=== PATIENT | female | born 1945 | race Caucasian/White ===

== ENCOUNTER → 2017-08-31 | Outpatient (CLI) | payer MEDICARE, BC ==
[2017-08-31 09:46] LABS: HCT 38.2 % (34.0-46.0); HGB 12.4 gm/dL (11.4-16.0); MCH 30.4 pg (25.0-35.0); MCHC 32.3 g/dL (31.0-37.0); MCV 94.1 fL (80.0-100.0); Mean Platelet Volume 6.8; Platelet Count 281 k/uL (150-450); RBC 4.07 m/uL (3.80-5.40); RDW 13.1 % (11.5-15.5); WBC 5.9 k/uL (3.8-10.6)
[2017-08-31 09:47] LABS: Appearance,Urine Clear (Clear); Bilirubin,Urine Negative (Negative); Blood,Urine Negative (Negative); Color,Urine Light Yellow; Glucose,Urine (UA) Negative (Negative); Ketones,Urine Trace (Negative); Leukocyte Esterase,Urine Negative (Negative); Nitrite,Urine Negative (Negative); Protein,Urine Negative (Negative); Specific Gravity,Urine 1.007 (1.001-1.035); Urobilinogen,Urine <2.0 mg/dL (<2.0)
[2017-08-31 09:49] LABS: Partial Thromboplastin Time 23.1 sec (22.0-30.0); Prothrombin Time 10.1 sec (9.0-12.0)
[2017-08-31 10:02] LABS: Albumin 4.3 g/dL (3.5-5.0); Calcium 9.1 mg/dL (8.4-10.2); Potassium 4.5 mmol/L (3.5-5.1); Total Bilirubin 0.5 mg/dL (0.2-1.3); Total Protein 6.4 g/dL (6.3-8.2)
== END ==
LOC: LABPAT 08:55
PROVIDERS: ATTEND Orthopaedic Surgery
DX: Z01.812 Encounter for preprocedural laboratory examination (principal); M17.12 Unilateral primary osteoarthritis, left knee; Z79.01 Long term (current) use of anticoagulants
CPT/HCPCS: 36415; 80053; 81003; 85027; 85610; 85730; 87070

== ENCOUNTER 2017-09-11 10:28 | Inpatient (IN) | payer MEDICARE, BC ==
[2017-09-04 11:30] VITALS: BMI 30.6
[~2017-09-11 10:28] MED LIST: ACETAMINOPHEN TAB 500 MG TAB PO ONE; DEXAMETHASONE SOD PHOSPHATE 10 MG/ML 1 ML VIAL IV ONE; LIDOCAINE 1% 20 ML VIAL (10MG/ML) FOR IV START INTRADERMA PRN; MIDAZOLAM 2 MG/2 ML VIAL IV PRN; ONDANSETRON 4 MG/2 ML VIAL IVP ONE; TRANEXAMIC ACID 1,000 MG in SODIUM CHLORIDE 0.9% 50 ML IVPB ONE; ceFAZolin IN SWFI 2 GM/20 ML SYRINGE IVP ONE; fentaNYL (PF) 50 MCG/ML 2 ML AMP IV PRN
[2017-09-11] MEDS: LACTATED RINGERS 1,000 ML IV SCH ×2 (11:24→16:59)
[2017-09-11] MEDS ORDERED: diphenhydrAMINE 50 MG/ML 1 ML VIAL ONE (12:41)
[2017-09-11] MEDS ORDERED: TRANEXAMIC ACID 1,000 MG/10 ML VIAL ONE (12:41)
[2017-09-11] MEDS ORDERED: SODIUM CHLORIDE 0.9% 100 ML BAG ONE (12:41)
[2017-09-11] MEDS ORDERED: MIDAZOLAM 2 MG/2 ML VIAL ONE (12:41)
[2017-09-11] MEDS ORDERED: PROPOFOL 10 MG/ML 20 ML VIAL IV ONE (12:41)
[2017-09-11] MEDS ORDERED: fentaNYL (PF) 50 MCG/ML 2 ML AMP ONE (12:41)
[2017-09-11] MEDS ORDERED: ceFAZolin 3,000 MG in SODIUM CHLORIDE 0.9% IRRIGATIO 3,000 ML IRRIGATION ONE (13:17)
[2017-09-11] MEDS ORDERED: ROPIVACAINE 246.25 MG, EPINEPHrine 0.5 MG, KETOROLAC 30 MG, cloNIDine HCL/PF 80 MCG, WA... MISCELLANE ONE ×5 (13:27)
[2017-09-11] MEDS ORDERED: LACTATED RINGERS 1,000 ML IV ONE (14:11)
[2017-09-11] MEDS ORDERED: MORPHINE SULFATE 2 MG/ML SYRINGE IVP PRN ×3 (15:38)
[2017-09-11] MEDS ORDERED: NALOXONE 0.4 MG/ML 1 ML VIAL IV PRN (15:38)
[2017-09-11] MEDS ORDERED: BISACODYL 10 MG SUPP RECTAL PRN (15:38)
--- NOTE | 2017-09-11 15:38 | P.OP ---
Date of Procedure: 09/11/17 Procedure(s) Performed: PREOPERATIVE DIAGNOSIS: Left knee severe osteoarthritis with genu varum POSTOPERATIVE DIAGNOSIS: Left knee severe osteoarthritis with genu varum OPERATION: Left knee cemented total replacement arthroplasty. ANESTHESIA: Spinal ESTIMATED BLOOD LOSS: [address]HER: none COMPLICATIONS: None apparent. COMPONENTS IMPLANTED: Persona system from [employer] INDICATIONS: Mrs. Barboza is a 72 year old female with a history of left knee osteoarthritis. Conservative treatment has been tried and has been unsuccessful in controlling symptoms adequately. The operation of knee replacement has been discussed at length in the office, as well as potential risks and complications. These are inclusive of, but not limited to: bleeding, infection, scarring, discomfort, blood vessel and nerve damage, need for further surgery, failure to relieve symptoms, persistence, recurrence, or worsening of problems, loosening, dislocation, wear, blood clot, pulmonary embolism, , gait dysfunction, stiffness, and other risks as discussed in the office. The patient elects to proceed and the consent form has been signed. PROCEDURE: The patient was taken to the operating room and positioned on the operating room table in the supine position. Anesthesia was initiated. Care was taken to make sure that all pressure points were adequately padded. The operative lower extremity was prepped and draped in the usual aseptic fashion using ChloraPrep. Ioban drape was used for the case and the patient received intravenous antibiotics within one hour of the incision. A pneumotourniquet and leg day were used for the case. The limb was exsanguinated with an Esmarch bandage and the tourniquet was inflated to 350 mmHg. Time-out was called confirming the patient's identity, side, procedure and administration of antibiotics and tranexamic acid, 1 g IV. The incision was then created midline directly over the knee, carried down through skin and into the subcutaneous tissues and down to fascia. Full thickness subcutaneous medial flap was developed. Medial parapatellar arthrotomy was performed and the interior of the knee was inspected. There was end-stage osteoarthritis of the knee with a mild to moderate genu varum type deformity. The fat pad was excised and proximal medial release on the tibia was completed using meticulous dissection and a curved osteotome. The anterior cruciate ligament was taken down. Note was made of significant attrition of the anterior and significant degenerative appearance of the posterior cruciate ligaments. The exposure was excellent. The knee was flexed 90 degrees and the patella was everted. A spot was chosen on the femur approximately 1 cm anterior to the posterior cruciate ligament insertion and an intramedullary hole was created within the femur. The intramedullary guide was then set to 5 degrees of valgus. The distal cutting block was attached and pinned into position. An appropriate amount of distal femoral resection was set. The oscillating saw was then used to make the distal femoral cut. This cut was confirmed to be flat with the flat end of an osteotome. The retractors were placed around the tibia and the tibial surface was addressed. The angle and depth of resection was adjusted using an extramedullary cutting guide. The guide had a built-in 3 degree posterior slope cut. Once the cutting guide was adjusted appropriately and in line with the axis of the tibia and confirmed to be in good position in relation to the second metatarsal and transmalleolar axis, the tibial cut was then created with protection of the posterior neurovascular structures and the collateral ligaments. The tibial cut surface was removed and sized. Femoral sizing was then accomplished using anterior referencing. Care was taken to analyze the posterior condyles for signs of deficiency or severe wear, and adjustments to the guide were made, as appropriate. 3 degree external rotation pins were placed. The cutting jig for the femur was applied to these pins. The planned cuts were further analyzed prior to performing them with the oscillating saw. No femoral notching was produced. Bone fragments were removed and the cut surfaces were finished, as necessary, with a reciprocating saw. Spacer block technique was then used to confirm that the flexion and extension gaps were equal. Soft tissue releases and adjustment of the tibial and/or femoral cuts were made, as necessary, until the gaps were equal. This included release of the posterior cruciate ligament, which was tight in this patient. The femur was then further finished for a posterior cruciate ligament substituting component. Patellar resurfacing was performed using a reamer. The size of the required patellar component was estimated and the patellar surface was then reamed down to a residual thickness which would recreate the [place] thickness with the component. The exact placement of the patellar component was adjusted for position based on preoperative x-rays and intraoperative findings. Prior to placing trial components, anesthetic solution consisting of ropivicaine with epinephrine, ketorolac, and clonidine was injected carefully and methodically in a grid pattern using aspiration technique into the soft tissue around the knee circumferentially, starting with the deeper tissues first and progressing to fascia, and then finally the skin/subcutaneous tissue. Particular care was taken when injecting the posterior capsule. The trial components were inserted. The tibial tray was allowed to self center and the patella was noted to track very well. The position of the tibial component was marked and the tibia was then finished for a stemmed tibial component. Cement was mixed on the back table and applied to the final components. Trial components were removed and the cut surfaces of the bone were pulse lavaged thoroughly and dried. Cement was then applied to the tibial surface and pressurized into the surface using finger pressurization technique. The tibial component was then applied and excess cement was removed after it was impacted securely and noted to be flush with the cut surface. In similar fashion, the cement was applied to the cut femoral surface, pressurized in using finger pressurization and the component was impacted into place. Excess cement was removed. The polyethylene spacer was then implanted and locked into position. The patellar component was then applied in similar technique and a patellar clamp was used to hold the patella in place as the cement hardened. Once the cement had fully hardened, the knee was reinspected. Any other cement extrusion was removed and final kinematic testing showed range of motion from 0 to 130 degrees with excellent stability, both medially and laterally and appropriate alignment of the leg. Patellar tracking was excellent. The knee was then thoroughly pulse lavaged with normal saline. The tourniquet was deflated and hemostasis was obtained with electrocautery and IV tranexamic acid, 1 g given prior to inflation of the tourniquet and another gram given at the time of closure. Closure was with #2 Ethibond in the fascia and supplemented with #2 Quill, 2-0 Vicryl suture was used for the subcutaneous tissues and 3-0 Quill for the skin. Dermabond/Steri-Strips were then applied. A lightly compressive dressing was applied using Webril and an Rubio wrap. The patient was then transferred to stretcher and taken to the recovery room in stable condition. Sponge and needle counts were correct.
--- NOTE | 2017-09-11 16:31 | XR ---
EXAMINATION TYPE: XR knee limited LT DATE OF EXAM: 09/11/2017 COMPARISON: None HISTORY: Postop knee replacement TECHNIQUE: 2 view left knee FINDINGS: Tibial and femoral components of in place. Postsurgical changes are evident. No acute fract ures are present. IMPRESSION: 1. No acute fracture post knee replacement.
[2017-09-11] MEDS ORDERED: WARFARIN 5 MG TAB PO ONE (18:00)
[2017-09-11] MEDS: SENNOSIDES-DOCUSATE SODIUM 1 EACH TAB PO SCH (21:28)
[2017-09-11] MEDS: HYDROcodone/APAP 7.5-325MG 1 EACH TAB PO PRN (21:29)
[2017-09-11] MEDS: ceFAZolin IN SWFI 2 GM/20 ML SYRINGE IVP SCH (21:56)
--- NOTE | 2017-09-12 00:32 | CONS ---
CONSULTATION DATE OF SERVICE: 09/11/2017 REASON FOR CONSULTATION: Advice regarding DJD and other multiple medical issues requested by Dr. Galeas. HISTORY OF PRESENT ILLNESS: This 72-year-old woman with a past history of DJD, history of varicose veins, history of leaky heart valve, history of skin cancer, being followed by Dr. Corinne Quintero in the outpatient setting underwent a left total knee joint arthroplasty by Dr. Galeas. There is no history of fever, rigors. No history of headache, loss of consciousness, seizures at this time. The patient is started on Coumadin for DVT prophylaxis. PAST MEDICAL HISTORY: History of DJD, history of varicose veins, history of skin cancer. MEDICATIONS: Home medications are: 1. Coumadin yesterday. 2. Zocor 20 mg q.h.s. 3. Mobic 7.5 daily p.r.n. 4. Glucosamine. 5. Vitamin D3 1000 mg daily. 6. Calcium 600 mg p.o. daily. ALLERGIES: None. FAMILY HISTORY: History of cancer in the family. SOCIAL HISTORY: No history of smoking. Occasional alcohol intake. REVIEW OF SYSTEMS: ENT: No diminished vision or hearing. Cardio system: No angina or palpitations. Respiratory: No cough. GI: No nausea or vomiting. : No dysuria. Nervous System: No numbness or weakness. ALLERGY/IMMUNOLOGY: As mentioned earlier. HEMATOLOGY/ONCOLOGY: No history of anemia. Endocrine: No history of diabetes or hypothyroidism. CONSTITUTIONAL: As mentioned earlier. Dermatology: Negative. Rheumatology: Negative. Psychiatry: As mentioned earlier. PHYSICAL EXAMINATION: Alert, oriented x3. Pulse 72, blood pressure 130/52, respiration 16, temp is normal, pulse ox 99% on room air. HEENT: Conjunctivae normal. Oral mucosa moist. Neck is no jugular venous distention. No carotid bruit. No lymph nodes enlargement. Cardiovascular: S1, S2 muffled. Respirations: Breath sounds diminished in the bases. No rhonchi. No crackles. ABDOMEN: Soft, nontender. LEGS: Status post left knee arthroplasty. NERVOUS SYSTEM: Higher functions as mentioned earlier. Moves all four limbs. No focal deficits. Lymphatics: No lymph nodes palpable in the neck, axillae or groin. SKIN: No ulcer, rash or bleeding. LABS: Done recently. Outpatient CBC, BMP within normal limits. ASSESSMENT: 1. Status post left total knee joint arthroplasty. 2. History of skin cancer. 3. History of degenerative joint disease. 4. Hyperlipidemia. 5. FULL CODE. RECOMMENDATIONS AND DISCUSSION: This 72-year-old woman who presented with multiple medical issues, at this time, I recommend to continue current medications, management and symptomatic treatment. Resume the home medications. DVT prophylaxis: Coumadin monitoring. Incentive spirometry. We will follow the patient closely with you. Also recommend follow up with surgery. Patient may be asked to follow up with Dr. Corinne Quintero closely after discharge. Thank you, Dr. Galeas, for letting us participate in the care of this patient. MMODL / IJN: [id number] /
[2017-09-12] MEDS: HYDROcodone/APAP 7.5-325MG 1 EACH TAB PO PRN ×4 (01:33→21:13)
[2017-09-12] MEDS: ceFAZolin IN SWFI 2 GM/20 ML SYRINGE IVP SCH (04:43)
[2017-09-12 07:42] LABS: Basophils % (A) 0 %; Eosinophils # (A) 0.1 k/uL (0-0.7); Eosinophils % (A) 1 %; HCT 33.1 % (34.0-46.0); HGB 10.9 gm/dL (11.4-16.0); Lymphocytes # (A) 0.7 k/uL (1.0-4.8); Lymphocytes % (A) 8 %; MCH 30.5 pg (25.0-35.0); MCHC 32.8 g/dL (31.0-37.0); MCV 92.9 fL (80.0-100.0); Mean Platelet Volume 7.1; Monocytes # (A) 0.5 k/uL (0-1.0); Monocytes % (A) 6 %; Neutrophils # (A) 7.1 k/uL (1.3-7.7); Neutrophils % (A) 85 %; Platelet Count 225 k/uL (150-450); RBC 3.56 m/uL (3.80-5.40); RDW 12.9 % (11.5-15.5); WBC 8.4 k/uL (3.8-10.6)
[2017-09-12 07:56] LABS: INR 1.2 (<1.2); Prothrombin Time 11.7 sec (9.0-12.0)
[2017-09-12] MEDS: CALCIUM CARBONATE 500 MG CHEWABLE PO SCH (08:45)
[2017-09-12] MEDS: CHOLECALCIFEROL 1,000 UNIT TAB PO SCH (08:45)
[2017-09-12] MEDS: traMADol 50 MG TAB PO PRN ×2 (10:16→17:38)
--- NOTE | 2017-09-12 11:10 | P.PN ---
Subjective Progress Note Date: 09/12/17 Principal diagnosis: Status post left total knee arthroplasty This is a 72 year-old female post left total knee arthroplasty. This is post- op day 1. The patient was evaluated at the bedside today. The patient denies nausea, vomiting, abdominal pain, shortness of breath, and chest pain this morning. She states her pain is controlled at this time. The patient has been up with physical therapy. The patient was feeling dizzy upon getting up earlier this morning and upon getting orthostatic vitals the patient did become dizzy and vomited. Objective - Vital Signs Vital signs: Vital Signs Temp 98.1 F 09/12/17 07:00 Pulse 76 09/12/17 10:38 Resp 16 09/12/17 10:38 BP 117/61 09/12/17 10:38 Pulse Ox 95 09/12/17 10:38 Intake & Output 09/11/17 09/12/17 09/12/17 18:59 06:59 18:59 Intake Total 1401 1030 Output Total 50 600 Balance 1351 430 Weight 77.111 kg Intake: IV 1401 Intake, IV Titration 880 Amount Lactated Ringers 1,000 ml 880 @ 20 mls/hr IV .Q24H SIMA Rx#:[id number] Oral 150 Output: Urine 600 Estimated Blood Loss 50 Other: Voiding Method Toilet # Voids 2 - Exam The patient does not appear in acute distress. Alert and orientated x3. Dressing is clean dry and intact. Incision appears fine with no erythema or active drainage. Calf is soft and nontender. Good foot and ankle motion without difficulty. Sensation and circulatory status is intact. - Labs CBC & Chem 7: 09/12/17 06:43 Labs: Abnormal Lab Results - Last 24 Hours (Table) 09/12/17 09/12/17 Range/Units 06:43 06:43 RBC 3.56 L (3.80-5.40) m/uL Hgb 10.9 L (11.4-16.0) gm/dL Hct 33.1 L (34.0-46.0) % Lymphocytes # 0.7 L (1.0-4.8) k/uL INR 1.2 H (<1.2) Assessment and Plan (1) Osteoarthritis of left knee Current Visit: Yes Status: Acute Code(s): M17.12 - UNILATERAL PRIMARY OSTEOARTHRITIS, LEFT KNEE SNOMED Code(s): 299308111660011 (2) Status post total left knee replacement Current Visit: Yes Status: Acute Code(s): Z96.652 - PRESENCE OF LEFT ARTIFICIAL KNEE JOINT SNOMED Code(s): 5763630657912 Plan: 1. Continue pain control 2. Anticoagulation with Coumadin per protocol 3. Continue physical therapy and ambulation 4. Anticipate discharge home either today or tomorrow upon how the patient feels.
[2017-09-12] MEDS: MULTIVITAMINS, THERA 1 EACH TAB PO SCH (12:10)
[2017-09-12] MEDS: ONDANSETRON 4 MG/2 ML VIAL IVP PRN (13:22)
[2017-09-12] MEDS: LACTATED RINGERS 1,000 ML IV SCH (14:10)
--- NOTE | 2017-09-12 15:23 | PN ---
PROGRESS NOTE DATE OF SERVICE: 09/12/2017. This 72-year-old woman who was admitted after left total knee arthroplasty is complains of dizziness. No chest pain. No palpitations. No fever. PHYSICAL EXAM: Alert, oriented x3. Pulse 72, blood pressure 117/61, respirations 16, temperature is normal, pulse ox 94% on room air. HEENT: Conjunctivae normal. Oral mucosa moist. NECK: No jugular venous distention. No carotid bruit. CARDIOVASCULAR: S1, S2. RESPIRATORY: Breath sounds diminished in the bases. No rhonchi. No crackles. ABDOMEN: Soft, nontender. LEGS: Status post left knee arthroplasty. NERVOUS SYSTEM: No focal deficits. LABS: WBC 8, hemoglobin 10.9. ASSESSMENT: 1. Status post left total knee joint arthroplasty. 2. History of skin cancer. 3. History of degenerative joint disease. 4. Hyperlipidemia. RECOMMENDATIONS AND DISCUSSION: I recommend to continue current management and orthostatic vitals. Otherwise continue to monitor and discharge per Orthopedic Surgery. The patient discharged, I recommend close follow up with primary physician. The rest of the recommendations per Orthopedic Surgery. Further recommendations to follow. MMODL / IJN: [id number] / CHRYSTAL
[2017-09-12] MEDS ORDERED: WARFARIN 5 MG TAB PO ONE (18:00)
[2017-09-12] MEDS ORDERED: ATORVASTATIN 10 MG TAB PO SCH (21:00)
[2017-09-12] MEDS: SENNOSIDES-DOCUSATE SODIUM 1 EACH TAB PO SCH (21:13)
[2017-09-13] MEDS: traMADol 50 MG TAB PO PRN ×2 (00:03→06:11)
[2017-09-13] MEDS: HYDROcodone/APAP 7.5-325MG 1 EACH TAB PO PRN ×2 (02:46→08:41)
[2017-09-13] MEDS: ONDANSETRON 4 MG/2 ML VIAL IVP PRN (06:11)
[2017-09-13 07:34] VITALS: BP 125/67; PULSE 69; RESP 14; TEMP 98.5
[2017-09-13] MEDS: CHOLECALCIFEROL 1,000 UNIT TAB PO SCH (08:36)
[2017-09-13] MEDS: CALCIUM CARBONATE 500 MG CHEWABLE PO SCH (08:36)
[2017-09-13 08:47] LABS: INR 1.8 (<1.2); Prothrombin Time 16.7 sec (9.0-12.0)
--- NOTE | 2017-09-13 08:58 | P.DS ---
Providers Date of admission: 09/11/17 10:28 Expected date of discharge: 09/13/17 Attending physician: Lester Galeas Consults: 09/11/17 15:43 Consult Physician Routine Consulting Provider: Corinne Quintero Consult Reason/Comments: your patient, medical coverage following knee replacement Do you want consulting provider notified?: Yes 09/11/17 16:37 Consult Physician Routine Consulting Provider: Niecy Ac Consult Reason/Comments: medical management Do you want consulting provider notified?: Yes Primary care physician: Corinne Quintero - Discharge Diagnosis(es) (1) Osteoarthritis of left knee Current Visit: Yes Status: Acute (2) Status post total left knee replacement Current Visit: Yes Status: Acute Hospital Course: This is a 72-year-old female last seen in our office with complaints of left knee pain. Patient has known history of degenerative arthritis of the left knee and presented to discuss options. After discussion and consideration, the patient elected to proceed with a left total knee arthroplasty. Patient was seen preoperatively, and medically cleared for surgery by her primary care physician. Patient was admitted to [facility] underwent left total knee arthroplasty on 09/11/[address] Galeas. The procedure was performed without complications or sequelae. The patient is seen and evaluated at bedside today. Pain is well-controlled. Patient has no new complaints today and denies any fevers, chills, chest pain, or shortness of breath. She has been experiencing nausea and vomiting over the last day. Vital signs are stable. Dressing is clean dry and intact. Incision looks fine with no erythema or active drainage. Calf is soft and nontender. Patient has full foot and ankle motion without difficulty. Patient's left lower extremity is neurovascularly intact. The patient is orthopedically stable for discharge today. Pertinent Studies: Laboratory Tests 09/12/17 09/13/17 06:43 08:21 WBC 8.4 RBC 3.56 L Hgb 10.9 L Hct 33.1 L PT 16.7 H INR 1.8 H Patient Condition at Discharge: Stable Plan - Discharge Summary Discharge Rx Participant: Yes New Discharge Prescriptions: New Hydrocodone/Acetaminophen [Manly 7.5-325] 1 - 2 tab PO Q4-6H PRN 7 Days #84 tab PRN Reason: Pain Sennosides-Docusate Sodium [Senokot-S] 2 tab PO DAILY #30 tablet Warfarin [Coumadin] 2.5 mg PO DAILY #30 tab Ondansetron Odt [Zofran Odt] 4 mg PO Q8HR PRN #20 tab PRN Reason: Nausea No Action Glucosam/Ambrosio-Msm1/C/Tiburcio/Bosw [Glucosamine-Chondroitin Tablet] 1 tab PO DAILY Cholecalciferol [Vitamin D3] 1,000 unit PO DAILY Calcium Carbonate [Calcium] 600 mg PO DAILY Simvastatin [Zocor] 20 mg PO HS Meloxicam [Mobic] 7.5 mg PO DAILY PRN PRN Reason: Pain Warfarin [Coumadin] See Taper PO DIRECTED Discharge Medication List Calcium Carbonate [Calcium] 600 mg PO DAILY 09/04/17 [History] Cholecalciferol [Vitamin D3] 1,000 unit PO DAILY 09/04/17 [History] Glucosam/Ambrosio-Msm1/C/Tiburcio/Bosw [Glucosamine-Chondroitin Tablet] 1 tab PO DAILY 09/04/17 [History] Meloxicam [Mobic] 7.5 mg PO DAILY PRN 09/04/17 [History] Simvastatin [Zocor] 20 mg PO HS 09/04/17 [History] Warfarin [Coumadin] See Taper PO DIRECTED 09/11/17 [History] Hydrocodone/Acetaminophen [Manly 7.5-325] 1 - 2 tab PO Q4-6H PRN 7 Days #84 tab 09/12/17 [Rx] Sennosides-Docusate Sodium [Senokot-S] 2 tab PO DAILY #30 tablet 09/12/17 [Rx] Warfarin [Coumadin] 2.5 mg PO DAILY #30 tab 09/12/17 [Rx] Ondansetron Odt [Zofran Odt] 4 mg PO Q8HR PRN #20 tab 09/13/17 [Rx] Follow up Appointment(s)/Referral(s): [facility], [NON-STAFF] - Corinne Quintero MD [Primary Care Provider] - 09/19/17 11:00 am Lester Galeas MD [STAFF PHYSICIAN] - 09/25/17 2:55 pm Ambulatory/Diagnostic Orders: Continuous Passive Motion (CPM) Machine [DME.AMB1] Time Frame: 3 Weeks, Location : None Selected Prothrombin Time INR [LAB.AMB] Location: None Selected Activity/Diet/Wound Care/Special Instructions: Weightbearing as tolerated with a walker CPM daily Daily dressing changes, keep incision clean and dry May shower in 3 days if no drainage Coumadin 2.5 mg 1 by mouth daily with weekly PT/INRs Call [facility] with questions or concerns [phone] Call once home to arrange CPM [facility] [phone] - [facility] Discharge Disposition: HOME WITH HOME HEALTH SERVICES
[2017-09-13] MEDS ORDERED: PANTOPRAZOLE 40 MG/10 ML VIAL IVP SCH (10:45)
[2017-09-13] MEDS: MULTIVITAMINS, THERA 1 EACH TAB PO SCH (11:03)
--- NOTE | 2017-09-13 11:49 | US ---
EXAMINATION TYPE: US venous doppler duplex LE LT DATE OF EXAM: 09/13/2017 10:45 AM COMPARISON: NONE CLINICAL HISTORY: Rule Out DVT. SIDE PERFORMED: left TECHNIQUE: The lower extremity deep venous system is examined utilizing real time linear array sonog corbin with graded compression, doppler sonography and color-flow sonography. VESSELS IMAGED: External Iliac Vein (EIV) Common Femoral Vein Deep Femoral Vein Greater Saphenous Vein * Femoral Vein Popliteal Vein Small Saphenous Vein * Proximal Calf Veins (* superficial vessels) Left Leg: Negative for DVT IMPRESSION: Grayscale, color doppler, spectral doppler imaging performed of the deep veins of the lo wer extremities. There is normal flow, compressibility, vascular waveforms.
--- NOTE | 2017-09-13 14:17 | PN ---
PROGRESS NOTE DATE OF SERVICE: 09/13/2017 This is a 72-year-old woman was admitted with left total knee arthroplasty, complaining of left knee pain and leg swelling. Also no chest pain. No palpitations. No fever. PHYSICAL EXAM: Alert and oriented x3. Pulse 69, blood pressure 120/67, respiration 14, temperature 98.4, pulse ox 94% on room air. HEENT: Conjunctivae normal. NECK: No jugular venous distension. CARDIOVASCULAR: S1, S2, muffled. RESPIRATORY: Breath sounds diminished at the bases, no rhonchi, no crackles. ABDOMEN: Soft, nontender. LEGS: Status post knee surgery. Otherwise, minimal swelling also present. NERVOUS SYSTEM: No focal deficits. LABS: INR is 1.8, hemoglobin is 10.9. ASSESSMENT: 1. Status post left total knee arthroplasty. 2. History of skin cancer. 3. History of degenerative joint disease. 4. Hyperlipidemia. 5. Left knee swelling and left leg swelling with negative ultrasound. RECOMMENDATION AND DISCUSSION: In this 72-year-old woman who presented with multiple medical issues at this time, I would recommend to continue current management. Orthopedics is planning discharge. I would recommend close follow up with the primary physician, and Dr. Quintero and rest of the recommendation per Orthopedic Surgery. Further recommendations to follow. MMODL / IJN: [id number] /
[2017-09-13] MEDS ORDERED: WARFARIN 5 MG TAB PO ONE (18:00)
== END 2017-09-13 13:45 | disposition home health service (06) | DRG 470 ==
LOC: 2ORMAIN 10:28 → 3SUR 16:21
PROVIDERS: ADMIT Orthopaedic Surgery; ATTEND Orthopaedic Surgery
PROC: 0SRD0J9 Replacement of Left Knee Joint with Synthetic Substitute, Cemented, Open Approach (ICD-10-PCS; principal; 2017-09-11 12:30)
DX: M17.12 Unilateral primary osteoarthritis, left knee (principal); I38 Endocarditis, valve unspecified; M21.162 Varus deformity, not elsewhere classified, left knee; E78.5 Hyperlipidemia, unspecified; Z80.9 Family history of malignant neoplasm, unspecified; Z79.01 Long term (current) use of anticoagulants; Z79.1 Long term (current) use of non-steroidal anti-inflammatories (NSAID); Z79.899 Other long term (current) drug therapy; Z85.820 Personal history of malignant melanoma of skin; Z98.51 Tubal ligation status
CPT/HCPCS: 85025; 85610; 88300

== ENCOUNTER 2019-02-07 10:39 | Day surgery (SDC) | payer MEDICARE, BC ==
[2019-02-05 17:39] VITALS: BMI 30.2
[~2019-02-07 10:39] MED LIST changes: -ACETAMINOPHEN TAB 500 MG TAB PO ONE; -DEXAMETHASONE SOD PHOSPHATE 10 MG/ML 1 ML VIAL IV ONE; +LACTATED RINGERS 1,000 ML IV SCH; -MIDAZOLAM 2 MG/2 ML VIAL IV PRN; -ONDANSETRON 4 MG/2 ML VIAL IVP ONE; -TRANEXAMIC ACID 1,000 MG in SODIUM CHLORIDE 0.9% 50 ML IVPB ONE; -ceFAZolin IN SWFI 2 GM/20 ML SYRINGE IVP ONE; -fentaNYL (PF) 50 MCG/ML 2 ML AMP IV PRN
[2019-02-07 11:14] VITALS: RESP 18; TEMP 98.8
[2019-02-07 11:22] LABS: Glucose,Whole Blood 98 mg/dL (75-99)
[2019-02-07] MEDS ORDERED: PROPOFOL 10 MG/ML 20 ML VIAL IV ONE (11:33)
--- NOTE | 2019-02-07 12:01 | P.PCN ---
Date of Procedure: 02/07/19 Procedure(s) Performed: BRIEF HISTORY: Patient is a 73-year-old pleasant white female scheduled for an elective colonoscopy as a part of evaluation of positive cologuard. her last colonoscopy was 5 years ago PROCEDURE PERFORMED: Colonoscopywith biopsy and tattooing with Lorenza ink PREOPERATIVE DIAGNOSIS: positive cologuard IV sedation per Anesthesia. PROCEDURE: After informed consent was obtained, the patient, was brought into the endoscopy unit. IV sedation was administered by Anesthesia under continuous monitoring. Digital rectal examination was normal. Initially the Olympus CF-160 flexible video colonoscope was then inserted in the rectum, gradually advanced into the cecum without any difficulty. Careful examination was performed as the scope was gradually being withdrawn. Ileocecal valve and the appendiceal orifice were visualized and appeared normal. Prep was excellent. Mucosa of the cecum, ascending colon, transverse colon, descending colon, sigmoid colon, and rectum appeared normal. Retroflexion was performed in the rectum and no lesions were seen. The patient tolerated the procedure well. IMPRESSION: 4-5 cm raised lesion in the proximal descending colon closer to the hepatic flexure extending from 65 to 70 cm from the anal verge status post multiple biopsies followed by tattooing with Lorenza ink scattered sigmoidal diverticulosis RECOMMENDATIONS: Findings of this examination were discussed with the patient as well as a family. She was advised to follow with the biopsy results. She'll be seen in office next week to discuss the biopsy results. In the meantime she will be scheduled for CT of the abdomen and pelvis..
[2019-02-07 12:18] VITALS: BP 147/71; PULSE 74
== END 2019-02-07 12:34 | disposition home or self-care (01) ==
LOC: ORWHC2ENDO 10:39
PROVIDERS: ATTEND Internal Medicine Gastroenterology
DX: K57.30 Diverticulosis of large intestine without perforation or abscess without bleeding (principal); C83.39 Diffuse large B-cell lymphoma, extranodal and solid organ sites; C80.1 Malignant (primary) neoplasm, unspecified; I38 Endocarditis, valve unspecified; Z85.828 Personal history of other malignant neoplasm of skin; M19.90 Unspecified osteoarthritis, unspecified site; Z79.899 Other long term (current) drug therapy
CPT/HCPCS: 88305; 88342; 88341; 45380; 45381; J2704; 44404

== ENCOUNTER 2019-02-20 14:16 | Inpatient (IN) | payer BC, MEDICARE ==
[2019-02-20] MEDS ORDERED: NALOXONE 0.4 MG/ML 1 ML VIAL IV PRN (16:29)
[2019-02-20] MEDS ORDERED: HYDROcodone/APAP 5-325MG 1 EACH TAB PO PRN (16:32)
[2019-02-20] MEDS ORDERED: IOPAMIDOL CONTRAST (ORAL USE) VIAL PO PRN (16:41)
[2019-02-20 17:11] LABS: Basophils % (A) 1 %; Eosinophils # (A) 0.1 k/uL (0-0.7); Eosinophils % (A) 1 %; HCT 30.4 % (34.0-46.0); HGB 9.7 gm/dL (11.4-16.0); Lymphocytes # (A) 0.8 k/uL (1.0-4.8); Lymphocytes % (A) 10 %; MCH 28.5 pg (25.0-35.0); MCHC 31.9 g/dL (31.0-37.0); MCV 89.3 fL (80.0-100.0); Mean Platelet Volume 7.2; Monocytes # (A) 0.4 k/uL (0-1.0); Monocytes % (A) 5 %; Neutrophils # (A) 6.7 k/uL (1.3-7.7); Neutrophils % (A) 82 %; Platelet Count 330 k/uL (150-450); RDW 13.2 % (11.5-15.5); WBC 8.2 k/uL (3.8-10.6)
--- NOTE | 2019-02-20 17:14 | XR ---
EXAMINATION TYPE: XR chest 1V portable DATE OF EXAM: 02/20/2019 COMPARISON: NONE HISTORY: Short of breath TECHNIQUE: Single view FINDINGS: Heart is borderline enlarged. There is no heart failure. Lungs are clear of consolidation. There is no pleural effusion. There is mild subsegmental atelectasis left lung base. IMPRESSION: Minimal subsegmental atelectasis.
[2019-02-20 17:22] LABS: INR 1.1 (<1.2); Prothrombin Time 11.3 sec (9.0-12.0)
[2019-02-20 17:24] LABS: Albumin 3.9 g/dL (3.5-5.0); Calcium 11.3 mg/dL (8.4-10.2); Magnesium 1.5 mg/dL (1.6-2.3); Potassium 3.1 mmol/L (3.5-5.1); Total Bilirubin 0.5 mg/dL (0.2-1.3); Total Protein 6.1 g/dL (6.3-8.2)
[2019-02-20] MEDS: SODIUM CHLORIDE 0.9% 1,000 ML IV SCH (20:39)
[2019-02-20] MEDS: HEPARIN SODIUM,PORCINE 5,000 UNIT/ML 1 ML VIAL SQ SCH (20:39)
[2019-02-20 21:09] LABS: Appearance,Urine Clear (Clear); Bilirubin,Urine Negative (Negative); Blood,Urine Negative (Negative); Color,Urine Light Yellow; Glucose,Urine (UA) Negative (Negative); Ketones,Urine Negative (Negative); Leukocyte Esterase,Urine Moderate (Negative); Mucus,Urine Rare /hpf; Nitrite,Urine Negative (Negative); PH, Urine 5.5 (5.0-8.0); Protein,Urine Negative (Negative); RBC,Urine 1 /hpf (0-5); Specific Gravity,Urine 1.009 (1.001-1.035); Squamous Epithelial Cell,Urine <1 /hpf (0-4); Urobilinogen,Urine <2.0 mg/dL (<2.0); WBC,Urine 24 /hpf (0-5)
[2019-02-20] MEDS ORDERED: SODIUM CHLORIDE 0.9% 1,000 ML IV ONE (21:41)
--- NOTE | 2019-02-20 22:55 | HP ---
HISTORY AND PHYSICAL CHIEF COMPLAINTS: Wobbly gait and as well as lymphoma. HISTORY OF PRESENT ILLNESS: This 73-year-old woman with a past medical history of multiple medical problems including DJD, history of varicose veins, history of breast surgery, history of knee joint surgery being followed by Corinne Quintero in the outpatient setting was recently evaluated in the outpatient setting by Dr. Garcias for positive Cologuard testing. Colonoscopy showed a raised lesion 4.5 cm in the proximal descending colon closer to the hepatic flexure extending from 60 to 70% in the anal verge and biopsies were taken. The biopsy report showed a crushed lymphoproliferative neoplasm consistent with diffuse large B-cell lymphoma, germinal center type involving submucosa of the colon. Apparently outpatient evaluation ongoing, but currently the patient had wobbly gait and difficulty walking this morning and the patient went to [facility] in [place] and Dr. Godinez discussed the case at length over the phone. The patient transferred to [facility] for further evaluation and treatment. There is no history of fever, rigors or chills. No history of headache, loss of consciousness or seizures. Initial evaluation at [place] including CT scan of the brain showed only white matter ischemic changes. Otherwise, the chest x-ray was unremarkable. There is no history of fever, rigors or chills. No history of headache, loss of consciousness or seizures. Serum lactic acid was high and the pt has features of possible uti with sepsis from the labs. PAST MEDICAL HISTORY: History of DJD, history of recent diagnosis of lymphoma, history of breast surgery, history of knee replacement. MEDICATIONS: Home medications are: 1. Zocor 20 mg q.h.s. 2. Glucosamine chondroitin 1 tablet p.o. daily. 3. Folic acid 0.8 daily. 4. Vitamin B12 1000 mcg p.o. daily. 5. Vitamin D3 1000 daily. 6. Calcium 600 mg p.o. daily. 7. Vitamin C 1000 mg p.o. daily. 8. Tylenol 500,000 q.8h p.r.n. ALLERGIES: None. FAMILY HISTORY: History of colon cancer in the family. SOCIAL HISTORY: No history of smoking. Occasional alcohol intake. REVIEW OF SYSTEMS: ENT: Diminished vision. Diminished hearing. CARDIOVASCULAR: No angina or palpitations. RESPIRATION: No cough. No hemoptysis. GI as mentioned earlier. : No dysuria. CENTRAL NERVOUS SYSTEM: As mentioned earlier. ALLERGY/IMMUNOLOGY: No asthma or hayfever. MUSCULOSKELETAL as mentioned earlier. HEMATOLOGY/ONCOLOGY: As mentioned earlier. ENDOCRINE no history of diabetes or hypothyroidism. CONSTITUTIONAL: As mentioned earlier. DERMATOLOGY: Negative. RHEUMATOLOGY negative. PSYCHIATRY as mentioned. PHYSICAL EXAMINATION: Alert and oriented times three. Pulse 83, blood pressure 180/74, respirations 16, temperature 98.2, pulse ox 93% on room air. HEENT: Conjunctivae normal. NECK: No JVD. CARDIOVASCULAR system: S1, S2 muffled. No S3, no S4. RESPIRATORY: Breath sounds diminished in the bases. No rhonchi. No crackles. ABDOMEN: Soft, nontender. No mass palpable. LEGS: No edema. No swelling. NERVOUS SYSTEM: Higher functions as mentioned earlier. , Otherwise cranial nerves 2 thru 12 grossly intact. Moves all 4 limbs. No sensory or cerebellar dysfunction. LYMPHATICS: No lymph nodes palpable in the neck, axilla or groin. SKIN: No ulcers, no rashes and no bleeding. JOINTS: No active deforming arthropathy. LABS: Awaited at this time. ASSESSMENT: 1. Gait dysfunction and wobbly gait, possible acute transient ischemic attack. 2. Recently diagnosed diffuse large B-cell lymphoma, germinal center type involvement of the submucous of the colon status post colonoscopy and biopsy. High lactic acid UTI with possible sepsis POA 3. Hypertension. 4. Degenerative joint disease. 5. History of varicose veins. 6. History of hyperlipidemia. 7. History of skin cancer. RECOMMENDATIONS AND DISCUSSION: This 72-year-old who woman who presented with multiple complex medical issues, we will monitor the patient closely, continue the current medications, management and symptomatic treatment. I recommend antiplatelet agents and resume the home medications. DVT prophylaxis. Also recommend a CT scan of the abdomen and pelvis and as well as chest also to complete the workup. Otherwise, as a part of the workup. Otherwise neurology will be consulted. Neuro checks. Complete neurology evaluation. Guarded prognosis because of multiple complex medical issues. Further recommendations to follow. A copy of dictation will be forwarded to Dr. Corinne Quintero who is the primary physician. Discussed with the patient who understands and agrees. MMODL / IJN: [id number] / MTDJewel
[2019-02-20] MEDS: TEMAZEPAM 15 MG CAP PO PRN (23:09)
[2019-02-21 05:54] LABS: Basophils % (A) 0 %; Eosinophils # (A) 0.1 k/uL (0-0.7); Eosinophils % (A) 2 %; HCT 26.9 % (34.0-46.0); HGB 8.8 gm/dL (11.4-16.0); Lymphocytes % (A) 14 %; MCH 29.6 pg (25.0-35.0); MCHC 32.8 g/dL (31.0-37.0); MCV 90.4 fL (80.0-100.0); Mean Platelet Volume 7.8; Monocytes # (A) 0.3 k/uL (0-1.0); Monocytes % (A) 5 %; Neutrophils # (A) 5.1 k/uL (1.3-7.7); Neutrophils % (A) 76 %; Platelet Count 288 k/uL (150-450); RBC 2.98 m/uL (3.80-5.40); RDW 13.1 % (11.5-15.5); WBC 6.8 k/uL (3.8-10.6)
[2019-02-21 06:08] LABS: Calcium 10.3 mg/dL (8.4-10.2)
[2019-02-21] MEDS: PANTOPRAZOLE 40 MG TABLET PO SCH (08:21)
[2019-02-21] MEDS: MULTIVITAMINS, THERA 1 EACH TAB PO SCH (08:22)
[2019-02-21] MEDS: HEPARIN SODIUM,PORCINE 5,000 UNIT/ML 1 ML VIAL SQ SCH ×2 (08:22→20:22)
[2019-02-21] MEDS ORDERED: RX INFO: IV CONTRAST WAS GIVEN 1 EACH MISC MISCELLANE PRN (11:14)
--- NOTE | 2019-02-21 12:58 | CT ---
EXAMINATION TYPE: CT chest w con DATE OF EXAM: 02/21/2019 COMPARISON: Radiograph 02/20/2019 HISTORY: 73-year-old female Lymphoma TECHNIQUE: Contiguous axial scanning of the chest after the administration of 100 mL of Isovue 300. Coronal/sagittal reconstructions performed. CT DLP: 233.3mGycm. Automatic exposure control utilized for a dose reduction. FINDINGS: Heart upper limits of normal in size without pericardial effusion. No axillary, mediastinal, or hilar lymphadenopathy by CT size criteria. Aorta normal caliber with mild atherosclerotic arch calcifications. Direct takeoff of the left verteb ral artery directly from the aortic arch. Mild biapical pleural-parenchymal scarring. Some mild dependent atelectasis. Strandy atelectasis or s carring medial basal right middle lobe. No consolidation or pleural effusion. Visualized upper abdomen shows a 1.9 cm hypodense lesion within segment 2/3 of the left liver lobe, i ndeterminate, likely a cyst. Partially visualized large soft tissue mass of the left mid abdomen possibly based in the mesentery a nd tightly abutting the distal transverse colon measuring at least 11.8 x 8.2 cm. Additional 1.9 cm p eritoneal deposit in the left subphrenic region with trace perisplenic and perihepatic ascites. Bones: No osseous destructive process. Mild degenerative disc disease mid thoracic spine. IMPRESSION: 1. No suspicious pulmonary nodule or thoracic lymphadenopathy. 2. Partially visualized large soft tissue mass of the left mid abdomen tightly abutting the distal tr ansverse colon measuring at least 11.8 x 8.2 cm. This likely corresponds to the known lymphoma report ed in the patient's history. 3. Additional 1.9 cm peritoneal deposit in the left subphrenic region. Trace upper abdominal ascites.
[2019-02-21] MEDS ORDERED: SODIUM CHLORIDE 0.9% 1,000 ML IV ONE ×2 (14:48→18:30)
[2019-02-21] MEDS ORDERED: Potassium Replacement Protocol 1 EACH MISC MISCELLANE PRN ×2 (14:53→16:49)
[2019-02-21 16:04] VITALS: BMI 29.2
[2019-02-21] MEDS: POTASSIUM CHLORIDE ER 20 MEQ TAB.ER PO SCH ×2 (16:44→16:50)
[2019-02-21] MEDS: 0.9% NACL WITH KCL 40 MEQ/L 1,000 ML IV SCH (16:44)
[2019-02-21] MEDS: SODIUM CHLORIDE 0.9% 1,000 ML IV SCH (16:44)
[2019-02-21] MEDS ORDERED: Magnesium Replacement Protocol 1 EACH MISC MISCELLANE PRN (16:49)
--- NOTE | 2019-02-21 18:47 | P.CONS ---
History of Present Illness - Reason for Consult Consult date: 02/21/19 DLBCL Requesting physician: Niecy Ac - Chief Complaint AMS, fever - History of Present Illness Mrs. Serrano is a very pleasant female pt with a benign PMH other then hyperlipidemia, PCP Dr. Erika Quintero who recently did cologuard testing that came back positive for malignant DNA so, colonoscopy was done with Dr. Garcias on 02/07 with biopsies, path consistent with DLBCL, germinal subtype. Plans were to referr pt to Oncology when noted that pt thought processes were significantly delayed compared to previous and she was off balance so, she was taken to [facility]. Had CT head without contrast that was negative. Had suspect UTI and was started on abx. She feels ok, tired and rather weak, notes little to improvement in the spped of hter though processes. Pt states about 16 lb wt loss in the last 3 months, poor appetite, denied fevers, sweats, dysphagia but she did note voice changes, no nausea or vomiting, indigestion, heartburn, dysuria, hematuria, she stool calibur was decreased and stool was harder then normal. Review of Systems 14 point ROS is negative except as stated in HPI Past Medical History Past Medical History: Cancer, Osteoarthritis (OA) Additional Past Medical History / Comment(s): varicose veins, skin cancer, leaky heart valve, History of Any Multi-Drug Resistant Organisms: None Reported Past Surgical History: Breast Surgery, Joint Replacement, Orthopedic Surgery, T ubal Ligation Additional Past Surgical History / Comment(s): skin cancer removed from rt arm, rt foot bunionectomy, surgery on rt foot between little toe and 4th toe, rt foot heel spurs, rt breast biopsy and needle loc, carissa cataracts. Total Lt knee. Colonoscopy Past Anesthesia/Blood Transfusion Reactions: Previous Problems w/ Anesthesia, Family History of Problems w/ Anesthesia Additional Past Anesthesia/Blood Transfusion Reaction / Comm: had reaction to anesthesia that effected breathing after tubal ligation-not sure exactly what happened. sister had reaction to medication-not sure what Past Psychological History: No Psychological Hx Reported Smoking Status: Never smoker Past Alcohol Use History: Occasional Past Drug Use History: None Reported - Past Family History Sister(s) Family Medical History: Cancer Additional Family Medical History / Comment(s): Colon CA Medications and Allergies Home Medications Medication Instructions Recorded Confirmed Type Calcium Carbonate [Calcium] 600 mg PO DAILY 09/04/17 02/20/19 History Cholecalciferol [Vitamin D3] 1,000 unit PO DAILY 09/04/17 02/20/19 History Glucosam/Ambrosio-Msm1/C/Tiburcio/Bosw 1 tab PO DAILY 09/04/17 02/20/19 History [Glucosamine-Chondroitin Tablet] Simvastatin [Zocor] 20 mg PO HS 09/04/17 02/20/19 History Ascorbic Acid [Vitamin C with Caitlyn 1,000 mg PO DAILY 02/05/19 02/20/19 History Hips] Cyanocobalamin (Vitamin B-12) 1,000 mcg PO DAILY 02/05/19 02/20/19 History [Vitamin B-12] cycloSPORINE 0.05% OPHTH SOLN 1 applicator BOTH EYES Q12H 02/20/19 02/20/19 History [Restasis] Allergies Allergy/AdvReac Type Severity Reaction Status Date / Time No Known Allergies Allergy Verified 02/20/19 19:16 Physical Exam Vitals: Vital Signs Temp Pulse Resp BP Pulse Ox 02/21/19 13:00 98 F 63 17 176/83 96 02/21/19 05:00 98.2 F 76 18 181/76 92 L 02/20/19 21:00 98.6 F 87 16 158/72 94 L Intake and Output 02/21/19 02/21/19 02/21/19 06:59 14:59 22:59 Intake Total 1200 Balance 1200 Intake: Intake, IV Titration 1000 Amount Sodium Chloride 0.9% 1, 1000 000 ml @ 999 mls/hr IV . Q1H1M ONE Rx#:[id number] Oral 200 Other: # Voids 4 4 Weight 72.575 kg - Constitutional General appearance: average body habitus, cooperative, no acute distress - EENT Eyes: anicteric sclerae, EOMI ENT: hearing grossly normal, normal oropharynx - Neck Neck: lymphadenopathy (see abd) - Respiratory Respiratory: bilateral: CTA - Cardiovascular Rhythm: regular Heart sounds: normal: S1, S2 Abnormal Heart Sounds: no systolic murmur, no diastolic murmur, no rub, no S3 Gallop, no S4 Gallop, no click, no other leg Peripheral Edema: bilateral: None - Gastrointestinal irregular mass inferior to naval, hard, fixed, painless, 12cm x 5cm General gastrointestinal: soft - Neurologic Neurologic: CNII-XII intact - Musculoskeletal Musculoskeletal: generalized weakness, strength equal bilaterally - Psychiatric Psychiatric: A&O x's 3, appropriate affect, no intact judgment & insight Results CBC & Chem 7: 02/21/19 05:38 02/21/19 17:30 Labs: Abnormal Lab Results - Last 24 Hours (Table) 02/20/19 02/20/19 02/21/19 Range/Units 20:45 21:00 01:27 RBC (3.80-5.40) m/uL Hgb (11.4-16.0) gm/dL Hct (34.0-46.0) % Potassium (3.5-5.1) mmol/L BUN (7-17) mg/dL Plasma Lactic Acid Moy 4.1 H* 2.1 H* (0.7-2.0) mmol/L Calcium (8.4-10.2) mg/dL Ur Leukocyte Esterase Moderate H (Negative) Urine WBC 24 H (0-5) /hpf Urine Mucus Rare H (None) /hpf 02/21/19 02/21/19 02/21/19 Range/Units 05:38 05:38 05:38 RBC 2.98 L (3.80-5.40) m/uL Hgb 8.8 L (11.4-16.0) gm/dL Hct 26.9 L (34.0-46.0) % Potassium 3.0 L (3.5-5.1) mmol/L BUN 20 H (7-17) mg/dL Plasma Lactic Acid Moy 2.4 H* (0.7-2.0) mmol/L Calcium 10.3 H (8.4-10.2) mg/dL Ur Leukocyte Esterase (Negative) Urine WBC (0-5) /hpf Urine Mucus (None) /hpf 02/21/19 02/21/19 02/21/19 Range/Units 09:21 13:35 17:30 RBC (3.80-5.40) m/uL Hgb (11.4-16.0) gm/dL Hct (34.0-46.0) % Potassium 3.3 L (3.5-5.1) mmol/L BUN (7-17) mg/dL Plasma Lactic Acid Moy 4.6 H* 3.1 H* (0.7-2.0) mmol/L Calcium (8.4-10.2) mg/dL Ur Leukocyte Esterase (Negative) Urine WBC (0-5) /hpf Urine Mucus (None) /hpf 02/21/19 Range/Units 17:30 RBC (3.80-5.40) m/uL Hgb (11.4-16.0) gm/dL Hct (34.0-46.0) % Potassium (3.5-5.1) mmol/L BUN (7-17) mg/dL Plasma Lactic Acid Moy 3.4 H* (0.7-2.0) mmol/L Calcium (8.4-10.2) mg/dL Ur Leukocyte Esterase (Negative) Urine WBC (0-5) /hpf Urine Mucus (None) /hpf Chest x-ray: report reviewed CT scan - abdomen: report reviewed (outside report) CT Scan - head: report reviewed CT scan - pelvis: report reviewed (outside report) Assessment and Plan (1) DLBCL (diffuse large B cell lymphoma) Narrative/Plan: Reviewed new diagnosis with pt and . Reviewed CT AP results from outside facility, there are numerous large masses/adenopathy in the AP. CT chest ordered and plan for PET outpatient to complete staging. Due to AMS MRI has been requested. Have sent request for genetic rearrangements testing to evaluate for double/triple hit lymphoma. All questions answered to the best of my ability. Treatment options and prognosis once staging additional studies completed Current Visit: Yes Status: Acute Priority: High Code(s): C83.30 - DIFFUSE LARGE B-CELL LYMPHOMA, UNSPECIFIED SITE SNOMED Code(s): 019887789 (2) AMS (altered mental status) Narrative/Plan: Possibly r/t to UTI. MRI ordered to to rule out parenchymal brain mets. If persistent symptoms may have to consider LP for flow cytometry. Current Visit: Yes Status: Acute Priority: High Code(s): R41.82 - ALTERED MENTAL STATUS, UNSPECIFIED SNOMED Code(s): 615806690
--- NOTE | 2019-02-21 19:28 | PN ---
PROGRESS NOTE DATE OF SERVICE: 02/21/2019 This 73-year-old woman was admitted with change in mental status as well as wobbly gait, also had a recently diagnosed lymphoma. The patient was found to have COPD with sepsis. The patient was started on IV antibiotics. Sensorium is slightly improved at this time. Plasma lactic acid is elevated to 2.4, 4.6 and 3.0. Calcium is also elevated. PAST MEDICAL HISTORY: Reviewed. REVIEW OF SYSTEMS: CARDIOVASCULAR SYSTEM: No angina or palpitations. RESPIRATORY: As mentioned earlier. GI: As mentioned earlier. : No dysuria. NERVOUS SYSTEM: No numbness or weakness. CURRENT MEDICATIONS ARE: 1. Tylenol p.r.n. 2. [place] 5 mg q.6h p.r.n. 3. Xanax 0.5 t.i.d. 4. Vitamin C 1000 mg daily. 5. Lipitor 10 mg q.h.s. 6. Calcium carbonate daily. 7. Rocephin 1 g daily. 8. Vitamin D3. 9. Vitamin B12. 10.Cyclosporine. 11.Valium 5 mg once. 12.Heparin subcu b.i.d. 13.Multivitamins. 14.Narcan. 15.Protonix. 16.K-Dur 20 mg. 17.Restoril. PHYSICAL EXAM: Patient is alert, oriented x3. Pulse is 76, blood pressure 148/76, respiration 18, temperature 98.2, pulse ox 98% on room air. HEENT: Conjunctivae normal. Oral mucosa moist. NECK: No jugular venous distention. No lymph node enlargement. CARDIOVASCULAR: S1, S2. RESPIRATORY: Diminished breath sounds at the bases. A few scattered rhonchi and crackles. Respiratory wheezing also present. ABDOMEN: Soft, nontender. LEGS: No edema, no swelling. NERVOUS SYSTEM: No focal deficits. LABS: WBC 6.8, hemoglobin is 8.8, sodium 142, potassium 3, plasma lactic acid 3.1, calcium is 10.3. Other labs are noted. ASSESSMENT: 1. Acute urinary tract infection with sepsis. 2. Change in mental status, acute metabolic encephalopathy secondary to urinary tract infection with sepsis. 3. Gait dysfunction, wobbly gait, rule out transient ischemic attack. 4. Recently diagnosed diffuse large B-cell lymphoma, germinal center type involvement of the submucosa of the colon status post colonoscopy and biopsy. 5. Elevated lactic acid. 6. Hypertension. 7. History of degenerative joint disease. 8. History of varicose veins. 9. History of hyperlipidemia. 10.History of skin cancer. 11.Hypercalcemia. 12.Hypomagnesemia. RECOMMENDATIONS AND DISCUSSION: This 73-year-old woman who presented with multiple complex medical issues, at this time I recommend to continue current medications, continue symptomatic treatment, continue the broad-spectrum IV antibiotics, resume the rest of medications. Hematology/oncology has been consulted. I would recommend continue with infectious disease evaluation. MRI of the brain has been ordered. CT scan of the chest has been ordered. Prognosis guarded. Further recommendations to follow. MMODL / IJN: [id number] /
[2019-02-21] MEDS: ATORVASTATIN 10 MG TAB PO SCH (20:23)
[2019-02-21] MEDS: cycloSPORINE 0.05% OPHTH 0.4 ML DROPERETTE BOTH EYES SCH (20:39)
[2019-02-21] MEDS: TEMAZEPAM 15 MG CAP PO PRN (20:56)
[2019-02-22 05:38] LABS: Basophils % (A) 1 %; Eosinophils # (A) 0.2 k/uL (0-0.7); Eosinophils % (A) 3 %; HCT 26.2 % (34.0-46.0); HGB 8.4 gm/dL (11.4-16.0); Hypochromasia Slight; Lymphocytes # (A) 1.1 k/uL (1.0-4.8); Lymphocytes % (A) 17 %; MCH 29.4 pg (25.0-35.0); MCHC 32.2 g/dL (31.0-37.0); MCV 91.1 fL (80.0-100.0); Mean Platelet Volume 8.2; Monocytes # (A) 0.3 k/uL (0-1.0); Monocytes % (A) 5 %; Neutrophils # (A) 4.5 k/uL (1.3-7.7); Neutrophils % (A) 72 %; Platelet Count 273 k/uL (150-450); RBC 2.87 m/uL (3.80-5.40); RDW 13.1 % (11.5-15.5); WBC 6.3 k/uL (3.8-10.6)
[2019-02-22 05:47] LABS: Calcium 9.8 mg/dL (8.4-10.2); Magnesium 1.5 mg/dL (1.6-2.3); Potassium 3.5 mmol/L (3.5-5.1)
[2019-02-22] MEDS ORDERED: DIAZEPAM 5 MG TAB PO ONE (07:00)
--- NOTE | 2019-02-22 07:32 | CONS ---
CONSULTATION DATE OF SERVICE: 02/21/2019 REASON FOR CONSULTATION: Urinary tract infection. HISTORY OF PRESENT ILLNESS: The patient is a 73-year-old female who apparently has been recently diagnosed with lymphoma. However, the patient has seen by an oncology team yesterday. The patient presented to the outside facility for evaluation of wobbly gait, difficulty walking with concern for possible stroke. The patient was evaluated at [facility] and apparently the patient did have CT of the brain, did not show any acute bleed. The patient's chest x-ray was negative. The patient subsequently has been transferred to the [facility] ER for further management of her symptoms. Symptoms have been mostly generalized weakness, wobbly gait. The patient denies high-grade fever or any chills. Denies having any headache or URI symptoms. Denies having any chest pain or shortness of breath or cough. Did have some discomfort to the abdominal area and palpable masses, but no recent worsening. No diarrhea or no significant burning or frequency of urine. The patient on admission to the hospital has been afebrile. The patient noted to have elevated lactic acid of 4.6, repeat is 3.1, white count has been normal. The patient did have a positive UA with moderate leukocyte esterase, only 24 WBC. The patient has been started on Rocephin. Infection Disease was consulted for further recommendations regarding antibiotic therapy. REVIEW OF SYSTEMS: Positive points have been mentioned in HPI. Rest of systems are negative. PAST MEDICAL HISTORY: Recent diagnosis of lymphoma. The patient also has history of osteoarthritis, hyperlipidemia. PAST SURGICAL HISTORY: Breast surgery, knee replacement. SOCIAL HISTORY: The patient is . History of smoking. Occasionally drinks. No drug use. FAMILY HISTORY: Positive for colon cancer. ALLERGIES: No known drug allergies. MEDICATIONS: Medications include the patient is currently on Tylenol, [place], Xanax, Lipitor, Tums, Rocephin 1 gram daily, vitamin B12, Valium, Theragran, Narcan, Restoril, Protonix. PHYSICAL EXAMINATION: On examination, blood pressure 176/83 with a pulse of 63, temperature 98. She is 96% on room air. General description is an elderly female lying in bed in no distress. No tachypnea or accessory muscle of respiration use. HEENT: Examination shows slight pallor. No scleral icterus. Oral mucous membrane is dry. No pharyngeal erythema or thrush. NECK: Trachea central. No thyromegaly. LUNGS: Unlabored breathing, clear to auscultation anteriorly. No wheeze or crackle. HEART: S1, S2. Regular rate and rhythm. ABDOMEN: Soft with palpable mass in the lower abdominal area. There was no guarding or rigidity. EXTREMITIES: No edema of the feet. SKIN EXAMINATION: No rashes or mass palpable. NEUROLOGICALLY: Patient is awake, alert, oriented x3. Mood and affect normal. LABS: Hemoglobin 8.8, white count 6.8. BUN of 20, creatinine 0.87. Lactic acid elevated, but seemed to have a downward trend. Calcium is mildly elevated as well. Cultures are currently pending. DIAGNOSTIC IMPRESSION AND PLAN: Patient admitted to the hospital with generalized weakness, no energy, which is likely multifactorial, possible dehydration or related to her underlying lymphoma. The patient did have positive UA, but no significant urinary symptoms with no fever or elevated white count. Clinically doubt urinary tract infection and currently with no other obvious source of infection. PLAN: 1. Rocephin 1 gram daily. 2. IV fluids. 3. We will follow on her clinical condition and culture to further adjust medication if needed. Thank you for this consultation. Will follow this patient along with you. MMODL / IJN: [id number] /
[2019-02-22] MEDS ORDERED: NON FORMULARY DRUG (Glucosam/Chon-Msm1/C/Mang/Bosw [Glucosamine-Chondroitin Tablet] 1 TAB) PO SCH (09:00)
[2019-02-22] MEDS: ASCORBIC ACID 500 MG TAB PO SCH (09:32)
[2019-02-22] MEDS: HEPARIN SODIUM,PORCINE 5,000 UNIT/ML 1 ML VIAL SQ SCH ×2 (09:33→22:31)
[2019-02-22] MEDS: CYANOCOBALAMIN 500 MCG TAB PO SCH (09:33)
[2019-02-22] MEDS: MULTIVITAMINS, THERA 1 EACH TAB PO SCH (09:33)
[2019-02-22] MEDS: CHOLECALCIFEROL 1,000 UNIT TAB PO SCH (09:33)
[2019-02-22] MEDS: PANTOPRAZOLE 40 MG TABLET PO SCH (09:33)
[2019-02-22] MEDS: 0.9% NACL WITH KCL 40 MEQ/L 1,000 ML IV SCH (09:33)
[2019-02-22] MEDS: CALCIUM CARBONATE 500 MG CHEWABLE PO SCH (09:33)
[2019-02-22] MEDS: cycloSPORINE 0.05% OPHTH 0.4 ML DROPERETTE BOTH EYES SCH ×2 (09:34→22:31)
--- NOTE | 2019-02-22 11:22 | MR ---
EXAMINATION TYPE: MR brain wo/w con DATE OF EXAM: 02/22/2019 COMPARISON: None HISTORY: Altered mental status TECHNIQUE: Multiplanar, multisequence images of the brain and brainstem is performed without and with IV contras t, utilizing 10 mL intravenous Gadavist . FINDINGS: Diffusion weighted images demonstrate no evidence of a recent infarct or other diffusion ab normality. There is mild to moderate generalized degenerative change. Confluent and numerous focal ar eas of diffuse signal is seen within the white matter which are nonspecific but most typical remote m icrovascular ischemia. There is no midline shift or mass effect. Changes of chronic sinusitis are noted. Craniocervical junction is maintained. Abnormal low signal in the odontoid is nonspecific but appears to be well-circumscribed and felt most likely benign rather than metastases. Correlate clinically. Motion artifact limits the exam. No intracranial enhancing masses. Sella turcica sella has a normal a ppearance. IMPRESSION: 1. Limited exam due to motion artifact demonstrates no diagnostic evidence of intracranial metastases . 2. Degenerative and diffuse nonspecific white matter changes most typical remote ischemia. 3. Abnormal signal seen within the odontoid is nonspecific and could be correlated with plain film x- ray.
[2019-02-22] MEDS: MAGNESIUM SULFATE-D5W PMX 1 GM in DEXTROSE/WATER 1 100ML.BAG IVPB SCH ×2 (17:51→20:08)
--- NOTE | 2019-02-22 18:06 | P.PN ---
Subjective Progress Note Date: 02/22/19 Principal diagnosis: NHL, germinal subtype In follow-up today patient is noted to be more alert and engaged in conversation, she still is slow to find her words but, states she is feeling better, her agrees with the same, no fevers, nausea, difficulty in breathing, pain. Objective - Vital Signs Vital signs: Vital Signs Temp 98 F 02/22/19 11:55 Pulse 79 02/22/19 11:55 Resp 17 02/22/19 11:55 BP 171/81 02/22/19 11:55 Pulse Ox 95 02/22/19 11:55 Intake & Output 02/21/19 02/22/19 02/22/19 18:59 06:59 18:59 Intake Total 1200 Balance 1200 Weight 72.575 kg Intake: Intake, IV Titration 1000 Amount Sodium Chloride 0.9% 1, 1000 000 ml @ 999 mls/hr IV . Q1H1M ONE Rx#:[id number] Oral 200 Other: # Voids 4 6 # Bowel Movements 1 - Constitutional General appearance: Present: average body habitus, cooperative, no acute distress - EENT Eyes: Present: anicteric sclerae, EOMI ENT: Present: hearing grossly normal - Respiratory Respiratory: bilateral: CTA - Cardiovascular Rhythm: regular Heart sounds: normal: S1, S2 Abnormal Heart Sounds: Absent: systolic murmur, diastolic murmur, rub, S3 Gallop, S4 Gallop, click, other - Gastrointestinal Gastrointestinal Comment(s): mass inferior to umbilicus persists General gastrointestinal: Present: soft - Integumentary Integumentary Comment(s): better color today compared to yesterday - Neurologic Neurologic: Present: CNII-XII intact - Musculoskeletal Musculoskeletal: Present: strength equal bilaterally - Psychiatric Psychiatric Comment(s): slow to respond but appropriate. Psychiatric: Present: A&O x's 3, appropriate affect, intact judgment & insight - Labs CBC & Chem 7: 02/22/19 05:26 02/22/19 05:26 Labs: Abnormal Lab Results - Last 24 Hours (Table) 02/21/19 02/21/19 02/21/19 Range/Units 13:35 17:30 17:30 RBC (3.80-5.40) m/uL Hgb (11.4-16.0) gm/dL Hct (34.0-46.0) % Potassium 3.3 L (3.5-5.1) mmol/L Chloride (98-107) mmol/L Plasma Lactic Acid Moy 3.1 H* 3.4 H* (0.7-2.0) mmol/L Magnesium (1.6-2.3) mg/dL 02/22/19 02/22/19 02/22/19 Range/Units 05:26 05:26 05:26 RBC 2.87 L (3.80-5.40) m/uL Hgb 8.4 L (11.4-16.0) gm/dL Hct 26.2 L (34.0-46.0) % Potassium (3.5-5.1) mmol/L Chloride 109 H (98-107) mmol/L Plasma Lactic Acid Moy 2.1 H* (0.7-2.0) mmol/L Magnesium 1.5 L (1.6-2.3) mg/dL 02/22/19 Range/Units 09:22 RBC (3.80-5.40) m/uL Hgb (11.4-16.0) gm/dL Hct (34.0-46.0) % Potassium (3.5-5.1) mmol/L Chloride (98-107) mmol/L Plasma Lactic Acid Moy 3.3 H* (0.7-2.0) mmol/L Magnesium (1.6-2.3) mg/dL Assessment and Plan (1) DLBCL (diffuse large B cell lymphoma) Narrative/Plan: New diagnosis. Reviewed CT chest, which did not show any parenchymal lung mets or medistinal adenopathy. reviewed MRI brain which was negative. PET scheduled for next week outpatient to complete staging. Pending genetic rearrangements testing to evaluate for double/triple hit lymphoma. Treatment options and prognosis once staging additional studies completed Current Visit: Yes Status: Acute Priority: High Code(s): C83.30 - DIFFUSE LARGE B-CELL LYMPHOMA, UNSPECIFIED SITE SNOMED Code(s): 261740199 (2) AMS (altered mental status) Narrative/Plan: Mild improvement. MRI did not show evidence of parenchymal brain mets. Pt and are wanting to proceed with LP for testing to see if there is involvement with lymphoma as spouse is reporting pt symptoms are only slightly improved. Orders placed for the same Current Visit: Yes Status: Acute Priority: High Code(s): R41.82 - ALTERED MENTAL STATUS, UNSPECIFIED SNOMED Code(s): 013376177
--- NOTE | 2019-02-22 18:20 | PN ---
PROGRESS NOTE DATE OF SERVICE: 02/22/2019. REASON FOR FOLLOWUP: Urinary tract infection. INTERVAL HISTORY: The patient is currently afebrile. Patient is breathing comfortably. Patient denies having any chest pain or cough. No nausea, vomiting. Denies abdominal pain. No diarrhea. PHYSICAL EXAMINATION: Blood pressure is 171/81 with a pulse of 79, temperature 98. She is 95% on room air. General description is an elderly female lying in bed in no distress. Respiratory system: Unlabored breathing. Clear to auscultation anteriorly. Heart S1, S2. Regular rate and rhythm. Abdomen soft, no tenderness. LABS: Hemoglobin 8.4, white count 6.3, BUN of 16, creatinine 0.93. MRI of the brain limited exam. Degenerative changes. DIAGNOSTIC IMPRESSION AND PLAN: Patient admitted to the hospital with mental status changes and weakness, which is likely multifactorial in this patient with recent diagnosis of lymphoma, positive UA and is covered with Rocephin while waiting for the culture to finalize. Continue supportive care. MMODL / IJN: [id number] /
[2019-02-22 19:18] LABS: Glucose,CSF 55 mg/dL (40-70); Total Protein,CSF 89 mg/dL (12-60)
[2019-02-22] MEDS: ATORVASTATIN 10 MG TAB PO SCH (20:04)
[2019-02-22] MEDS: ACETAMINOPHEN TAB 500 MG TAB PO PRN (20:04)
[2019-02-22] MEDS: TEMAZEPAM 15 MG CAP PO PRN (20:04)
[2019-02-22 20:45] LABS: Appearance,CSF Clear; CSF Tube Number 3
[2019-02-22 20:46] LABS: Nucleated Cells, CSF 0 u/L (0-5); Red Blood Cell,CSF 0 u/L (0-10)
--- NOTE | 2019-02-22 20:48 | PN ---
PROGRESS NOTE DATE OF SERVICE: 02/22/2019 This 73-year-old woman who was admitted with change in mental status also had possible UTI with sepsis. Patient also had a large B-cell lymphoma. Dr. Hdez is following the patient. MRI is negative. A lumbar puncture has been done to rule out the possibility of neurologic involvement. No chest pain. No palpitations. PAST MEDICAL HISTORY: Reviewed. REVIEW OF SYSTEMS: CARDIOVASCULAR SYSTEM: No angina. RESPIRATORY: As mentioned earlier. GI: As mentioned earlier. : No dysuria. NERVOUS SYSTEM: No numbness or weakness. CURRENT MEDICATIONS: 1. Tylenol p.r.n. 2. [place] 5 mg q.6h p.r.n. 3. Xanax 0.5 t.i.d. 4. Vitamin C 1000 mg p.o. b.i.d. p.o. daily. 5. Lipitor 10 mg q.h.s. 6. Rocephin 1 g daily. 7. Cholecalciferol. 8. Cyclosporine. 9. Replacement protocols. 10.Restoril. PHYSICAL EXAM: Patient is alert, oriented x3. Pulse is 76. Blood pressure 117/74, respirations 18, temp 98.6, pulse ox 94% on room air. HEENT: Conjunctivae normal. Oral mucosa moist. NECK: No jugular venous distention. No lymph node enlargement. CARDIOVASCULAR: S1, S2. RESPIRATORY: Diminished breath sounds at the bases. Scattered rhonchi and crackles. ABDOMEN: Soft, nontender. LEGS: No edema, no swelling. NERVOUS SYSTEM: No focal deficits. LABS: WBC 6.2, hemoglobin is 8.4, sodium 143, potassium 3.5. Lactic acid 2.9. ASSESSMENT: 1. Acute urinary tract infection with sepsis present on admission. 2. Change in mental status, acute metabolic encephalopathy secondary to urinary tract infection and sepsis. 3. Gait dysfunction, wobbly gait, rule out transient ischemic attack. 4. Elevated lactic acid. 5. Recently diagnosed diffuse large B-cell lymphoma, germinal center type involvement with submucosa of colon status post colonoscopy and biopsy with abdominal mass. 6. Elevated lactic acid. 7. Hypertension. 8. History of degenerative joint disease. 9. History of varicose veins. 10.History of hyperlipidemia. 11.History of skin cancer. 12.Hypercalcemia. 13.Hypomagnesemia. 14.FULL CODE. RECOMMENDATIONS AND DISCUSSION: This 73-year-old woman who presented with multiple complex medical issues, we will monitor the patient closely, continue the current medication, continue symptomatic treatment, continue with antibiotics, infectious disease evaluation. The cultures are negative so far. I would also recommend repeat cultures. Otherwise, continue to monitor. Guarded prognosis because of multiple complex medical issues. Discussed with Dr. Hdez. Sensorium is slightly improved. Further recommendations to follow. MMODL / IJN: [id number] /
[2019-02-22] MEDS: amLODIPine 5 MG TAB PO SCH (21:02)
--- NOTE | 2019-02-22 22:34 | FL ---
Lumbar puncture INDICATION: Acute mental status changes FINDINGS: Fluoroscopy time: 6 seconds. Images obtained: 1. The procedure was explained to the patient. Risks complications and benefits were discussed. Alternat britney were discussed. All questions were answered. Informed consent was obtained. A timeout was performed. The L3-L4 level was chosen for access. Maximum barrier sterile technique was utilized. The skin was c leansed with Betadine and the patient sterilely prepped and draped in the usual manner. The skin and deeper tissue was anesthetized with 1% Lidocaine. Utilizing a 18-gauge spinal needle the spinal canal was accessed. Good CSF return was evident. A total of 10 mL of CSF was obtained for sample analysis. Samples labeled and transferred to pathology for additional prearranged testing. The stylette was re placed and the needle withdrawn. The patient tolerated the procedure well. Patient was transferred/returned to the floor for observati on. Findings: Pathology pending. IMPRESSIONS: 1. Successful Lumbar Puncture for CSF acquisition for analysis.
[2019-02-22] MEDS: hydrALAZINE HCL 20 MG/ML 1 ML VIAL IVP PRN (23:00)
[2019-02-22] MEDS: ALPRAZolam 0.25 MG TAB PO PRN (23:12)
[2019-02-23] MEDS: 0.9% NACL WITH KCL 40 MEQ/L 1,000 ML IV SCH ×3 (01:42→21:03)
[2019-02-23] MEDS: hydrALAZINE HCL 20 MG/ML 1 ML VIAL IVP PRN (06:00)
[2019-02-23 08:15] LABS: African American GFR (CKD) >90 (>60 ml/min/1.73 sqM); Anion Gap 9 mmol/L; Blood Urea Nitrogen 12 mg/dL (7-17); Carbon Dioxide 29 mmol/L (22-30); Chloride 104 mmol/L (98-107); Glucose 106 mg/dL (74-99); Magnesium 1.7 mg/dL (1.6-2.3); Non-African American GFR(CKD) 85 (>60 ml/min/1.73 sqM); Potassium 3.4 mmol/L (3.5-5.1); Sodium 142 mmol/L (137-145)
[2019-02-23 08:21] LABS: Basophils % (A) 0 %; Eosinophils # (A) 0.2 k/uL (0-0.7); Eosinophils % (A) 2 %; HCT 31.3 % (34.0-46.0); HGB 10.3 gm/dL (11.4-16.0); Lymphocytes % (A) 12 %; MCH 29.3 pg (25.0-35.0); MCHC 33.1 g/dL (31.0-37.0); MCV 88.6 fL (80.0-100.0); Mean Platelet Volume 7.8; Monocytes # (A) 0.5 k/uL (0-1.0); Monocytes % (A) 5 %; Neutrophils # (A) 6.8 k/uL (1.3-7.7); Neutrophils % (A) 79 %; Platelet Count 358 k/uL (150-450); RBC 3.53 m/uL (3.80-5.40); RDW 13.4 % (11.5-15.5); WBC 8.6 k/uL (3.8-10.6)
[2019-02-23] MEDS: CALCIUM CARBONATE 500 MG CHEWABLE PO SCH (09:59)
[2019-02-23] MEDS: CYANOCOBALAMIN 500 MCG TAB PO SCH (09:59)
[2019-02-23] MEDS: PANTOPRAZOLE 40 MG TABLET PO SCH (09:59)
[2019-02-23] MEDS: CHOLECALCIFEROL 1,000 UNIT TAB PO SCH (09:59)
[2019-02-23] MEDS: ASCORBIC ACID 500 MG TAB PO SCH (09:59)
[2019-02-23] MEDS: HEPARIN SODIUM,PORCINE 5,000 UNIT/ML 1 ML VIAL SQ SCH ×2 (10:00→20:55)
[2019-02-23] MEDS: amLODIPine 5 MG TAB PO SCH ×2 (10:00→20:56)
[2019-02-23] MEDS: cycloSPORINE 0.05% OPHTH 0.4 ML DROPERETTE BOTH EYES SCH ×2 (10:01→20:56)
[2019-02-23] MEDS: MULTIVITAMINS, THERA 1 EACH TAB PO SCH (10:03)
[2019-02-23] MEDS ORDERED: Magnesium Replacement Protocol 1 EACH MISC MISCELLANE PRN (11:04)
[2019-02-23] MEDS ORDERED: Potassium Replacement Protocol 1 EACH MISC MISCELLANE PRN ×2 (11:04→12:43)
--- NOTE | 2019-02-23 12:14 | PN ---
PROGRESS NOTE DATE OF SERVICE: 02/23/2019 REASON FOR FOLLOWUP: UTI. INTERVAL HISTORY: The patient is currently afebrile. Patient is breathing comfortably. Patient denies having any chest pain. No shortness of breath. No cough. No nausea, no vomiting. No abdominal pain and no diarrhea. PHYSICAL EXAMINATION: Blood pressure 172/73 with a pulse of 82, temperature 98.1, she is 95% on room air. General description is an elderly female, lying in bed in no distress. RESPIRATORY SYSTEM: Unlabored breathing, clear to auscultation anteriorly. HEART: S1, S2. Regular rate and rhythm. ABDOMEN: Soft, no tenderness. EXTREMITIES: No edema of the feet. LABS: Hemoglobin is 10.1, white count of 8.7, BUN of 10, creatinine 0.71. DIAGNOSTIC IMPRESSION AND PLAN: Patient admitted to hospital with generalized weakness and mental status changes likely multifactorial with a recent diagnosis of lymphoma. Workup is currently in pending positive. Will consult for possible urinary tract infection. Patient covered with Rocephin. Urine culture currently pending. Continue supportive care. MMODL / IJN: [id number] /
[2019-02-23] MEDS: POTASSIUM CHLORIDE ER 20 MEQ TAB.ER PO SCH ×2 (15:29→17:25)
[2019-02-23] MEDS: METOPROLOL TARTRATE 12.5 MG TAB PO SCH (19:03)
--- NOTE | 2019-02-23 20:43 | PN ---
PROGRESS NOTE DATE OF SERVICE: 02/23/2019 This 73-year-old woman who was admitted with multiple medical issues, including change in mental status, also had UTI with sepsis. The patient also had a B-cell lymphoma, being evaluated by Dr. Hdez. Lumbar puncture final reports awaiting at this time but however, Otherwise, the patient being closely monitored at this time. The patient is still confused. MRI did not show acute abnormality at this time. PAST MEDICAL HISTORY: Reviewed. REVIEW OF SYSTEMS: CARDIOVASCULAR SYSTEM: No angina or palpitations. RESPIRATION as mentioned earlier. GI: as mentioned earlier. : As mentioned earlier. CENTRAL NERVOUS SYSTEM: No focal deficits. CURRENT MEDICATIONS: Reviewed and include: 1. Tylenol p.r.n. 2. [place] 5 mg q.6h p.r.n. 3. Norvasc 5 mg p.o. daily. 4. Vitamin C 1000 mg daily. 5. Lipitor 10 mg q.h.s. 6. Tums daily. 7. Rocephin 1 g daily. 8. Vitamin D3. 9. Vitamin B12 1000 mcg. 10.Cyclosporin. 11.Apresoline. 12.Replacement protocol. 13.Multivitamins. 14.Protonix. PHYSICAL EXAM: Patient is alert, oriented x2. Pulse 94, blood pressure 168/70, respiration 17, temperature 98.2, pulse ox 94% on room air. HEENT: Conjunctivae normal. NECK: No JVD. RESPIRATORY SYSTEM: Breath sounds diminished at the bases. A few scattered rhonchi and crackles. ABDOMEN: Soft, nontender. LEGS are no edema. No swelling. CENTRAL NERVOUS SYSTEM: No focal deficits. LABS: WBC 8.2, hemoglobin 10.7, potassium 3.4. Lactic acid 2.7. ASSESSMENT: 1. Acute urinary tract infection with sepsis, present on admission. 2. Change in mental status, acute metabolic encephalopathy secondary to urinary tract infection with sepsis. 3. Gait dysfunction, possibly transient ischemic attack. 4. Elevated lactic acid. 5. Recently diagnosed diffuse large B-cell lymphoma, germinal center type involvement with submucous of the colon status post colonoscopy and biopsy with abdominal mass. 6. Elevated lactic acid. 7. Hypertension. 8. History of degenerative joint disease. 9. History of varicose veins. 10.History of hyperlipidemia. 11.History of skin cancer. 12.Hypercalcemia. 13.Hypomagnesemia. 14.FULL CODE. RECOMMENDATIONS AND DISCUSSION: In this 73-year-old woman who presented with multiple complex medical issues, we will monitor the patient closely, continue the current medications, management and symptomatic treatment. Continue with the empiric antibiotics. We will increase the dose of Norvasc. Continue to monitor. Guarded prognosis because of multiple complex medical issues. Further recommendations to follow. MMODL / IJN: [id number] / MTDD
[2019-02-23] MEDS: ALPRAZolam 0.25 MG TAB PO PRN (20:56)
[2019-02-23] MEDS: TEMAZEPAM 15 MG CAP PO PRN (20:56)
[2019-02-23] MEDS: ATORVASTATIN 10 MG TAB PO SCH (20:56)
[2019-02-23] MEDS: LORazepam 2 MG/ML INJ IV PRN (21:26)
[2019-02-24] MEDS: LORazepam 2 MG/ML INJ IV PRN ×2 (03:01→21:22)
[2019-02-24 08:23] LABS: Magnesium 1.7 mg/dL (1.6-2.3); Potassium 3.7 mmol/L (3.5-5.1)
[2019-02-24] MEDS: CALCIUM CARBONATE 500 MG CHEWABLE PO SCH (08:36)
[2019-02-24] MEDS: MULTIVITAMINS, THERA 1 EACH TAB PO SCH (08:36)
[2019-02-24] MEDS: METOPROLOL TARTRATE 12.5 MG TAB PO SCH ×2 (08:36→20:10)
[2019-02-24] MEDS: amLODIPine 5 MG TAB PO SCH ×2 (08:37→20:10)
[2019-02-24] MEDS: ASCORBIC ACID 500 MG TAB PO SCH (08:37)
[2019-02-24] MEDS: PANTOPRAZOLE 40 MG TABLET PO SCH (08:37)
[2019-02-24] MEDS: CYANOCOBALAMIN 500 MCG TAB PO SCH (08:37)
[2019-02-24] MEDS: CHOLECALCIFEROL 1,000 UNIT TAB PO SCH (08:37)
[2019-02-24] MEDS: cycloSPORINE 0.05% OPHTH 0.4 ML DROPERETTE BOTH EYES SCH ×2 (08:38→20:10)
[2019-02-24] MEDS: HEPARIN SODIUM,PORCINE 5,000 UNIT/ML 1 ML VIAL SQ SCH ×2 (08:38→20:10)
--- NOTE | 2019-02-24 16:29 | PN ---
PROGRESS NOTE DATE OF SERVICE: 02/24/2019 This 73-year-old woman was admitted with acute UTI also had some change in mental status and confusion also. The patient continues to be confused. Cultures are negative so far. Patient on broad spectrum IV antibiotics. Lactic acid elevated. Dr. Hdez is following the patient regarding the followup of the lymphoma. The patient being closely monitored. Patient has mild hypokalemia which replaced from 3.4 to 3.7. PAST MEDICAL HISTORY: Reviewed. REVIEW OF SYMPTOMS: Review of systems could not be taken. The patient is confused. CURRENT MEDICATIONS: Reviewed and include: 1. Tylenol 500 mg q.6h p.r.n. 2. [place] 5 mg q.6h p.r.n. 3. Xanax 0.5 t.i.d. 4. Norvasc 5 mg p.o. b.i.d. 5. Vitamin C 1000 mg p.o. daily. 6. Lipitor 10 mg q.h.s. 7. Tums p.r.n. 8. Rocephin 1 g daily. 9. Vitamin D3. 10.Vitamin B12. 11.Restasis. 12.Heparin 5000 subcu b.i.d. 13.Apresoline. 14.Ativan. 15.Replacement protocols. 16.Doses are reviewed. PHYSICAL EXAM: Patient is alert, and oriented times 2, confused. Pulse is 83. Blood pressure is 140/72, respiration 18, temperature 97.4, pulse ox 98% on 2 L. HEENT: Conjunctivae normal. NECK: No JVD. CARDIOVASCULAR: S1, S2 muffled. RESPIRATIONS: Breath sounds diminished in the bases. No rhonchi. No crackles. ABDOMEN: Soft, nontender. mass present. LEGS no edema. No swelling. NERVOUS SYSTEM: Higher functions as mentioned earlier. Moves all 4 limbs. No focal motor or sensory deficits. Lymphatics: No lymph nodes palpable in the neck, axillae or groin. SKIN: No ulcer, no rash and no bleeding. JOINTS: No active deforming arthropathy. LABS: WBC 8.2, hemoglobin 10.3, and lactic acid noted. ASSESSMENT: 1. Acute urinary tract infection with sepsis present on admission. 2. Change in mental status, acute metabolic acidosis secondary to urinary tract infection with sepsis. 3. Gait dysfunction, possible transient ischemic attack. 4. Elevated lactic acid. 5. Recently diagnosed diffuse large B-cell lymphoma, germinal type, center type involving with the submucosa of the colon status post colonoscopy and biopsy of the abdominal mass. 6. Hypertension. 7. History of degenerative joint disease. 8. History of varicose veins. 9. History of hyperlipidemia. 10.History of skin cancer. 11.Hypercalcemia. 12.History of hypomagnesemia. 13.FULL CODE. RECOMMENDATIONS AND DISCUSSION: Recommend to continue current medications, management and symptomatic treatment. Otherwise, at this time, I recommend continue with broad-spectrum IV antibiotics. Closely follow with Infectious Disease. Closely follow with Hematology, Oncology. Otherwise PT/OT evaluation. Guarded prognosis. Further recommendations to follow. MMODL / IJN: [id number] / CHRYSTAL
[2019-02-24] MEDS: 0.9% NACL WITH KCL 40 MEQ/L 1,000 ML IV SCH (17:58)
[2019-02-24] MEDS: TEMAZEPAM 15 MG CAP PO PRN (20:10)
[2019-02-24] MEDS: ALPRAZolam 0.25 MG TAB PO PRN (20:10)
[2019-02-24] MEDS: ATORVASTATIN 10 MG TAB PO SCH (20:10)
[2019-02-24] MEDS: HALOPERIDOL LACTATE 5 MG/ML 1 ML VIAL IM PRN (22:37)
[2019-02-25] MEDS: LORazepam 2 MG/ML INJ IV PRN (03:24)
[2019-02-25] MEDS: 0.9% NACL WITH KCL 40 MEQ/L 1,000 ML IV SCH ×2 (03:59→16:05)
[2019-02-25] MEDS: hydrALAZINE HCL 20 MG/ML 1 ML VIAL IVP PRN (05:26)
--- NOTE | 2019-02-25 06:57 | PN ---
PROGRESS NOTE DATE OF SERVICE: 02/24/2019 REASON FOR FOLLOWUP: Urinary tract infection. INTERVAL HISTORY: The patient is currently afebrile. The patient remains to be pleasantly confused. No agitation has been noticed. No nausea, vomiting. No abdominal pain or any diarrhea. PHYSICAL EXAMINATION: Blood pressure 168/77 with a pulse of 60, temperature 98.7. She is 93% on room air. General description is a elderly female, lying in bed in no distress. RESPIRATORY SYSTEM: Unlabored breathing, clear to auscultation. HEART: S1, S2. Regular rate and rhythm. ABDOMEN: Soft, no tenderness. EXTREMITIES: No edema of the feet. LABS: Urine culture so far negative. DIAGNOSTIC IMPRESSION/PLAN: Patient admitted to the hospital with mental status changes which is likely multifactorial in this patient who did have a positive UA with concern for a urinary tract infection, possible mild cystitis adequately treated. Antibiotic can be safely discontinued. Will monitor the patient closely off antibiotic. Continue with supportive care. MMODL / IJN: [id number] /
[2019-02-25] MEDS: CYANOCOBALAMIN 500 MCG TAB PO SCH (08:27)
[2019-02-25] MEDS: METOPROLOL TARTRATE 12.5 MG TAB PO SCH ×2 (08:27→21:00)
[2019-02-25] MEDS: CHOLECALCIFEROL 1,000 UNIT TAB PO SCH (08:27)
[2019-02-25] MEDS: HEPARIN SODIUM,PORCINE 5,000 UNIT/ML 1 ML VIAL SQ SCH ×2 (08:28→21:00)
[2019-02-25] MEDS: ALPRAZolam 0.25 MG TAB PO PRN (08:28)
[2019-02-25] MEDS: PANTOPRAZOLE 40 MG TABLET PO SCH (08:28)
[2019-02-25] MEDS: ASCORBIC ACID 500 MG TAB PO SCH (08:28)
[2019-02-25] MEDS: cycloSPORINE 0.05% OPHTH 0.4 ML DROPERETTE BOTH EYES SCH ×2 (08:28→21:00)
[2019-02-25] MEDS: amLODIPine 5 MG TAB PO SCH ×2 (08:28→21:00)
[2019-02-25] MEDS: CALCIUM CARBONATE 500 MG CHEWABLE PO SCH (08:28)
[2019-02-25] MEDS: MULTIVITAMINS, THERA 1 EACH TAB PO SCH (13:19)
[2019-02-25 15:29] LABS: Appearance,Urine Clear (Clear); Bilirubin,Urine Negative (Negative); Blood,Urine Negative (Negative); Color,Urine Yellow; Glucose,Urine (UA) Negative (Negative); Ketones,Urine Negative (Negative); Leukocyte Esterase,Urine Negative (Negative); Nitrite,Urine Negative (Negative); PH, Urine 5.5 (5.0-8.0); Protein,Urine Negative (Negative); Specific Gravity,Urine 1.012 (1.001-1.035); Urobilinogen,Urine <2.0 mg/dL (<2.0)
[2019-02-25] MEDS: THIAMINE 100 MG TAB PO SCH (16:06)
[2019-02-25] MEDS: FOLIC ACID 1 MG TAB PO SCH (16:06)
--- NOTE | 2019-02-25 16:21 | PN ---
PROGRESS NOTE DATE OF SERVICE: 02/25/2019 This 70-year-old woman who was admitted with UTI with sepsis also had change in mental status. It has been noticed that the patient has change in mental status ongoing for some time, which was worsened recently. Dr. Hdez's team is following the patient for evaluation of the known the non-Hodgkin lymphoma. Lumbar puncture showed elevated protein at 89 and the patient closely monitored at this time. PAST MEDICAL HISTORY: Reviewed. REVIEW OF SYSTEMS: Cardiovascular System: No angina, palpitations. Respiratory System: Mentioned earlier. GI and no known noted. CENTRAL NERVOUS SYSTEM: No focal deficits. CURRENT MEDICATIONS: Reviewed include: 1. Tylenol p.r.n. 2. [place] 5 mg q.6h p.r.n. 3. Xanax 0.5 t.i.d. 4. Norvasc 5 mg. 5. Vitamin C. 6. Lipitor. 7. Tums. 8. Rocephin 1 g daily. 9. Vitamin B12. 10.Haldol p.r.n. Severe agitation. 11.Apresoline. 12.Ativan p.r.n. 13.Lopressor. P.r.n. 14.Narcan. 15.Protonix, dose reviewed. 16.Restoril. PHYSICAL EXAM: Patient is alert, oriented x3. Pulse is 92, blood pressure 160/90, respirations 16, temperature 98.2, pulse ox 98% on room air HEENT: Conjunctivae normal. Neck: No JVD. CARDIOVASCULAR SYSTEM: Respirations at the bases as well as scattered rhonchi and crackles. ABDOMEN: Soft nontender. EXTREMITIES: Legs are no edema. No swelling. LABS: WBC 8.2, hemoglobin 10.6. Lactic acid is 2. ASSESSMENT: 1. Acute urinary tract infection with possible sepsis present on admission. 2. Change in mental status acute metabolic encephalopathy secondary to UTI with sepsis multifactorial. 3. Gait dysfunction, possible transient ischemic attack. 4. Elevated lactic acid. 5. Recently diagnosed diffuse large B-cell lymphoma, germinal type center type involving the submucosa of the colon, status post colonoscopy and biopsy with abdominal mass. 6. Hypertension. 7. History of degenerative joint disease. 8. History of varicose veins. 9. History of hyperlipidemia. 10.History of skin cancer. 11.History of hypercalcemia. 12.History of hypomagnesemia. 13.FULL CODE. RECOMMENDATIONS AND DISCUSSION: Recommend to continue current medications, management and treatment otherwise at this time I would continue the antibiotics. Repeat UA, and with the lactic acid improvement and potassium improvement, I would recommend repeat lab CBC, BMP. I would also recommend a small dose of Risperdal. The benefits outweigh the risk at this time for a short course. Otherwise, once again the prognosis guarded. Discussed with the family at length and further recommendations to follow. The patient otherwise will closely follow and PT/OT evaluation also. Further recommendations to follow. MMODL / IJN: [id number] /
--- NOTE | 2019-02-25 19:30 | P.PN ---
Subjective Progress Note Date: 02/25/19 Principal diagnosis: NHL, germinal subtype In follow-up today patient is alert, she is oriented to self, place, she is aware of bowels around her, family is reporting confusion and agitation as is staff. Patient denies FONTA[place], nausea, difficulty breathing, no back pain. Objective - Vital Signs Vital signs: Vital Signs Temp 98.2 F 02/25/19 11:49 Pulse 92 02/25/19 15:57 Resp 16 02/25/19 15:57 BP 163/75 02/25/19 11:49 Pulse Ox 90 L 02/25/19 11:49 Intake & Output 02/25/19 02/25/19 02/26/19 06:59 18:59 06:59 Intake Total 1800 Balance 1800 Weight 72.575 kg Intake: Intake, IV Titration 960 Amount 0.9% NaCl with KCl 40 Meq 910 /l 1,000 ml @ 70 mls/hr IV .[id number] [facility]A Rx#: [id number] cefTRIAXone 1 gm In 50 Sodium Chloride 0.9% 50 ml @ 100 mls/hr IVPB Q24H [facility]A Rx#:[id number] Oral 840 Other: Voiding Method Toilet Toilet Diaper Diaper Incontinent Incontinent # Voids 5 2 # Bowel Movements 1 - Constitutional General appearance: Present: average body habitus, cooperative, no acute distress - EENT Eyes: Present: anicteric sclerae, EOMI ENT: Present: hearing grossly normal - Respiratory Respiratory: bilateral: CTA - Cardiovascular Heart sounds: normal: S1, S2 - Peripheral edema leg Peripheral Edema: bilateral: Trace - Gastrointestinal General gastrointestinal: Present: normal bowel sounds, soft - Neurologic Neurologic: Present: CNII-XII intact - Musculoskeletal Musculoskeletal Comment(s): No bruising or pain with palpation of spine Musculoskeletal: Present: generalized weakness - Psychiatric Psychiatric: Present: appropriate affect - Labs CBC & Chem 7: 02/23/19 07:32 02/24/19 07:46 Labs: Abnormal Lab Results - Last 24 Hours (Table) 02/24/19 Range/Units 19:18 Plasma Lactic Acid Moy 4.4 H* (0.7-2.0) mmol/L Microbiology - Last 24 Hours (Table) 02/22/19 18:56 Blood Culture - Preliminary Blood No Growth after 48 hours Assessment and Plan (1) DLBCL (diffuse large B cell lymphoma) Narrative/Plan: New diagnosis. Reviewed CT chest, which did not show any parenchymal lung mets or medistinal adenopathy. Reviewed MRI brain which was negative. PET scheduled for this Monday, if pt is stable enough to be discharged, to complete staging. Pending genetic rearrangements testing to evaluate for double/triple hit lymphoma. Treatment options and prognosis once staging additional studies completed Current Visit: Yes Status: Acute Priority: High Code(s): C83.30 - DIFFUSE LARGE B-CELL LYMPHOMA, UNSPECIFIED SITE SNOMED Code(s): 032788946 (2) AMS (altered mental status) Narrative/Plan: No further improvement possibly regression. MRI did not show evidence of p arenchymal brain mets. Pt is on abx for UTI. Pending LP results but from preliminary results not suspicious for lymphoma or infection. Hospitalization induced AMS? Will continue to follow until all results are in. Current Visit: Yes Status: Acute Priority: High Code(s): R41.82 - ALTERED MENTAL STATUS, UNSPECIFIED SNOMED Code(s): 991485399
[2019-02-25] MEDS ORDERED: risperiDONE 0.25 MG TAB PO SCH (21:00)
[2019-02-25] MEDS: ATORVASTATIN 10 MG TAB PO SCH (21:00)
[2019-02-26] MEDS: HALOPERIDOL LACTATE 5 MG/ML 1 ML VIAL IM PRN ×2 (00:25→10:18)
--- NOTE | 2019-02-26 04:59 | PN ---
PROGRESS NOTE DATE OF SERVICE: 02/25/2019 REASON FOR FOLLOWUP: Urinary tract infection. INTERVAL HISTORY: The patient is currently afebrile. She was seen on rounds this morning. Breathing comfortably. Remains to be pleasantly confused. No nausea, no vomiting or any diarrhea has been reported. PHYSICAL EXAMINATION: On examination, blood pressure is 174/88 with a pulse of 111, temperature of 98. She is 93% on room air. General description is an elderly female up in the bed in no distress. RESPIRATORY SYSTEM: Unlabored breathing, clear to auscultation anteriorly. HEART: S1, S2. Regular rate and rhythm. ABDOMEN: Soft, no tenderness. EXTREMITIES: No edema of the feet. LABS: Repeat urine is currently clear. White count 8.6. DIAGNOSTIC IMPRESSION AND PLAN: Patient admitted to the hospital with mental status changes likely multifactorial. positive with concern for urinary tract infection that has been adequately treated. As repeat UA is negative, we will discontinue the Rocephin and monitor the patient closely off antibiotic therapy. MMODL / IJN: [id number] /
[2019-02-26] MEDS: 0.9% NACL WITH KCL 40 MEQ/L 1,000 ML IV SCH ×2 (06:14→21:12)
[2019-02-26 07:15] LABS: African American GFR (CKD) >90 (>60 ml/min/1.73 sqM); Anion Gap 10 mmol/L; Blood Urea Nitrogen 14 mg/dL (7-17); Calcium 10.2 mg/dL (8.4-10.2); Carbon Dioxide 28 mmol/L (22-30); Chloride 105 mmol/L (98-107); Glucose 103 mg/dL (74-99); Non-African American GFR(CKD) 86 (>60 ml/min/1.73 sqM); Potassium 3.5 mmol/L (3.5-5.1); Sodium 143 mmol/L (137-145)
[2019-02-26 07:20] LABS: Basophils % (A) 0 %; Eosinophils # (A) 0.2 k/uL (0-0.7); Eosinophils % (A) 2 %; HCT 29.5 % (34.0-46.0); HGB 9.6 gm/dL (11.4-16.0); Lymphocytes # (A) 0.9 k/uL (1.0-4.8); Lymphocytes % (A) 12 %; MCH 29.3 pg (25.0-35.0); MCHC 32.5 g/dL (31.0-37.0); MCV 90.1 fL (80.0-100.0); Mean Platelet Volume 7.5; Monocytes # (A) 0.4 k/uL (0-1.0); Monocytes % (A) 6 %; Neutrophils # (A) 5.9 k/uL (1.3-7.7); Neutrophils % (A) 78 %; Platelet Count 392 k/uL (150-450); RBC 3.28 m/uL (3.80-5.40); RDW 13.5 % (11.5-15.5); WBC 7.6 k/uL (3.8-10.6)
[2019-02-26] MEDS: MULTIVITAMINS, THERA 1 EACH TAB PO SCH (09:07)
[2019-02-26] MEDS: PANTOPRAZOLE 40 MG TABLET PO SCH (09:07)
[2019-02-26] MEDS: ASCORBIC ACID 500 MG TAB PO SCH (09:07)
[2019-02-26] MEDS: METOPROLOL TARTRATE 12.5 MG TAB PO SCH (09:07)
[2019-02-26] MEDS: ALPRAZolam 0.25 MG TAB PO PRN (09:07)
[2019-02-26] MEDS: amLODIPine 5 MG TAB PO SCH ×2 (09:08→21:13)
[2019-02-26] MEDS: CYANOCOBALAMIN 500 MCG TAB PO SCH (09:08)
[2019-02-26] MEDS: CHOLECALCIFEROL 1,000 UNIT TAB PO SCH (09:08)
[2019-02-26] MEDS: THIAMINE 100 MG TAB PO SCH (09:08)
[2019-02-26] MEDS: FOLIC ACID 1 MG TAB PO SCH (09:08)
[2019-02-26] MEDS: CALCIUM CARBONATE 500 MG CHEWABLE PO SCH (09:08)
[2019-02-26] MEDS: HEPARIN SODIUM,PORCINE 5,000 UNIT/ML 1 ML VIAL SQ SCH ×2 (09:08→21:14)
[2019-02-26] MEDS: cycloSPORINE 0.05% OPHTH 0.4 ML DROPERETTE BOTH EYES SCH ×2 (09:09→21:13)
[2019-02-26] MEDS: IOPAMIDOL CONTRAST (ORAL USE) VIAL PO PRN ×2 (15:24→16:29)
[2019-02-26] MEDS ORDERED: QUEtiapine 25 MG TAB PO SCH (15:45)
--- NOTE | 2019-02-26 16:29 | P.CN ---
Psychiatric Consult - . Consult date: 02/26/19 Consult:: IDENTIFYING DATA: Patient is a 73-year-old female admitted to medicine service for evaluation and treatment of of a positive colorectal test, confusion, weakness and weight loss. The hospitalist consult to psychiatry due to increasing confusion and agitation requiring treatment with Xanax, Ativan, Haldol and risperidone. HISTORY OF PRESENT ILLNESS: I reviewed the medical record and spoke with her and sister. She was confused and oriented only to person. She thought that she was "somebody's house" and needed repeated redirection by her and sister to remain in bed. According to the charge nurse she has had frequent episodes of agitation requiring administration of IM medications. Her noticed a change in her about one week prior to [place] where she appeared "more confused". He initially took her to [facility] for evaluation of confusion and weakness. He stated that she has been progressively more confused since she has been on our medical unit. He did not appear to understand the nature of her condition fully because he asked about whether she had a urinary tract infection that was causing her confusion. PAST PSYCHIATRIC HISTORY: She is no history of psychiatric hospitalization. Her reported that she met with a therapist briefly "several years ago".. PAST MEDICAL HISTORY: She is recently diagnosis with lymphoma. She is a stressor arthritis and hyperlipidemia. ALLERGIES: NO KNOWN DRUG ALLERGIES. SUBSTANCE USE HISTORY: Her she has history of alcohol or substance use problems. FAMILY PSYCHIATRIC/SUBSTANCE USE HISTORY: He is unaware of family history of mental illness. SOCIAL HISTORY: She is someone of 17 children raised in [place]. She and her had been for over 30 years. They have 2 children. reported recent stressors included the of one sister the summer and the of her twin sister in January. Both are retired and living outside of [facility].. MENTAL STATUS EXAM: She presented as a casually groomed elderly female who made eye contact. She was alert and oriented only to person. She was restless and agitated. Her speech was spontaneous but at times of the context to the conversation or situation. Her mood was stable and appropriate. She did not express suicidal ideation or wishes. Her thinking was concrete. She did not appear to be responding to internal stimuli. IMPRESSIONS: She is a 73-year-old female who is oriented to person only. She has acute agitation, restlessness and confusion in the context of a recent diagnosis of lymphoma. Her agitation and restlessness has required treatment with by mouth and/or IM sedating medications. DIAGNOSIS: Delirium most likely due to her cancer diagnosis PLAN: Increase risperidone to 0.25 mg twice a day and titrated according to clinical response and tolerance. Change the benzodiazepine to Ativan and administer either by mouth or IM depending on the severity of her agitation. We'll follow. 02/26/19 16:17
[2019-02-26] MEDS ORDERED: LORazepam 1 MG TAB PO PRN (16:31)
--- NOTE | 2019-02-26 17:22 | CT ---
EXAMINATION TYPE: CT abdomen pelvis wo con DATE OF EXAM: 02/26/2019 COMPARISON: None HISTORY: Abdominal mass. CT DLP: 605.9 mGycm Automated exposure control for dose reduction was used. Multiple axial sections were obtained from the diaphragm to the floor the pelvis with oral contrast o nly. There is some patchy mild infiltrate and atelectasis at the lung bases. Heart is enlarged. There is n o pericardial effusion. There is no pleural effusion. There is 2 cm low attenuation area in the left lobe of the liver. The remainder of the liver appears fairly normal. Spleen is intact. There is no ev idence of pancreatic mass. The bile ducts are not dilated. Gallbladder appears normal. There is no adrenal mass. Kidneys have normal size. There is no hydronephrosis. Ureters are not dilat ed. There is no evidence of retroperitoneal adenopathy. The bladder distends smoothly. There is no in guinal hernia. There are multiple masses in the abdomen. These are seen on the left and right side within the perito roberto cavity. The mass on the left side measures 15 cm. There is a large somewhat lobulated similar ma ss on the right side that measures 15 cm. There is a large lobulated pelvic mass in the upper pelvis that measures 9 x 5 cm. There is some encasement of the small bowel with luminal narrowing. I see no sign of a mechanical bowel obstruction. There is no ascites. There is no free air. Lumbar vertebra have normal alignment. Disc spaces are fairly normal. Facet joints are intact. There is no compression fracture. The bony pelvis is intact. IMPRESSION: Multiple soft tissue density lobulated abdominal masses is consistent with malignancy. This could rel ate to lymphoma or carcinomatosis. There is infiltration of small bowel. No bowel obstruction. Indeterminate 2 cm low-attenuation lesion in the left lobe of the liver.
--- NOTE | 2019-02-26 17:35 | P.PN ---
Subjective Progress Note Date: 02/26/19 Principal diagnosis: NHL, germinal subtype In follow-up today patient is alert, she is oriented to self, not place or time, she does know month, she remembered having LP. Patient denies FONTANA, nausea, no pain, she is having trouble following commands initially but this improved. Objective - Vital Signs Vital signs: Vital Signs Temp 98.8 F 02/26/19 12:00 Pulse 102 H 02/26/19 16:00 Resp 20 02/26/19 16:00 BP 173/88 02/26/19 12:00 Pulse Ox 95 02/26/19 12:00 Intake & Output 02/25/19 02/26/19 02/26/19 18:59 06:59 18:59 Intake Total 1150 400 Balance 1150 400 Weight 72.575 kg Intake: Intake, IV Titration 560 Amount 0.9% NaCl with KCl 40 Meq 560 /l 1,000 ml @ 70 mls/hr IV .[id number] [facility] Rx#: [id number] Oral 590 400 Other: Voiding Method Toilet Toilet Toilet Diaper Diaper Diaper Incontinent Incontinent Incontinent # Voids 2 8 1 # Bowel Movements 1 1 - Constitutional General appearance: Present: average body habitus, cooperative, mild distress - EENT Eyes: Present: anicteric sclerae, EOMI ENT: Present: hearing grossly normal - Neck Neck: Present: lymphadenopathy - Respiratory Respiratory: bilateral: CTA - Cardiovascular Heart sounds: normal: S1, S2 - Gastrointestinal Gastrointestinal Comment(s): inferior to unbilicus, irregular hard, nearly fixed mass General gastrointestinal: Present: soft - Neurologic Neurologic: Present: CNII-XII intact - Musculoskeletal Musculoskeletal: Present: generalized weakness, strength equal bilaterally - Labs CBC & Chem 7: 02/26/19 06:47 02/26/19 06:47 Labs: Abnormal Lab Results - Last 24 Hours (Table) 02/26/19 02/26/19 02/26/19 Range/Units 06:47 06:47 06:47 RBC 3.28 L (3.80-5.40) m/uL Hgb 9.6 L (11.4-16.0) gm/dL Hct 29.5 L (34.0-46.0) % Lymphocytes # 0.9 L (1.0-4.8) k/uL Glucose 103 H (74-99) mg/dL Plasma Lactic Acid Moy 2.7 H* (0.7-2.0) mmol/L 02/26/19 Range/Units 11:24 RBC (3.80-5.40) m/uL Hgb (11.4-16.0) gm/dL Hct (34.0-46.0) % Lymphocytes # (1.0-4.8) k/uL Glucose (74-99) mg/dL Plasma Lactic Acid Moy 4.8 H* (0.7-2.0) mmol/L Microbiology - Last 24 Hours (Table) 02/22/19 18:56 Blood Culture - Preliminary Blood No Growth after 72 hours 02/22/19 16:00 CSF Gram Stain - Preliminary Cerebral Spinal Fluid CSF Culture - Preliminary Assessment and Plan (1) DLBCL (diffuse large B cell lymphoma) Narrative/Plan: New diagnosis. Reviewed CT chest, which did not show any parenchymal lung mets or medistinal adenopathy. Reviewed MRI brain which was negative. PET scheduled for this Monday, if pt is stable enough to be discharged, to complete staging. Pending genetic rearrangements testing to evaluate for double/triple hit lymphoma. Pending CSF flow cytometry Treatment options and prognosis once staging additional studies completed Current Visit: Yes Status: Acute Priority: High Code(s): C83.30 - DIFFUSE LARGE B-CELL LYMPHOMA, UNSPECIFIED SITE SNOMED Code(s): 643361296 (2) AMS (altered mental status) Narrative/Plan: No further improvement possibly regression. MRI did not show evidence of parenchymal brain mets. Pt is on abx for UTI. Pending LP results but from preliminary results not suspicious for lymphoma or infection. Hospitalization induced AMS or a paraneoplastic syndrome? Psychiatry consulted. Current Visit: Yes Status: Acute Priority: High Code(s): R41.82 - ALTERED MENTAL STATUS, UNSPECIFIED SNOMED Code(s): 799035584 Plan: Attests: I have performed H&P and developed impression and plan of care of patient, discussed with dictator. I agree with dictated note, documented as a scribe.
--- NOTE | 2019-02-26 18:33 | PN ---
PROGRESS NOTE DATE OF SERVICE: 02/26/2019 This 73-year-old woman who was admitted with UTI with sepsis also had change in mental status. The patient is confused today. The patient is combative. The lumbar puncture final reports are pending at this time. Hematology/Oncology is following the patient closely. The patient had elevated lactic acid. The patient does have a history of non- Hodgkin's lymphoma. Past medical history reviewed. REVIEW OF SYSTEMS: CARDIOVASCULAR SYSTEM: No angina, palpitations. RESPIRATORY SYSTEM: As mentioned earlier. GI: As mentioned earlier. : No dysuria or retention. NERVOUS SYSTEM: No numbness, weakness. CURRENT MEDICATIONS: Reviewed. They include: 1. Tylenol p.r.n. 2. [place] 5 mg q.6 p.r.n. 3. Xanax 0.25 t.i.d. 4. Norvasc 5 mg p.o. b.i.d. 5. Vitamin C 1000 daily. 6. Lipitor 10 mg at bedtime. 7. Tums p.r.n. 8. Vitamin D3. 9. Folic acid. 10.Haldol. 11.Heparin. 12.Apresoline. 13.Ativan. 14.Lopressor. 15.P.r.n. medication. 16.Narcan. 17.Protonix. 18.Risperdal. 19.Vitamin B1. PHYSICAL EXAMINATION: Patient is alert, oriented x2, confused otherwise. Pulse 102, blood pressure 173/88, respiration 20, temperature 98.8, pulse ox 94% on room air. HEENT: Conjunctivae normal. NECK: No jugular venous distention. CARDIOVASCULAR SYSTEM: S1, S2 muffled. RESPIRATORY SYSTEM: Breath sounds diminished at the bases. A few scattered rhonchi and crackles. ABDOMEN: Soft, non-tender. Vague mass present. LEGS: No edema. No swelling. NERVOUS SYSTEM: No focal deficit. LABS: WBC 7.6, hemoglobin 9.6. Sodium 143, potassium 3.5. Lactic acid is 4.8. ASSESSMENT: 1. Acute urinary tract infection with possible sepsis, present on admission. 2. Change in mental status, possible acute metabolic encephalopathy secondary to sepsis and multifactorial. 3. Gait dysfunction and possible transient ischemic attack. 4. Elevated lactic acid. 5. Recently diagnosed diffuse large B-cell lymphoma, germinal type center, involving submucosa of the colon, status post colonoscopy and biopsy of the abdominal mass. 6. Hypertension. 7. History of degenerative joint disease. 8. History of varicose veins. 9. History of hyperlipidemia. 10.History of skin cancer. 11.History of hypercalcemia. 12.History of hypomagnesemia. 13.FULL CODE. RECOMMENDATIONS AND DISCUSSION: In this 73-year-old woman who presented with multiple complex medical issues, as mentioned earlier, at this time I recommend to continue current medications, continue the antibiotics. Continue with symptomatic treatment. Otherwise, I would also recommend psychiatric consultation for evaluation. CT scan of the brain has been done. CT scan of the abdomen was done elsewhere. The prognosis is guarded because of multiple complex medical issues. Further recommendations to follow. Closely follow with Infectious Disease as well as Hematology/Oncology. I would recommend also a repeat CT scan of the abdomen and pelvis at this time. MMODL / IJN: [id number] /
[2019-02-26] MEDS ORDERED: risperiDONE 0.25 MG TAB PO SCH (21:00)
[2019-02-26] MEDS: METOPROLOL TARTRATE 50 MG TAB PO SCH (21:13)
[2019-02-26] MEDS: ATORVASTATIN 10 MG TAB PO SCH (21:13)
[2019-02-26] MEDS: risperiDONE 0.25 MG TAB PO SCH (21:13)
[2019-02-26] MEDS: ACETAMINOPHEN TAB 500 MG TAB PO PRN (21:13)
[2019-02-27] MEDS: LORazepam 2 MG/ML INJ IV PRN (01:41)
[2019-02-27] MEDS: HALOPERIDOL LACTATE 5 MG/ML 1 ML VIAL IM PRN (01:55)
[2019-02-27 07:27] LABS: Basophils % (A) 0 %; Eosinophils # (A) 0.1 k/uL (0-0.7); Eosinophils % (A) 1 %; HCT 29.8 % (34.0-46.0); HGB 9.5 gm/dL (11.4-16.0); Lymphocytes # (A) 0.9 k/uL (1.0-4.8); Lymphocytes % (A) 11 %; MCH 28.7 pg (25.0-35.0); MCHC 31.8 g/dL (31.0-37.0); MCV 90.1 fL (80.0-100.0); Mean Platelet Volume 7.5; Monocytes # (A) 0.4 k/uL (0-1.0); Monocytes % (A) 6 %; Neutrophils # (A) 6.3 k/uL (1.3-7.7); Neutrophils % (A) 80 %; Platelet Count 358 k/uL (150-450); RBC 3.31 m/uL (3.80-5.40); RDW 13.6 % (11.5-15.5); WBC 7.8 k/uL (3.8-10.6)
[2019-02-27 07:44] LABS: Potassium 3.8 mmol/L (3.5-5.1)
[2019-02-27] MEDS: risperiDONE 0.25 MG TAB PO SCH ×2 (08:32→21:55)
[2019-02-27] MEDS: amLODIPine 5 MG TAB PO SCH ×2 (08:32→21:49)
[2019-02-27] MEDS: METOPROLOL TARTRATE 50 MG TAB PO SCH ×2 (08:32→21:49)
[2019-02-27] MEDS: HEPARIN SODIUM,PORCINE 5,000 UNIT/ML 1 ML VIAL SQ SCH ×2 (08:33→21:49)
[2019-02-27] MEDS: PANTOPRAZOLE 40 MG TABLET PO SCH (08:33)
[2019-02-27] MEDS: CALCIUM CARBONATE 500 MG CHEWABLE PO SCH (08:33)
[2019-02-27] MEDS: THIAMINE 100 MG TAB PO SCH (08:34)
[2019-02-27] MEDS: MULTIVITAMINS, THERA 1 EACH TAB PO SCH (08:34)
[2019-02-27] MEDS: ASCORBIC ACID 500 MG TAB PO SCH (08:34)
[2019-02-27] MEDS: CHOLECALCIFEROL 1,000 UNIT TAB PO SCH (08:34)
[2019-02-27] MEDS: CYANOCOBALAMIN 500 MCG TAB PO SCH (08:34)
[2019-02-27] MEDS: FOLIC ACID 1 MG TAB PO SCH (08:35)
[2019-02-27] MEDS: cycloSPORINE 0.05% OPHTH 0.4 ML DROPERETTE BOTH EYES SCH ×2 (09:39→21:49)
--- NOTE | 2019-02-27 12:28 | P.CON ---
Consult Note - . Consult date: 02/27/19 Assessment/Plan:: I reviewed the medical record, spoke with the charge nurse and interviewed the patient. She complained of feeling tired. She remains confused. She thought she was at "a friend's house". However, she is able to identify the month and year correctly. She reported that she has had no major episodes of agitation. She remains restless and frequently needs redirection to remain in bed. She received 0.5 mg of Ativan and 5 mg of Haldol IV earlier this morning. She presented as a pale appearing and sedated elderly woman who is laying comfortably on hospital her hospital bed. The one-to-one sitter was in attendance. She had difficulty attending and concentrating on the interview. She had a flat facial expression. She was not restless or agitated. Her speech was not spontaneous. Her affect was flat. She did not express clear ideas reference, paranoid ideation or delusions. Her thinking was concrete. She did not appear to be responding to internal stimuli. Impression: Delirium due to another medical condition Recommendation: Continue risperidone 0.25 mg by mouth twice a day and titrated according to clinical response and tolerance. Continue Haldol 5 mg IM every 6 when necessary for agitation, Ativan 0.5 mg IV every 6 hours when necessary for agitation and Ativan 1 mg by mouth 3 times a day when necessary for agitation.
--- NOTE | 2019-02-27 14:16 | PN ---
PROGRESS NOTE DATE OF SERVICE: 02/27/2019 This is a 73-year-old woman who was admitted with acute UTI with possible sepsis, also had change in mental status. Patient has fluctuating sensorium at this time. The patient needed multiple medications per Psychiatry. The Neurology consultation is pending at this time. Otherwise, the patient also with large B-cell lymphoma. The patient also had a persistently elevated lactic acid. Abdominal and pelvis CAT scan was repeated yesterday. Findings are noted. PAST MEDICAL HISTORY: Reviewed. REVIEW OF SYSTEMS: CARDIOVASCULAR: No angina. RESPIRATION: As mentioned earlier. GI: As mentioned earlier. : No dysuria. NERVOUS SYSTEM: No focal deficits. CURRENT MEDICATIONS: Reviewed and include: 1. Tylenol p.r.n. 2. [place] 5 mg q.6 p.r.n. 3. Norvasc 5 mg p.o. b.i.d. 4. Vitamin C 1000 mg daily. 5. Lipitor 10 mg q.h.s. 6. Tums 1500 mg p.o. daily. 7. Vitamin D3 one thousand daily. 8. Vitamin B12 one thousand mg p.o. daily. 9. Cyclosporine 1 drop both eyes. 10.Folic acid 1 mg p.o. daily. 11.Haldol 0.5 mg IV q.6. 12.Heparin 5 subcu b.i.d. 13.Zofran 10 mg IV q.6. 14.Ativan 0.5 mg q.6. 15.Ativan 1 mg t.i.d. p.r.n. 16.Lopressor 50 mg p.o. b.i.d. 17.Replacement protocols Narcan. 18.Protonix. 19.Risperdal. 20.Vitamin B1. PHYSICAL EXAM: Patient is conscious but confused, pulse is 110, blood pressure is 128/90, respiration 20, temperature 98 degrees, pulse ox 98% on room air. HEENT: Normal. NECK: No jugular venous distension. CARDIOVASCULAR SYSTEM: S1, S2, muffled. RESPIRATION: Breath sounds diminished at the bases, bilateral scattered rhonchi, no crackles. ABDOMEN: Soft, nontender. No mass palpable. LEGS: No edema, no swelling. NERVOUS SYSTEM: Higher functions as mentioned earlier. Moves all 4 limbs. Mild diffuse weakness. LABS: WBC 7.2, hemoglobin is 9.5, lactic acid 4.9, calcium is 10. ASSESSMENT: 1. Acute urinary tract infection with possible sepsis, present on admission with negative cultures so far. 2. Change in mental status, possible acute metabolic encephalopathy, secondary to sepsis and multifactorial. 3. Gait dysfunction, possible transient ischemic attack. 4. Elevated lactic acid. 5. Recently diagnosed diffuse large B-cell lymphoma, center involving submucous of the colon, status post colonoscopy and biopsy of the abdominal mass. 6. Status post lumbar puncture and awaiting flu cytometry of the CSF with minimally increased protein. 7. Hypertension. 8. History of degenerative joint disease. 9. History of varicose veins. 10.History of hyperlipidemia. 11.History of skin cancer. 12.History of hypercalcemia. 13.History of hypomagnesemia. 14.FULL CODE. RECOMMENDATION: In this 73-year-old woman who presented with multiple complex medical issues, will monitor the patient closely. Continue with the current management and symptomatic treatment. The patient had persistently altered mental status changes at this time, we do not have any neurology coverage. I will discuss with the [facility] regarding possible transfer for further evaluation and treatment. Patient also had multiple other issues including persistent elevated lactic acid. I discussed with the family at length and understands and agrees and continue to monitor. Otherwise see orders for further details. We will discuss [facility] for possible transfer and further continued management. Prognosis guarded. MMODL / IJN: [id number] / CHRYSTAL
[2019-02-27] MEDS: ATORVASTATIN 10 MG TAB PO SCH (21:49)
[2019-02-27] MEDS: 0.9% NACL WITH KCL 40 MEQ/L 1,000 ML IV SCH (21:51)
[2019-02-28] MEDS: HALOPERIDOL LACTATE 5 MG/ML 1 ML VIAL IM PRN ×2 (02:42→08:47)
[2019-02-28 07:44] LABS: Basophils % (A) 1 %; Eosinophils # (A) 0.1 k/uL (0-0.7); Eosinophils % (A) 2 %; HCT 30.9 % (34.0-46.0); HGB 10.1 gm/dL (11.4-16.0); Lymphocytes # (A) 1.2 k/uL (1.0-4.8); Lymphocytes % (A) 13 %; MCH 29.3 pg (25.0-35.0); MCHC 32.6 g/dL (31.0-37.0); Mean Platelet Volume 7.5; Monocytes # (A) 0.6 k/uL (0-1.0); Monocytes % (A) 7 %; Neutrophils # (A) 6.7 k/uL (1.3-7.7); Neutrophils % (A) 76 %; Platelet Count 451 k/uL (150-450); RBC 3.43 m/uL (3.80-5.40); RDW 13.5 % (11.5-15.5); WBC 8.8 k/uL (3.8-10.6)
[2019-02-28 08:07] LABS: African American GFR (CKD) >90 (>60 ml/min/1.73 sqM); Anion Gap 12 mmol/L; Blood Urea Nitrogen 14 mg/dL (7-17); Calcium 10.4 mg/dL (8.4-10.2); Carbon Dioxide 25 mmol/L (22-30); Chloride 107 mmol/L (98-107); Glucose 116 mg/dL (74-99); Non-African American GFR(CKD) 82 (>60 ml/min/1.73 sqM); Potassium 3.8 mmol/L (3.5-5.1); Sodium 144 mmol/L (137-145)
[2019-02-28] MEDS: risperiDONE 0.25 MG TAB PO SCH ×3 (08:50→19:52)
[2019-02-28] MEDS: HEPARIN SODIUM,PORCINE 5,000 UNIT/ML 1 ML VIAL SQ SCH ×2 (08:57→21:02)
--- NOTE | 2019-02-28 09:11 | DS ---
DISCHARGE SUMMARY FINAL DIAGNOSES: 1. Acute urinary tract infection with possible sepsis present on admission with negative cultures so far. 2. Change in mental status, metabolic encephalopathy, possibly secondary to sepsis and multifactorial. 3. Gait dysfunction with possible transient ischemic attack. 4. Elevated lactic acid. 5. Recently diagnosed diffuse large B-cell lymphoma involving the submucosa of the colon, status post colonoscopy and biopsy of the abdominal mass. 6. Status post lumbar puncture and awaiting flow cytometry of CSF with minimally increased protein. 7. Hypertension. 8. History of degenerative joint disease. 9. History of varicose veins. 10.History of hyperlipidemia. 11.History of skin cancer. 12.History of hypercalcemia. 13.History of hypomagnesemia. 14.FULL CODE. DISCHARGE DISPOSITION: The patient will be discharged in stable condition with guarded prognosis. Total time 35 minutes. HISTORY OF PRESENT ILLNESS: This 73-year-old woman with a past medical history of multiple medical problems was recently diagnosed with diffuse large B-cell lymphoma, being followed by Dr. Corinne Quintero in the outpatient setting admitted with change in mental status, acute UTI was suspected. Patient treated with IV antibiotics. Cultures are negative so far. The patient has seen multiple consultants. MRI brain was negative, but however the lumbar puncture protein elevated up to 84. Flow cytometry is pending at this time. Hematology/Oncology saw the patient. However, because we do not have neurology coverage this week and the patient continues to be confused and the family is concerned, I discussed the case at length at [facility] Medical team and the patient transferred to [facility] for further evaluation and treatment. Please refer to the multiple notes and consultation report for further information. Once again, we do not have any neurology coverage and the family is concerned about the neurological status, which is not improving currently. MMODL / IJN: [id number] /
[2019-02-28] MEDS: cycloSPORINE 0.05% OPHTH 0.4 ML DROPERETTE BOTH EYES SCH ×2 (13:24→21:02)
[2019-02-28] MEDS: ASCORBIC ACID 500 MG TAB PO SCH (13:24)
[2019-02-28] MEDS: CALCIUM CARBONATE 500 MG CHEWABLE PO SCH (13:24)
[2019-02-28] MEDS: CYANOCOBALAMIN 500 MCG TAB PO SCH (13:24)
[2019-02-28] MEDS: 0.9% NACL WITH KCL 40 MEQ/L 1,000 ML IV SCH ×2 (13:24→19:53)
[2019-02-28] MEDS: amLODIPine 5 MG TAB PO SCH ×2 (13:24→21:02)
[2019-02-28] MEDS: CHOLECALCIFEROL 1,000 UNIT TAB PO SCH (13:24)
[2019-02-28] MEDS: PANTOPRAZOLE 40 MG TABLET PO SCH (13:24)
[2019-02-28] MEDS: FOLIC ACID 1 MG TAB PO SCH (13:25)
[2019-02-28] MEDS: THIAMINE 100 MG TAB PO SCH (13:25)
[2019-02-28] MEDS: MULTIVITAMINS, THERA 1 EACH TAB PO SCH (13:25)
[2019-02-28] MEDS: METOPROLOL TARTRATE 50 MG TAB PO SCH ×2 (13:25→21:02)
--- NOTE | 2019-02-28 15:46 | P.CON ---
Consult Note - . Consult date: 02/28/19 Assessment/Plan:: I reviewed the medical record, interviewed the patient and her . 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 She perseverated about struggling with 2 women in the bathroom . Her stated that the plan is to transfer her to [facility] for a neurological evaluation. She continues to require both IM Haldol and IV lorazepam for periods of agitation. She received 0.5 mg of lorazepam in 5 mg of Haldol yesterday and a total of 10 mg of Haldol today. She is refusing oral doses of Risperdal 0.25 mg She presented as a neatly groomed elderly woman who is laying comfortably in bed. She appeared sedated. Her speech was soft and slightly slurred. She demonstrated no abnormal movements. Her thinking was not fully coherent and organized. She was oriented to month and year. She is able to register the memory phrase "Lincoln Anderson, [address] [place] [address]." She is able to recall the memory phrase after distraction exercise as wishing was asked to count backwards from 2 to 1 and name the months in reverse order. She performed the first distraction exercise program was unable to complete the second. She continues demonstrate signs and symptoms of delirium is most likely paraneoplastic. She is discharged to be transferred [facility]. Case closed.
--- NOTE | 2019-02-28 17:46 | P.PN ---
Subjective Progress Note Date: 02/28/19 Principal diagnosis: NHL, germinal subtype In f/u today pt mental status continues to decline. She answers correctly when you speak directly to her if it is a simple question, she is agitated, drifts off to sleep and then awakens suddenly grabbing and reaching Objective - Vital Signs Vital signs: Vital Signs Temp 99.2 F 02/28/19 12:01 Pulse 110 H 02/28/19 12:01 Resp 17 02/28/19 12:01 BP 175/80 02/28/19 12:01 Pulse Ox 95 02/28/19 12:01 Intake & Output 02/27/19 02/28/19 02/28/19 18:59 06:59 18:59 Intake Total 240 600 Balance 240 600 Intake: Intake, IV Titration 600 Amount 0.9% NaCl with KCl 40 Meq 600 /l 1,000 ml @ 70 mls/hr IV .[id number] [facility] Rx#: [id number] Oral 240 Other: Voiding Method Toilet Toilet Toilet Diaper Diaper Diaper Incontinent Incontinent Incontinent # Voids 4 5 - Exam WDWN, NAD, lethargic, answers simple questions then falls asleep, S1S1, BBS CTA, mass in abd is palpable, BS +, mild lower extremity edema - Labs CBC & Chem 7: 02/28/19 07:25 02/28/19 07:25 Labs: Abnormal Lab Results - Last 24 Hours (Table) 02/28/19 02/28/19 02/28/19 Range/Units 07:25 07:25 07:25 RBC 3.43 L (3.80-5.40) m/uL Hgb 10.1 L (11.4-16.0) gm/dL Hct 30.9 L (34.0-46.0) % Plt Count 451 H (150-450) k/uL Glucose 116 H (74-99) mg/dL Plasma Lactic Acid Moy 3.5 H* (0.7-2.0) mmol/L Calcium 10.4 H (8.4-10.2) mg/dL Microbiology - Last 24 Hours (Table) 02/22/19 18:56 Blood Culture - Preliminary Blood No Growth after 120 hours Assessment and Plan (1) DLBCL (diffuse large B cell lymphoma) Current Visit: Yes Status: Acute Priority: High Code(s): C83.30 - DIFFUSE LARGE B-CELL LYMPHOMA, UNSPECIFIED SITE SNOMED Code(s): 691781379 (2) AMS (altered mental status) Current Visit: Yes Status: Acute Priority: High Code(s): R41.82 - ALTERED MENTAL STATUS, UNSPECIFIED SNOMED Code(s): 509565298 Plan: Pending CSF flow cytometry Tumor not sufficient for MYC, BCL2, BCL6 testing, will need re-biopsy for tissue to obtain this testing Due to lack of response to treatment, persistently increased lactic acid and progressive mental status decline plan is to transfer to [facility] neuro facility. Agree with IM plan. If no underlying cause for pt persistent, progressive symptoms quite possibly a paraneoplastic syndrome? Will await Daren Jurado work up and diagnosis
[2019-02-28] MEDS: LORazepam 2 MG/ML INJ IV PRN (19:50)
[2019-02-28] MEDS: ATORVASTATIN 10 MG TAB PO SCH (21:02)
[2019-03-01] MEDS: HALOPERIDOL LACTATE 5 MG/ML 1 ML VIAL IM PRN (00:09)
[2019-03-01] MEDS: 0.9% NACL WITH KCL 40 MEQ/L 1,000 ML IV SCH ×2 (06:09→20:16)
--- NOTE | 2019-03-01 07:09 | DS ---
DISCHARGE SUMMARY ADDENDUM: DATE OF SERVICE: 02/28/2019 This 73-year-old woman was admitted with change in mental status and possible metabolic encephalopathy, also had recently diagnosed non-Hodgkin lymphoma also. The patient Dr. Ham. Patient is confused and necessitated multiple medical issues. Psychiatry is following the patient closely. Because of lack of neurology, I discussed the case with [facility] hospitalist and the patient will be transferred to [facility] for further evaluation and treatment. Please refer to my previous dictation for list of diagnosis and other pertinent details. On exam, vitals are stable. CARDIOVASCULAR: S1, S2. ABDOMEN: Soft. NERVOUS SYSTEM: Patient is confused and diffusely weak. Please refer to the medication reconciliation sheet for list of the current medications. TOTAL TIME TAKEN: 35 minutes. MMGLADYSL / IJN: [id number] / MTDD
[2019-03-01] MEDS: amLODIPine 5 MG TAB PO SCH ×2 (10:47→21:55)
[2019-03-01] MEDS: risperiDONE 0.25 MG TAB PO SCH ×2 (10:47→21:55)
[2019-03-01] MEDS: HEPARIN SODIUM,PORCINE 5,000 UNIT/ML 1 ML VIAL SQ SCH ×2 (10:47→21:55)
[2019-03-01] MEDS: cycloSPORINE 0.05% OPHTH 0.4 ML DROPERETTE BOTH EYES SCH ×2 (10:48→21:55)
[2019-03-01] MEDS: PANTOPRAZOLE 40 MG TABLET PO SCH (10:49)
[2019-03-01] MEDS: CALCIUM CARBONATE 500 MG CHEWABLE PO SCH (10:49)
[2019-03-01] MEDS: CHOLECALCIFEROL 1,000 UNIT TAB PO SCH (10:49)
[2019-03-01] MEDS: CYANOCOBALAMIN 500 MCG TAB PO SCH (10:49)
[2019-03-01] MEDS: ASCORBIC ACID 500 MG TAB PO SCH (10:49)
[2019-03-01] MEDS: METOPROLOL TARTRATE 50 MG TAB PO SCH ×2 (10:54→21:55)
[2019-03-01] MEDS: THIAMINE 100 MG TAB PO SCH (11:04)
[2019-03-01] MEDS: FOLIC ACID 1 MG TAB PO SCH (11:04)
[2019-03-01] MEDS: MULTIVITAMINS, THERA 1 EACH TAB PO SCH (11:04)
--- NOTE | 2019-03-01 14:55 | CT ---
EXAMINATION TYPE: CT brain wo con DATE OF EXAM: 03/01/2019 HISTORY: Altered mental status. CT DLP: 792.9 mGycm. Automated Exposure Control for Dose Reduction was Utilized. TECHNIQUE: CT scan of the head is performed without contrast. COMPARISON: MRI brain February 22, 2019. FINDINGS: There is no acute intracranial hemorrhage or midline shift identified. There is diffuse v entricular and sulcal prominence consistent with diffuse age-related cerebral atrophy. There is low- attenuation in the periventricular white matter consistent with chronic small vessel ischemic change. The globes are intact and the visualized sinuses are clear. IMPRESSION: No acute intracranial hemorrhage or midline shift. There is mild diffuse age-related ce rebral atrophy and moderate chronic small vessel ischemic change redemonstrated. No significant little e from prior MRI.
[2019-03-01 15:19] LABS: Appearance,Urine Clear (Clear); Bilirubin,Urine Negative (Negative); Blood,Urine Negative (Negative); Color,Urine Yellow; Glucose,Urine (UA) Negative (Negative); Ketones,Urine 1+ (Negative); Leukocyte Esterase,Urine Negative (Negative); Mucus,Urine Occasional /hpf; Nitrite,Urine Negative (Negative); Protein,Urine 1+ (Negative); RBC,Urine 1 /hpf (0-5); Specific Gravity,Urine 1.013 (1.001-1.035); Urobilinogen,Urine <2.0 mg/dL (<2.0); WBC,Urine 7 /hpf (0-5)
[2019-03-01 15:43] LABS: Basophils % (A) 0 %; Eosinophils % (A) 0 %; HCT 32.2 % (34.0-46.0); HGB 10.4 gm/dL (11.4-16.0); Lymphocytes % (A) 9 %; MCH 28.9 pg (25.0-35.0); MCHC 32.4 g/dL (31.0-37.0); MCV 89.3 fL (80.0-100.0); Mean Platelet Volume 7.4; Monocytes # (A) 0.6 k/uL (0-1.0); Monocytes % (A) 6 %; Neutrophils # (A) 8.5 k/uL (1.3-7.7); Neutrophils % (A) 82 %; Platelet Count 440 k/uL (150-450); RDW 13.9 % (11.5-15.5); WBC 10.3 k/uL (3.8-10.6)
[2019-03-01 15:47] LABS: Albumin 4.3 g/dL (3.5-5.0); Calcium 9.8 mg/dL (8.4-10.2); Total Bilirubin 0.5 mg/dL (0.2-1.3); Total Protein 6.8 g/dL (6.3-8.2)
[2019-03-01] MEDS ORDERED: PIPERACILLIN-TAZOBACTAM 3.375 GM in SODIUM CHLORIDE 0.9% 100 ML IVPB SCH (16:00)
--- NOTE | 2019-03-01 17:08 | PN ---
PROGRESS NOTE REASON FOR REQUEST: Fever. HISTORY: The patient is a 73-year-old female who was admitted to the hospital. This patient with recent diagnosis of lymphoma and did have some mental status changes. She did have a positive UA for which the patient did receive Rocephin, subsequently urine culture negative and follow up UA was negative. I did not follow the patient since then. In the meantime, the patient seemed to have some component of agitation for which the patient has been seen by psychiatry and the patient was started on Ativan as needed and risperidone. This morning the patient did have a low-grade fever of 100.1. I was stopped in the hallway by the patient's nurse to reevaluate the patient for this fever and concern for possible infection as the patient's lactic acid remains to be elevated. The patient apparently has been lethargic since she has received her risperidone and it is hard to wake up per the family. The patient did respond to her name, but now specifically denies any headache. No cough has been noticed or any vomiting. Oral intake has been very poor and no diarrhea has been reported. Further history could not be obtained because of underlying condition. REVIEW OF SYSTEMS: Could not be reliably obtained. Positive points have been mentioned in the HPI. Past medical and surgical history reviewed. Change in medications reviewed. PHYSICAL EXAMINATION: Blood pressure 150/63 with a pulse of 112, temperature 100.1. She 92% on room air. General description is an elderly female, lying in bed in no distress. HEENT: Examination shows no pallor or scleral icterus. Oral mucosa membranes are dry. NECK: Trachea central. No thyromegaly. LUNGS unlabored breathing. Decreased breath sounds in the bases. No wheeze. Heart S1, S2. Regular rate and rhythm. ABDOMEN: Soft, no guarding or rigidity. EXTREMITIES: No edema of the feet. SKIN: Examination no rash or mass palpable. NEUROLOGIC the patient remains lethargic though did respond to her name. LABS: Hemoglobin is 10.1, white count 8.8 with a BUN of 14, creatinine lactate acid 2.5, calcium is 10.4. DIAGNOSTIC IMPRESSION AND PLAN: Patient with new fever in this patient with recent diagnosis of lymphoma for which the patient did have extensive workup including an LP that was negative. Culture has been negative. The patient did have a CT abdomen and pelvis completed which did shows multiple soft tissue density lobulated anterior abdominal masses consistent with malignancy. 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 Infiltration of small bowel is concerning. Hence we will go ahead and obtain blood cultures done to check and UA and cultures. Empirically added Zosyn and monitor clinical course closely. Family at the bedside. All their questions and concerns were answered. MMODL / IJN: [id number] /
[2019-03-01 20:05] VITALS: BP 128/75; PULSE 98; RESP 15; TEMP 98.1
[2019-03-01] MEDS: ATORVASTATIN 10 MG TAB PO SCH (21:55)
== END 2019-03-01 23:00 | disposition short-term general hospital (02) | DRG 871 ==
LOC: 5NMEDONC 16:03
PROVIDERS: ADMIT Hospitalist; ATTEND Hospitalist
PROC: 009U3ZX Drainage of Spinal Canal, Percutaneous Approach, Diagnostic (ICD-10-PCS; principal; 2019-02-22)
DX: A41.9 Sepsis, unspecified organism (principal); G93.41 Metabolic encephalopathy; C83.30 Diffuse large B-cell lymphoma, unspecified site; E87.2 Acidosis; F05 Delirium due to known physiological condition; N39.0 Urinary tract infection, site not specified; G45.9 Transient cerebral ischemic attack, unspecified; R65.20 Severe sepsis without septic shock; E78.5 Hyperlipidemia, unspecified; E83.42 Hypomagnesemia; E83.52 Hypercalcemia; E87.6 Hypokalemia; I10 Essential (primary) hypertension; M19.90 Unspecified osteoarthritis, unspecified site; I83.90 Asymptomatic varicose veins of unspecified lower extremity; R26.2 Difficulty in walking, not elsewhere classified; H91.90 Unspecified hearing loss, unspecified ear; H54.7 Unspecified visual loss; E86.0 Dehydration; R32 Unspecified urinary incontinence; R45.1 Restlessness and agitation; Z85.828 Personal history of other malignant neoplasm of skin; Z87.891 Personal history of nicotine dependence; Z96.659 Presence of unspecified artificial knee joint; Z79.899 Other long term (current) drug therapy; Z80.0 Family history of malignant neoplasm of digestive organs; Z98.49 Cataract extraction status, unspecified eye; Z96.1 Presence of intraocular lens
CPT/HCPCS: 62328; 70450; 70553; 71045; 71260; 74176; 80048; 80053; 81001; 81003; 82945; 83605; 83735; 84132; 84157; 85025; 85610; 87040; 87070; 87086; 87205; 88108; 89050; 93005

== ENCOUNTER → 2019-04-03 | Outpatient (CLI) | payer MEDICARE ==
[2019-04-03 16:17] LABS: African American GFR (CKD) >90 (>60 ml/min/1.73 sqM); Blood Urea Nitrogen 17 mg/dL (7-17); Non-African American GFR(CKD) 86 (>60 ml/min/1.73 sqM)
--- NOTE | 2019-04-03 16:50 | US ---
EXAMINATION TYPE: US venous doppler duplex LE LT DATE OF EXAM: 04/03/2019 4:27 PM COMPARISON: NONE CLINICAL HISTORY: [id number], R22.42, R00.0 Tachycardia. Right leg swelling SIDE PERFORMED: Right TECHNIQUE: The lower extremity deep venous system is examined utilizing real time linear array sonog corbin with graded compression, doppler sonography and color-flow sonography. VESSELS IMAGED: External Iliac Vein (EIV) Common Femoral Vein Deep Femoral Vein Greater Saphenous Vein * Femoral Vein Popliteal Vein Small Saphenous Vein * Proximal Calf Veins (* superficial vessels) There is normal flow, compressibility, vascular waveforms. Right Leg: Appears negative for DVT IMPRESSION: No evident deep venous thrombosis at or above the right knee.
--- NOTE | 2019-04-03 17:01 | CT ---
CT CHEST FOR PULMONARY EMBOLISM. EXAMINATION TYPE: CT angio chest DATE OF EXAM: 04/03/2019 INDICATION: SOB, leg swelling CT DLP: 469 mGycm, Automated exposure control for dose reduction was used. CONTRAST: Patient injected with 70 mL of Isovue 370. COMPARISON: 02/21/2019 TECHNIQUE: CT of the chest is performed on a spiral scan at 2 mm thick sections. Study is performed with intravenous contrast timed for evaluation for pulmonary embolism. This will limit additional po rtions of the evaluation. 3-D MIP images reconstructed by the technologist are reviewed on the compu ter in the coronal and sagittal planes. FINDINGS: No persistent filling defects are evident to suggest an acute pulmonary embolism. No mediastinal or hilar adenopathy enlarged by CT criteria is evident. The ascending aorta diameter at the level of the main pulmonary artery is 3.2 cm. The main pulmonary artery diameter at the bifur cation is 3.0 cm. Lung windows are clear. Limited CT section through the upper abdomen. Previous left upper quadrant density has significantly diminished over the interval. This is incompletely evaluated on this exam. IMPRESSIONS: 1. No acute pulmonary embolism.
== END | disposition home or self-care (01) ==
LOC: RADCTMAIN 15:36
PROVIDERS: ATTEND Registered Nurse Oncology
DX: R00.0 Tachycardia, unspecified (principal); M79.662 Pain in left lower leg; R22.42 Localized swelling, mass and lump, left lower limb
CPT/HCPCS: 82565; 84520; 93971; 71275; 36415; Q9967

== ENCOUNTER 2019-05-14 22:40 | Inpatient (IN) | payer MEDICARE ==
[2019-05-14] MEDS ORDERED: VANCOMYCIN IV PER PHARMACY 1 EACH MISC MISCELLANE PRN (22:58)
[2019-05-14] MEDS ORDERED: PIPERACILLIN-TAZOBACTAM 3.375 GM in SODIUM CHLORIDE 0.9% 100 ML IVPB STA (22:58)
--- NOTE | 2019-05-14 22:58 | ED ---
Recheck HPI - General Stated Complaint: SOB Time Seen by Provider: 05/14/19 22:41 Source: patient, EMS, RN notes reviewed, old records reviewed Mode of arrival: EMS Limitations: no limitations - History of Present Illness Initial Comments: This is a 74-year-old female DF for evaluation patient has a for evaluation regarding neutropenic fever. Has known CA on chemotherapy last week significantly neutropenic and outpatient labs show and see her own 60. Patient herself admits to fever no cough or congestion or shortness of breath does admit to weakness no dysuria no nausea vomiting or diarrhea. Symptoms progressively worse. Patient is brought in from outside facility, [facility] she is under COVID Precautions secondary to fever patient does not know of any specific exposures MD Complaint: other (weakness) -: days(s) Returns Today for: Called Because of Abnormal Lab/Test, other (sent to ED for Weakness, fever/neutropenia) Symptoms Since Prior Visit: fever Context: other (sent for treatment from other facility) Associated Symptoms: fever, chills, malaise - Related Data Home Medications Medication Instructions Recorded Confirmed Calcium Carbonate [Calcium] 600 mg PO DAILY 09/04/17 02/20/19 Cholecalciferol [Vitamin D3] 1,000 unit PO DAILY 09/04/17 02/20/19 Glucosam/Ambrosio-Msm1/C/Tiburcio/Bosw 1 tab PO DAILY 09/04/17 02/20/19 [Glucosamine-Chondroitin Tablet] Simvastatin [Zocor] 20 mg PO HS 09/04/17 02/20/19 Ascorbic Acid [Vitamin C with Caitlyn 1,000 mg PO DAILY 02/05/19 02/20/19 Hips] Cyanocobalamin (Vitamin B-12) 1,000 mcg PO DAILY 02/05/19 02/20/19 [Vitamin B-12] cycloSPORINE 0.05% OPHTH SOLN 1 applicator BOTH EYES Q12H 02/20/19 02/20/19 [Restasis] Allergies Allergy/AdvReac Type Severity Reaction Status Date / Time No Known Allergies Allergy Verified 02/20/19 19:16 Review of Systems ROS Statement: Those systems with pertinent positive or pertinent negative responses have been documented in the HPI. ROS Other: All systems not noted in ROS Statement are negative. Past Medical History Past Medical History: Cancer, Osteoarthritis (OA) Additional Past Medical History / Comment(s): varicose veins, skin cancer, leaky heart valve, History of Any Multi-Drug Resistant Organisms: None Reported Past Surgical History: Breast Surgery, Joint Replacement, Orthopedic Surgery, Tubal Ligation Additional Past Surgical History / Comment(s): skin cancer removed from rt arm, rt foot bunionectomy, surgery on rt foot between little toe and 4th toe, rt foot heel spurs, rt breast biopsy and needle loc, carissa cataracts. Total Lt knee. Colonoscopy Past Anesthesia/Blood Transfusion Reactions: Previous Problems w/ Anesthesia, Family History of Problems w/ Anesthesia Additional Past Anesthesia/Blood Transfusion Reaction / Comment(s): had reaction to anesthesia that effected breathing after tubal ligation-not sure exactly what happened. sister had reaction to medication-not sure what Past Psychological History: No Psychological Hx Reported Smoking Status: Never smoker Past Alcohol Use History: Occasional Past Drug Use History: None Reported - Past Family History Sister(s) Family Medical History: Cancer Additional Family Medical History / Comment(s): Colon CA General Exam Limitations: no limitations General appearance: alert, in no apparent distress Head exam: Present: atraumatic, normocephalic, normal inspection Eye exam: Present: normal appearance, PERRL, EOMI. Absent: scleral icterus, conjunctival injection, periorbital swelling ENT exam: Present: normal exam, mucous membranes moist Neck exam: Present: normal inspection. Absent: tenderness, meningismus, lymphadenopathy Respiratory exam: Present: normal lung sounds bilaterally. Absent: respiratory distress, wheezes, rales, rhonchi, stridor Cardiovascular Exam: Present: regular rate, normal rhythm, normal heart sounds. Absent: systolic murmur, diastolic murmur, rubs, gallop, clicks GI/Abdominal exam: Present: soft, normal bowel sounds. Absent: distended, tenderness, guarding, rebound, rigid Extremities exam: Present: normal inspection, full ROM, normal capillary refill. Absent: tenderness, pedal edema, joint swelling, calf tenderness Back exam: Present: normal inspection Neurological exam: Present: alert, oriented X3, CN II-XII intact Psychiatric exam: Present: normal affect, normal mood Skin exam: Present: warm, dry, intact, normal color. Absent: rash Course Vital Signs 05/14/19 22:44 Temperature 99.4 F Pulse Rate 100 Respiratory 20 Rate Blood Pressure 132/73 O2 Sat by Pulse 98 Oximetry - Reevaluation(s) Reevaluation #1: 05/14/19 22:52 medical and transfer paperwork is reviewed Reevaluation #2: 05/14/19 22:53 patient is under PPE and COVID precautions, wore facemask N95 and surgical mask over it, goggles, yellow gown Medical Decision Making - Medical Decision Making 74 female DF for evaluation patient is here for neutropenic fever and is With COVID Precautions will admit for broad-spectrum antibiotics and further evaluation management - Radiology Data Radiology results: report reviewed (CXR negative for acute disease) Disposition Clinical Impression: Neutropenic, Neutropenia with fever Narrative: r/o COVID Disposition: ADMITTED IP TO THIS HOSP Condition: Serious Is patient prescribed a controlled substance at d/c from ED?: No Referrals: Corinne Quintero MD [Primary Care Provider] - 1-2 days
[2019-05-14] MEDS ORDERED: VANCOMYCIN 1,250 MG in SODIUM CHLORIDE 0.9% 250 ML IVPB STA (23:03)
[2019-05-14] MEDS ORDERED: MORPHINE SULFATE 4 MG/ML SYRINGE IVP PRN (23:09)
[2019-05-14] MEDS ORDERED: MORPHINE SULFATE 4 MG/ML SYRINGE IVP STA (23:09)
[2019-05-14] MEDS: SODIUM CHLORIDE 0.9% 500 ML 500 ML IV SCH (23:16)
[2019-05-14] MEDS ORDERED: Acetaminophen-Codeine 300-30mg TAB PO PRN (23:23)
[2019-05-14] MEDS ORDERED: Acetaminophen-Codeine 300-30mg TAB PO STA (23:23)
[2019-05-15] MEDS: SODIUM CHLORIDE 0.9% 500 ML 500 ML IV SCH ×2 (00:18→00:23)
[2019-05-15 02:24] LABS: African American GFR (CKD) >90 (>60 ml/min/1.73 sqM); Anion Gap 7 mmol/L; Blood Urea Nitrogen 16 mg/dL (7-17); Calcium 8.3 mg/dL (8.4-10.2); Carbon Dioxide 24 mmol/L (22-30); Chloride 104 mmol/L (98-107); Glucose 125 mg/dL (74-99); Non-African American GFR(CKD) >90 (>60 ml/min/1.73 sqM); Potassium 3.8 mmol/L (3.5-5.1); Sodium 135 mmol/L (137-145)
[2019-05-15] MEDS: PIPERACILLIN-TAZOBACTAM 3.375 GM in SODIUM CHLORIDE 0.9% 100 ML IVPB SCH ×2 (06:37→16:03)
[2019-05-15] MEDS ORDERED: ONDANSETRON 4 MG/2 ML VIAL IVP PRN (09:23)
[2019-05-15] MEDS: CALCIUM CARBONATE 500 MG CHEWABLE PO SCH (10:50)
[2019-05-15] MEDS: CYANOCOBALAMIN 500 MCG TAB PO SCH (10:50)
[2019-05-15] MEDS: CHOLECALCIFEROL 1,000 UNIT TAB PO SCH (10:50)
[2019-05-15] MEDS: cycloSPORINE 0.05% OPHTH 0.4 ML DROPERETTE BOTH EYES SCH ×2 (10:51→20:35)
[2019-05-15] MEDS: PANTOPRAZOLE 40 MG TABLET PO SCH ×2 (10:52→17:22)
[2019-05-15] MEDS ORDERED: VANCOMYCIN 1,250 MG in SODIUM CHLORIDE 0.9% 250 ML IVPB SCH (12:00)
[2019-05-15] MEDS ORDERED: ACETAMINOPHEN TAB 500 MG TAB PO PRN (12:04)
[2019-05-15] MEDS ORDERED: ONDANSETRON 4 MG TAB PO PRN (12:04)
[2019-05-15] MEDS ORDERED: NON FORMULARY DRUG (Omeprazole 40 MG) PO PRN (12:04)
[2019-05-15] MEDS ORDERED: DICLOFENAC SODIUM GEL 100 GM TUBE TOPICAL PRN (12:04)
[2019-05-15] MEDS ORDERED: ALPRAZolam 0.25 MG TAB PO PRN (12:04)
--- NOTE | 2019-05-15 12:07 | P.HPIM ---
History of Present Illness 74-year-old female was transferred from outside hospital for neutropenic fever patient is undergoing chemotherapy and last, therapy was about a week ago and she is undergoing chemo therapy for lymphoma. Patient found to have temperature of 102 went to ER was complaining of cough without any sputum production and some shortness of breath because of which COVID PCR testing was ordered and chest x-ray was opted which did not show any pneumonia or any other infiltrate. Patient denied any dysuria urine analysis is essentially within normal limits patient is definitely neutropenic but the her absolute neutrophil count is a bowel 100 which is around 110. Patient was recently treated for shingles still has some shingles lesion does have burning pain because of shingles but not on any medications for seeing this patient was started on broad-spectrum antibiotics Zosyn and vancomycin there is no evidence of gram-positive staphy lococcal infection because of which she discontinued vancomycin infectious disease will be consulted. She was also complaining of nausea vomiting yesterday which resolved now patient is still with nauseous Review of Systems - REVIEW OF SYSTEMS: CONSTITUTIONAL: As mentioned in HPI HEENT: No recent visual problems or hearing problems. Denied any sore throat. CARDIOVASCULAR: No chest pain, orthopnea, PND, no palpitations, no syncope. PULMONARY: No shortness of breath, no cough, no hemoptysis. GASTROINTESTINAL: No diarrhea, no abdominal pain. NEUROLOGICAL: No headaches, no weakness, no numbness. HEMATOLOGICAL: Denies any bleeding or petechiae. GENITOURINARY: Denies any burning micturition, frequency, or urgency. MUSCULOSKELETAL/RHEUMATOLOGICAL: Denies any joint pain, swelling, or any muscle pain. ENDOCRINE: Denies any polyuria or polydipsia. The rest of the 14-point review of systems is negative. Past Medical History Past Medical History: Cancer, Osteoarthritis (OA) Additional Past Medical History / Comment(s): varicose veins, skin cancer, leaky heart valve, History of Any Multi-Drug Resistant Organisms: None Reported Past Surgical History: Breast Surgery, Joint Replacement, Orthopedic Surgery, Tubal Ligation Additional Past Surgical History / Comment(s): skin cancer removed from rt arm, rt foot bunionectomy, surgery on rt foot between little toe and 4th toe, rt foot heel spurs, rt breast biopsy and needle loc, carissa cataracts. Total Lt knee. Colonoscopy Past Anesthesia/Blood Transfusion Reactions: Previous Problems w/ Anesthesia, Family History of Problems w/ Anesthesia Additional Past Anesthesia/Blood Transfusion Reaction / Comment(s): had reaction to anesthesia that effected breathing after tubal ligation-not sure exactly what happened. sister had reaction to medication-not sure what Past Psychological History: No Psychological Hx Reported Smoking Status: Never smoker Past Alcohol Use History: Occasional Past Drug Use History: None Reported - Past Family History Sister(s) Family Medical History: Cancer Additional Family Medical History / Comment(s): Colon CA Medications and Allergies Home Medications Medication Instructions Recorded Confirmed Type Cholecalciferol [Vitamin D3] 1,000 unit PO DAILY 09/04/17 05/15/19 History Glucosam/Ambrosio-Msm1/C/Tiburcio/Bosw 1 tab PO DAILY 09/04/17 05/15/19 History [Glucosamine-Chondroitin Tablet] Simvastatin [Zocor] 20 mg PO HS 09/04/17 05/15/19 History Cyanocobalamin (Vitamin B-12) 1,000 mcg PO DAILY 02/05/19 05/15/19 History [Vitamin B-12] cycloSPORINE 0.05% OPHTH SOLN 1 drop BOTH EYES Q12H 02/20/19 05/15/19 History [Restasis] ALPRAZolam [Xanax] 0.25 mg PO Q6H PRN 05/15/19 05/15/19 History Acetaminophen Tab [Tylenol Tab] 500 mg PO Q6HR PRN 05/15/19 05/15/19 History Acetaminophen-Codeine 300-30mg 1 tab PO Q4-6H PRN 05/15/19 05/15/19 History [Tylenol w/codeine #3] Ascorbic Acid [Vitamin C] 1,000 mg PO DAILY 05/15/19 05/15/19 History Blink 2 drops BOTH EYES DAILY PRN 05/15/19 05/15/19 History Calcium Carbonate/Vitamin D3 1 tab PO DAILY 05/15/19 05/15/19 History [Calcium 600-Vit D3 800 Caplet] Diclofenac Sodium [Voltaren Gel] 2 gram TOPICAL TID PRN 05/15/19 05/15/19 History Docusate Sodium [Dok] 100 mg PO DAILY 05/15/19 05/15/19 History Filgrastim-Sndz [Zarxio] 300 mcg IJ DIRECTED 05/15/19 05/15/19 History Loratadine [Claritin] 10 mg PO DAILY 05/15/19 05/15/19 History Omeprazole [PriLOSEC] 40 mg PO DAILY PRN 05/15/19 05/15/19 History Ondansetron [Zofran] 4 mg PO Q8H PRN 05/15/19 05/15/19 History Sodium Bicarbonate Tab 1,300 mg PO TID 05/15/19 05/15/19 History amLODIPine [Norvasc] 5 mg PO DAILY 05/15/19 05/15/19 History predniSONE 100 mg PO DIRECTED 05/15/19 05/15/19 History valACYclovir HCL [Valacyclovir] 1,000 mg PO Q12HR 05/15/19 05/15/19 History Allergies Allergy/AdvReac Type Severity Reaction Status Date / Time No Known Allergies Allergy Verified 05/15/19 10:42 Physical Exam Vitals: Vital Signs Temp Pulse Pulse Resp BP BP Pulse Ox 05/15/19 11:03 96.5 F L 78 16 128/66 98 05/15/19 08:00 98.0 F 97 16 150/52 97 05/15/19 05:15 99.2 F 85 16 139/65 98 05/14/19 23:58 99.0 F 80 18 131/62 96 05/14/19 23:47 99.0 F 88 19 124/84 98 05/14/19 22:44 99.4 F 100 20 132/73 98 Intake and Output 05/14/19 05/15/19 05/15/19 22:59 06:59 14:59 Intake Total 360 Output Total 680 Balance -680 360 Intake: Oral 360 Output: Urine 680 Other: Voiding Method Toilet # Voids 3 Weight 65.771 kg 69.4 kg Results CBC & Chem 7: 05/15/19 01:56 Labs: Abnormal Lab Results - Last 24 Hours (Table) 05/15/19 Range/Units 01:56 Sodium 135 L (137-145) mmol/L Glucose 125 H (74-99) mg/dL Calcium 8.3 L (8.4-10.2) mg/dL Thrombosis Risk Factor Assmnt - Choose All That Apply Any of the Below Risk Factors Present?: Yes Other Risk Factors: Yes Each Risk Factor Represents 2 Points: Age 61-74 years Thrombosis Risk Factor Assessment Total Risk Factor Score: 2 Thrombosis Risk Factor Assessment Level: Low Risk Assessment and Plan Plan: Neutropenic fever and sepsis the source is not clear patient is on broad- spectrum antibiotics and infectious disease was consulted awaiting blood cultures urine analysis is not consistent with urinary tract infection. Patient is on COVID Isolation precautions. -Neutropenia: Secondary to chemotherapy, patient appears to have received filgrastim 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 patient will be started on Neurontin -Hypertension -Shingles for which patient is on valacyclovir which will be continued -Gastroesophageal reflux disease
[2019-05-15 13:19] LABS: Anisocytosis Slight; HCT 24.3 % (34.0-46.0); MCH 30.6 pg (25.0-35.0); MCHC 32.9 g/dL (31.0-37.0); MCV 92.9 fL (80.0-100.0); Mean Platelet Volume 7.8; Platelet Count 200 k/uL (150-450); RBC 2.62 m/uL (3.80-5.40); RDW 16.8 % (11.5-15.5)
[2019-05-15 13:28] LABS: INR 1.1 (<1.2); Partial Thromboplastin Time 23.2 sec (22.0-30.0); Prothrombin Time 11.2 sec (9.0-12.0); WBC 0.7 k/uL (3.8-10.6)
[2019-05-15 13:33] LABS: ALT 15 U/L (4-34); AST 26 U/L (14-36); African American GFR (CKD) >90 (>60 ml/min/1.73 sqM); Albumin 3.3 g/dL (3.5-5.0); Alkaline Phosphatase 49 U/L (38-126); Anion Gap 5 mmol/L; Blood Urea Nitrogen 13 mg/dL (7-17); Calcium 8.7 mg/dL (8.4-10.2); Carbon Dioxide 28 mmol/L (22-30); Chloride 101 mmol/L (98-107); Glucose 164 mg/dL (74-99); LDH 941 U/L (313-618); Non-African American GFR(CKD) 89 (>60 ml/min/1.73 sqM); Potassium 3.3 mmol/L (3.5-5.1); Sodium 134 mmol/L (137-145); Total Bilirubin 0.3 mg/dL (0.2-1.3); Total Protein 5.5 g/dL (6.3-8.2); Uric Acid 1.4 mg/dL (3.7-7.4)
--- NOTE | 2019-05-15 13:39 | P.CONS ---
History of Present Illness - Reason for Consult Consult date: 05/15/19 on treatment DLBCL Requesting physician: Pricilla Jay - Chief Complaint Neutropenic Fever - History of Present Illness Ms. Barboza is a pleasantly confused patient of Dr. gordillo who presented with neutropenic fever. Current Treatment with R-CHOP Status Post cycle 5 on 05/11/2019. high dose MTX. She should be taking growth factor daily as a script provided to her home, will re-check and likely initiate while inpatient Transferred from outside hospital for neutropenic fever patient is undergoing chemotherapy. Temperature of 102 went to ER was complaining of cough without any sputum production and some shortness of breath because of which COVID PCR testing was ordered and chest x-ray was opted which did not show any pneumonia or any other infiltrate. No dysuria. UA performed, Yarbrough Cultures u Recently treated for shingles still has some shingles lesion does have burning pain Primary team initiated broad-spectrum antibiotics Zosyn and vancomycin Vancomycin since has been discontinued Admits to nausea vomiting yesterday, no emesis today, still feels nauseated. Review of Systems A 14 point review of systems was assessed and completed and are all neg to best of patients ability as she is a rather poor historian Past Medical History Past Medical History: Cancer, Osteoarthritis (OA) Additional Past Medical History / Comment(s): varicose veins, skin cancer, leaky heart valve, History of Any Multi-Drug Resistant Organisms: None Reported Past Surgical History: Breast Surgery, Joint Replacement, Orthopedic Surgery, Tubal Ligation Additional Past Surgical History / Comment(s): skin cancer removed from rt arm, rt foot bunionectomy, surgery on rt foot between little toe and 4th toe, rt foot heel spurs, rt breast biopsy and needle loc, carissa cataracts. Total Lt knee. Colonoscopy Past Anesthesia/Blood Transfusion Reactions: Previous Problems w/ Anesthesia, Family History of Problems w/ Anesthesia Additional Past Anesthesia/Blood Transfusion Reaction / Comm: had reaction to anesthesia that effected breathing after tubal ligation-not sure exactly what happened. sister had reaction to medication-not sure what Past Psychological History: No Psychological Hx Reported Smoking Status: Never smoker Past Alcohol Use History: Occasional Past Drug Use History: None Reported - Past Family History Sister(s) Family Medical History: Cancer Additional Family Medical History / Comment(s): Colon CA Medications and Allergies Home Medications Medication Instructions Recorded Confirmed Type Cholecalciferol [Vitamin D3] 1,000 unit PO DAILY 09/04/17 05/15/19 History Glucosam/Ambrosio-Msm1/C/Tiburcio/Bosw 1 tab PO DAILY 09/04/17 05/15/19 History [Glucosamine-Chondroitin Tablet] Simvastatin [Zocor] 20 mg PO HS 09/04/17 05/15/19 History Cyanocobalamin (Vitamin B-12) 1,000 mcg PO DAILY 02/05/19 05/15/19 History [Vitamin B-12] cycloSPORINE 0.05% OPHTH SOLN 1 drop BOTH EYES Q12H 02/20/19 05/15/19 History [Restasis] ALPRAZolam [Xanax] 0.25 mg PO Q6H PRN 05/15/19 05/15/19 History Acetaminophen Tab [Tylenol Tab] 500 mg PO Q6HR PRN 05/15/19 05/15/19 History Acetaminophen-Codeine 300-30mg 1 tab PO Q4-6H PRN 05/15/19 05/15/19 History [Tylenol w/codeine #3] Ascorbic Acid [Vitamin C] 1,000 mg PO DAILY 05/15/19 05/15/19 History Blink 2 drops BOTH EYES DAILY PRN 05/15/19 05/15/19 History Calcium Carbonate/Vitamin D3 1 tab PO DAILY 05/15/19 05/15/19 History [Calcium 600-Vit D3 800 Caplet] Diclofenac Sodium [Voltaren Gel] 2 gram TOPICAL TID PRN 05/15/19 05/15/19 History Docusate Sodium [Dok] 100 mg PO DAILY 05/15/19 05/15/19 History Filgrastim-Sndz [Zarxio] 300 mcg IJ DIRECTED 05/15/19 05/15/19 History Loratadine [Claritin] 10 mg PO DAILY 05/15/19 05/15/19 History Omeprazole [PriLOSEC] 40 mg PO DAILY PRN 05/15/19 05/15/19 History Ondansetron [Zofran] 4 mg PO Q8H PRN 05/15/19 05/15/19 History Sodium Bicarbonate Tab 1,300 mg PO TID 05/15/19 05/15/19 History amLODIPine [Norvasc] 5 mg PO DAILY 05/15/19 05/15/19 History predniSONE 100 mg PO DIRECTED 05/15/19 05/15/19 History valACYclovir HCL [Valacyclovir] 1,000 mg PO Q12HR 05/15/19 05/15/19 History Allergies Allergy/AdvReac Type Severity Reaction Status Date / Time No Known Allergies Allergy Verified 05/15/19 10:42 Physical Exam Vitals: Vital Signs Temp Pulse Pulse Resp BP BP Pulse Ox 05/15/19 11:03 96.5 F L 78 16 128/66 98 05/15/19 08:00 98.0 F 97 16 150/52 97 05/15/19 05:15 99.2 F 85 16 139/65 98 05/14/19 23:58 99.0 F 80 18 131/62 96 05/14/19 23:47 99.0 F 88 19 124/84 98 05/14/19 22:44 99.4 F 100 20 132/73 98 Intake and Output 05/14/19 05/15/19 05/15/19 22:59 06:59 14:59 Intake Total 480 Output Total 680 Balance -680 480 Intake: Oral 480 Output: Urine 680 Other: Voiding Method Toilet # Voids 3 Weight 65.771 kg 69.4 kg General: Alert confused pleasantly forgetfull but oriented x3 No Acute Distress Head: Normocytic, Atraumatic Neck: Supple Mouth: No Lesions, No Thrush Eyes: Non-sclerotic No Palpable cervical, supraclavicular, axillary adenopathy Heart: Regular Rate, Regular Rhythm Lungs: Clear to Ausculations, No Wheeze, No Rhonchi, Diminishe bilateral lower lobes, No increased respiratory effort noted Abdomen: Soft, Non-Distended, Non-Tended, BSx4 Extremities: Picc line with mild erythema Neurological: No Focal Defects: No sensory or motor deficits noted Psych: Calm and cooperative Results CBC & Chem 7: 05/15/19 13:02 05/15/19 13:02 Labs: Abnormal Lab Results - Last 24 Hours (Table) 05/15/19 Range/Units 01:56 Sodium 135 L (137-145) mmol/L Glucose 125 H (74-99) mg/dL Calcium 8.3 L (8.4-10.2) mg/dL Assessment and Plan Plan: Assessment and Recommendations: 1. Diffuse Large B Cell Lymphoma: - Status post R-CHOP Cycle 4 - Continue prophylaxis Anti Viral with acyclovir, she is status post treatment dose. - Prophylaxic PCP and Viral are reasonable in NHL patient on this regimen of chemotherapy, especially if increased risk of neutropenia - Treatment on hold until hospital follow-up is completed 2. Febrile Neutropenia: - [place]arbrough Cultures - Viral work-up including COVID-19 - UA neg - ID Following - Antibiotics and Anti-virals orders in - Discussed with ID and patient has had picc line in for 2 months therefore must consider this as source, will re-order vancomycin and attempt blood culture from line prior to infusing. 3. Pancytopenia: Secondary to chemo treatment - It is unclear if she has been taking her home scripted growth factor - I have initiated zarxio inpatient - CBC daily, transfuse hemoglobin less than 7, platelets less than 15 in febrile neutropenia Thank you for allowing us to participate in the care of this patient we will follow along with you. Celia Diaz [facility]
[2019-05-15 13:43] LABS: Poikilocytosis (M) Present
[2019-05-15] MEDS ORDERED: Potassium Replacement Protocol 1 EACH MISC MISCELLANE PRN (13:48)
[2019-05-15] MEDS: POTASSIUM CHLORIDE ER 20 MEQ TAB.ER PO SCH ×2 (14:25→16:03)
[2019-05-15] MEDS: ACYCLOVIR 200 MG CAP PO SCH ×2 (14:25→20:36)
[2019-05-15] MEDS ORDERED: VANCOMYCIN IV PER PHARMACY 1 EACH MISC MISCELLANE PRN (15:04)
[2019-05-15] MEDS: GABAPENTIN 100 MG CAP PO SCH ×2 (16:03→21:30)
[2019-05-15] MEDS: SODIUM BICARBONATE TAB 650 MG TAB PO SCH ×2 (16:04→21:30)
[2019-05-15] MEDS: FILGRASTIM-SNDZ 300 MCG/0.5 ML SYRINGE SQ SCH (17:22)
[2019-05-15] MEDS: VANCOMYCIN 1,250 MG in SODIUM CHLORIDE 0.9% 250 ML IVPB SCH (17:22)
[2019-05-15] MEDS: ATORVASTATIN 10 MG TAB PO SCH (20:36)
[2019-05-15] MEDS ORDERED: valACYclovir HCL 1,000 MG TABLET PO SCH (21:00)
--- NOTE | 2019-05-15 22:57 | P.CONS ---
History of Present Illness - Reason for Consult Consult date: 05/15/19 Febrile neutropenia Requesting physician: Pricilla Jay - Chief Complaint Fever x 1 day - History of Present Illness Patient is a 74-year female with a past medical history significant for no formal for the patient is currently undergoing chemotherapy patient did have a left arm PICC line which has been the same February 2019 patient last chemo was on May 11, 2019 patient presented to [place] ER with chief complaints of fever of 10 coliform height apparently the patient complaining of some cough to the ER physician though she denies any coughing to me or any sputum production patient did have a chest x-ray at that facility was negative for any acute infiltrate patient did have a COVID-19 PCR sent subsequently patient has been transferred to [facility] for further management of her neutropenic fever patient on presentation at this facility temperature of 99.4 she is hemodynamically stable white count has been 0.7 she was initially given vancomycin and Zosyn vancomycin subsequently discontinued patient did have cultures drawn which are currently pending infectious was consulted for further recommendation about antibiotic patient denies having any headache no significant URI symptom chest pain shortness breath or cough no abdominal pain no diarrhea no urinary symptoms. Review of Systems Positive point has been mentioned in HPI rest of the systems are negative Past Medical History Past Medical History: Cancer, Osteoarthritis (OA) Additional Past Medical History / Comment(s): varicose veins, skin cancer, leaky heart valve, History of Any Multi-Drug Resistant Organisms: None Reported Past Surgical History: Breast Surgery, Joint Replacement, Orthopedic Surgery, Tubal Ligation Additional Past Surgical History / Comment(s): skin cancer removed from rt arm, rt foot bunionectomy, surgery on rt foot between little toe and 4th toe, rt foot heel spurs, rt breast biopsy and needle loc, carissa cataracts. Total Lt knee. Colonoscopy Past Anesthesia/Blood Transfusion Reactions: Previous Problems w/ Anesthesia, Family History of Problems w/ Anesthesia Additional Past Anesthesia/Blood Transfusion Reaction / Comm: had reaction to anesthesia that effected breathing after tubal ligation-not sure exactly what happened. sister had reaction to medication-not sure what Past Psychological History: No Psychological Hx Reported Smoking Status: Never smoker Past Alcohol Use History: Occasional Past Drug Use History: None Reported - Past Family History Sister(s) Family Medical History: Cancer Additional Family Medical History / Comment(s): Colon CA Medications and Allergies Home Medications Medication Instructions Recorded Confirmed Type Cholecalciferol [Vitamin D3] 1,000 unit PO DAILY 09/04/17 05/15/19 History Glucosam/Ambrosio-Msm1/C/Tiburcio/Bosw 1 tab PO DAILY 09/04/17 05/15/19 History [Glucosamine-Chondroitin Tablet] Simvastatin [Zocor] 20 mg PO HS 09/04/17 05/15/19 History Cyanocobalamin (Vitamin B-12) 1,000 mcg PO DAILY 02/05/19 05/15/19 History [Vitamin B-12] cycloSPORINE 0.05% OPHTH SOLN 1 drop BOTH EYES Q12H 02/20/19 05/15/19 History [Restasis] ALPRAZolam [Xanax] 0.25 mg PO Q6H PRN 05/15/19 05/15/19 History Acetaminophen Tab [Tylenol Tab] 500 mg PO Q6HR PRN 05/15/19 05/15/19 History Acetaminophen-Codeine 300-30mg 1 tab PO Q4-6H PRN 05/15/19 05/15/19 History [Tylenol w/codeine #3] Ascorbic Acid [Vitamin C] 1,000 mg PO DAILY 05/15/19 05/15/19 History Blink 2 drops BOTH EYES DAILY PRN 05/15/19 05/15/19 History Calcium Carbonate/Vitamin D3 1 tab PO DAILY 05/15/19 05/15/19 History [Calcium 600-Vit D3 800 Caplet] Diclofenac Sodium [Voltaren Gel] 2 gram TOPICAL TID PRN 05/15/19 05/15/19 History Docusate Sodium [Dok] 100 mg PO DAILY 05/15/19 05/15/19 History Filgrastim-Sndz [Zarxio] 300 mcg IJ DIRECTED 05/15/19 05/15/19 History Loratadine [Claritin] 10 mg PO DAILY 05/15/19 05/15/19 History Omeprazole [PriLOSEC] 40 mg PO DAILY PRN 05/15/19 05/15/19 History Ondansetron [Zofran] 4 mg PO Q8H PRN 05/15/19 05/15/19 History Sodium Bicarbonate Tab 1,300 mg PO TID 05/15/19 05/15/19 History amLODIPine [Norvasc] 5 mg PO DAILY 05/15/19 05/15/19 History predniSONE 100 mg PO DIRECTED 05/15/19 05/15/19 History valACYclovir HCL [Valacyclovir] 1,000 mg PO Q12HR 05/15/19 05/15/19 History Allergies Allergy/AdvReac Type Severity Reaction Status Date / Time No Known Allergies Allergy Verified 05/15/19 10:42 Physical Exam Vitals: Vital Signs Temp Pulse Pulse Resp BP BP Pulse Ox 05/15/19 16:31 98.7 F 80 16 136/82 98 05/15/19 11:03 96.5 F L 78 16 128/66 98 05/15/19 08:00 98.0 F 97 16 150/52 97 05/15/19 05:15 99.2 F 85 16 139/65 98 05/14/19 23:58 99.0 F 80 18 131/62 96 05/14/19 23:47 99.0 F 88 19 124/84 98 05/14/19 22:44 99.4 F 100 20 132/73 98 Intake and Output 05/15/19 05/15/19 05/15/19 06:59 14:59 22:59 Intake Total 480 Output Total 680 Balance -680 480 Intake: Oral 480 Output: Urine 680 Other: Voiding Method Toilet # Voids 3 1 1 Weight 69.4 kg GENERAL DESCRIPTION: Elderly female lying in bed, no distress. No tachypnea or accessory muscle of respiration use. HEENT: Shows Pallor , no scleral icterus. Oral mucous membrane is dry. NECK: Trachea central, no thyromegaly. LUNGS: Unlabored breathing. Clear to auscultation anteriorly. No wheeze or crac kle. HEART: S1, S2, regular rate and rhythm. ABDOMEN: Soft, no tenderness , guarding or rigidity EXTREMITIES: No edema of feet. SKIN: No rash, no masses palpable. NEUROLOGICAL: The patient is awake, alert, oriented x3, mood and affect normal. Results CBC & Chem 7: 05/15/19 13:02 05/15/19 13:02 Labs: Abnormal Lab Results - Last 24 Hours (Table) 05/15/19 05/15/19 05/15/19 Range/Units 01:56 13:02 13:02 WBC 0.7 L* (3.8-10.6) k/uL RBC 2.62 L (3.80-5.40) m/uL Hgb 8.0 L (11.4-16.0) gm/dL Hct 24.3 L (34.0-46.0) % RDW 16.8 H (11.5-15.5) % Sodium 135 L 134 L (137-145) mmol/L Potassium 3.3 L (3.5-5.1) mmol/L Glucose 125 H 164 H (74-99) mg/dL Uric Acid 1.4 L (3.7-7.4) mg/dL Calcium 8.3 L (8.4-10.2) mg/dL Lactate Dehydrogenase 941 H (313-618) U/L Total Protein 5.5 L (6.3-8.2) g/dL Albumin 3.3 L (3.5-5.0) g/dL Assessment and Plan Assessment: patient had presented to the hospital with fever this patient currently undergoing chemotherapy for lymphoma last chemo has been on May 10 patient did have a high white count of 0.7 patient currently with no significant symptom points towards any specific infection stress was clear to auscultation abdominal soft and no evidence of any cellulitis however the patient to have a PICC line for almost 3 months in the left arm with concern for possible PICC line infection (1) Neutropenia with fever Current Visit: Yes Status: Acute Code(s): D70.9 - NEUTROPENIA, UNSPECIFIED; R50.81 - FEVER PRESENTING WITH CONDITIONS CLASSIFIED ELSEWHERE SNOMED Code(s): 102903459 Plan: 1-blood culture should be obtained from the PICC line and peripherally 2-we will add vancomycin pharmacy to dose target of 15 while watching her Vanco trough and kidney function closely 3-switch Zosyn to cefepime for gram-negative coverage 4-gentle IV fluid We will follow on clinical condition and cultures to further adjust medication if needed Thank you for this consultation we will follow the patient along with you Time with Patient: Greater than 30
[2019-05-16] MEDS: CEFEPIME 2 GM in SODIUM CHLORIDE 0.9% 100 ML IVPB SCH ×4 (00:11→23:46)
[2019-05-16] MEDS: VANCOMYCIN 1,250 MG in SODIUM CHLORIDE 0.9% 250 ML IVPB SCH ×2 (03:25→17:09)
[2019-05-16] MEDS: PANTOPRAZOLE 40 MG TABLET PO SCH ×2 (06:53→17:11)
[2019-05-16 07:55] LABS: Anisocytosis Slight; HGB 7.9 gm/dL (11.4-16.0); MCH 30.6 pg (25.0-35.0); MCHC 32.9 g/dL (31.0-37.0); MCV 93.1 fL (80.0-100.0); Mean Platelet Volume 7.8; Platelet Count 230 k/uL (150-450); RBC 2.58 m/uL (3.80-5.40); RDW 16.9 % (11.5-15.5); WBC 1.7 k/uL (3.8-10.6)
[2019-05-16 08:10] LABS: African American GFR (CKD) >90 (>60 ml/min/1.73 sqM); Anion Gap 4 mmol/L; Blood Urea Nitrogen 9 mg/dL (7-17); Carbon Dioxide 27 mmol/L (22-30); Chloride 105 mmol/L (98-107); Glucose 108 mg/dL (74-99); Non-African American GFR(CKD) >90 (>60 ml/min/1.73 sqM); Potassium 3.3 mmol/L (3.5-5.1); Sodium 136 mmol/L (137-145)
[2019-05-16] MEDS: SODIUM BICARBONATE TAB 650 MG TAB PO SCH ×3 (09:30→21:34)
[2019-05-16] MEDS: CHOLECALCIFEROL 1,000 UNIT TAB PO SCH (09:30)
[2019-05-16] MEDS: amLODIPine 5 MG TAB PO SCH (09:30)
[2019-05-16] MEDS: GABAPENTIN 100 MG CAP PO SCH ×3 (09:30→21:34)
[2019-05-16] MEDS: CYANOCOBALAMIN 500 MCG TAB PO SCH (09:30)
[2019-05-16] MEDS: CALCIUM CARBONATE 500 MG CHEWABLE PO SCH (09:30)
[2019-05-16] MEDS: CALCIUM CARB-VIT D 500MG-200UN 1 EACH TAB PO SCH (09:31)
[2019-05-16] MEDS: cycloSPORINE 0.05% OPHTH 0.4 ML DROPERETTE BOTH EYES SCH ×2 (09:31→20:07)
[2019-05-16] MEDS: DOCUSATE 100 MG CAP PO SCH (09:31)
[2019-05-16] MEDS: ACYCLOVIR 200 MG CAP PO SCH ×2 (09:31→20:08)
[2019-05-16] MEDS: Acetaminophen-Codeine 300-30mg TAB PO PRN (09:32)
[2019-05-16] MEDS: FILGRASTIM-SNDZ 300 MCG/0.5 ML SYRINGE SQ SCH (09:37)
[2019-05-16] MEDS: predniSONE 50 MG TAB PO SCH (09:40)
[2019-05-16 10:07] VITALS: BMI 26.4
--- NOTE | 2019-05-16 10:52 | P.PN ---
Subjective Progress Note Date: 05/16/19 Principal diagnosis: Febrile Neutropenia Afebrile since admission Objective - Vital Signs Vital signs: Vital Signs Temp 99.2 F 05/16/19 08:00 Pulse 105 H 05/16/19 08:00 Resp 20 05/16/19 08:00 BP 141/81 05/16/19 08:00 Pulse Ox 97 05/16/19 08:00 Intake & Output 05/15/19 05/16/19 05/16/19 18:59 06:59 18:59 Intake Total 600 120 Balance 600 120 Weight 70 kg 70 kg Intake: Oral 600 120 Other: Voiding Method Toilet # Voids 1 2 - Exam General: Alert confused pleasantly forgetfull but oriented x3 No Acute Distress Head: Normocytic, Atraumatic Neck: Supple Mouth: No Lesions, No Thrush Eyes: Non-sclerotic No Palpable cervical, supraclavicular, axillary adenopathy Heart: Regular Rate, Regular Rhythm Lungs: Clear to Ausculations, No Wheeze, No Rhonchi, Diminishe bilateral lower lobes, No increased respiratory effort noted Abdomen: Soft, Non-Distended, Non-Tended, BSx4 Extremities: Picc line with mild erythema Neurological: No Focal Defects: No sensory or motor deficits noted Psych: Calm and cooperative - Labs CBC & Chem 7: 05/16/19 06:23 05/16/19 06:23 Labs: Abnormal Lab Results - Last 24 Hours (Table) 05/15/19 05/15/19 05/16/19 Range/Units 13:02 13:02 06:23 WBC 0.7 L* 1.7 L (3.8-10.6) k/uL RBC 2.62 L 2.58 L (3.80-5.40) m/uL Hgb 8.0 L 7.9 L (11.4-16.0) gm/dL Hct 24.3 L 24.0 L (34.0-46.0) % RDW 16.8 H 16.9 H (11.5-15.5) % Sodium 134 L (137-145) mmol/L Potassium 3.3 L (3.5-5.1) mmol/L Glucose 164 H (74-99) mg/dL Uric Acid 1.4 L (3.7-7.4) mg/dL Calcium (8.4-10.2) mg/dL Lactate Dehydrogenase 941 H (313-618) U/L Total Protein 5.5 L (6.3-8.2) g/dL Albumin 3.3 L (3.5-5.0) g/dL 05/16/19 Range/Units 06:23 WBC (3.8-10.6) k/uL RBC (3.80-5.40) m/uL Hgb (11.4-16.0) gm/dL Hct (34.0-46.0) % RDW (11.5-15.5) % Sodium 136 L (137-145) mmol/L Potassium 3.3 L (3.5-5.1) mmol/L Glucose 108 H (74-99) mg/dL Uric Acid (3.7-7.4) mg/dL Calcium 8.0 L (8.4-10.2) mg/dL Lactate Dehydrogenase (313-618) U/L Total Protein (6.3-8.2) g/dL Albumin (3.5-5.0) g/dL Microbiology - Last 24 Hours (Table) 05/14/19 22:55 Blood Culture - Preliminary Blood No Growth after 24 hours Assessment and Plan Plan: Assessment and Recommendations: 1. Diffuse Large B Cell Lymphoma: - Status post R-CHOP Cycle 4 - Continue prophylaxis Anti Viral with acyclovir, she is status post treatment dose. - Prophylaxic PCP and Viral are reasonable in NHL patient on this regimen of chemotherapy, especially if increased risk of neutropenia - Treatment on hold until hospital follow-up is completed 2. Febrile Neutropenia:Afebrile today - [place] Cultures - Viral work-up including COVID-19 - UA neg - ID Following - Antibiotics and Anti-virals orders in - Discussed with ID and patient has had picc line in for 2 months therefore must consider this as source, will re-order vancomycin and attempt blood culture from line prior to infusing. 3. Pancytopenia: Secondary to chemo treatment Stable in safe range today - No transfusion needed - It is unclear if she has been taking her home scripted growth factor - I have initiated zarxio inpatient - CBC daily, transfuse hemoglobin less than 7, platelets less than 15 in febrile neutropenia - Plan: - Await results of cultures - ID Following - Follow-up with Oncology prior to next treatment for re-education on growth factor administration at home - Dr. malcolm has discussed with primary team Physician Attestation: I have performed the full physical examination and reviewed the full history of this patient, as well as pertinent findings. I have created the compled impression and recommendations. I agree with the above dictation by GARY Smith. This dictation has been written as a scribe.
[2019-05-16] MEDS ORDERED: Potassium Replacement Protocol 1 EACH MISC MISCELLANE PRN (11:14)
--- NOTE | 2019-05-16 12:20 | P.PN ---
Subjective 74-year-old female is admitted for neutropenic fever and patient is on broad- spectrum antibiotics cefepime and vancomycin. Patient had a PICC line which is believed to be the possible source and blood cultures were obtained and PICC line tip cultures were ordered and patient doesn't have any other identifiable source of her fever patient is also undergoing COIVID testing and patient is on isolation for that. Constitutional: Denied any fatigue denied any fever. Cardio vascular: denied any chest pain, palpitations Gastrointestinal denied any nausea vomiting Pulmonary: Denied any shortness of breath cough Neurologic denied any new focal deficits All inpatient medications were reviewed and appropriate changes in these medications as dictated in the interval history and assessment and plan. Objective - Vital Signs Vital signs: Vital Signs Temp 99.2 F 05/16/19 08:00 Pulse 105 H 05/16/19 08:00 Resp 20 05/16/19 08:00 BP 141/81 05/16/19 08:00 Pulse Ox 97 05/16/19 08:00 Intake & Output 05/15/19 05/16/19 05/16/19 18:59 06:59 18:59 Intake Total 600 120 Balance 600 120 Weight 70 kg 70 kg Intake: Oral 600 120 Other: Voiding Method Toilet # Voids 1 2 - Exam PHYSICAL EXAMINATION: GENERAL: The patient is alert and oriented x3, not in any acute distress. Well developed, well nourished. HEENT: Pupils are round and equally reacting to light. EOMI. No scleral icterus. No conjunctival pallor. Normocephalic, atraumatic. No pharyngeal erythema. No thyromegaly. CARDIOVASCULAR: S1 and S2 present. No murmurs, rubs, or gallops. PULMONARY: Chest is clear to auscultation, no wheezing or crackles. ABDOMEN: Soft, nontender, nondistended, normoactive bowel sounds. No palpable organomegaly. MUSCULOSKELETAL: No joint swelling or deformity. EXTREMITIES: No cyanosis, clubbing, or pedal edema. NEUROLOGICAL: Gross neurological examination did not reveal any focal deficits. SKIN: No rashes. - Labs CBC & Chem 7: 05/16/19 06:23 05/16/19 06:23 Labs: Abnormal Lab Results - Last 24 Hours (Table) 05/15/19 05/15/19 05/16/19 Range/Units 13:02 13:02 06:23 WBC 0.7 L* 1.7 L (3.8-10.6) k/uL RBC 2.62 L 2.58 L (3.80-5.40) m/uL Hgb 8.0 L 7.9 L (11.4-16.0) gm/dL Hct 24.3 L 24.0 L (34.0-46.0) % RDW 16.8 H 16.9 H (11.5-15.5) % Sodium 134 L (137-145) mmol/L Potassium 3.3 L (3.5-5.1) mmol/L Glucose 164 H (74-99) mg/dL Uric Acid 1.4 L (3.7-7.4) mg/dL Calcium (8.4-10.2) mg/dL Lactate Dehydrogenase 941 H (313-618) U/L Total Protein 5.5 L (6.3-8.2) g/dL Albumin 3.3 L (3.5-5.0) g/dL 05/16/19 Range/Units 06:23 WBC (3.8-10.6) k/uL RBC (3.80-5.40) m/uL Hgb (11.4-16.0) gm/dL Hct (34.0-46.0) % RDW (11.5-15.5) % Sodium 136 L (137-145) mmol/L Potassium 3.3 L (3.5-5.1) mmol/L Glucose 108 H (74-99) mg/dL Uric Acid (3.7-7.4) mg/dL Calcium 8.0 L (8.4-10.2) mg/dL Lactate Dehydrogenase (313-618) U/L Total Protein (6.3-8.2) g/dL Albumin (3.5-5.0) g/dL Microbiology - Last 24 Hours (Table) 05/14/19 22:55 Blood Culture - Preliminary Blood No Growth after 24 hours Assessment and Plan Plan: Neutropenic fever and sepsis, patient has a PICC line possibility that this can be the source of infection blood cultures are pending patient is on broad- spectrum antibiotics, infectious disease evaluated the patient. Patient is on COVID Isolation precautions. -Neutropenia: Secondary to chemotherapy, patient appears to have received filgrastim 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 patient will be started on Neurontin -Hypertension -Shingles for which patient is on valacyclovir which will be continued -Gastroesophageal reflux disease
[2019-05-16] MEDS: POTASSIUM CHLORIDE 10 MEQ in WATER FOR INJECTION 1 100ML.BAG IVPB SCH ×4 (17:10→21:33)
[2019-05-16] MEDS: ATORVASTATIN 10 MG TAB PO SCH (20:07)
--- NOTE | 2019-05-16 21:50 | PN ---
PROGRESS NOTE DATE OF SERVICE: 05/16/2019 REASON FOR FOLLOWUP: Febrile neutropenia. INTERVAL HISTORY: The patient is currently afebrile. The patient is breathing comfortably. The patient denies having any chest pain or shortness of breath or cough. No nausea. No vomiting. No abdominal pain and no diarrhea. PHYSICAL EXAMINATION: Blood pressure 123/62 with a pulse of 115, temperature 97. She is 97% on room air. General description is an elderly female up in the bed in no distress. RESPIRATORY SYSTEM: Unlabored breathing. Clear to auscultation anteriorly. HEART: S1, S2. Regular rate and rhythm. ABDOMEN: Soft. No tenderness. LABS: Hemoglobin 7.9, white count 1.7, BUN of 9, creatinine 0.55. Blood culture so far negative. DIAGNOSTIC IMPRESSION AND PLAN: Patient admitted to hospital with febrile neutropenia in this patient who is currently not with a clinical focus of infection. The concern was for possible PICC line infection; it has been there since February. However, culture remains negative. We will keep the patient on the cefepime and vancomycin while waiting for the culture to finalize and continue with supportive care. MMODL / IJN: [id number] /
[2019-05-17] MEDS: VANCOMYCIN 1,250 MG in SODIUM CHLORIDE 0.9% 250 ML IVPB SCH (03:28)
[2019-05-17 06:21] LABS: Anisocytosis Slight; HCT 22.5 % (34.0-46.0); HGB 7.5 gm/dL (11.4-16.0); MCH 30.7 pg (25.0-35.0); MCHC 33.4 g/dL (31.0-37.0); MCV 91.9 fL (80.0-100.0); Mean Platelet Volume 7.5; Platelet Count 223 k/uL (150-450); RBC 2.45 m/uL (3.80-5.40); WBC 6.3 k/uL (3.8-10.6)
[2019-05-17 06:30] LABS: African American GFR (CKD) >90 (>60 ml/min/1.73 sqM); Anion Gap 4 mmol/L; Blood Urea Nitrogen 13 mg/dL (7-17); Calcium 8.5 mg/dL (8.4-10.2); Carbon Dioxide 28 mmol/L (22-30); Chloride 103 mmol/L (98-107); Glucose 116 mg/dL (74-99); Non-African American GFR(CKD) 89 (>60 ml/min/1.73 sqM); Potassium 3.3 mmol/L (3.5-5.1); Sodium 135 mmol/L (137-145)
[2019-05-17] MEDS: PANTOPRAZOLE 40 MG TABLET PO SCH ×2 (06:52→16:17)
[2019-05-17] MEDS: POTASSIUM CHLORIDE 10 MEQ in WATER FOR INJECTION 1 100ML.BAG IVPB SCH ×4 (06:54→12:31)
[2019-05-17] MEDS: GABAPENTIN 100 MG CAP PO SCH ×3 (09:00→21:12)
[2019-05-17] MEDS: CEFEPIME 2 GM in SODIUM CHLORIDE 0.9% 100 ML IVPB SCH ×3 (09:00→23:27)
[2019-05-17] MEDS: CALCIUM CARBONATE 500 MG CHEWABLE PO SCH (09:01)
[2019-05-17] MEDS: DOCUSATE 100 MG CAP PO SCH (09:01)
[2019-05-17] MEDS: amLODIPine 5 MG TAB PO SCH (09:01)
[2019-05-17] MEDS: SODIUM BICARBONATE TAB 650 MG TAB PO SCH ×3 (09:01→21:11)
[2019-05-17] MEDS: predniSONE 50 MG TAB PO SCH (09:01)
[2019-05-17] MEDS: CALCIUM CARB-VIT D 500MG-200UN 1 EACH TAB PO SCH (09:01)
[2019-05-17] MEDS: cycloSPORINE 0.05% OPHTH 0.4 ML DROPERETTE BOTH EYES SCH ×2 (09:02→21:10)
[2019-05-17] MEDS: ACYCLOVIR 200 MG CAP PO SCH ×2 (09:02→21:11)
[2019-05-17] MEDS: CYANOCOBALAMIN 500 MCG TAB PO SCH (09:02)
[2019-05-17] MEDS: CHOLECALCIFEROL 1,000 UNIT TAB PO SCH (09:02)
[2019-05-17] MEDS: FILGRASTIM-SNDZ 300 MCG/0.5 ML SYRINGE SQ SCH (10:13)
--- NOTE | 2019-05-17 11:23 | P.PN ---
Subjective 74-year-old female is admitted for neutropenic fever and patient is on broad- spectrum antibiotics cefepime and vancomycin. Patient had a PICC line which is believed to be the possible source and blood cultures were obtained and PICC line tip cultures were ordered and patient doesn't have any other identifiable source of her fever patient is also undergoing COIVID testing and patient is on isolation for that. 05/17/2019 Patient says she is still not feeling well because of the nausea. Patient had a low-grade fever today can be related to lymphoma itself so far the cultures are negative will monitor 1 more day. Further cultures remain negative patient will be discharged tomorrow. Constitutional: Denied any fatigue denied any fever. Cardio vascular: denied any chest pain, palpitations Gastrointestinal denied any nausea vomiting Pulmonary: Denied any shortness of breath cough Neurologic denied any new focal deficits All inpatient medications were reviewed and appropriate changes in these medications as dictated in the interval history and assessment and plan. Objective - Vital Signs Vital signs: Vital Signs Temp 100.6 F H 05/17/19 08:10 Pulse 98 05/17/19 08:10 Resp 18 05/17/19 08:10 BP 146/63 05/17/19 08:10 Pulse Ox 98 05/17/19 08:10 Intake & Output 05/16/19 05/17/19 05/17/19 18:59 06:59 18:59 Intake Total 360 240 Output Total 1 Balance 359 240 Weight 70 kg 71.5 kg Intake: Oral 360 240 Output: Urine 1 Other: Voiding Method Toilet # Voids 1 1 2 # Bowel Movements 1 - Exam PHYSICAL EXAMINATION: GENERAL: The patient is alert and oriented x3, not in any acute distress. Well developed, well nourished. HEENT: Pupils are round and equally reacting to light. EOMI. No scleral icterus. No conjunctival pallor. Normocephalic, atraumatic. No pharyngeal erythema. No thyromegaly. CARDIOVASCULAR: S1 and S2 present. No murmurs, rubs, or gallops. PULMONARY: Chest is clear to auscultation, no wheezing or crackles. ABDOMEN: Soft, nontender, nondistended, normoactive bowel sounds. No palpable organomegaly. MUSCULOSKELETAL: No joint swelling or deformity. EXTREMITIES: No cyanosis, clubbing, or pedal edema. NEUROLOGICAL: Gross neurological examination did not reveal any focal deficits. SKIN: No rashes. - Labs CBC & Chem 7: 05/17/19 05:55 05/17/19 05:55 Labs: Abnormal Lab Results - Last 24 Hours (Table) 05/17/19 05/17/19 Range/Units 05:55 05:55 RBC 2.45 L (3.80-5.40) m/uL Hgb 7.5 L (11.4-16.0) gm/dL Hct 22.5 L (34.0-46.0) % RDW 17.0 H (11.5-15.5) % Sodium 135 L (137-145) mmol/L Potassium 3.3 L (3.5-5.1) mmol/L Glucose 116 H (74-99) mg/dL Microbiology - Last 24 Hours (Table) 05/14/19 22:55 Blood Culture - Preliminary Blood No Growth after 48 hours 05/15/19 11:25 Blood Culture - Preliminary Blood No Growth after 24 hours Assessment and Plan Plan: Neutropenic fever and sepsis, patient has a PICC line possibility that this can be the source of infection blood cultures are pending patient is on broad- spectrum antibiotics, infectious disease evaluated the patient. Patient is on COVID Isolation precautions. -Neutropenia: Secondary to chemotherapy, patient appears to have received filgrastim white blood cell count did improve significantly. 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 patient will be started on Neurontin -Hypertension -Shingles for which patient is on valacyclovir which will be continued -Gastroesophageal reflux disease
--- NOTE | 2019-05-17 12:30 | P.PN ---
Subjective Progress Note Date: 05/17/19 Principal diagnosis: Febrile Neutropenia Febrile this am at 100.6. Suspicion for Infection from picc line as possibility, she is also on COVID precautions but testing is not actively seen as completed. Objective - Vital Signs Vital signs: Vital Signs Temp 100.6 F H 05/17/19 08:10 Pulse 98 05/17/19 08:10 Resp 18 05/17/19 08:10 BP 146/63 05/17/19 08:10 Pulse Ox 98 05/17/19 08:10 Intake & Output 05/16/19 05/17/19 05/17/19 18:59 06:59 18:59 Intake Total 360 240 Output Total 1 Balance 359 240 Weight 70 kg 71.5 kg Intake: Oral 360 240 Output: Urine 1 Other: Voiding Method Toilet # Voids 1 1 2 # Bowel Movements 1 - Exam General: Alert confused pleasantly forgetfull but oriented x3 No Acute Distress Head: Normocytic, Atraumatic Neck: Supple Mouth: No Lesions, No Thrush Eyes: Non-sclerotic No Palpable cervical, supraclavicular, axillary adenopathy Heart: Regular Rate, Regular Rhythm Lungs: Clear to Ausculations, No Wheeze, No Rhonchi, Diminishe bilateral lower lobes, No increased respiratory effort noted Abdomen: Soft, Non-Distended, Non-Tended, BSx4 Extremities: Picc line with mild erythema Neurological: No Focal Defects: No sensory or motor deficits noted Psych: Calm and cooperative - Labs CBC & Chem 7: 05/17/19 05:55 05/17/19 05:55 Labs: Abnormal Lab Results - Last 24 Hours (Table) 05/17/19 05/17/19 Range/Units 05:55 05:55 RBC 2.45 L (3.80-5.40) m/uL Hgb 7.5 L (11.4-16.0) gm/dL Hct 22.5 L (34.0-46.0) % RDW 17.0 H (11.5-15.5) % Sodium 135 L (137-145) mmol/L Potassium 3.3 L (3.5-5.1) mmol/L Glucose 116 H (74-99) mg/dL Microbiology - Last 24 Hours (Table) 05/14/19 22:55 Blood Culture - Preliminary Blood No Growth after 48 hours 05/15/19 11:25 Blood Culture - Preliminary Blood No Growth after 24 hours Assessment and Plan Plan: Assessment and Recommendations: 1. Diffuse Large B Cell Lymphoma: - Status post R-CHOP Cycle 4 - Continue prophylaxis Anti Viral with acyclovir, she is status post treatment dose. - Prophylaxic PCP and Viral are reasonable in NHL patient on this regimen of chemotherapy, especially if increased risk of neutropenia - Treatment on hold until hospital follow-up is completed 2. Febrile Neutropenia:Febrile today 100.6 - [place] Cultures - Viral work-up including COVID-19 (unable to find pending status) - UA neg - ID Following - Antibiotics and Anti-virals orders in - Discussed with ID and patient has had picc line in for 2 months therefore must consider this as source, will re-order vancomycin and attempt blood culture from line prior to infusing. WBC improved today, with fever continue with todays dose 3. Pancytopenia: Secondary to chemo treatment Stable in safe range today - No transfusion needed - It is unclear if she has been taking her home scripted growth factor - I have initiated zarxio inpatient - CBC daily, transfuse hemoglobin less than 7, platelets less than 15 in mar rile neutropenia - Plan: - continue current plan per primary team and ID Physician Attest: I have completed the full history and physical and agree with above dictation, dictated as a scribe
[2019-05-17] MEDS ORDERED: VANCOMYCIN TROUGH DUE 1 EACH MISC MISCELLANE ONE (15:00)
[2019-05-17] MEDS: Acetaminophen-Codeine 300-30mg TAB PO PRN ×2 (16:24→21:19)
[2019-05-17] MEDS: CHOLESTYRAMINE (WITH SUGAR) 4 GM PACKET PO SCH (17:11)
--- NOTE | 2019-05-17 17:21 | PN ---
PROGRESS NOTE DATE OF SERVICE: 05/17/2019 REASON FOR FOLLOWUP: Febrile neutropenia. INTERVAL HISTORY: The patient did have a low-fever of 100.6 this morning. The patient has been afebrile since then. Overall the patient is feeling better. The patient denies having any chest pain or shortness of breath or cough. No nausea or vomiting. No abdominal pain or diarrhea. PHYSICAL EXAMINATION: Blood pressure 136/53 with a pulse of 111, temperature 98.6. She is 95% on room air. General description is an elderly female up in the room in no distress. RESPIRATORY SYSTEM: Unlabored breathing. Clear to auscultation anteriorly. HEART: S1, S2. Regular rate and rhythm. ABDOMEN: Soft. No tenderness. LABS: Hemoglobin 7.5, white count 6.3, BUN of 13, creatinine 0.68. Blood culture has been negative. DIAGNOSTIC IMPRESSION AND PLAN: Patient admitted to hospital with fever and neutropenia in this patient who is undergoing chemotherapy and did have a PICC line with concern for possible PICC line infection. However, that has been ruled out with negative cultures. The patient's white count has recovered and culture remains negative. She is currently covered with cefepime and vancomycin. Will obtain a Doppler of the left lower extremity where the patient has to make sure no evidence of any DVT. If negative, she may be able to finish therapy with oral antibiotic. Continue with supportive care. MMODL / IJN: [id number] /
[2019-05-17] MEDS: VANCOMYCIN 1,500 MG in SODIUM CHLORIDE 0.9% 250 ML IVPB SCH (17:25)
[2019-05-17] MEDS: ATORVASTATIN 10 MG TAB PO SCH (19:56)
[2019-05-18] MEDS: VANCOMYCIN 1,500 MG in SODIUM CHLORIDE 0.9% 250 ML IVPB SCH (04:42)
[2019-05-18 07:55] LABS: African American GFR (CKD) >90 (>60 ml/min/1.73 sqM); Non-African American GFR(CKD) 88 (>60 ml/min/1.73 sqM)
[2019-05-18] MEDS: Acetaminophen-Codeine 300-30mg TAB PO PRN (08:53)
[2019-05-18] MEDS: CHOLESTYRAMINE (WITH SUGAR) 4 GM PACKET PO SCH (08:54)
[2019-05-18] MEDS: SODIUM BICARBONATE TAB 650 MG TAB PO SCH (08:54)
[2019-05-18] MEDS: CEFEPIME 2 GM in SODIUM CHLORIDE 0.9% 100 ML IVPB SCH (08:55)
[2019-05-18] MEDS: PANTOPRAZOLE 40 MG TABLET PO SCH (08:55)
[2019-05-18] MEDS: CYANOCOBALAMIN 500 MCG TAB PO SCH (08:55)
[2019-05-18] MEDS: CALCIUM CARBONATE 500 MG CHEWABLE PO SCH (08:55)
[2019-05-18] MEDS: GABAPENTIN 100 MG CAP PO SCH (08:55)
[2019-05-18] MEDS: amLODIPine 5 MG TAB PO SCH (08:55)
[2019-05-18] MEDS: ACYCLOVIR 200 MG CAP PO SCH (08:55)
[2019-05-18] MEDS: CHOLECALCIFEROL 1,000 UNIT TAB PO SCH (08:55)
[2019-05-18] MEDS: CALCIUM CARB-VIT D 500MG-200UN 1 EACH TAB PO SCH (08:55)
[2019-05-18] MEDS: cycloSPORINE 0.05% OPHTH 0.4 ML DROPERETTE BOTH EYES SCH (08:56)
[2019-05-18] MEDS: DOCUSATE 100 MG CAP PO SCH (08:56)
[2019-05-18] MEDS: FILGRASTIM-SNDZ 300 MCG/0.5 ML SYRINGE SQ SCH (09:09)
[2019-05-18] MEDS: predniSONE 50 MG TAB PO SCH (09:10)
[2019-05-18 11:19] VITALS: BP 138/70; PULSE 110; RESP 17; TEMP 98.8
--- NOTE | 2019-05-18 14:21 | P.DS ---
Providers Date of admission: 05/14/19 22:58 Attending physician: Niecy Ac Consults: 05/15/19 09:19 Consult Physician Routine Consulting Provider: Angela Arevalo Consult Reason/Comments: neutropenic fever Do you want consulting provider notified?: Yes 05/15/19 09:24 Consult Physician Routine Consulting Provider: Lico Hdez Consult Reason/Comments: lymphoma Do you want consulting provider notified?: Yes Primary care physician: Corinne Quintero [facility] Course: 74-year-old female is admitted for neutropenic fever and patient is on broad- spectrum antibiotics cefepime and vancomycin. Patient had a PICC line which is believed to be the possible source and blood cultures were obtained and PICC line tip cultures were ordered and patient doesn't have any other identifiable source of her fever patient is also undergoing COIVID testing and patient is on isolation for that. 05/17/2019 Patient says she is still not feeling well because of the nausea. Patient had a low-grade fever today can be related to lymphoma itself so far the cultures are negative will monitor 1 more day. Further cultures remain negative patient will be discharged tomorrow. 05/18/2019 CULTURES are so far negative patient will be discharged today. Source of infection is not clear can still be catheter related infection a PICC line was removed PHYSICAL EXAMINATION: GENERAL: The patient is alert and oriented x3, not in any acute distress. Well developed, well nourished. HEENT: Pupils are round and equally reacting to light. EOMI. No scleral icterus. No conjunctival pallor. Normocephalic, atraumatic. No pharyngeal erythema. No thyromegaly. CARDIOVASCULAR: S1 and S2 present. No murmurs, rubs, or gallops. PULMONARY: Chest is clear to auscultation, no wheezing or crackles. ABDOMEN: Soft, nontender, nondistended, normoactive bowel sounds. No palpable organomegaly. MUSCULOSKELETAL: No joint swelling or deformity. EXTREMITIES: No cyanosis, clubbing, or pedal edema. NEUROLOGICAL: Gross neurological examination did not reveal any focal deficits. SKIN: No rashes. Assessment and Plan Plan: Neutropenic fever and sepsis, source is not clear although can still be PICC line infection. Patient will have to continue COVID Isolation precautions for 2 more weeks at home. -Neutropenia: Secondary to chemotherapy, patient appears to have received filgrastim white blood cell count did improve significantly. 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 patient will be started on Neurontin -Hypertension -Shingles for which patient is on valacyclovir which will be continued -Gastroesophageal reflux disease Patient Condition at Discharge: Serious Plan - Discharge Summary New Discharge Prescriptions: New Amoxicillin/Potassium Clav [Augmentin 875-125 Tablet] 1 tab PO Q12HR #10 tab Gabapentin [Neurontin] 100 mg PO TID #20 cap Continue Glucosam/Ambrosio-Msm1/C/Tiburcio/Bosw [Glucosamine-Chondroitin Tablet] 1 tab PO DAILY Cholecalciferol [Vitamin D3 (25 Mcg = 1000 Iu)] 1,000 unit PO DAILY Simvastatin [Zocor] 20 mg PO HS Cyanocobalamin (Vitamin B-12) [Vitamin B-12] 1,000 mcg PO DAILY cycloSPORINE 0.05% OPHTH SOLN [Restasis] 1 drop BOTH EYES Q12H Sodium Bicarbonate Tab 1,300 mg PO TID Omeprazole [PriLOSEC] 40 mg PO DAILY PRN PRN Reason: WHILE ON PREDNISONE ALPRAZolam [Xanax] 0.25 mg PO Q6H PRN PRN Reason: Anxiety valACYclovir HCL [Valacyclovir] 1,000 mg PO Q12HR Acetaminophen-Codeine 300-30mg [Tylenol w/codeine #3] 1 tab PO Q4-6H PRN PRN Reason: Pain amLODIPine [Norvasc] 5 mg PO DAILY Filgrastim-Sndz [Zarxio] 300 mcg IJ DIRECTED predniSONE 100 mg PO DIRECTED Ondansetron [Zofran] 4 mg PO Q8H PRN PRN Reason: Nausea Diclofenac Sodium [Voltaren Gel] 2 gram TOPICAL TID PRN PRN Reason: Pain Blink 2 drops BOTH EYES DAILY PRN PRN Reason: DRY EYES Acetaminophen Tab [Tylenol] 500 mg PO Q6HR PRN PRN Reason: Pain Loratadine [Claritin] 10 mg PO DAILY Ascorbic Acid [Vitamin C] 1,000 mg PO DAILY Calcium Carbonate/Vitamin D3 [Calcium 600-Vit D3 800 Caplet] 1 tab PO DAILY Docusate Sodium [Dok] 100 mg PO DAILY Discharge Medication List Cholecalciferol [Vitamin D3 (25 Mcg = 1000 Iu)] 1,000 unit PO DAILY 09/04/17 [History] Glucosam/Ambrosio-Msm1/C/Tiburcio/Bosw [Glucosamine-Chondroitin Tablet] 1 tab PO DAILY 09/04/17 [History] Simvastatin [Zocor] 20 mg PO HS 09/04/17 [History] Cyanocobalamin (Vitamin B-12) [Vitamin B-12] 1,000 mcg PO DAILY 02/05/19 [History] cycloSPORINE 0.05% OPHTH SOLN [Restasis] 1 drop BOTH EYES Q12H 02/20/19 [History] ALPRAZolam [Xanax] 0.25 mg PO Q6H PRN 05/15/19 [History] Acetaminophen Tab [Tylenol] 500 mg PO Q6HR PRN 05/15/19 [History] Acetaminophen-Codeine 300-30mg [Tylenol w/codeine #3] 1 tab PO Q4-6H PRN 05/15/19 [History] Ascorbic Acid [Vitamin C] 1,000 mg PO DAILY 05/15/19 [History] Blink 2 drops BOTH EYES DAILY PRN 05/15/19 [History] Calcium Carbonate/Vitamin D3 [Calcium 600-Vit D3 800 Caplet] 1 tab PO DAILY 05/15/19 [History] Diclofenac Sodium [Voltaren Gel] 2 gram TOPICAL TID PRN 05/15/19 [History] Docusate Sodium [Dok] 100 mg PO DAILY 05/15/19 [History] Filgrastim-Sndz [Zarxio] 300 mcg IJ DIRECTED 05/15/19 [History] Loratadine [Claritin] 10 mg PO DAILY 05/15/19 [History] Omeprazole [PriLOSEC] 40 mg PO DAILY PRN 05/15/19 [History] Ondansetron [Zofran] 4 mg PO Q8H PRN 05/15/19 [History] Sodium Bicarbonate Tab 1,300 mg PO TID 05/15/19 [History] amLODIPine [Norvasc] 5 mg PO DAILY 05/15/19 [History] predniSONE 100 mg PO DIRECTED 05/15/19 [History] valACYclovir HCL [Valacyclovir] 1,000 mg PO Q12HR 05/15/19 [History] Amoxicillin/Potassium Clav [Augmentin 875-125 Tablet] 1 tab PO Q12HR #10 tab 0 05/18/19 [Rx] Gabapentin [Neurontin] 100 mg PO TID #20 cap 05/18/19 [Rx] Follow up Appointment(s)/Referral(s): Corinne Quintero MD [Primary Care Provider] - 1-2 days [facility] [NON-STAFF] - 1 Week
--- NOTE | 2019-05-18 16:00 | PN ---
PROGRESS NOTE DATE OF SERVICE: 05/18/2019. REASON FOR FOLLOWUP VISIT: Febrile neutropenia. INTERVAL HISTORY: The patient is currently afebrile. The patient overall is feeling better. Breathing comfortably. Denies having any chest pain, shortness of breath or cough. No abdominal pain. No diarrhea. PHYSICAL EXAMINATION: Blood pressure 138/72 with a pulse of 110, temperature 98.8. She is 95% on room air. General description is an elderly female up in the bed in no distress. Respiratory system: Unlabored breathing, decreased breath sounds at bases. No wheeze. Heart S1, S2. Regular rate and rhythm. Abdomen soft, no tenderness. LABS: Creatinine 0.65. White count normal at 6.3 two days ago. Cultures remain to be negative. DIAGNOSTIC IMPRESSION AND PLAN: Patient admitted to the hospital with febrile neutropenia. This patient's white count has recovered. Culture has been negative and no positive focus of infection. May give a short course of oral Augmentin on discharge. Questions and concerns were answered. The PICC line should be discontinued if no longer needed to decrease risk of line related sepsis. MMODL / IJN: [id number] /
--- NOTE | 2019-05-27 20:13 | CDI ---
Documentation Clarification Form Date: 05/27/2019 07:48:34 PM From: Eneida Doran RN, CCDS Admit Date: 05/14/2019 10:58:00 PM Patient Name: Yonny Barboza Visit Number: [id number] Discharge Date: 05/18/2019 03:39:00 PM ATTENTION: The Clinical Documentation Specialists (CDI) and [facility] Coding Staff appreciate your assistance in clarifying documentation. Please respond to the clarification below the line at the bottom and electronically sign. The CDI & [facility] Coding staff will review the response and follow-up if needed. Please note: Queries are made part of the Legal Health Record. If you have any questions, please contact the author of this message via ITS. Dr. Pricilla Jay COVID is documented in the EC Notes, H&P, Consults and Progress notes and requires confirmation of if the condition was ruled in or ruled out. Patient history/risk factors: Neutropenic fever with sepsis, bacteremia with possible picc line infection. recent chemo, shingles, VHD Clinical Indicators: Reason for TX from [facility]: SOB and cough 05/13 EC Note: "Patient is brought in from outside facility, [facility] transfer she is under COVID Precautions secondary to fever patient does not know of any specific exposures. 74 female DF for evaluation patient is here for neutropenic fever and is With COVID Precautions will admit for broad-spectrum antibiotics and further evaluation management. r/o COVID Oncology Progress Note: "Suspicion for Infection from picc line as possibility, she is also on COVID precautions but testing is not actively seen as completed. Plan: Febrile Neutropenia: Febrile today 100.6 - [place] Cultures - Viral work-up including COVID-19 (unable to find pending status) - UA neg 05/17 D/C Summary: "Neutropenic fever and sepsis, source is not clear although can still be PICC line infection. Patient will have to continue COVID Isolation precautions for 2 more weeks at home." CXR: no CXR done s/p transfer to [facility] Labs: 05/14-05/17 WBC .07/1.7/6.3 05/14 LDH: 941 ABGs: not done Viral Panel: Drawn 05/14/[address] [facility]- no results on chart and no MD documentation of results 05/14 2243 Transfer/Admission Vital Signs: temp 99.54, HR 100, RR 20, B/P 132/73, Spo2 98% ra Treatment: 05/15-05/17 Cefepime 2 gm IVPB Q 8 hrs 05/13-05/14 Zosyn 3.375 gm IVPB Q 8 hrs 05/13- 05/16 IV [facility] dosing In order to capture the severity of condition, please clarify if the above treatment/clinical indicators signify: COVID-19 ruled out COVID-19 confirmed Other, please specify (Last Form Revision: April 2019) COVID-19 ruled out already dictated, query not necessary MTDD
== END 2019-05-18 15:39 | disposition home or self-care (01) | DRG 314 ==
LOC: EC 22:40 → 3SCARD 22:58 → 4SSUR 05-17 14:36
PROVIDERS: ADMIT Hospitalist; ATTEND Hospitalist
DX: T80.211A Bloodstream infection due to central venous catheter, initial encounter (principal); A41.9 Sepsis, unspecified organism; D61.810 Antineoplastic chemotherapy induced pancytopenia; C83.30 Diffuse large B-cell lymphoma, unspecified site; R50.81 Fever presenting with conditions classified elsewhere; T45.1X5A Adverse effect of antineoplastic and immunosuppressive drugs, initial encounter; B02.9 Zoster without complications; I10 Essential (primary) hypertension; K12.30 Oral mucositis (ulcerative), unspecified; K21.9 Gastro-esophageal reflux disease without esophagitis; K29.70 Gastritis, unspecified, without bleeding; Y84.8 Other medical procedures as the cause of abnormal reaction of the patient, or of later complication, without mention of misadventure at the time of the procedure; Z79.899 Other long term (current) drug therapy; Z80.0 Family history of malignant neoplasm of digestive organs; Z85.828 Personal history of other malignant neoplasm of skin; M19.90 Unspecified osteoarthritis, unspecified site; Z98.42 Cataract extraction status, left eye; Z98.41 Cataract extraction status, right eye; Z98.51 Tubal ligation status; Z20.828 Contact with and (suspected) exposure to other viral communicable diseases
CPT/HCPCS: 36415; 80048; 80053; 80202; 82565; 83605; 83615; 83735; 84132; 84550; 85025; 85027; 85610; 85730; 87040; 93005; 96365; 96368; 99285

== ENCOUNTER 2019-06-04 08:52 | Inpatient (IN) | payer MEDICARE ==
[2019-06-04] MEDS ORDERED: ACETAMINOPHEN TAB 325 MG TAB PO STA (09:28)
[2019-06-04] MEDS ORDERED: ONDANSETRON 4 MG/2 ML VIAL IVP STA (09:29)
--- NOTE | 2019-06-04 09:33 | ED ---
General Adult HPI - General Chief complaint: Fever Stated complaint: fever Time Seen by Provider: 06/04/19 09:11 Source: patient, RN notes reviewed Mode of arrival: ambulatory Limitations: no limitations - History of Present Illness Initial comments: Patient is a pleasant 74-year-old female presenting to the emergency Department with fever. Onset was middle the night. Patient had temperature of 100.3 and recheck was 100.5. Patient took Tylenol around 8 AM however vomited it just following this. Patient does have some fatigue and chills and myalgias. No cough or shortness of breath. Patient does have known lymphoma and is on chemotherapy. Patient was diagnosed with shingles a couple of months ago however still has some discomfort associated with it. Rash has near resolved. No urinary symptoms. - Related Data Home Medications Medication Instructions Recorded Confirmed Cholecalciferol [Vitamin D3 (25 1,000 unit PO DAILY 09/04/17 05/15/19 Mcg = 1000 Iu)] Glucosam/Ambrosio-Msm1/C/Tiburcio/Bosw 1 tab PO DAILY 09/04/17 05/15/19 [Glucosamine-Chondroitin Tablet] Simvastatin [Zocor] 20 mg PO HS 09/04/17 05/15/19 Cyanocobalamin (Vitamin B-12) 1,000 mcg PO DAILY 02/05/19 05/15/19 [Vitamin B-12] cycloSPORINE 0.05% OPHTH SOLN 1 drop BOTH EYES Q12H 02/20/19 05/15/19 [Restasis] ALPRAZolam [Xanax] 0.25 mg PO Q6H PRN 05/15/19 05/15/19 Acetaminophen Tab [Tylenol] 500 mg PO Q6HR PRN 05/15/19 05/15/19 Acetaminophen-Codeine 300-30mg 1 tab PO Q4-6H PRN 05/15/19 05/15/19 [Tylenol w/codeine #3] Ascorbic Acid [Vitamin C] 1,000 mg PO DAILY 05/15/19 05/15/19 Blink 2 drops BOTH EYES DAILY PRN 05/15/19 05/15/19 Calcium Carbonate/Vitamin D3 1 tab PO DAILY 05/15/19 05/15/19 [Calcium 600-Vit D3 800 Caplet] Diclofenac Sodium [Voltaren Gel] 2 gram TOPICAL TID PRN 05/15/19 05/15/19 Docusate Sodium [Dok] 100 mg PO DAILY 05/15/19 05/15/19 Filgrastim-Sndz [Zarxio] 300 mcg IJ DIRECTED 05/15/19 05/15/19 Loratadine [Claritin] 10 mg PO DAILY 05/15/19 05/15/19 Omeprazole [PriLOSEC] 40 mg PO DAILY PRN 05/15/19 05/15/19 Ondansetron [Zofran] 4 mg PO Q8H PRN 05/15/19 05/15/19 Sodium Bicarbonate Tab 1,300 mg PO TID 05/15/19 05/15/19 amLODIPine [Norvasc] 5 mg PO DAILY 05/15/19 05/15/19 predniSONE 100 mg PO DIRECTED 05/15/19 05/15/19 valACYclovir HCL [Valacyclovir] 1,000 mg PO Q12HR 05/15/19 05/15/19 Previous Rx's Medication Instructions Recorded Amoxicillin/Potassium Clav 1 tab PO Q12HR #10 tab 05/18/19 [Augmentin 875-125 Tablet] Gabapentin [Neurontin] 100 mg PO TID #20 cap 05/18/19 Allergies Allergy/AdvReac Type Severity Reaction Status Date / Time No Known Allergies Allergy Verified 06/04/19 09:02 Review of Systems ROS Statement: Those systems with pertinent positive or pertinent negative responses have been documented in the HPI. ROS Other: All systems not noted in ROS Statement are negative. Constitutional: Reports: fever, chills Eyes: Denies: eye pain ENT: Denies: ear pain Respiratory: Denies: cough, dyspnea Cardiovascular: Denies: chest pain Endocrine: Reports: fatigue Gastrointestinal: Reports: vomiting (Vomited once with Tylenol only). Denies: abdominal pain, nausea Genitourinary: Denies: dysuria Musculoskeletal: Denies: back pain Skin: Reports: as per HPI Past Medical History Past Medical History: Cancer, Osteoarthritis (OA) Additional Past Medical History / Comment(s): varicose veins, skin cancer, leaky heart valve, lymphoma on chemo History of Any Multi-Drug Resistant Organisms: None Reported Past Surgical History: Breast Surgery, Joint Replacement, Orthopedic Surgery, Tubal Ligation Additional Past Surgical History / Comment(s): skin cancer removed from rt arm, rt foot bunionectomy, surgery on rt foot between little toe and 4th toe, rt foot heel spurs, rt breast biopsy and needle loc, carissa cataracts. Total Lt knee. Colonoscopy Past Anesthesia/Blood Transfusion Reactions: Previous Problems w/ Anesthesia, Family History of Problems w/ Anesthesia Additional Past Anesthesia/Blood Transfusion Reaction / Comment(s): had reaction to anesthesia that effected breathing after tubal ligation-not sure exactly what happened. sister had reaction to medication-not sure what Past Psychological History: No Psychological Hx Reported Smoking Status: Never smoker Past Alcohol Use History: Occasional Past Drug Use History: None Reported - Past Family History Sister(s) Family Medical History: Cancer Additional Family Medical History / Comment(s): Colon CA General Exam Limitations: no limitations General appearance: alert, in no apparent distress Head exam: Present: normocephalic Eye exam: Present: normal appearance, PERRL ENT exam: Present: normal oropharynx Neck exam: Present: normal inspection Respiratory exam: Present: normal lung sounds bilaterally Cardiovascular Exam: Present: regular rate, normal rhythm GI/Abdominal exam: Present: soft. Absent: tenderness Extremities exam: Present: normal inspection. Absent: pedal edema, calf tenderness Back exam: Present: normal inspection Neurological exam: Present: alert. Absent: motor sensory deficit Psychiatric exam: Present: normal affect, normal mood Skin exam: Present: rash (Trace rash sternal region consistent with healing s hingles) Course Vital Signs 06/04/19 06/04/19 08:55 10:47 Temperature 99.1 F 99.2 F Pulse Rate 115 H 96 Respiratory 20 18 Rate Blood Pressure 130/70 137/67 O2 Sat by Pulse 96 97 Oximetry EKG Findings - EKG Comments: EKG Findings:: Sinus tachycardia at 103. [place] 146. QRS 82. QT 354. QTC 463. Normal axis. Septal Q waves. No acute ST change. Medical Decision Making - Medical Decision Making Patient reevaluated and updated. Source of fever is undetermined at this time. Case was discussed in detail with Dr. Prabhakar, who will admit for Dr. Reeder. Case also discussed with practitioner Gisele aguillon for oncology. She will review chart and provide further recommendations. She states patient does have history of lymphoma and she is agrees with observation. She recommends holding antibiotics at this time. - Lab Data Result diagrams: 06/04/19 09:50 06/04/19 09:50 Lab Results 06/04/19 06/04/19 06/04/19 Range/Units 09:50 09:50 09:50 WBC (3.8-10.6) k/uL RBC (3.80-5.40) m/uL Hgb (11.4-16.0) gm/dL Hct (34.0-46.0) % MCV (80.0-100.0) fL MCH (25.0-35.0) pg MCHC (31.0-37.0) g/dL RDW (11.5-15.5) % Plt Count (150-450) k/uL Neutrophils % (Manual) % Band Neutrophils % % Lymphocytes % (Manual) % Monocytes % (Manual) % Eosinophils % (Manual) % Metamyelocytes % % Neutrophils # (Manual) (1.3-7.7) k/uL Lymphocytes # (Manual) (1.0-4.8) k/uL Monocytes # (Manual) (0-1.0) k/uL Eosinophils # (Manual) (0-0.7) k/uL Metamyelocytes # (Man) (0) k/uL Nucleated RBCs (0-0) /100 WBC Manual Slide Review Anisocytosis Sodium 132 L (137-145) mmol/L Potassium 3.1 L (3.5-5.1) mmol/L Chloride 100 (98-107) mmol/L Carbon Dioxide 27 (22-30) mmol/L Anion Gap 5 mmol/L BUN 19 H (7-17) mg/dL Creatinine 0.53 (0.52-1.04) mg/dL Est GFR (CKD-EPI)AfAm >90 (>60 ml/min/1.73 sqM) Est GFR (CKD-EPI)NonAf >90 (>60 ml/min/1.73 sqM) Glucose 116 H (74-99) mg/dL Plasma Lactic Acid Moy 0.9 (0.7-2.0) mmol/L Calcium 9.3 (8.4-10.2) mg/dL Magnesium 1.6 (1.6-2.3) mg/dL Total Bilirubin 0.3 (0.2-1.3) mg/dL AST 25 (14-36) U/L ALT 14 (4-34) U/L Alkaline Phosphatase 58 (38-126) U/L Lactate Dehydrogenase 911 H (313-618) U/L C-Reactive Protein 13.1 H (<10.0) mg/L Total Protein 5.5 L (6.3-8.2) g/dL Albumin 3.4 L (3.5-5.0) g/dL Urine Color Urine Appearance (Clear) Urine pH (5.0-8.0) Ur Specific Mongo (1.001-1.035) Urine Protein (Negative) Urine Glucose (UA) (Negative) Urine Ketones (Negative) Urine Blood (Negative) Urine Nitrite (Negative) Urine Bilirubin (Negative) Urine Urobilinogen (<2.0) mg/dL Ur Leukocyte Esterase (Negative) Coronavirus (PCR) Not Detected (Not Detectd) Influenza Type A RNA Not Detected (Not Detectd) Influenza Type B (PCR) Not Detected (Not Detectd) 06/04/19 06/04/19 Range/Units 09:50 10:27 WBC 1.6 L (3.8-10.6) k/uL RBC 2.46 L (3.80-5.40) m/uL Hgb 7.5 L (11.4-16.0) gm/dL Hct 22.5 L (34.0-46.0) % MCV 91.3 (80.0-100.0) fL MCH 30.5 (25.0-35.0) pg MCHC 33.4 (31.0-37.0) g/dL RDW 16.0 H (11.5-15.5) % Plt Count 204 (150-450) k/uL Neutrophils % (Manual) 50 % Band Neutrophils % 5 % Lymphocytes % (Manual) 25 % Monocytes % (Manual) 15 % Eosinophils % (Manual) 4 % Metamyelocytes % 1 % Neutrophils # (Manual) 0.80 L (1.3-7.7) k/uL Lymphocytes # (Manual) 0.40 L (1.0-4.8) k/uL Monocytes # (Manual) 0.24 (0-1.0) k/uL Eosinophils # (Manual) 0.06 (0-0.7) k/uL Metamyelocytes # (Man) 0.02 H (0) k/uL Nucleated RBCs 0 (0-0) /100 WBC Manual Slide Review Performed Anisocytosis Slight Sodium (137-145) mmol/L Potassium (3.5-5.1) mmol/L Chloride (98-107) mmol/L Carbon Dioxide (22-30) mmol/L Anion Gap mmol/L BUN (7-17) mg/dL Creatinine (0.52-1.04) mg/dL Est GFR (CKD-EPI)AfAm (>60 ml/min/1.73 sqM) Est GFR (CKD-EPI)NonAf (>60 ml/min/1.73 sqM) Glucose (74-99) mg/dL Plasma Lactic Acid Moy (0.7-2.0) mmol/L Calcium (8.4-10.2) mg/dL Magnesium (1.6-2.3) mg/dL Total Bilirubin (0.2-1.3) mg/dL AST (14-36) U/L ALT (4-34) U/L Alkaline Phosphatase (38-126) U/L Lactate Dehydrogenase (313-618) U/L C-Reactive Protein (<10.0) mg/L Total Protein (6.3-8.2) g/dL Albumin (3.5-5.0) g/dL Urine Color Light Yellow Urine Appearance Clear (Clear) Urine pH 6.5 (5.0-8.0) Ur Specific Mongo 1.007 (1.001-1.035) Urine Protein Negative (Negative) Urine Glucose (UA) Negative (Negative) Urine Ketones Negative (Negative) Urine Blood Negative (Negative) Urine Nitrite Negative (Negative) Urine Bilirubin Negative (Negative) Urine Urobilinogen <2.0 (<2.0) mg/dL Ur Leukocyte Esterase Negative (Negative) Coronavirus (PCR) (Not Detectd) Influenza Type A RNA (Not Detectd) Influenza Type B (PCR) (Not Detectd) Disposition Clinical Impression: Fever Disposition: ADMITTED IP TO THIS HOSP Is patient prescribed a controlled substance at d/c from ED?: No Referrals: Corinne Quintero MD [Primary Care Provider] - 1-2 days Decision Time: 11:24
--- NOTE | 2019-06-04 10:10 | XR ---
EXAMINATION TYPE: XR chest 1V portable DATE OF EXAM: 06/04/2019 COMPARISON: 02/20/2019 HISTORY: Shortness of breath TECHNIQUE: Single frontal view of the chest is obtained. FINDINGS: Heart size is prominent. Hyperinflation. Left-sided PICC line noted. No pneumothorax or ov ert failure. Correlate for underlying COPD. No pleural effusion. No obvious consolidation. IMPRESSION: No acute infiltrate.
[2019-06-04 10:28] LABS: ALT 14 U/L (4-34); AST 25 U/L (14-36); African American GFR (CKD) >90 (>60 ml/min/1.73 sqM); Albumin 3.4 g/dL (3.5-5.0); Alkaline Phosphatase 58 U/L (38-126); Anion Gap 5 mmol/L; Blood Urea Nitrogen 19 mg/dL (7-17); C Reactive Protein 13.1 mg/L (<10.0); Calcium 9.3 mg/dL (8.4-10.2); Carbon Dioxide 27 mmol/L (22-30); Chloride 100 mmol/L (98-107); Glucose 116 mg/dL (74-99); LDH 911 U/L (313-618); Magnesium 1.6 mg/dL (1.6-2.3); Non-African American GFR(CKD) >90 (>60 ml/min/1.73 sqM); Potassium 3.1 mmol/L (3.5-5.1); Sodium 132 mmol/L (137-145); Total Bilirubin 0.3 mg/dL (0.2-1.3); Total Protein 5.5 g/dL (6.3-8.2)
[2019-06-04 10:37] LABS: Appearance,Urine Clear (Clear); Bilirubin,Urine Negative (Negative); Blood,Urine Negative (Negative); Color,Urine Light Yellow; Glucose,Urine (UA) Negative (Negative); Ketones,Urine Negative (Negative); Leukocyte Esterase,Urine Negative (Negative); Nitrite,Urine Negative (Negative); PH, Urine 6.5 (5.0-8.0); Protein,Urine Negative (Negative); Specific Gravity,Urine 1.007 (1.001-1.035); Urobilinogen,Urine <2.0 mg/dL (<2.0)
[2019-06-04 10:39] LABS: Anisocytosis Slight; HCT 22.5 % (34.0-46.0); HGB 7.5 gm/dL (11.4-16.0); MCH 30.5 pg (25.0-35.0); MCHC 33.4 g/dL (31.0-37.0); MCV 91.3 fL (80.0-100.0); Mean Platelet Volume 7.6; Platelet Count 204 k/uL (150-450); RBC 2.46 m/uL (3.80-5.40); WBC 1.6 k/uL (3.8-10.6)
[2019-06-04 11:03] LABS: Band Neutrophils % 5 %; Eosinophils # (M) 0.06 k/uL (0-0.7); Metamyelocytes # (M) 0.02 k/uL (0); Metamyelocytes % 1 %; Monocytes # (M) 0.24 k/uL (0-1.0); Neutrophils % (M) 50 %; Nucleated Red Blood Cells 0 /100 WBC (0-0); Prothrombin Time 10.5 sec (9.0-12.0); Total Cells Counted 100
[2019-06-04] MEDS ORDERED: NALOXONE 0.4 MG/ML 1 ML VIAL IV PRN (11:24)
[2019-06-04 11:31] LABS: Partial Thromboplastin Time 16.1 sec (22.0-30.0)
[2019-06-04] MEDS ORDERED: ONDANSETRON 4 MG TAB PO PRN (12:00)
[2019-06-04] MEDS ORDERED: PANTOPRAZOLE 40 MG TABLET PO PRN (12:00)
[2019-06-04] MEDS ORDERED: DICLOFENAC SODIUM GEL 100 GM TUBE TOPICAL PRN (12:00)
[2019-06-04] MEDS ORDERED: cycloSPORINE 0.05% OPHTH 0.4 ML DROPERETTE BOTH EYES SCH (12:00)
[2019-06-04] MEDS: SODIUM CHLORIDE 0.9% 1,000 ML IV SCH (12:11)
[2019-06-04] MEDS ORDERED: valACYclovir HCL 1,000 MG TABLET PO SCH (12:15)
[2019-06-04] MEDS: amLODIPine 5 MG TAB PO SCH (12:28)
[2019-06-04] MEDS: CYANOCOBALAMIN 500 MCG TAB PO SCH (12:29)
[2019-06-04] MEDS: ASCORBIC ACID 500 MG TAB PO SCH (12:29)
[2019-06-04] MEDS: DOCUSATE 100 MG CAP PO SCH (12:29)
[2019-06-04] MEDS: GABAPENTIN 100 MG CAP PO SCH ×4 (12:29→20:03)
[2019-06-04] MEDS: SODIUM BICARBONATE TAB 650 MG TAB PO SCH ×3 (12:29→18:54)
[2019-06-04 15:43] LABS: Ferritin 571.4 ng/mL (10.0-291.0)
--- NOTE | 2019-06-04 16:17 | P.HPIM ---
History of Present Illness H&P Date: 06/04/19 Chief Complaint: Fever History of presenting complaint: This is a very pleasant 74-year-old patientplease Dr. Tashia Quintero. Oncologist is Dr. Burrows. Has a diagnosis of diffuse large B cell lymphoma. Patient has received 4 cycles of R-CHOP. Patient was here in the third week of April with febrile neutropenia. Blood cultures were negative. Infection workup was negative. Seen by Dr. Arevalo from [place]. Discharged on Augmentin. Patient also had shingles that is healed trouble well. Has some post neuralgia pain. Patient now presents fever that she states she's had for a few days but now is getting worse. Denies any cough no shortness of breath. Does have some urinary frequency. No new skin changes. Bowel habit is good. Appetite is fair. Review of systems: GEN.: Tired, fever EYES: None HEENT: None NECK: None RESPIRATORY: None CARDIOVASCULAR: None GASTROINTESTINAL: None GENITOURINARY: Some urinary frequency MUSCULOSKELETAL: Joint pains LYMPHATICS: None HEMATOLOGICAL: None PSYCHIATRY: None NEUROLOGICAL: None Past medical history to include: Osteoarthritis, varicose veins, skin cancer, diffuse large B-cell lymphoma on chemotherapy, pancytopenia Social history: History of smoking. Alcohol occasionally. . Physical examination: VITAL SIGNS: Temperature 99.7, 87, 17, 129/69, 96% on room air] GENERAL: [BMI 27.4, sitting up awake comfortable. EYES: Pupils equal. Conjunctiva normal. HEENT: External appearance of nose and ears normal, oral cavity grossly normal. No scalp hair NECK: JVD not raised; masses not palpable. HEART: First and second heart sounds are normal; no edema. LUNGS: Respiratory rate normal; clear to auscultation. ABDOMEN: Soft, nontender, liver spleen not palpable, no masses palpable. PSYCH: Alert and oriented x3; mood and affect normal. NEUROLOGICAL: Cranial nerves grossly intact; no facial asymmetry, power and sensation grossly intact MUSCULOSKELETAL: Evidence of OA especially in the hands. LYMPHATICS: No lymph nodes palpable in the axilla and neck INVESTIGATIONS, reviewed in the clinical context: White count 1.6-1.5 platelets 204 potassium 3.1 creatinine 0.53 sodium 132 LDH 911 CRP 13.1 UA negative EKG tracing personally reviewed by me-sinus tachycardia Chest x-ray film personally reviewed by me-no, obvious infiltrate Coronavirus PCF-not detected, influenza type A type B both not detected Assessment: -This is a patient presents with low-grade fever, and the setting of bicytopenia getting chemotherapy for lymphoma. Clinically patient does not appear to be septic. Appetite is fair. UA is negative. No bowel symptoms. Low-grade fever can be from lymphoma itself. Patient has no respiratory symptoms. Chest x-ray is unremarkable 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 -Hyponatremia -Mild hypokalemia Plan: Patient is hemodynamically stable. Hold of antibiotics to further assessment by ID. It appears that lites. Resume home medications. Consult Dr. Arevalo from ID and Dr. Hdez from oncology. Care was discussed with the patient question were answered. Lovenox for DVT prophylaxis. Will add a pro-calcitonin. Patient UA is negative. Patient's coronavirus RNA is pending. Past Medical History Past Medical History: Cancer, Osteoarthritis (OA) Additional Past Medical History / Comment(s): varicose veins, skin cancer, leaky heart valve, lymphoma on chemo History of Any Multi-Drug Resistant Organisms: None Reported Past Surgical History: Breast Surgery, Joint Replacement, Orthopedic Surgery, Tubal Ligation Additional Past Surgical History / Comment(s): skin cancer removed from rt arm, rt foot bunionectomy, surgery on rt foot between little toe and 4th toe, rt foot heel spurs, rt breast biopsy and needle loc, carissa cataracts. Total Lt knee. Colonoscopy Past Anesthesia/Blood Transfusion Reactions: Previous Problems w/ Anesthesia, Family History of Problems w/ Anesthesia Additional Past Anesthesia/Blood Transfusion Reaction / Comment(s): had reaction to anesthesia that effected breathing after tubal ligation-not sure exactly what happened. sister had reaction to medication-not sure what Past Psychological History: No Psychological Hx Reported Smoking Status: Never smoker Past Alcohol Use History: Occasional Past Drug Use History: None Reported - Past Family History Sister(s) Family Medical History: Cancer Additional Family Medical History / Comment(s): Colon CA Medications and Allergies Home Medications Medication Instructions Recorded Confirmed Type Cholecalciferol [Vitamin D3 (25 1,000 unit PO DAILY 09/04/17 06/04/19 History Mcg = 1000 Iu)] Glucosam/Ambrosio-Msm1/C/Tiburcio/Bosw 1 tab PO DAILY 09/04/17 06/04/19 History [Glucosamine-Chondroitin Tablet] Simvastatin [Zocor] 20 mg PO HS 09/04/17 06/04/19 History Cyanocobalamin (Vitamin B-12) 1,000 mcg PO DAILY 02/05/19 06/04/19 History [Vitamin B-12] cycloSPORINE 0.05% OPHTH SOLN 1 drop BOTH EYES Q12H 02/20/19 06/04/19 History [Restasis] ALPRAZolam [Xanax] 0.25 mg PO Q6H PRN 05/15/19 06/04/19 History Acetaminophen Tab [Tylenol] 500 mg PO Q6HR PRN 05/15/19 06/04/19 History Acetaminophen-Codeine 300-30mg 1 tab PO Q4-6H PRN 05/15/19 06/04/19 History [Tylenol w/codeine #3] Ascorbic Acid [Vitamin C] 1,000 mg PO DAILY 05/15/19 06/04/19 History Blink 2 drops BOTH EYES DAILY PRN 05/15/19 06/04/19 History Calcium Carbonate/Vitamin D3 1 tab PO DAILY 05/15/19 06/04/19 History [Calcium 600-Vit D3 800 Caplet] Diclofenac Sodium [Voltaren Gel] 2 gram TOPICAL TID PRN 05/15/19 06/04/19 History Docusate Sodium [Dok] 100 mg PO DAILY 05/15/19 06/04/19 History Loratadine [Claritin] 10 mg PO DAILY 05/15/19 06/04/19 History Omeprazole [PriLOSEC] 40 mg PO DAILY PRN 05/15/19 06/04/19 History Ondansetron [Zofran] 4 mg PO Q8H PRN 05/15/19 06/04/19 History Sodium Bicarbonate Tab 1,300 mg PO TID 05/15/19 06/04/19 History amLODIPine [Norvasc] 5 mg PO DAILY 05/15/19 06/04/19 History predniSONE 100 mg PO DIRECTED 05/15/19 06/04/19 History Acyclovir 400 mg PO BID 06/04/19 06/04/19 History Gabapentin [Neurontin] 200 mg PO Q6H 06/04/19 06/04/19 History Lidocaine 5% Patch [Lidoderm] 1 - 3 patch TOPICAL DAILY 06/04/19 06/04/19 History Neulasta(Unknown Dose) 1 dose SQ DIRECTED 06/04/19 06/04/19 History Allergies Allergy/AdvReac Type Severity Reaction Status Date / Time No Known Allergies Allergy Verified 06/04/19 12:01 Physical Exam Vitals: Vital Signs Temp Pulse Pulse Pulse Resp BP BP 06/04/19 14:32 99.7 F H 87 17 129/69 06/04/19 12:15 99.3 F 94 17 147/75 06/04/19 12:11 98.8 F 77 18 130/71 06/04/19 11:00 76 06/04/19 10:47 99.2 F 96 18 137/67 06/04/19 08:55 99.1 F 115 H 20 130/70 Pulse Ox 06/04/19 14:32 96 06/04/19 12:15 97 06/04/19 12:11 98 06/04/19 11:00 06/04/19 10:47 97 06/04/19 08:55 96 Intake and Output 06/04/19 06/04/19 06/04/19 06:59 14:59 22:59 Intake Total 240 Balance 240 Intake: Oral 240 Other: # Voids 2 Weight 68.039 kg Results CBC & Chem 7: 06/04/19 09:50 06/04/19 09:50 Labs: Abnormal Lab Results - Last 24 Hours (Table) 06/04/19 06/04/19 06/04/19 Range/Units 09:50 09:50 09:50 WBC 1.6 L (3.8-10.6) k/uL RBC 2.46 L (3.80-5.40) m/uL Hgb 7.5 L (11.4-16.0) gm/dL Hct 22.5 L (34.0-46.0) % RDW 16.0 H (11.5-15.5) % Neutrophils # (Manual) 0.80 L (1.3-7.7) k/uL Lymphocytes # (Manual) 0.40 L (1.0-4.8) k/uL Metamyelocytes # (Man) 0.02 H (0) k/uL APTT 16.1 L (22.0-30.0) sec Sodium 132 L (137-145) mmol/L Potassium 3.1 L (3.5-5.1) mmol/L BUN 19 H (7-17) mg/dL Glucose 116 H (74-99) mg/dL Ferritin 571.4 H (10.0-291.0) ng/mL Lactate Dehydrogenase 911 H (313-618) U/L C-Reactive Protein 13.1 H (<10.0) mg/L Total Protein 5.5 L (6.3-8.2) g/dL Albumin 3.4 L (3.5-5.0) g/dL Microbiology - Last 24 Hours (Table) 06/04/19 10:27 Urine Culture - Preliminary Urine,Voided
[2019-06-04] MEDS: ENOXAPARIN 40 MG/0.4 ML SYRINGE SQ SCH (17:36)
[2019-06-04] MEDS: cycloSPORINE 0.05% OPHTH 0.4 ML DROPERETTE BOTH EYES SCH (20:04)
[2019-06-04] MEDS: ATORVASTATIN 10 MG TAB PO SCH (20:04)
[2019-06-04] MEDS: ACYCLOVIR 200 MG CAP PO SCH ×2 (20:04→20:50)
[2019-06-04] MEDS: ONDANSETRON 4 MG/2 ML VIAL IVP PRN (20:10)
[2019-06-04] MEDS ORDERED: NON FORMULARY DRUG (Acyclovir [Acyclovir] 400 MG) PO SCH (21:00)
[2019-06-04] MEDS ORDERED: ACETAMINOPHEN TAB 500 MG TAB PO PRN (23:51)
[2019-06-05] MEDS: SODIUM CHLORIDE 0.9% 1,000 ML IV SCH ×2 (04:15→15:23)
[2019-06-05 08:08] LABS: Anisocytosis Slight; HCT 23.1 % (34.0-46.0); HGB 7.5 gm/dL (11.4-16.0); MCH 30.2 pg (25.0-35.0); MCHC 32.6 g/dL (31.0-37.0); MCV 92.8 fL (80.0-100.0); Mean Platelet Volume 7.4; Platelet Count 265 k/uL (150-450); RBC 2.49 m/uL (3.80-5.40); RDW 16.1 % (11.5-15.5); WBC 2.8 k/uL (3.8-10.6)
[2019-06-05 08:14] LABS: African American GFR (CKD) >90 (>60 ml/min/1.73 sqM); Anion Gap 5 mmol/L; Blood Urea Nitrogen 13 mg/dL (7-17); Calcium 8.6 mg/dL (8.4-10.2); Carbon Dioxide 29 mmol/L (22-30); Chloride 100 mmol/L (98-107); Glucose 113 mg/dL (74-99); Non-African American GFR(CKD) 86 (>60 ml/min/1.73 sqM); Potassium 3.2 mmol/L (3.5-5.1); Sodium 134 mmol/L (137-145)
[2019-06-05] MEDS: amLODIPine 5 MG TAB PO SCH (08:17)
[2019-06-05] MEDS: GABAPENTIN 100 MG CAP PO SCH ×4 (08:17→20:58)
[2019-06-05] MEDS: ASCORBIC ACID 500 MG TAB PO SCH (08:17)
[2019-06-05] MEDS: DOCUSATE 100 MG CAP PO SCH (08:18)
[2019-06-05] MEDS: cycloSPORINE 0.05% OPHTH 0.4 ML DROPERETTE BOTH EYES SCH ×2 (08:18→20:58)
[2019-06-05] MEDS: CYANOCOBALAMIN 500 MCG TAB PO SCH (08:18)
[2019-06-05] MEDS: ACYCLOVIR 200 MG CAP PO SCH ×2 (08:19→20:58)
[2019-06-05] MEDS: ENOXAPARIN 40 MG/0.4 ML SYRINGE SQ SCH (08:19)
[2019-06-05] MEDS ORDERED: LIDOCAINE 5% PATCH TOPICAL SCH (09:00)
[2019-06-05] MEDS: LIDOCAINE 5% PATCH TOPICAL SCH (09:19)
[2019-06-05 10:40] LABS: Band Neutrophils % 4 %; Basophils # (M) 0.06 k/uL (0-0.2); Eosinophils # (M) 0.11 k/uL (0-0.7); Lymphocytes # (M) 0.36 k/uL (1.0-4.8); Metamyelocytes # (M) 0.06 k/uL (0); Metamyelocytes % 2 %; Monocytes # (M) 0.31 k/uL (0-1.0); Myelocytes # (M) 0.03 k/uL (0); Myelocytes % 1 %; Neutrophils % (M) 66 %; Nucleated Red Blood Cells 0 /100 WBC (0-0); Total Cells Counted 200
[2019-06-05 10:41] LABS: Poikilocytosis (M) Present
--- NOTE | 2019-06-05 14:27 | P.CONS ---
History of Present Illness - Reason for Consult Consult date: 06/05/19 Fever Requesting physician: Mark Prabhakar - Chief Complaint Fever 1 day - History of Present Illness Patient is a 74-year-old female with a past medical history s ignificant for lymphoma. The patient currently on chemotherapy through the left arm PICC line is there for couple of months now, patient was recently admitted at this facility with fever at that point concern for possible PICC line infection however blood culture were negative she was tested for COVID 19 which was negative, patient subsequently discharged home in short course of oral antibiotics. Patient presented back to the ER with chief complaints of fever at home fever of 100.4, patient complaining of feeling weak and tired and no energy denies having any headache nor URI symptoms denies any chest pain or shortness of breath or cough or nausea currently she did have one episode of vomiting before she came to the hospital, but no further vomiting abdominal pain or diarrhea denies havin g any urinary symptoms, patient on arrival to the ER did have a low-grade fever of 99.1 subsequently did have a low-grade fever 100.1F, patient did have blood cultures are currently pending the patient did have a UA that was negative influenza and adkins PCR was negative, chest x-ray was negative for any acute infiltrate patient has been admitted to the hospital infection disease was consulted for further recommendation regarding antibiotic therapy Review of Systems Positive point has been mentioned in the HPI rest of the systems are negative Past Medical History Past Medical History: Cancer, Osteoarthritis (OA) Additional Past Medical History / Comment(s): varicose veins, skin cancer, leaky heart valve, lymphoma on chemo History of Any Multi-Drug Resistant Organisms: None Reported Past Surgical History: Breast Surgery, Joint Replacement, Orthopedic Surgery, Tubal Ligation Additional Past Surgical History / Comment(s): skin cancer removed from rt arm, rt foot bunionectomy, surgery on rt foot between little toe and 4th toe, rt foot heel spurs, rt breast biopsy and needle loc, carissa cataracts. Total Lt knee. Colonoscopy Past Anesthesia/Blood Transfusion Reactions: Previous Problems w/ Anesthesia, Family History of Problems w/ Anesthesia Additional Past Anesthesia/Blood Transfusion Reaction / Comm: had reaction to anesthesia that effected breathing after tubal ligation-not sure exactly what happened. sister had reaction to medication-not sure what Past Psychological History: No Psychological Hx Reported Smoking Status: Never smoker Past Alcohol Use History: Occasional Past Drug Use History: None Reported - Past Family History Sister(s) Family Medical History: Cancer Additional Family Medical History / Comment(s): Colon CA Medications and Allergies Home Medications Medication Instructions Recorded Confirmed Type Cholecalciferol [Vitamin D3 (25 1,000 unit PO DAILY 09/04/17 06/04/19 History Mcg = 1000 Iu)] Glucosam/Ambrosio-Msm1/C/Tiburcio/Bosw 1 tab PO DAILY 09/04/17 06/04/19 History [Glucosamine-Chondroitin Tablet] Simvastatin [Zocor] 20 mg PO HS 09/04/17 06/04/19 History Cyanocobalamin (Vitamin B-12) 1,000 mcg PO DAILY 02/05/19 06/04/19 History [Vitamin B-12] cycloSPORINE 0.05% OPHTH SOLN 1 drop BOTH EYES Q12H 02/20/19 06/04/19 History [Restasis] ALPRAZolam [Xanax] 0.25 mg PO Q6H PRN 05/15/19 06/04/19 History Acetaminophen Tab [Tylenol] 500 mg PO Q6HR PRN 05/15/19 06/04/19 History Acetaminophen-Codeine 300-30mg 1 tab PO Q4-6H PRN 05/15/19 06/04/19 History [Tylenol w/codeine #3] Ascorbic Acid [Vitamin C] 1,000 mg PO DAILY 05/15/19 06/04/19 History Blink 2 drops BOTH EYES DAILY PRN 05/15/19 06/04/19 History Calcium Carbonate/Vitamin D3 1 tab PO DAILY 05/15/19 06/04/19 History [Calcium 600-Vit D3 800 Caplet] Diclofenac Sodium [Voltaren Gel] 2 gram TOPICAL TID PRN 05/15/19 06/04/19 History Docusate Sodium [Dok] 100 mg PO DAILY 05/15/19 06/04/19 History Loratadine [Claritin] 10 mg PO DAILY 05/15/19 06/04/19 History Omeprazole [PriLOSEC] 40 mg PO DAILY PRN 05/15/19 06/04/19 History Ondansetron [Zofran] 4 mg PO Q8H PRN 05/15/19 06/04/19 History Sodium Bicarbonate Tab 1,300 mg PO TID 05/15/19 06/04/19 History amLODIPine [Norvasc] 5 mg PO DAILY 05/15/19 06/04/19 History predniSONE 100 mg PO DIRECTED 05/15/19 06/04/19 History Acyclovir 400 mg PO BID 06/04/19 06/04/19 History Gabapentin [Neurontin] 100 - 200 mg PO TID PRN 06/04/19 06/04/19 History Lidocaine 5% Patch [Lidoderm] 1 - 3 patch TOPICAL DAILY 06/04/19 06/04/19 History Loratadine [Claritin] 1 tab PO DAILY 06/04/19 06/04/19 History Nuelasta 6mg Injection 6 mg SQ Q21D 06/04/19 06/04/19 History Allergies Allergy/AdvReac Type Severity Reaction Status Date / Time No Known Allergies Allergy Verified 06/04/19 12:01 Physical Exam Vitals: Vital Signs Temp Pulse Resp BP Pulse Ox 06/05/19 12:37 99.1 F 06/05/19 09:02 18 06/05/19 07:00 99.5 F 83 17 124/68 99 06/05/19 03:04 98.6 F 92 18 134/66 97 06/04/19 22:57 103 H 06/04/19 20:00 103 H 06/04/19 19:33 100.1 F H 103 H 19 151/71 98 06/04/19 14:32 99.7 F H 87 17 129/69 96 Intake and Output 06/04/19 06/05/19 06/05/19 22:59 06:59 14:59 Intake Total 300 Output Total 1 Balance -1 300 Intake: Oral 300 Output: Stool 1 Other: # Voids 2 3 1 # Emeses 1 GENERAL DESCRIPTION: An elderly female up in bed, no distress. No tachypnea or accessory muscle of respiration use. HEENT: Shows Pallor , no scleral icterus. Oral mucous membrane is dry. No pharyngeal erythema or thrush NECK: Trachea central, no thyromegaly. LUNGS: Unlabored breathing. Decreased breath sounds at the bases. No wheeze or crackle. HEART: S1, S2, regular rate and rhythm. No loud murmur ABDOMEN: Soft, no tenderness , guarding or rigidity, no organomegaly EXTREMITIES: No edema of feet. SKIN: No rash, no masses palpable. NEUROLOGICAL: The patient is awake, alert, oriented x3, mood and affect normal. Results CBC & Chem 7: 06/05/19 07:13 06/05/19 07:13 Labs: Abnormal Lab Results - Last 24 Hours (Table) 06/04/19 06/04/19 06/05/19 Range/Units 09:50 09:50 07:13 WBC 2.8 L (3.8-10.6) k/uL RBC 2.49 L (3.80-5.40) m/uL Hgb 7.5 L (11.4-16.0) gm/dL Hct 23.1 L (34.0-46.0) % RDW 16.1 H (11.5-15.5) % Lymphocytes # (Manual) 0.36 L (1.0-4.8) k/uL Metamyelocytes # (Man) 0.06 H (0) k/uL Myelocytes # (Manual) 0.03 H (0) k/uL Sodium (137-145) mmol/L Potassium (3.5-5.1) mmol/L Glucose (74-99) mg/dL Ferritin 571.4 H (10.0-291.0) ng/mL Procalcitonin 0.11 H (0.02-0.09) ng/mL 06/05/19 Range/Units 07:13 WBC (3.8-10.6) k/uL RBC (3.80-5.40) m/uL Hgb (11.4-16.0) gm/dL Hct (34.0-46.0) % RDW (11.5-15.5) % Lymphocytes # (Manual) (1.0-4.8) k/uL Metamyelocytes # (Man) (0) k/uL Myelocytes # (Manual) (0) k/uL Sodium 134 L (137-145) mmol/L Potassium 3.2 L (3.5-5.1) mmol/L Glucose 113 H (74-99) mg/dL Ferritin (10.0-291.0) ng/mL Procalcitonin (0.02-0.09) ng/mL Microbiology - Last 24 Hours (Table) 06/04/19 10:27 Urine Culture - Final Urine,Voided 06/04/19 09:50 Blood Culture - Preliminary Blood No Growth after 24 hours Assessment and Plan Assessment: 1-patient presented to hospital with low-grade fever in this patient did have underlying history of lymphoma currently with no definite localizing symptom of infection, however the patient did have elevated CRP and Procalitonin concerning for possible infectious etiology, but this was possible PICC line versus abdominal this patient previous abdominal CT was suggestive of lymphoma infiltrating the small bowel (1) Fever Current Visit: Yes Status: Acute Code(s): R50.9 - FEVER, UNSPECIFIED SNOMED Code(s): 955282797 Plan: 1-we will obtain stat ultrasound of the left upper extremity measuring evidence of any DVT associated with the PICC line may be causing these low-grade fever 2- if ultrasound negative we'll obtain CT of abdominal pelvis to rule out any intra-abdominal pathology 3-we will empirically add Unasyn 3 g every 6 hourly while waiting for the cultures to finalize We will follow on clinical condition and cultures to further adjust medication if needed Thank you for this consultation will follow this patient with you Time with Patient: Greater than 30
--- NOTE | 2019-06-05 15:01 | P.PN ---
Progress Note - Text Progress Note Date: 06/05/19 Chief Complaint: Fever History of presenting complaint: This is a very pleasant 74-year-old patientplease Dr. Tashia Quintero. Oncologist is Dr. Burrows. Has a diagnosis of diffuse large B cell lymphoma. Patient has received 4 cycles of R-CHOP. Patient was here in the third week of April with febrile neutropenia. Blood cultures were negative. Infection workup was negative. Seen by Dr. Arevalo from ID. Discharged on Augmentin. Patient also had shingles that is healed trouble well. Has some post neuralgia pain. Patient now presents fever that she states she's had for a few days but now is getting worse. Denies any cough no shortness of breath. Does have some urinary frequency. No new skin changes. Bowel habit is good. Appetite is fair. Admitted with febrile neutropenia. No obvious source. Empirically started on IV Unasyn by ID. Today-minimal cough. No fever no chills. Tolerating a diet. Review of systems: Was done for constitutional, cardiovascular, GI, pulmonary. relevant finding as above Active Medications Acetaminophen (Tylenol Tab) 500 mg PO Q6HR PRN PRN Reason: Fever and/ or Pain Acyclovir (Zovirax) 400 mg PO BID [facility] Last Admin: 06/05/19 08:19 Dose: 400 mg Documented by: Amlodipine Besylate (Norvasc) 5 mg PO DAILY [facility] Last Admin: 06/05/19 08:17 Dose: 5 mg Documented by: Ascorbic Acid (Vitamin C) 1,000 mg PO DAILY [facility] Last Admin: 06/05/19 08:17 Dose: 1,000 mg Documented by: Atorvastatin Calcium (Lipitor) 10 mg PO HS [facility] Last Admin: 06/04/19 20:04 Dose: 10 mg Documented by: Cyanocobalamin (Vitamin B-12) 1,000 mcg PO DAILY [facility] Last Admin: 06/05/19 08:18 Dose: 1,000 mcg Documented by: Cyclosporine (Restasis 0.05% Ophth Soln) 1 drops BOTH EYES 0900,2100 [facility] Last Admin: 06/05/19 08:18 Dose: 1 drops Documented by: Diclofenac Sodium (Voltaren Gel) 2 gm TOPICAL TID PRN PRN Reason: Pain Docusate Sodium (Colace) 100 mg PO DAILY [facility] Last Admin: 06/05/19 08:18 Dose: Not Given Documented by: Enoxaparin Sodium (Lovenox) 40 mg SQ DAILY [facility] Last Admin: 06/05/19 08:19 Dose: 40 mg Documented by: Gabapentin (Neurontin) 200 mg PO QID [facility] Last Admin: 06/05/19 12:38 Dose: 200 mg Documented by: Sodium Chloride (Saline 0.9%) 1,000 mls @ 75 mls/hr IV .[id number] [facility] Last Admin: 06/05/19 04:15 Dose: 75 mls/hr Documented by: Ampicillin Sodium/Sulbactam (Sodium 3 gm/ Sodium Chloride) 100 mls @ 200 mls/hr IVPB Q6HR [facility] Lidocaine (Lidoderm) 1 patch TOPICAL DAILY [facility] Last Admin: 06/05/19 09:19 Dose: 1 patch Documented by: Naloxone HCl (Narcan) 0.2 mg IV Q2M PRN PRN Reason: Opioid Reversal Ondansetron HCl (Zofran) 4 mg IVP Q8HR PRN PRN Reason: Nausea And Vomiting Last Admin: 06/04/19 20:10 Dose: 4 mg Documented by: Ondansetron HCl (Zofran) 4 mg PO Q8H PRN PRN Reason: Nausea Pantoprazole Sodium (Protonix) 40 mg PO DAILY PRN PRN Reason: WHILE ON PREDNISONE Physical examination: VITAL SIGNS: 99.5, 83, 17, 124/68, 99% on room air GENERAL:, sitting up awake comfortable. EYES: Pupils equal. Conjunctiva normal. HEENT: External appearance of nose and ears normal, oral cavity grossly normal. No scalp hair NECK: JVD not raised; masses not palpable. HEART: First and second heart sounds are normal; no edema. LUNGS: Respiratory rate normal; clear to auscultation. ABDOMEN: Soft, nontender, liver spleen not palpable, no masses palpable. PSYCH: Alert and oriented x3; mood and affect normal. NEUROLOGICAL: Cranial nerves grossly intact; no facial asymmetry, power and sensation grossly intact INVESTIGATIONS, reviewed in the clinical context: White count 2.8 hemoglobin 7.5 potassium 3.2 creatinine 0.68 Previous testing White count 1.6-1.5 platelets 204 potassium 3.1 creatinine 0.53 sodium 132 LDH 911 CRP 13.1 UA negative EKG tracing personally reviewed by me-sinus tachycardia Chest x-ray film personally reviewed by me-no, obvious infiltrate Coronavirus PCr detected, influenza type A type B both not detected Assessment: -Low-grade febrile neutropenia. No obvious source of the present. Could be a mild viral bronchitis. Coronavirus-PCN negative. Fever could be from lymphoma itself. 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 -Hyponatremia -Mild hypokalemia Plan: Discussed with Dr. Bui from ID. We'll get a computed tomography scan of the abdomen. Continue empirical IV Unasyn. Discussed with the patient.
[2019-06-05] MEDS: AMPICILLIN-SULBACTAM 3 GM in SODIUM CHLORIDE 0.9% 100 ML IVPB SCH (17:36)
[2019-06-05 20:07] VITALS: RESP 18
[2019-06-05] MEDS: ATORVASTATIN 10 MG TAB PO SCH (20:58)
--- NOTE | 2019-06-05 21:02 | P.CONS ---
History of Present Illness - Reason for Consult Consult date: 06/05/19 Febrile Neutropenia, NHL on chemo - History of Present Illness Mrs. Barboza is a 73-year-old female patient with a fairly benign past medical history, only medications she is on is simvastatin. In late January 2019 patient did a cologard screening that came back positive for malignant DNA. This led to a colonoscopy performed by Dr. Garcias on 02/07/19. She had a 4-5 cm submucosal raise mass in the proximal descending colon, biopsies revealed DLBC lymphoma, germinal subtype. CT AP showed 2 large masses, one measuring 10 cm and one measuring 12 cm in the mid abdomen with multiple other peritoneal masses suspicious for lymphoma versus a peritoneal carcinomatosis. Patient reported weight loss, 20 pounds, also fatigue and night sweats. She was referred to oncology but, patient started displaying confusion and delayed response just after Xmas, so she was taken to [place]. CT of the head without contrast was negative. Suspect UTI, antibiotics initiated. Patient was ultimately transferred to [facility]. She continued to have progressive cognitive decline, this led to a lumbar puncture, cerebrospinal fluid was not evaluated correctly. But, before that was known it was felt that patient would benefit more from being evaluated at a tertiary care facility with neuro evaluation. Patient had another LP, negative culture, negative flow cytometry. She was given her first cycle of R CHOP on 03/05/19. Dbl/Triple hit testing was not able to be done, QNS. She was also started on high dose methotrexate alternating with R - CHOP. She received her second cycle of R- CHOP on 03/26/19, locally. She has been getting the high dose MTX at [facility] and R - CHOP here. Her oncologist at [facility] is Dr. Flood. She is status post 5 cycles of R-CHOP and 4 doses of high-dose methotrexate. The patient was admitted post cycles 4 with febrile neutropenia, pancytopenia, and shingles. She was able to recover subsequently. Case was discussed with [facility], it was decided to omit high-dose methotrexate for now and continue with R CHOP. She received cycle 5 of R CHOP on 05/28/19 along with Neulasta support. The patient presented to the emergency room with complains of fever. Case was discussed in detail with the ER physician. MAXIMUM TEMPERATURE was actually 100.5. The patient did have some tachycardia but no other localizing signs. ANC was 800. She was therefore admitted for further management. Review of Systems Constitutional: Reports fever, Reports weakness Eyes: denies blurred vision, denies pain Ears: deny: decreased hearing, ear discharge, earache, tinnitus Ears, nose, mouth and throat: Denies headache, Denies sore throat Cardiovascular: Reports decreased exercise tolerance Respiratory: Denies cough Gastrointestinal: Denies abdominal pain, Denies diarrhea, Denies nausea, Denies vomiting Genitourinary: Denies dysuria, Denies hematuria Menstruation: Reports postmenopausal Musculoskeletal: Reports muscle weakness Integumentary: Reports as per HPI (shingles rash has completely resolved) Neurological: Reports burning pain (left-sided chest wall, left mid back, postherpetic, on gabapentin) Psychiatric: Reports difficulty concentrating, Reports memory loss Endocrine: Reports fatigue, Denies weight change Hematologic/Lymphatic: Reports as per HPI Past Medical History Past Medical History: Cancer, Osteoarthritis (OA) Additional Past Medical History / Comment(s): varicose veins, skin cancer, leaky heart valve, lymphoma on chemo History of Any Multi-Drug Resistant Organisms: None Reported Past Surgical History: Breast Surgery, Joint Replacement, Orthopedic Surgery, Tubal Ligation Additional Past Surgical History / Comment(s): skin cancer removed from rt arm, rt foot bunionectomy, surgery on rt foot between little toe and 4th toe, rt foot heel spurs, rt breast biopsy and needle loc, carissa cataracts. Total Lt knee. Colonoscopy Past Anesthesia/Blood Transfusion Reactions: Previous Problems w/ Anesthesia, Family History of Problems w/ Anesthesia Additional Past Anesthesia/Blood Transfusion Reaction / Comm: had reaction to anesthesia that effected breathing after tubal ligation-not sure exactly what happened. sister had reaction to medication-not sure what Past Psychological History: No Psychological Hx Reported Smoking Status: Never smoker Past Alcohol Use History: Occasional Past Drug Use History: None Reported - Past Family History Sister(s) Family Medical History: Cancer Additional Family Medical History / Comment(s): Colon CA Medications and Allergies Home Medications Medication Instructions Recorded Confirmed Type Cholecalciferol [Vitamin D3 (25 1,000 unit PO DAILY 09/04/17 06/04/19 History Mcg = 1000 Iu)] Glucosam/Ambrosio-Msm1/C/Tiburcio/Bosw 1 tab PO DAILY 09/04/17 06/04/19 History [Glucosamine-Chondroitin Tablet] Simvastatin [Zocor] 20 mg PO HS 09/04/17 06/04/19 History Cyanocobalamin (Vitamin B-12) 1,000 mcg PO DAILY 02/05/19 06/04/19 History [Vitamin B-12] cycloSPORINE 0.05% OPHTH SOLN 1 drop BOTH EYES Q12H 02/20/19 06/04/19 History [Restasis] ALPRAZolam [Xanax] 0.25 mg PO Q6H PRN 05/15/19 06/04/19 History Acetaminophen Tab [Tylenol] 500 mg PO Q6HR PRN 05/15/19 06/04/19 History Acetaminophen-Codeine 300-30mg 1 tab PO Q4-6H PRN 05/15/19 06/04/19 History [Tylenol w/codeine #3] Ascorbic Acid [Vitamin C] 1,000 mg PO DAILY 05/15/19 06/04/19 History Blink 2 drops BOTH EYES DAILY PRN 05/15/19 06/04/19 History Calcium Carbonate/Vitamin D3 1 tab PO DAILY 05/15/19 06/04/19 History [Calcium 600-Vit D3 800 Caplet] Diclofenac Sodium [Voltaren Gel] 2 gram TOPICAL TID PRN 05/15/19 06/04/19 History Docusate Sodium [Dok] 100 mg PO DAILY 05/15/19 06/04/19 History Loratadine [Claritin] 10 mg PO DAILY 05/15/19 06/04/19 History Omeprazole [PriLOSEC] 40 mg PO DAILY PRN 05/15/19 06/04/19 History Ondansetron [Zofran] 4 mg PO Q8H PRN 05/15/19 06/04/19 History Sodium Bicarbonate Tab 1,300 mg PO TID 05/15/19 06/04/19 History amLODIPine [Norvasc] 5 mg PO DAILY 05/15/19 06/04/19 History predniSONE 100 mg PO DIRECTED 05/15/19 06/04/19 History Acyclovir 400 mg PO BID 06/04/19 06/04/19 History Gabapentin [Neurontin] 100 - 200 mg PO TID PRN 06/04/19 06/04/19 History Lidocaine 5% Patch [Lidoderm] 1 - 3 patch TOPICAL DAILY 06/04/19 06/04/19 History Loratadine [Claritin] 1 tab PO DAILY 06/04/19 06/04/19 History Nuelasta 6mg Injection 6 mg SQ Q21D 06/04/19 06/04/19 History Allergies Allergy/AdvReac Type Severity Reaction Status Date / Time No Known Allergies Allergy Verified 06/04/19 12:01 Physical Exam Vitals: Vital Signs Temp Pulse Pulse Resp BP Pulse Ox 06/05/19 19:17 99.4 F 106 H 18 144/68 95 06/05/19 16:00 76 111 H 16 06/05/19 14:15 99.6 F 111 H 16 136/74 96 06/05/19 12:37 99.1 F 06/05/19 09:02 18 06/05/19 07:00 99.5 F 83 17 124/68 99 06/05/19 03:04 98.6 F 92 18 134/66 97 06/04/19 22:57 103 H Intake and Output 06/05/19 06/05/19 06/05/19 06:59 14:59 22:59 Intake Total 300 300 Output Total 1 Balance 300 299 Intake: Oral 300 300 Output: Stool 1 Other: # Voids 3 1 - Constitutional General appearance: no acute distress - EENT Eyes: EOMI, PERRLA ENT: hearing grossly normal, normal oropharynx - Neck Neck: no lymphadenopathy Thyroid: bilateral: normal size - Respiratory Respiratory: bilateral: CTA - Cardiovascular Rhythm: regular Heart sounds: normal: S1, S2 - Gastrointestinal General gastrointestinal: normal bowel sounds, soft - Integumentary Integumentary: normal - Neurologic Neurologic: CNII-XII intact - Musculoskeletal Musculoskeletal: strength equal bilaterally - Psychiatric Psychiatric: A&O x's 3, appropriate affect Results CBC & Chem 7: 06/05/19 07:13 06/05/19 07:13 Labs: Abnormal Lab Results - Last 24 Hours (Table) 06/05/19 06/05/19 Range/Units 07:13 07:13 WBC 2.8 L (3.8-10.6) k/uL RBC 2.49 L (3.80-5.40) m/uL Hgb 7.5 L (11.4-16.0) gm/dL Hct 23.1 L (34.0-46.0) % RDW 16.1 H (11.5-15.5) % Lymphocytes # (Manual) 0.36 L (1.0-4.8) k/uL Metamyelocytes # (Man) 0.06 H (0) k/uL Myelocytes # (Manual) 0.03 H (0) k/uL Sodium 134 L (137-145) mmol/L Potassium 3.2 L (3.5-5.1) mmol/L Glucose 113 H (74-99) mg/dL Microbiology - Last 24 Hours (Table) 06/04/19 10:27 Urine Culture - Final Urine,Voided 06/04/19 09:50 Blood Culture - Preliminary Blood No Growth after 24 hours Chest x-ray: report reviewed Assessment and Plan (1) Neutropenia with fever Narrative/Plan: The patient had presented with comparatively mild fever with one temperature of 100.5. Since admission she has not had recurrent fever with MAXIMUM TEMPERATURE 100.1. He does have mild tachycardia but no localizing signs. Yesterday total WBC was 1.6, with ANC already greater than 500, at 800. Today WBC is further increased to 2.6. At the time of my evaluation differential was pending but ANC would be anticipated to be greater than 1000. The chest x-ray and urinalysis were negative. Cultures are pending. At this time it is likely that the low-grade temperature is due to impending WBC recovery. Patient is awaiting evaluation by ID. From our standpoint she can discharge whenever okay with them and the admitting service Current Visit: No Status: Acute Code(s): D70.9 - NEUTROPENIA, UNSPECIFIED; R50.81 - FEVER PRESENTING WITH CONDITIONS CLASSIFIED ELSEWHERE SNOMED Code(s): 695751622 (2) Bicytopenia Narrative/Plan: Due to antineoplastic chemotherapy. WBC is improving as noted. The patient did receive Neulasta. Hemoglobin is stable in a safe range. Continue to monitor and transfuse if needed. Current Visit: Yes Status: Acute Code(s): D75.89 - OTHER SPECIFIED DISEASES OF BLOOD AND BLOOD-FORMING ORGANS SNOMED Code(s): 78357077 (3) DLBCL (diffuse large B cell lymphoma) Narrative/Plan: Diagnostic and therapeutic circumstances as described. At this time the plan is for her to receive cycle 5 and 6 of R CHOP without the high-dose methotrexate, due to poor tolerance issues, as well as increased risk of exposure from going to [facility] due to the ongoing coronavirus epidemic. She will receive cycle #6 of R CHOP on scheduled assuming no new issues arise. Patient will also need restaging studies scheduled as an outpatient Current Visit: No Status: Acute Priority: High Code(s): C83.30 - DIFFUSE LARGE B-CELL LYMPHOMA, UNSPECIFIED SITE SNOMED Code(s): 124179328 Plan: #Continue gabapentin for postherpetic neuralgia #Deferred to the admitting service for management of her other medical problems
[2019-06-06] MEDS: AMPICILLIN-SULBACTAM 3 GM in SODIUM CHLORIDE 0.9% 100 ML IVPB SCH ×4 (01:15→17:39)
[2019-06-06] MEDS: SODIUM CHLORIDE 0.9% 1,000 ML IV SCH ×2 (04:30→17:40)
[2019-06-06] MEDS: cycloSPORINE 0.05% OPHTH 0.4 ML DROPERETTE BOTH EYES SCH (08:37)
[2019-06-06] MEDS: ENOXAPARIN 40 MG/0.4 ML SYRINGE SQ SCH (08:37)
[2019-06-06] MEDS: LIDOCAINE 5% PATCH TOPICAL SCH (08:43)
[2019-06-06] MEDS: ONDANSETRON 4 MG/2 ML VIAL IVP PRN (08:45)
[2019-06-06 10:09] LABS: Anisocytosis Slight; Basophils % (A) 0 %; Eosinophils # (A) 0.1 k/uL (0-0.7); Eosinophils % (A) 2 %; HCT 23.1 % (34.0-46.0); HGB 7.3 gm/dL (11.4-16.0); Lymphocytes # (A) 0.2 k/uL (1.0-4.8); Lymphocytes % (A) 5 %; MCH 29.9 pg (25.0-35.0); MCHC 31.5 g/dL (31.0-37.0); MCV 94.9 fL (80.0-100.0); Mean Platelet Volume 7.7; Monocytes # (A) 0.3 k/uL (0-1.0); Monocytes % (A) 6 %; Neutrophils # (A) 3.9 k/uL (1.3-7.7); Neutrophils % (A) 84 %; Platelet Count 228 k/uL (150-450); RBC 2.44 m/uL (3.80-5.40); RDW 16.1 % (11.5-15.5); WBC 4.6 k/uL (3.8-10.6)
[2019-06-06] MEDS: DOCUSATE 100 MG CAP PO SCH (10:10)
[2019-06-06] MEDS: CYANOCOBALAMIN 500 MCG TAB PO SCH (10:10)
[2019-06-06] MEDS: GABAPENTIN 100 MG CAP PO SCH ×3 (10:10→17:40)
[2019-06-06] MEDS: amLODIPine 5 MG TAB PO SCH (10:10)
[2019-06-06] MEDS: ACYCLOVIR 200 MG CAP PO SCH (10:10)
[2019-06-06] MEDS: ASCORBIC ACID 500 MG TAB PO SCH (10:10)
--- NOTE | 2019-06-06 13:33 | US ---
EXAMINATION TYPE: US venous doppler duplex UE LT DATE OF EXAM: 06/05/2019 COMPARISON: None CLINICAL HISTORY: 74-year-old female Swelling, r/o DVT. PICC line, no redness. SIDE PERFORMED: Left TECHNIQUE: Grayscale, color doppler, spectral doppler imaging performed of the deep veins of the uppe r extremities. Findings: There is normal flow, compressibility and vascular waveforms. PICC line visualized in the basilic vein. Left Arm: Negative for DVT IMPRESSION: No visualized DVT within the left upper extremity.
--- NOTE | 2019-06-06 14:06 | P.PN ---
Subjective Progress Note Date: 06/06/19 Principal diagnosis: fever, on treatment NHL In f/u today pt is doing ok, no fver, chills, nausea, difficulty swallowing, MORENA, cough, she has had hard stool, small amounts, no bleeding Objective - Vital Signs Vital signs: Vital Signs Temp 98.9 F 06/06/19 07:00 Pulse 101 H 06/06/19 07:00 Resp 18 06/06/19 07:00 BP 150/61 06/06/19 07:00 Pulse Ox 96 06/06/19 07:00 Intake & Output 06/05/19 06/06/19 06/06/19 18:59 06:59 18:59 Intake Total 600 Output Total 1 Balance 599 Intake: Oral 600 Output: Stool 1 Other: Voiding Method Toilet # Voids 1 - Constitutional General appearance: Present: average body habitus, cooperative, no acute distress - EENT Eyes: Present: anicteric sclerae, EOMI ENT: Present: hearing grossly normal, normal oropharynx - Respiratory Respiratory: bilateral: CTA - Cardiovascular Rhythm: regular Heart sounds: normal: S1, S2 Abnormal Heart Sounds: Absent: systolic murmur, diastolic murmur, rub, S3 Gallop, S4 Gallop, click, other - Peripheral edema leg Peripheral Edema: bilateral: None - Gastrointestinal General gastrointestinal: Present: normal bowel sounds, soft - Neurologic Neurologic: Present: CNII-XII intact - Musculoskeletal Musculoskeletal: Present: strength equal bilaterally - Psychiatric Psychiatric: Present: A&O x's 3, appropriate affect, intact judgment & insight - Labs CBC & Chem 7: 06/06/19 09:44 06/05/19 07:13 Labs: Abnormal Lab Results - Last 24 Hours (Table) 06/06/19 Range/Units 09:44 RBC 2.44 L (3.80-5.40) m/uL Hgb 7.3 L (11.4-16.0) gm/dL Hct 23.1 L (34.0-46.0) % RDW 16.1 H (11.5-15.5) % Lymphocytes # 0.2 L (1.0-4.8) k/uL Microbiology - Last 24 Hours (Table) 06/04/19 09:50 Blood Culture - Preliminary Blood No Growth after 48 hours 06/04/19 10:27 Urine Culture - Final Urine,Voided - Imaging and Cardiology Venous US: report reviewed Assessment and Plan (1) Fever Narrative/Plan: Cultures negative. Pending CT Current Visit: Yes Status: Acute Priority: Medium Code(s): R50.9 - FEVER, UNSPECIFIED SNOMED Code(s): 435067048 (2) DLBCL (diffuse large B cell lymphoma) Narrative/Plan: She cont on treatment, doing well so far. PET scan treatment f/u next week Current Visit: No Status: Chronic Priority: Medium Code(s): C83.30 - DIFFUSE LARGE B-CELL LYMPHOMA, UNSPECIFIED SITE SNOMED Code(s): 848887797 (3) Bicytopenia Narrative/Plan: On admit, Hgb stable, WBC/ANC recuperating-pt did get GCSF about 8 days ago Current Visit: Yes Status: Acute Priority: Medium Code(s): D75.89 - OTHER SPECIFIED DISEASES OF BLOOD AND BLOOD-FORMING ORGANS SNOMED Code(s): 21199635 Plan: Updated on pt case, reviewed IM and ID evaluations and recommendations, all current plans and future plans reviewed. Time with Patient: Greater than 30
[2019-06-06] MEDS: IOPAMIDOL CONTRAST (ORAL USE) VIAL PO PRN ×2 (14:36→15:39)
[2019-06-06 15:07] VITALS: BP 158/72; PULSE 110
--- NOTE | 2019-06-06 16:56 | CT ---
EXAMINATION TYPE: CT abdomen pelvis w con DATE OF EXAM: 06/06/2019 COMPARISON: 02/26/2019 INDICATION: Generalized pain. DLP: 803.6 mGycm, Automated exposure control for dose reduction was used. CONTRAST: 100 mL of Isovue 300. Study performed with Oral Contrast TECHNIQUE: Axial images were obtained from above the diaphragm to the pubic rami in the axial plane a t 5 mm thick sections. Reconstructed images are reviewed on the computer in the coronal plane. FINDINGS: Limited CT sections are obtained the lung bases. The lung bases are clear. CT ABDOMEN: Liver: There is a 1.6 cm cyst measuring 19 Hounsfield units within the medial left lobe liver Spleen: Normal Pancreas: Normal Adrenal glands: The adrenal glands are normal. Gallbladder: Normal Kidneys: No masses are evident. No hydronephrosis is present. Tiny cortical renal cysts on the ante rior lateral right mid kidney. Delayed images were obtained through the kidneys, which remain unrema rkable. Aorta: Normal Inferior vena cava: Normal. CT PELVIS: There is matted density within the left lower quadrant. This is diminished from the compar maye. Previous right lower lobe matted density is not evident. At the level of the matted density which may reflect some adenopathy, there are loops of small bowel with thickened wall and diminished contrast. However, no obstruction is identified. Remaining loops of bowel within the abdomen and pelvis are normal. There are loops of bowel which are incompletely distended or lack oral contrast limiting their evaluation. Appendix: Normal as visualized. Urinary bladder: Normal. Genitourinary structures: Uterus appears normal. Adnexal regions are clear. Osseous structures: No suspicious lytic or sclerotic lesions. IMPRESSIONS: 1. Lobular mass within the left lower quadrant is diminished in size over the interval. Previous rig ht lower quadrant is not evident. 2. Left lower quadrant small bowel loops with thickened bowel wall and diminished contrast. However, no obstruction is evident with contrast evident within the colon.
[2019-06-06 18:22] VITALS: TEMP 99.8
--- NOTE | 2019-06-06 20:28 | PN ---
PROGRESS NOTE DATE OF SERVICE: 06/06/2019 REASON FOR FOLLOWUP: Fever; possible tumor fever. INTERVAL HISTORY: The patient is currently afebrile. The patient has been breathing comfortably. The patient denies having any chest pain or shortness of breath or cough. Did have an episode of vomiting this morning, but no diarrhea. PHYSICAL EXAMINATION: Her blood pressure is 158/72 with a pulse of 100, temperature of 99.1. She is 93% on room air. General description is an elderly female up in the bed in no distress. RESPIRATORY SYSTEM: Unlabored breathing with decreased breath sounds at the base. No wheeze. HEART: S1, S2. Regular rate and rhythm. ABDOMEN: Soft. No tenderness. LABS/IMAGING: Hemoglobin 7.3, white count 4.6, creatinine 0.68. Ultrasound was negative for any DVT of the left arm. CT of abdomen and pelvis shows the left lower quadrant mass has decreased in size; did have some small bowel loops with thickened bowel wall but no other abnormality. DIAGNOSTIC IMPRESSION AND PLAN: Patient with a fever, concern for possible tumor fever in this patient. Cultures remain negative. No high-grade fever has been noted. May consider short course of oral Augmentin on discharge. Plan of care was discussed with the admitting physician. MMGLADYSL / RELLN: [id number] /
--- NOTE | 2019-06-08 19:08 | P.DS ---
Providers Date of admission: 06/06/19 07:53 Expected date of discharge: 06/08/19 Attending physician: Mark Prabhakar Consults: 06/04/19 11:25 Consult Physician Urgent Consulting Provider: Lico Hdez Consult Reason/Comments: Oncological care Do you want consulting provider notified?: Already Contacted 06/04/19 16:18 Consult Physician Routine Consulting Provider: Angela Enrique Consult Reason/Comments: [id number] Do you want consulting provider notified?: Yes Primary care physician: Corinne Quintero [facility] Course: Chief Complaint: Fever History of presenting complaint: This is a very pleasant 74-year-old patientplease Dr. Tashia Quintero. Oncologist is Dr. Burrows. Has a diagnosis of diffuse large B cell lymphoma. Patient has received 4 cycles of R-CHOP. Patient was here in the third week of April with febrile neutropenia. Blood cultures were negative. Infection workup was negative. Seen by Dr. Enrique from ID. Discharged on Augmentin. Patient also had shingles that is healed trouble well. Has some post neuralgia pain. Patient now presents fever that she states she's had for a few days but now is getting worse. Denies any cough no shortness of breath. Does have some urinary frequency. No new skin changes. Bowel habit is good. Appetite is fair. Admitted with febrile neutropenia. Empirically started on IV Unasyn by ID. no source of infection was found. Could be from G-CSF stimulator. Today-Doing well. Tolerating a diet. No fever.. Discussed with Dr. Bui from ID. Computed tomography scan of the abdomen was done. Unremarkable. Okay for discharge. Had discussed with Dr. Hdez from oncology. Discussion and discharge planning more than 35 minutes Consultation: Dr. Payton enrique from ID Dr. Hdez from oncology Physical examination: VITAL SIGNS: 99.1, 110, 18, 158/72, 93% on room air GENERAL:, sitting up awake comfortable. EYES: Pupils equal. Conjunctiva normal. HEENT: External appearance of nose and ears normal, oral cavity grossly normal. No scalp hair NECK: JVD not raised; masses not palpable. HEART: First and second heart sounds are normal; no edema. LUNGS: Respiratory rate normal; clear to auscultation. ABDOMEN: Soft, nontender, liver spleen not palpable, no masses palpable. INVESTIGATIONS, reviewed in the clinical context: White count 4.6 hemoglobin 7.3 Computed tomography scan of abdomen and pelvis-lobar mass in the left lower quadrant decreased in size from before. Noted no evidence of any obstruction or abscess Previous testing White count 1.6-1.5 platelets 204 potassium 3.1 creatinine 0.53 sodium 132 LDH 911 CRP 13.1 UA negative EKG tracing personally reviewed by me-sinus tachycardia Chest x-ray film personally reviewed by me-no, obvious infiltrate Coronavirus PCr detected, influenza type A type B both not detected Assessment: -Low-grade febrile neutropenia. No obvious source of the present. Could be a mild viral bronchitis. Coronavirus-PCN negative. Fever could be from lymphoma itself. 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 -Hyponatremia -Mild hypokalemia Disposition: Home Patient Condition at Discharge: Stable Plan - Discharge Summary New Discharge Prescriptions: New Amoxicillin/Potassium Clav [Augmentin 875-125 Tablet] 1 tab PO Q12HR #10 tab Continue Glucosam/Ambrosio-Msm1/C/Tiburcio/Bosw [Glucosamine-Chondroitin Tablet] 1 tab PO DAILY Cholecalciferol [Vitamin D3 (25 Mcg = 1000 Iu)] 1,000 unit PO DAILY Simvastatin [Zocor] 20 mg PO HS Cyanocobalamin (Vitamin B-12) [Vitamin B-12] 1,000 mcg PO DAILY cycloSPORINE 0.05% OPHTH SOLN [Restasis] 1 drop BOTH EYES Q12H Sodium Bicarbonate Tab 1,300 mg PO TID Omeprazole [PriLOSEC] 40 mg PO DAILY PRN PRN Reason: WHILE ON PREDNISONE ALPRAZolam [Xanax] 0.25 mg PO Q6H PRN PRN Reason: Anxiety Acetaminophen-Codeine 300-30mg [Tylenol w/codeine #3] 1 tab PO Q4-6H PRN PRN Reason: Pain amLODIPine [Norvasc] 5 mg PO DAILY predniSONE 100 mg PO DIRECTED Ondansetron [Zofran] 4 mg PO Q8H PRN PRN Reason: Nausea Diclofenac Sodium [Voltaren Gel] 2 gram TOPICAL TID PRN PRN Reason: Pain Blink 2 drops BOTH EYES DAILY PRN PRN Reason: DRY EYES Acetaminophen Tab [Tylenol] 500 mg PO Q6HR PRN PRN Reason: Pain Loratadine [Claritin] 10 mg PO DAILY Ascorbic Acid [Vitamin C] 1,000 mg PO DAILY Calcium Carbonate/Vitamin D3 [Calcium 600-Vit D3 800 Caplet] 1 tab PO DAILY Docusate Sodium [Dok] 100 mg PO DAILY Acyclovir 400 mg PO BID Gabapentin [Neurontin] 100 - 200 mg PO TID PRN PRN Reason: nerve pain Lidocaine 5% Patch [Lidoderm 5% Patch] 1 - 3 patch TOPICAL DAILY Nuelasta 6mg Injection 6 mg SQ Q21D Discontinued Loratadine [Claritin] 1 tab PO DAILY Discharge Medication List Cholecalciferol [Vitamin D3 (25 Mcg = 1000 Iu)] 1,000 unit PO DAILY 09/04/17 [History] Glucosam/Ambrosio-Msm1/C/Tiburcio/Bosw [Glucosamine-Chondroitin Tablet] 1 tab PO DAILY 09/04/17 [History] Simvastatin [Zocor] 20 mg PO HS 09/04/17 [History] Cyanocobalamin (Vitamin B-12) [Vitamin B-12] 1,000 mcg PO DAILY 02/05/19 [History] cycloSPORINE 0.05% OPHTH SOLN [Restasis] 1 drop BOTH EYES Q12H 02/20/19 [History] ALPRAZolam [Xanax] 0.25 mg PO Q6H PRN 05/15/19 [History] Acetaminophen Tab [Tylenol] 500 mg PO Q6HR PRN 05/15/19 [History] Acetaminophen-Codeine 300-30mg [Tylenol w/codeine #3] 1 tab PO Q4-6H PRN 05/15/19 [History] Ascorbic Acid [Vitamin C] 1,000 mg PO DAILY 05/15/19 [History] Blink 2 drops BOTH EYES DAILY PRN 05/15/19 [History] Calcium Carbonate/Vitamin D3 [Calcium 600-Vit D3 800 Caplet] 1 tab PO DAILY 05/15/19 [History] Diclofenac Sodium [Voltaren Gel] 2 gram TOPICAL TID PRN 05/15/19 [History] Docusate Sodium [Dok] 100 mg PO DAILY 05/15/19 [History] Loratadine [Claritin] 10 mg PO DAILY 05/15/19 [History] Omeprazole [PriLOSEC] 40 mg PO DAILY PRN 05/15/19 [History] Ondansetron [Zofran] 4 mg PO Q8H PRN 05/15/19 [History] Sodium Bicarbonate Tab 1,300 mg PO TID 05/15/19 [History] amLODIPine [Norvasc] 5 mg PO DAILY 05/15/19 [History] predniSONE 100 mg PO DIRECTED 05/15/19 [History] Acyclovir 400 mg PO BID 06/04/19 [History] Gabapentin [Neurontin] 100 - 200 mg PO TID PRN 06/04/19 [History] Lidocaine 5% Patch [Lidoderm 5% Patch] 1 - 3 patch TOPICAL DAILY 06/04/19 [History] Nuelasta 6mg Injection 6 mg SQ Q21D 06/04/19 [History] Amoxicillin/Potassium Clav [Augmentin 875-125 Tablet] 1 tab PO Q12HR #10 tab 06/06/19 [Rx] Follow up Appointment(s)/Referral(s): Lico Hdez MD [STAFF PHYSICIAN] - 1 Week Corinne Quintero MD [Primary Care Provider] - 1-2 days [facility] [NON-STAFF] - Patient Instructions/Handouts: Fever in Adults (GEN) Activity/Diet/Wound Care/Special Instructions: CBC-BMP- in 5 days Discharge Disposition: HOME SELF-CARE
--- NOTE | 2019-06-10 08:11 | CDI ---
Documentation Clarification Form Date: 06/10/19 From: Janet Noriega Phone: If you have a question about this query, please contact Marcella Frausto, [employer] Teacher at [phone] between 8am and 5pm. Admit Date: 06/06/19 Discharge Date: 06/06/19 Patient Name: ALFONSO BANKS Visit Number: [id number] ATTENTION: The Clinical Documentation Specialists (CDI) and [facility] Coding Staff appreciate your assistance in clarifying documentation. Please respond to the clarification below the line at the bottom and electronically sign. The CDI & [facility] Coding staff will review the response and follow-up if needed. Please note: Queries are made part of the Legal Health Record. If you have any questions, please contact the author of this message via ITS. Dear Dr. Mark Prabhakar, Bicytopenia is documented in the H&P, DS, your 06/04 PN, & Dr Huerta's 06/05 PN. History/Risk Factors: Diffuse large B cell lymphoma, postherpetic neuralgia, hyponatremia, mild viral bronchitis, hypokalemia Clinical indicators: Presents with neutropenia fever. s/p 4 cycles of R-CHOP. Bicytopenia secondary to chemotherapy. Hemoglobin: 7.5/7.3 Hematocrit: 22.5/23.1 WBC: 1.6/2.8 RBC: 2.46/2.49/2.44 Platelets: 204/265/228 Treatment: no transfusions, Acyclovir, Unasyn Consults: Oncology In order to capture the severity of condition, please clarify the type(s) of anemia and etiology if known: Pancytopenia Neutropenia Leukopenia Thrombocytopenia Anemia, please specify Other, please specify Unable to determine As documented-bicytopenia from chemotherapy. MTDD
== END 2019-06-06 18:51 | disposition home health service (06) | DRG 809 ==
LOC: EC 08:52 → 4SSUR 11:24 → OBSVTOIN 06-06 07:53
PROVIDERS: ADMIT Hospitalist; ATTEND Hospitalist
DX: D70.9 Neutropenia, unspecified (principal); C83.33 Diffuse large B-cell lymphoma, intra-abdominal lymph nodes; B02.29 Other postherpetic nervous system involvement; E87.1 Hypo-osmolality and hyponatremia; R50.81 Fever presenting with conditions classified elsewhere; Z20.828 Contact with and (suspected) exposure to other viral communicable diseases; J20.8 Acute bronchitis due to other specified organisms; R35.0 Frequency of micturition; E87.6 Hypokalemia; R00.0 Tachycardia, unspecified; L65.8 Other specified nonscarring hair loss; T45.1X5A Adverse effect of antineoplastic and immunosuppressive drugs, initial encounter; I83.90 Asymptomatic varicose veins of unspecified lower extremity; M19.91 Primary osteoarthritis, unspecified site; Z79.52 Long term (current) use of systemic steroids; Z79.899 Other long term (current) drug therapy; Z86.79 Personal history of other diseases of the circulatory system; Z87.891 Personal history of nicotine dependence; Z85.828 Personal history of other malignant neoplasm of skin; Z98.890 Other specified postprocedural states; Z96.652 Presence of left artificial knee joint; Z98.51 Tubal ligation status; Z98.42 Cataract extraction status, left eye; Z98.41 Cataract extraction status, right eye; Z91.89 Other specified personal risk factors, not elsewhere classified; Z80.0 Family history of malignant neoplasm of digestive organs
CPT/HCPCS: 36415; 71045; 74177; 80048; 80053; 81003; 82728; 83605; 83615; 83735; 84145; 85025; 85610; 85730; 86140; 87040; 87086; 87502; 87635; 93005; 96374; 99285

== ENCOUNTER → 2019-06-14 | Outpatient (CLI) | payer MEDICARE ==
--- NOTE | 2019-06-17 10:21 | PE ---
EXAMINATION TYPE: PET CT fusion skull to thigh DATE OF EXAM: 06/14/2019 COMPARISON: CT abdomen pelvis 06/06/2019 Prior PET/CT: None HISTORY: Lymphoma TECHNIQUE: Following the intravenous administration of 12.45 mCi of F-18 FDG, whole body images are performed from the skull base to the midthigh. Images are reviewed on the computer in the coronal, a xial, and sagittal planes. Reconstructed rotating images are created on independent workstation and reviewed on the computer. A localization and attenuation correction CT is performed in conjunction with the PET scan. DLP: 310.49 mGycm SCAN: Initial Blood glucose: 126 mg/dL Average Mediastinum SUV: 1.13 Average Liver SUV: 1.7 FINDINGS: NECK: There is a tiny focus of radiotracer accumulation within the left parapharyngeal space, image 27. This has an SUV of 1.27. There is a focus of radiotracer accumulation within the left neck posterior to the submandibular glan d. This has an SUV value of 8.02 and is suspicious for lymphoma this level within a lymph node. There is a focus of radiotracer accumulation within the left supraclavicular region just lateral to the tr achea. This may be within the left lobe thyroid has an SUV value of 5.46. THORAX: Some mild uptake may be within the medial right thyroid lobe, image 61 SUV 2.85. ABDOMEN: There is a large focus of radiotracer along the posterior loop of bowel adjacent to some fec al debris. This area has an SUV value of 11.97. Additional nodularity within the mesentery adjacent t o the colon in the left midabdomen which has some mild inflammatory change on localization CT has an SUV value of 15.55. Image 164. The hilum of the spleen may has some mild focal radiotracer within SUV value of 4.4. This is difficult to separate from the larger focus of radiotracer adjacent to the col on. PELVIS: Matted densities within the anterior left upper hemipelvis have marked increased radiotracer accumulation with SUV values in the range of 9.7-12. Image 186. There are some foci of increased radi otracer within the anterior right hemipelvis as well measuring 9.8 and 6.97, image 188. There is a small focus of radiotracer accumulation within the loop of colon with an SUV value of 3.63 . Image 203 OSSEOUS STRUCTURES: No abnormal uptake LOCALIZATION CT: Several small lymph nodes are within the parapharyngeal space on the left. Thoracic aorta at the level of main pulmonary artery is 3.1 cm. The main pulmonary bifurcation is 3.4 cm. Cons ider some pulmonary hypertension. The rounded densities within the abdomen and pelvis corresponding t o the hyperintensity on the PET scan are difficult to separate from loops of bowel. However, these ap pear to be enlarged matted lymph nodes within the mesentery. COMPARISON: The density adjacent to the colon are within the colonic wall near the splenic hilum appe ars to be enlarged over the interval. The nodularity within the mesentery has enlarged over the inter sarkis. The largest collection in the left hemipelvis currently measures 12.8 x 6.8 cm versus 11.4 x 4.7 cm on the prior exam of 06/06/2019. This may be due to less definition on the localization CT due to lack oral contrast. Interval enlargement however should be considered. IMPRESSION: 1. Intense uptake within mesenteric masses compatible with lymphoma in the proper clinical setting. 2. Additional foci radiotracer within the left neck. 3. Some abnormal uptake may be within the small thyroid. Lymphoma involvement within the thyroid is n ot excluded. 4. Appears to be increasing prominence of the abdomen and pelvis masses. This may be accentuated due to lack oral contrast. Involvement of the splenic hilum is not excluded on the PET/CT.
== END | disposition home or self-care (01) ==
LOC: RADPETMAIN 12:02
PROVIDERS: ATTEND Internal Medicine Hematology & Oncology
DX: C83.39 Diffuse large B-cell lymphoma, extranodal and solid organ sites (principal)
CPT/HCPCS: 78815; A9552

== ENCOUNTER 2019-07-17 09:13 | Inpatient (IN) | payer MEDICARE ==
[~2019-07-17 09:13] MED LIST changes: -LACTATED RINGERS 1,000 ML IV SCH; -LIDOCAINE 1% 20 ML VIAL (10MG/ML) FOR IV START INTRADERMA PRN; +ONDANSETRON 4 MG/2 ML VIAL IVP PRN
[2019-07-17] MEDS: SODIUM CHLORIDE 0.9% 1,000 ML IV SCH ×2 (10:13→20:26)
[2019-07-17 10:16] LABS: Basophils # (A) 0.1 k/uL (0-0.2); Basophils % (A) 1 %; Eosinophils # (A) 0.1 k/uL (0-0.7); Eosinophils % (A) 2 %; HCT 26.6 % (34.0-46.0); HGB 8.5 gm/dL (11.4-16.0); Hypochromasia Marked; Lymphocytes # (A) 0.5 k/uL (1.0-4.8); Lymphocytes % (A) 12 %; MCH 29.8 pg (25.0-35.0); MCV 93.3 fL (80.0-100.0); Mean Platelet Volume 7.2; Monocytes # (A) 0.6 k/uL (0-1.0); Monocytes % (A) 14 %; Neutrophils % (A) 67 %; RBC 2.85 m/uL (3.80-5.40); RDW 14.9 % (11.5-15.5); WBC 4.5 k/uL (3.8-10.6)
[2019-07-17 10:32] LABS: Platelet Count 480 k/uL (150-450)
[2019-07-17 10:42] LABS: ALT 15 U/L (4-34); AST 23 U/L (14-36); African American GFR (CKD) >90 (>60 ml/min/1.73 sqM); Albumin 3.7 g/dL (3.5-5.0); Alkaline Phosphatase 72 U/L (38-126); Anion Gap 8 mmol/L; Blood Urea Nitrogen 22 mg/dL (7-17); Calcium 9.5 mg/dL (8.4-10.2); Carbon Dioxide 25 mmol/L (22-30); Chloride 104 mmol/L (98-107); Glucose 109 mg/dL (74-99); Non-African American GFR(CKD) >90 (>60 ml/min/1.73 sqM); Phosphorus 3.8 mg/dL (2.5-4.5); Potassium 4.5 mmol/L (3.5-5.1); Sodium 137 mmol/L (137-145); Total Bilirubin 0.1 mg/dL (0.2-1.3); Total Protein 6.1 g/dL (6.3-8.2); Uric Acid 2.1 mg/dL (3.7-7.4)
[2019-07-17] MEDS: FAMOTIDINE 20 MG/2 ML VIAL IV SCH (12:45)
[2019-07-17] MEDS: ONDANSETRON 16 MG in SODIUM CHLORIDE 0.9% 50 ML IVPB SCH (12:46)
[2019-07-17] MEDS ORDERED: methylPREDNISolone SOD SUCCI 125 MG/2 ML VIAL IV ONE (13:00)
[2019-07-17] MEDS ORDERED: diphenhydrAMINE 50 MG/ML 1 ML VIAL IVP ONE (13:00)
[2019-07-17] MEDS ORDERED: ALTEPLASE 2 MG VIAL (CATHFLO) IV STA (13:53)
[2019-07-17] MEDS ORDERED: RITUXIMAB IV ONE ×2 (14:00→17:00)
[2019-07-17] MEDS ORDERED: SODIUM CHLORIDE 0.9% IV ONE ×2 (14:00→17:00)
[2019-07-17] MEDS ORDERED: DICLOFENAC SODIUM TOPICAL PRN (14:17)
[2019-07-17] MEDS ORDERED: ACETAMINOPHEN TAB 500 MG TAB PO PRN (14:17)
[2019-07-17] MEDS ORDERED: ALPRAZolam 0.25 MG TAB PO PRN (14:17)
[2019-07-17] MEDS ORDERED: Acetaminophen-Codeine 300-30mg TAB PO PRN (14:17)
[2019-07-17] MEDS ORDERED: GABAPENTIN 100 MG CAP PO PRN (14:17)
[2019-07-17] MEDS ORDERED: PANTOPRAZOLE 40 MG TABLET PO PRN (14:17)
[2019-07-17] MEDS ORDERED: BLINK BOTH EYES PRN (14:17)
[2019-07-17] MEDS ORDERED: LIDOCAINE 5% PATCH TOPICAL PRN (14:17)
--- NOTE | 2019-07-17 14:29 | P.HPIM ---
<Celia Diaz - Last Filed: 07/17/19 17:40> History of Present Illness H&P Date: 07/17/19 Chief Complaint: Second Line Timed Chemotherapy for NHL Mrs. Barboza is a very pleasant 74-year-old female patient of primary care physician Dr. Corinne Quintero with a benign past medical history, only medications she is on is simvastatin. In late January 2019 patient did a colaguard screening that came back positive for malignant DNA. This led to a colonoscopy preformed by Dr. Garcias on 02/07/19. She had a 4-5 cm submucosal raise mass in the proximal descending colon, biopsies revealed DLBC lymphoma, germinal subtype. CT AP showed 2 large masses, one measuring 10 cm and one measuring 12 cm in the mid abdomen with multiple other peritoneal masses suspicious for lymphoma versus a peritoneal carcinomatosis. Patient was positive for weight loss, 20 pounds, also fatigue and night sweats. She was referred to oncology but, patient started displaying confusion and delayed response just after Xmas, so she was taken to [place]. CT of the head without contrast was negative. Suspect UTI, antibiotics initiated. Patient was ultimately transferred to [facility]. She continued to have progressive cognitive decline, this led to a lumbar puncture, cerebrospinal fluid was not evaluated correctly. But, before that was known it was felt that patient would benefit more from being evaluated at a tertiary care facility with neuro evaluation. Patient had another LP, negative culture, negative flow cytometry. She was given her first cycle of R CHOP on 03/05/19, she was scripted 300 g of Granix and given it for 7 or 8 days outpatient. Dbl/Triple hit testing was not able to be done, QNS. Patient is here today for 1st follow-up, her CBC is within normal limits, mild anemia which is persistent but not progressive. Patient has noted significant complaints regarding treatment, her mentation is significantly improved but, not back to baseline. Patient ambulated into the office. Denies fevers, oral irritation, nausea, vomiting, difficulty breathing, she does have some shortness of breath on exertion and mild to moderate generalized weakness, this is improv ing as she is getting around better, no acute changes in bowel or bladder habits, her abdomen feels a little less distended, no swelling in the legs. She is going to have her second cycle on 03/26/19. She is due to follow-up with Dr. Flood on 04/05/19 She completed a total of 6 cycles of R-CHOP and 3 doses of high-dose methotrexate. She was admitted after cycle 5 for neutropenic fever, etiology unknown (treatment/tumor versus infection), johnson cultures negative and fever resolved. the patient completed 6 cycles of R CHOP on 06/18/19. She was admitted after cycle 5 with fever and low WBC. No evidence of infection was found and it is felt that this was possibly due to WBC recovery post Neulasta. From information available to us it appeared that she had 3 doses of high-dose methotrexate but the patient and her family stated that she only had one dose. - Recent PET scan unfortunately shows persistent hypermetabolic mesenteric masses suggestive of significant residual lymphoma. In fact there is suggestion of more prominence. Uptake was also seen in the left parapharyngeal and left sentinel submandibular region, possibly involved lymph nodes. - Results of the PET scan and medications were discussed in detail with them at last visit with Dr. Hdez and they were advised that this indicates that her current regimen was not effective. The patient therefore has now been admitted for second line therapy with -ICE. Review of Systems A 14 point review of systems assessed and completed and all negative except HPI Past Medical History Past Medical History: Cancer, Osteoarthritis (OA) Additional Past Medical History / Comment(s): varicose veins, skin cancer, leaky heart valve, lymphoma on chemo, shingles History of Any Multi-Drug Resistant Organisms: None Reported Past Surgical History: Breast Surgery, Joint Replacement, Orthopedic Surgery, Tubal Ligation Additional Past Surgical History / Comment(s): skin cancer removed from rt arm, rt foot bunionectomy, surgery on rt foot between little toe and 4th toe, rt foot heel spurs, rt breast biopsy and needle loc, carissa cataracts. Total Lt knee. Colonoscopy Past Anesthesia/Blood Transfusion Reactions: Previous Problems w/ Anesthesia, Family History of Problems w/ Anesthesia Additional Past Anesthesia/Blood Transfusion Reaction / Comment(s): Had reaction to anesthesia that effected breathing after tubal ligation-not sure exactly what happened. sister had reaction to medication-not sure what Past Psychological History: No Psychological Hx Reported Smoking Status: Never smoker Past Alcohol Use History: Occasional Past Drug Use History: None Reported - Past Family History Sister(s) Family Medical History: Cancer Additional Family Medical History / Comment(s): Colon CA Medications and Allergies Home Medications Medication Instructions Recorded Confirmed Type Cholecalciferol [Vitamin D3 (25 1,000 unit PO DAILY 09/04/17 07/17/19 History Mcg = 1000 Iu)] Glucosam/Ambrosio-Msm1/C/Tiburcio/Bosw 1 tab PO DAILY 09/04/17 07/17/19 History [Glucosamine-Chondroitin Tablet] Simvastatin [Zocor] 20 mg PO HS 09/04/17 07/17/19 History Cyanocobalamin (Vitamin B-12) 1,000 mcg PO DAILY 02/05/19 07/17/19 History [Vitamin B-12] cycloSPORINE 0.05% OPHTH SOLN 1 drop BOTH EYES Q12H 02/20/19 07/17/19 History [Restasis] Acetaminophen Tab [Tylenol] 500 mg PO Q6HR PRN 05/15/19 07/17/19 History Ascorbic Acid [Vitamin C] 1,000 mg PO DAILY 05/15/19 07/17/19 History Blink 2 drops BOTH EYES DAILY PRN 05/15/19 07/17/19 History Calcium Carbonate/Vitamin D3 1 tab PO DAILY 05/15/19 07/17/19 History [Calcium 600-Vit D3 800 Caplet] Loratadine [Claritin] 10 mg PO DAILY 05/15/19 07/17/19 History Ondansetron [Zofran] 4 mg PO Q8H PRN 05/15/19 07/17/19 History amLODIPine [Norvasc] 5 mg PO DAILY 05/15/19 07/17/19 History Acyclovir 400 mg PO BID 06/04/19 07/17/19 History Gabapentin [Neurontin] 200 mg PO QID 06/04/19 07/17/19 History Lidocaine 5% Patch [Lidoderm 5% 1 patch TOPICAL DAILY 06/04/19 07/17/19 History Patch] Potassium Chloride ER [K-Dur 20] 20 meq PO DAILY 07/17/19 07/17/19 History Allergies Allergy/AdvReac Type Severity Reaction Status Date / Time No Known Allergies Allergy Verified 07/17/19 20:28 Physical Exam Vitals: Vital Signs Temp Pulse Resp BP Pulse Ox 07/17/19 11:02 79 16 07/17/19 10:09 97.9 F 79 16 125/62 96 07/17/19 09:32 97.9 F 79 16 125/62 Intake and Output 07/16/19 07/17/19 07/17/19 22:59 06:59 14:59 Other: Voiding Method Toilet Weight 69.218 kg 70.5 kg - Constitutional General appearance: no acute distress - EENT Eyes: EOMI, PERRLA ENT: hearing grossly normal, normal oropharynx - Neck Neck: no lymphadenopathy Thyroid: bilateral: normal size - Respiratory Respiratory: bilateral: CTA - Cardiovascular Rhythm: regular Heart sounds: normal: S1, S2 - Gastrointestinal General gastrointestinal: normal bowel sounds, soft - Integumentary Integumentary: normal - Neurologic Neurologic: CNII-XII intact - Musculoskeletal Musculoskeletal: strength equal bilaterally - Psychiatric Psychiatric: A&O x's 3, appropriate affect Results CBC & Chem 7: 07/17/19 09:53 07/17/19 09:53 Labs: Abnormal Lab Results - Last 24 Hours (Table) 07/17/19 07/17/19 Range/Units 09:53 09:53 RBC 2.85 L (3.80-5.40) m/uL Hgb 8.5 L (11.4-16.0) gm/dL Hct 26.6 L (34.0-46.0) % Plt Count 480 H D (150-450) k/uL Lymphocytes # 0.5 L (1.0-4.8) k/uL BUN 22 H (7-17) mg/dL Glucose 109 H (74-99) mg/dL Uric Acid 2.1 L (3.7-7.4) mg/dL Total Bilirubin 0.1 L (0.2-1.3) mg/dL Total Protein 6.1 L (6.3-8.2) g/dL Thrombosis Risk Factor Assmnt - DVT/VTE Prophylaxis DVT/VTE Prophylaxis: Pharmacologic Prophylaxis ordered - Choose All That Apply Each Risk Factor Represents 2 Points: Age 61-74 years Thrombosis Risk Factor Assessment Total Risk Factor Score: 2 Thrombosis Risk Factor Assessment Level: Low Risk Assessment and Plan (1) DLBCL (diffuse large B cell lymphoma) Current Visit: No Status: Chronic Priority: Medium Code(s): C83.30 - DIFFUSE LARGE B-CELL LYMPHOMA, UNSPECIFIED SITE SNOMED Code(s): 673494638 Plan: Assessment and Recommendations: Diffuse Large B Cell Lymphoma: - Status POst 6 cycles of RCHOP and 1-3 doses of high dose MTX without treatment response - She is now here admitted for timed chemotherapy with second line ICE - CBC, CMP, LDH, Uric acid, Phos, and Mag daily Treatment plan, expectations and side effects discussed with patient Antiemetics prn Home medications reviewed and ordered PPI and DTE prophylaxis Normocytic Anemia: - Secondary to underlying malignancy - Will further evaluate basic anemia work-up to assess for intervention of supportive medications - Transfuse hemoglobin less than 7 Physician Attest: I have completed the full history and physical and agree with above dictation by Celia Diaz, dictated as a scribe. <Lemuel,Lico - Last Filed: 07/17/19 22:49> Physical Exam Vitals: Vital Signs Temp Pulse Resp BP Pulse Ox 07/17/19 20:00 98.2 F 98 18 145/68 95 07/17/19 17:17 97.4 F L 81 18 129/61 96 07/17/19 16:51 97.3 F L 82 18 126/61 96 07/17/19 15:00 98.3 F 89 16 150/68 96 07/17/19 11:02 79 16 07/17/19 10:09 97.9 F 79 16 125/62 96 07/17/19 09:32 97.9 F 79 16 125/62 Intake and Output 07/17/19 07/17/19 07/17/19 06:59 14:59 22:59 Intake Total 25.083 Balance 25.083 Intake: Intake, IV Titration 25.083 Amount riTUXimab 650 mg In 25.083 Sodium Chloride 0.9% 500 ml 500 ml @ Titrate IV . Q0M ONE Rx#:[id number] Other: Voiding Method Toilet Weight 70.5 kg 70.5 kg Results CBC & Chem 7: 07/17/19 09:53 07/17/19 09:53 Labs: Abnormal Lab Results - Last 24 Hours (Table) 07/17/19 07/17/19 Range/Units 09:53 09:53 RBC 2.85 L (3.80-5.40) m/uL Hgb 8.5 L (11.4-16.0) gm/dL Hct 26.6 L (34.0-46.0) % Plt Count 480 H D (150-450) k/uL Lymphocytes # 0.5 L (1.0-4.8) k/uL BUN 22 H (7-17) mg/dL Glucose 109 H (74-99) mg/dL Uric Acid 2.1 L (3.7-7.4) mg/dL Total Bilirubin 0.1 L (0.2-1.3) mg/dL Total Protein 6.1 L (6.3-8.2) g/dL
--- NOTE | 2019-07-17 15:03 | XR ---
EXAMINATION TYPE: XR chest 1V portable DATE OF EXAM: 07/17/2019 COMPARISON: 06/04/2019 HISTORY: PICC line placement TECHNIQUE: Single frontal view of the chest is obtained. FINDINGS: PICC line is seen with the tip near the level the SVC. Heart is prominent. Subsegmental ba silar changes are seen. Underlying COPD suggested. Arthropathy of the shoulders. No pneumothorax or o vert failure. No sizable area of consolidation. IMPRESSION: 1. PICC line is seen with the tip near the level the SVC.
[2019-07-17 15:33] VITALS: BMI 27.5
[2019-07-17] MEDS ORDERED: ETOPOSIDE 170 MG in SODIUM CHLORIDE 0.9% 500 ML 500 ML IV SCH (16:00)
[2019-07-17] MEDS ORDERED: ARTIFICIAL TEARS-HYPROMELLOSE DROPS 15 ML BTL BOTH EYES PRN (19:46)
[2019-07-17] MEDS: ACYCLOVIR 200 MG CAP PO SCH (20:23)
[2019-07-17] MEDS: GABAPENTIN 100 MG CAP PO PRN (20:25)
[2019-07-17] MEDS: ATORVASTATIN 10 MG TAB PO SCH (20:26)
[2019-07-17] MEDS: ETOPOSIDE 170 MG in SODIUM CHLORIDE 0.9% 500 ML 500 ML IV SCH (20:58)
--- NOTE | 2019-07-17 23:43 | CONS ---
CONSULTATION DATE OF SERVICE: 07/17/2019 REASON FOR CONSULTATION: Medical management requested by Dr. Hdez regarding DJD and other medical issues. HISTORY OF PRESENT ILLNESS: This 74-year-old woman with a past medical history of DJD, history of varicose veins, history of breast surgery, history of skin cancer being followed by Dr. Corinne Quintero in the outpatient setting was admitted for a second-line timed chemotherapy for NHL by Dr. Hdez. The patient is being closely monitored. No chest pain. No palpitations. Patient complains of dysphonia after spending time outside couple days ago. Patient also complains of minimal pain in the left knee and some abdominal also. No chest pain. No palpitations. No fever. No shortness of breath. PAST MEDICAL HISTORY: Non-Hodgkin lymphoma, history of DJD, history of breast cancer. MEDICATIONS: Medications prior to admission include home medications are: 1. Cyclosporine eye drops. 2. Norvasc 5 mg p.o. daily. 3. Sodium bicarb 1300 mg p.o. t.i.d. 4. Zocor 20 mg at bedtime. 5. Zofran 4 mg q.8 p.r.n. 6. Prilosec 40 mg daily p.r.n. 7. Neulasta 6 mg p.o. b.i.d. 8. Claritin 10 mg daily. 9. Lidocaine patch daily. 10.Glucosamine. 11.Neurontin 200 mg t.i.d. p.r.n. 13.Voltaren gel 2 grams daily p.r.n. 14.Vitamin B12, 1000 mcg p.o. daily. 15.Vitamin D3, 1000 daily. 16.Calcium with vitamin D one p.o. daily. 17.Vitamin C 1000 mg p.o. daily. 18.Augmentin 1 p.o. b.i.d. 19.Acyclovir 400 mg p.o. b.i.d. 20.Tylenol No.3 q.6 p.r.n. 21.Tylenol p.r.n. 22.Xanax 0.25 q.6 p.r.n. ALLERGIES: None. FAMILY HISTORY: No history of colon cancer in the family. SOCIAL HISTORY: No history of smoking. No history of alcohol intake. REVIEW OF SYSTEMS: ENT: No diminished hearing or diminished vision. CARDIOVASCULAR SYSTEM: As mentioned earlier. RESPIRATORY SYSTEM: As mentioned earlier. GI: No nausea. : No dysuria. NERVOUS SYSTEM: No numbness or weakness. ALLERGY/IMMUNOLOGY: No asthma or hayfever. MUSCULOSKELETAL: As mentioned earlier. HEMATOLOGY/ONCOLOGY: As mentioned earlier. ENDOCRINE: As mentioned earlier. CONSTITUTIONAL: As mentioned earlier. DERMATOLOGY: Negative. RHEUMATOLOGY: Negative. PSYCHIATRY: As mentioned earlier. PHYSICAL EXAMINATION: The patient is alert and oriented x3. Pulse 82, blood pressure 126/61, respiration 18, temperature 97.3, pulse ox 96% on room air. HEENT: Conjunctivae normal. Oral mucosa moist. NECK: No jugular venous distention. No carotid bruit. No lymph node enlargement. CARDIOVASCULAR: S1, S2 muffled. RESPIRATORY: Breath sounds diminished at the bases. No rhonchi, no crackles. ABDOMEN: Soft, obese, nontender. No mass palpable. LEGS: No edema, no swelling. NERVOUS SYSTEM: Higher functions as mentioned. Moves all 4 limbs. No focal motor or sensory deficits. LYMPHATICS: No lymphadenopathy of the neck, axillae or groin. SKIN: No ulcer, rash or bleeding. JOINTS: No active deforming arthropathy. LABS: WBC 4.5, hemoglobin is 8.5, platelets of 480. Sodium 137, potassium 4.5. Uric acid 2.1. Total protein 6.1. ASSESSMENT: 1. Non-Hodgkin lymphoma for chemotherapy. 2. Anemia, normocytic secondary to lymphoma. 3. Dysphonia, possibly allergic. 4. History of urinary tract infection with sepsis. 5. History of large B-cell lymphoma. 6. Hypertension. 7. Hyperlipidemia. 8. History of varicose veins. 9. History of hypomagnesemia. 10.FULL CODE. RECOMMENDATIONS AND DISCUSSION: This 74-year-old woman who presented with multiple complex medical issues, we will monitor the patient closely. Continue the current medications. I will resume the home medications once she is ready, otherwise we will follow the patient closely and I would recommend DVT prophylaxis and incentive spirometry and proton pump inhibitors. We will follow the patient closely with you. She may be asked to follow with primary physician closely after discharge. Thank you Dr. Hdez for letting us participate in the care of this patient. MMODL / IJN: [id number] / MTDD
[2019-07-18] MEDS: SODIUM CHLORIDE 0.9% 1,000 ML IV SCH ×2 (05:24→16:17)
[2019-07-18] MEDS: ACYCLOVIR 200 MG CAP PO SCH ×2 (08:16→21:53)
[2019-07-18] MEDS: LORATADINE 10 MG TAB PO SCH (08:17)
[2019-07-18] MEDS: CALCIUM CARB-VIT D 500MG-200UN 1 EACH TAB PO SCH (08:17)
[2019-07-18] MEDS: CYANOCOBALAMIN 500 MCG TAB PO SCH (08:17)
[2019-07-18] MEDS: CHOLECALCIFEROL 1,000 UNIT TAB PO SCH (08:17)
[2019-07-18] MEDS: amLODIPine 5 MG TAB PO SCH (08:17)
[2019-07-18] MEDS: ENOXAPARIN 40 MG/0.4 ML SYRINGE SQ SCH (08:18)
[2019-07-18] MEDS: GABAPENTIN 100 MG CAP PO PRN (08:24)
[2019-07-18 08:34] LABS: Basophils % (A) 0 %; Eosinophils % (A) 0 %; HCT 26.8 % (34.0-46.0); HGB 8.5 gm/dL (11.4-16.0); Hypochromasia Marked; Lymphocytes # (A) 0.7 k/uL (1.0-4.8); Lymphocytes % (A) 7 %; MCH 29.2 pg (25.0-35.0); MCHC 31.6 g/dL (31.0-37.0); MCV 92.6 fL (80.0-100.0); Mean Platelet Volume 7.3; Monocytes # (A) 0.8 k/uL (0-1.0); Monocytes % (A) 8 %; Neutrophils % (A) 83 %; Platelet Count 520 k/uL (150-450); RDW 14.8 % (11.5-15.5); WBC 9.6 k/uL (3.8-10.6)
[2019-07-18 08:42] LABS: ALT 13 U/L (4-34); AST 22 U/L (14-36); African American GFR (CKD) >90 (>60 ml/min/1.73 sqM); Albumin 3.5 g/dL (3.5-5.0); Alkaline Phosphatase 66 U/L (38-126); Anion Gap 6 mmol/L; Blood Urea Nitrogen 17 mg/dL (7-17); Calcium 9.1 mg/dL (8.4-10.2); Carbon Dioxide 24 mmol/L (22-30); Chloride 107 mmol/L (98-107); Glucose 98 mg/dL (74-99); LDH 642 U/L (313-618); Magnesium 1.9 mg/dL (1.6-2.3); Non-African American GFR(CKD) >90 (>60 ml/min/1.73 sqM); Phosphorus 2.8 mg/dL (2.5-4.5); Potassium 4.1 mmol/L (3.5-5.1); Sodium 137 mmol/L (137-145); Total Bilirubin 0.3 mg/dL (0.2-1.3); Total Protein 5.7 g/dL (6.3-8.2); Uric Acid 3.4 mg/dL (3.7-7.4)
[2019-07-18 11:09] LABS: Appearance,Urine Clear (Clear); Bilirubin,Urine Negative (Negative); Blood,Urine Negative (Negative); Color,Urine Light Yellow; Glucose,Urine (UA) Negative (Negative); Ketones,Urine Negative (Negative); Leukocyte Esterase,Urine Trace (Negative); Nitrite,Urine Negative (Negative); PH, Urine 6.5 (5.0-8.0); Protein,Urine Negative (Negative); RBC,Urine <1 /hpf (0-5); Specific Gravity,Urine 1.006 (1.001-1.035); Urobilinogen,Urine <2.0 mg/dL (<2.0); WBC,Urine 2 /hpf (0-5)
[2019-07-18] MEDS: FAMOTIDINE 20 MG/2 ML VIAL IV SCH (12:45)
[2019-07-18] MEDS: DEXAMETHASONE SOD PHOSPHATE 10 MG/ML 1 ML VIAL IV SCH (12:45)
[2019-07-18] MEDS: ONDANSETRON 16 MG in SODIUM CHLORIDE 0.9% 50 ML IVPB SCH (12:45)
--- NOTE | 2019-07-18 14:32 | P.PN ---
Subjective Progress Note Date: 07/18/19 The patient denied any new issues overnight, other than increased frequency of urination related to her IV fluid. No fever/chills/nausea/vomiting. Objective - Vital Signs Vital signs: Vital Signs Temp 97.7 F 07/18/19 12:00 Pulse 85 07/18/19 12:00 Resp 18 07/18/19 12:00 BP 139/71 07/18/19 12:00 Pulse Ox 98 07/18/19 12:00 Intake & Output 07/17/19 07/18/19 07/18/19 18:59 06:59 18:59 Intake Total 25.880 220 4422 Balance 25.558 635 2956 Weight 70.5 kg 68.5 kg Intake: Intake, IV Titration 25.697 130 5665 Amount CARBOplatin 400 mg In 250 Sodium Chloride 0.9% 250 ml @ 580 mls/hr IV ONCE ONE Rx#:[id number] Etoposide 170 mg In 500 Sodium Chloride 0.9% 500 ml 500 ml @ 508.5 mls/hr IV DAILY@2000 [facility] Rx#: [id number] Ifosfamide 8,600 mg In 1000 Sodium Chloride 0.9% 1, 000 ml @ 48.833 mls/hr IV ONCE ONE Rx#:[id number] [place] 8,600 mg In Sodium 500 Chloride 0.9% 500 ml 344 ml In Empty Bag 1 bag @ 17.917 mls/hr IV ONCE ONE Rx#:[id number] Sodium Chloride 0.9% 1, 400 000 ml @ 100 mls/hr IV . Q10H [facility] Rx#:[id number] riTUXimab 650 mg In 25.083 Sodium Chloride 0.9% 500 ml 500 ml @ Titrate IV . Q0M ONE Rx#:[id number] Oral 2720 Other: Voiding Method Toilet Toilet Toilet # Voids 2 4 - Constitutional General appearance: Present: no acute distress - EENT Eyes: Present: EOMI ENT: Present: hearing grossly normal, normal oropharynx - Respiratory Respiratory: bilateral: CTA - Cardiovascular Rhythm: regular Heart sounds: normal: S1, S2 - Gastrointestinal General gastrointestinal: Present: normal bowel sounds, soft Localized gastrointestinal: tender: LLQ (Mild, with some underlying firmness , at biopsy site) - Integumentary Integumentary: Present: normal - Neurologic Neurologic: Present: CNII-XII intact - Musculoskeletal Musculoskeletal: Present: strength equal bilaterally - Psychiatric Psychiatric: Present: A&O x's 3, appropriate affect - Labs CBC & Chem 7: 07/18/19 07:57 07/18/19 07:57 Labs: Abnormal Lab Results - Last 24 Hours (Table) 07/18/19 07/18/19 07/18/19 Range/Units 07:57 07:57 10:00 RBC 2.90 L (3.80-5.40) m/uL Hgb 8.5 L (11.4-16.0) gm/dL Hct 26.8 L (34.0-46.0) % Plt Count 520 H (150-450) k/uL Neutrophils # 8.0 H (1.3-7.7) k/uL Lymphocytes # 0.7 L (1.0-4.8) k/uL Uric Acid 3.4 L (3.7-7.4) mg/dL Lactate Dehydrogenase 642 H (313-618) U/L Total Protein 5.7 L (6.3-8.2) g/dL Ur Leukocyte Esterase Trace H (Negative) Assessment and Plan (1) DLBCL (diffuse large B cell lymphoma) Narrative/Plan: The patient has extensive disease, refractory to first-line chemotherapy. She is therefore receiving salvage chemotherapy with R-ICE. She is on day #2. She is tolerating treatment well so far subjectively. Continue to monitor with physical exams and labs, which have been ordered The patient is also being monitored for any evidence of tumor lysis, with labs negative in this respect so far Current Visit: Yes Status: Chronic Priority: Medium Code(s): C83.30 - DIFFUSE LARGE B-CELL LYMPHOMA, UNSPECIFIED SITE SNOMED Code(s): 195138444 (2) Anemia aplastic aregenerative Narrative/Plan: The patient has persistent anemia, due to underlying lymphoma as well as effects of prior chemotherapy. Hemoglobin is in a safe range at 8+. Continue to monitor with transfusion as needed Current Visit: Yes Status: Acute Code(s): D61.9 - APLASTIC ANEMIA, UNSPECIF IED SNOMED Code(s): 26276353 Plan: DVT prophylaxis
[2019-07-18] MEDS ORDERED: MESNA IV ONE (16:00)
[2019-07-18] MEDS ORDERED: SODIUM CHLORIDE 0.9% IV ONE ×2 (16:00)
[2019-07-18] MEDS ORDERED: CARBOplatin 400 MG in SODIUM CHLORIDE 0.9% 250 ML IV ONE (16:00)
[2019-07-18] MEDS ORDERED: IFOSFAMIDE IV ONE (16:00)
--- NOTE | 2019-07-18 16:46 | PN ---
PROGRESS NOTE DATE OF SERVICE: 07/18/2019 This 74-year-old woman who was admitted with non-Hodgkin lymphoma had anemia. Patient also had dysphonia, which is improving. No chest pain. No palpitations. No fever. The patient is on chemotherapy. PHYSICAL EXAMINATION: Alert and oriented x3. Pulse is 85, blood pressure 139/71, respiration 18, temperature 97.7, pulse ox 98% on room air. HEENT: Conjunctivae normal. NECK: No jugular venous distention. CARDIOVASCULAR SYSTEM: S1, S2 muffled. RESPIRATORY SYSTEM: Breath sounds diminished at the bases. No rhonchi. No crackles. ABDOMEN: Soft, non-tender. NERVOUS SYSTEM: No focal deficit. LABS: WBC 9.6, hemoglobin is 8.5. ASSESSMENT: 1. Non-Hodgkin lymphoma, on chemotherapy. 2. Anemia, normocytic secondary to lymphoma. 3. History of urinary tract infection with sepsis. 4. History of large B-cell lymphoma. 5. Hypertension. 6. Hyperlipidemia. 7. History of varicose veins. 8. History of hypomagnesemia. 9. FULL CODE. RECOMMENDATIONS AND DISCUSSION: I recommend to continue current medications, continue with the monitoring, symptomatic treatment. Continue monitoring labs. Closely follow with Hematology/Oncology. Further recommendations to follow. MMODL / IJN: [id number] /
[2019-07-18] MEDS: GABAPENTIN 100 MG CAP PO SCH ×2 (18:00→21:54)
[2019-07-18] MEDS: ETOPOSIDE 170 MG in SODIUM CHLORIDE 0.9% 500 ML 500 ML IV SCH (19:47)
[2019-07-18 19:56] LABS: % Iron Saturation 31.49 (12.00-45.00); Iron 97 ug/dL (50-170); Total Iron Binding Capacity 308 ug/dL (228-460)
[2019-07-18 20:10] LABS: Ferritin 53.9 ng/mL (10.0-291.0)
[2019-07-18 20:34] LABS: Folate, Serum 23.2 ng/mL
[2019-07-18] MEDS: ATORVASTATIN 10 MG TAB PO SCH (21:54)
[2019-07-18] MEDS: cycloSPORINE 0.05% OPHTH 0.4 ML DROPERETTE BOTH EYES SCH (21:55)
[2019-07-19] MEDS ORDERED: GABAPENTIN 100 MG CAP PO SCH
[2019-07-19] MEDS: SODIUM CHLORIDE 0.9% 1,000 ML IV SCH ×3 (04:27→18:27)
[2019-07-19 08:30] LABS: Basophils % (A) 0 %; Eosinophils % (A) 0 %; HCT 24.7 % (34.0-46.0); HGB 7.5 gm/dL (11.4-16.0); Hypochromasia Marked; Lymphocytes # (A) 0.6 k/uL (1.0-4.8); Lymphocytes % (A) 9 %; MCH 28.5 pg (25.0-35.0); MCHC 30.5 g/dL (31.0-37.0); MCV 93.3 fL (80.0-100.0); Mean Platelet Volume 7.4; Monocytes # (A) 0.7 k/uL (0-1.0); Monocytes % (A) 10 %; Neutrophils # (A) 5.6 k/uL (1.3-7.7); Neutrophils % (A) 79 %; Platelet Count 385 k/uL (150-450); RBC 2.64 m/uL (3.80-5.40); WBC 7.2 k/uL (3.8-10.6)
[2019-07-19 08:31] LABS: ALT 12 U/L (4-34); AST 18 U/L (14-36); African American GFR (CKD) >90 (>60 ml/min/1.73 sqM); Alkaline Phosphatase 61 U/L (38-126); Anion Gap 6 mmol/L; Blood Urea Nitrogen 15 mg/dL (7-17); Calcium 8.4 mg/dL (8.4-10.2); Carbon Dioxide 23 mmol/L (22-30); Chloride 110 mmol/L (98-107); Glucose 91 mg/dL (74-99); LDH 647 U/L (313-618); Magnesium 1.9 mg/dL (1.6-2.3); Non-African American GFR(CKD) >90 (>60 ml/min/1.73 sqM); Phosphorus 2.4 mg/dL (2.5-4.5); Potassium 3.9 mmol/L (3.5-5.1); Sodium 139 mmol/L (137-145); Total Bilirubin 0.1 mg/dL (0.2-1.3); Total Protein 5.2 g/dL (6.3-8.2); Uric Acid 2.7 mg/dL (3.7-7.4)
[2019-07-19] MEDS: ENOXAPARIN 40 MG/0.4 ML SYRINGE SQ SCH (09:04)
[2019-07-19] MEDS: POTASSIUM CHLORIDE ER 20 MEQ TAB.ER PO SCH (09:05)
[2019-07-19] MEDS: CHOLECALCIFEROL 1,000 UNIT TAB PO SCH (09:05)
[2019-07-19] MEDS: amLODIPine 5 MG TAB PO SCH (09:05)
[2019-07-19] MEDS: GABAPENTIN 100 MG CAP PO SCH ×4 (09:05→22:14)
[2019-07-19] MEDS: CALCIUM CARB-VIT D 500MG-200UN 1 EACH TAB PO SCH (09:05)
[2019-07-19] MEDS: CYANOCOBALAMIN 500 MCG TAB PO SCH (09:05)
[2019-07-19] MEDS: LORATADINE 10 MG TAB PO SCH (09:05)
[2019-07-19] MEDS: ASCORBIC ACID 500 MG TAB PO SCH (09:05)
[2019-07-19] MEDS: ACYCLOVIR 200 MG CAP PO SCH ×2 (09:06→20:47)
[2019-07-19] MEDS: cycloSPORINE 0.05% OPHTH 0.4 ML DROPERETTE BOTH EYES SCH ×2 (09:06→20:51)
[2019-07-19 09:08] LABS: Appearance,Urine Clear (Clear); Bilirubin,Urine Negative (Negative); Blood,Urine Negative (Negative); Color,Urine Colorless; Glucose,Urine (UA) Negative (Negative); Ketones,Urine 3+ (Negative); Leukocyte Esterase,Urine Negative (Negative); Nitrite,Urine Negative (Negative); Protein,Urine Negative (Negative); Specific Gravity,Urine 1.007 (1.001-1.035); Urobilinogen,Urine <2.0 mg/dL (<2.0)
--- NOTE | 2019-07-19 16:08 | P.PN ---
Subjective Progress Note Date: 07/19/19 Principal diagnosis: Treatment chemo for NHL Some nausea this am, controlled with supportive medications Objective - Vital Signs Vital signs: Vital Signs Temp 97.3 F L 07/19/19 11:59 Pulse 90 07/19/19 11:59 Resp 17 07/19/19 11:59 BP 153/71 07/19/19 11:59 Pulse Ox 99 07/19/19 11:59 Intake & Output 07/18/19 07/19/19 07/19/19 18:59 06:59 18:59 Intake Total 5550 Balance 5550 Weight 71 kg Intake: Intake, IV Titration 1750 Amount CARBOplatin 400 mg In 250 Sodium Chloride 0.9% 250 ml @ 580 mls/hr IV ONCE ONE Rx#:[id number] Ifosfamide 8,600 mg In 1000 Sodium Chloride 0.9% 1, 000 ml @ 48.833 mls/hr IV ONCE ONE Rx#:[id number] [place] 8,600 mg In Sodium 500 Chloride 0.9% 500 ml 344 ml In Empty Bag 1 bag @ 17.917 mls/hr IV ONCE ONE Rx#:[id number] Oral 3800 Other: Voiding Method Toilet Toilet Bedside Commode Diaper Incontinent # Voids 4 1 - Exam Constitutional General appearance: Present: no acute distress - EENT Eyes: Present: EOMI ENT: Present: hearing grossly normal, normal oropharynx - Respiratory Respiratory: bilateral: CTA - Cardiovascular Rhythm: regular Heart sounds: normal: S1, S2 - Gastrointestinal General gastrointestinal: Present: normal bowel sounds, soft Localized gastrointestinal: tender: LLQ (Mild, with some underlying firmness , at biopsy site) - Integumentary Integumentary: Present: normal - Neurologic Neurologic: Present: CNII-XII intact - Musculoskeletal Musculoskeletal: Present: strength equal bilaterally - Psychiatric Psychiatric: Present: A&O x's 3, appropriate affect - Labs CBC & Chem 7: 07/19/19 07:15 07/19/19 07:15 Labs: Abnormal Lab Results - Last 24 Hours (Table) 07/18/19 07/19/19 07/19/19 Range/Units 07:57 07:15 07:15 RBC 2.64 L (3.80-5.40) m/uL Hgb 7.5 L (11.4-16.0) gm/dL Hct 24.7 L (34.0-46.0) % MCHC 30.5 L (31.0-37.0) g/dL Lymphocytes # 0.6 L (1.0-4.8) k/uL Chloride 110 H (98-107) mmol/L Creatinine 0.51 L (0.52-1.04) mg/dL Uric Acid 2.7 L (3.7-7.4) mg/dL Phosphorus 2.4 L (2.5-4.5) mg/dL Total Bilirubin 0.1 L (0.2-1.3) mg/dL Lactate Dehydrogenase 647 H (313-618) U/L Total Protein 5.2 L (6.3-8.2) g/dL Albumin 3.0 L (3.5-5.0) g/dL Vitamin B12 2505.0 H (200.0-944.0) pg/mL Urine Ketones (Negative) 07/19/19 Range/Units 08:50 RBC (3.80-5.40) m/uL Hgb (11.4-16.0) gm/dL Hct (34.0-46.0) % MCHC (31.0-37.0) g/dL Lymphocytes # (1.0-4.8) k/uL Chloride (98-107) mmol/L Creatinine (0.52-1.04) mg/dL Uric Acid (3.7-7.4) mg/dL Phosphorus (2.5-4.5) mg/dL Total Bilirubin (0.2-1.3) mg/dL Lactate Dehydrogenase (313-618) U/L Total Protein (6.3-8.2) g/dL Albumin (3.5-5.0) g/dL Vitamin B12 (200.0-944.0) pg/mL Urine Ketones 3+ H (Negative) Assessment and Plan (1) DLBCL (diffuse large B cell lymphoma) Current Visit: Yes Status: Chronic Priority: Medium Code(s): C83.30 - DIFFUSE LARGE B-CELL LYMPHOMA, UNSPECIFIED SITE SNOMED Code(s): 538265589 Plan: Assessment and Recommendations: Diffuse Large B Cell Lymphoma: - Status Post 6 cycles of RCHOP and 1-3 doses of high dose MTX without treatment response - Cont day 3 chemotherapy with second line ICE - CBC, CMP, LDH, Uric acid, Phos, and Mag daily Treatment plan, expectations and side effects discussed with patient Antiemetics prn PPI and DTE prophylaxis Normocytic Anemia: - Secondary to underlying malignancy - Will further evaluate basic anemia work-up to assess for intervention of supportive medications - Transfuse hemoglobin less than 7 Plan: Continue Day three of chemotherapy with ICE Daily bloodwork Continue aggressive supportive care Physician Attest: I have completed the full history and physical and agree with above dictation by Celia Diaz, dictated as a scribe.
--- NOTE | 2019-07-19 17:07 | PN ---
PROGRESS NOTE DATE OF SERVICE: 07/19/2019 This is a 74-year-old woman was admitted with the initial dosing of chemotherapy. The patient has complaints of vomiting. No chest pain or palpitation. No fever. PHYSICAL EXAMINATION: Alert and oriented. Pulse is 90, blood pressure 120/57, respiration 17, temperature 97.2, pulse ox 99% on room air. HEENT: Conjunctivae normal. NECK: No jugular venous distension. CARDIOVASCULAR; S1, S2, muffled. RESPIRATION: Breath sounds admonished at the bases. No rhonchi, no crackles. ABDOMEN: Soft, nontender. No mass palpable. NERVOUS SYSTEM: No focal deficits. LEGS: No edema. No swelling. LABS: Hemoglobin 7.2, white count 7.2, platelets are 85. Otherwise, LDH is 647. UA noted. ASSESSMENT: 1. Non-Hodgkin lymphoma, on chemotherapy. 2. Anemia, normocytic secondary to lymphoma. 3. Vomiting, possible acute gastritis. 4. History urinary tract infection with sepsis previously. 5. History of large cell B-cell lymphoma. 6. Hypertension. 7. Hyperlipidemia. 8. History of varicose veins. 9. History of hypomagnesemia. 10.FULL CODE. RECOMMENDATION: Recommend to continue current medications, continue monitoring and management and symptomatic treatment and continue with chemotherapy with Dr. Hdez. Proton pump inhibitors. Otherwise, continue to monitor. Further recommendations to follow. MMODL / IJN: [id number] /
[2019-07-19] MEDS: FAMOTIDINE 20 MG/2 ML VIAL IV SCH (18:25)
[2019-07-19] MEDS: ONDANSETRON 16 MG in SODIUM CHLORIDE 0.9% 50 ML IVPB SCH (18:25)
[2019-07-19] MEDS: DEXAMETHASONE SOD PHOSPHATE 10 MG/ML 1 ML VIAL IV SCH (18:25)
[2019-07-19] MEDS: ETOPOSIDE 170 MG in SODIUM CHLORIDE 0.9% 500 ML 500 ML IV SCH (19:59)
[2019-07-19] MEDS: ATORVASTATIN 10 MG TAB PO SCH (20:47)
[2019-07-19] MEDS: PANTOPRAZOLE 40 MG/10 ML VIAL IVP SCH (20:48)
[2019-07-20 06:31] LABS: Appearance,Urine Clear (Clear); Bilirubin,Urine Negative (Negative); Blood,Urine Negative (Negative); Color,Urine Light Yellow; Glucose,Urine (UA) Negative (Negative); Ketones,Urine Negative (Negative); Leukocyte Esterase,Urine Negative (Negative); Nitrite,Urine Negative (Negative); Protein,Urine Negative (Negative); Specific Gravity,Urine 1.011 (1.001-1.035); Urobilinogen,Urine <2.0 mg/dL (<2.0)
[2019-07-20 06:55] LABS: Basophils % (A) 1 %; Eosinophils % (A) 0 %; HCT 27.5 % (34.0-46.0); HGB 8.4 gm/dL (11.4-16.0); Hypochromasia Marked; Lymphocytes # (A) 0.5 k/uL (1.0-4.8); Lymphocytes % (A) 10 %; MCH 28.4 pg (25.0-35.0); MCHC 30.6 g/dL (31.0-37.0); MCV 92.9 fL (80.0-100.0); Mean Platelet Volume 7.3; Monocytes # (A) 0.3 k/uL (0-1.0); Monocytes % (A) 7 %; Neutrophils % (A) 81 %; Platelet Count 471 k/uL (150-450); RBC 2.96 m/uL (3.80-5.40)
[2019-07-20 07:32] LABS: ALT 13 U/L (4-34); AST 20 U/L (14-36); African American GFR (CKD) >90 (>60 ml/min/1.73 sqM); Albumin 3.2 g/dL (3.5-5.0); Alkaline Phosphatase 60 U/L (38-126); Anion Gap 8 mmol/L; Blood Urea Nitrogen 16 mg/dL (7-17); Calcium 8.8 mg/dL (8.4-10.2); Carbon Dioxide 23 mmol/L (22-30); Chloride 106 mmol/L (98-107); Glucose 143 mg/dL (74-99); LDH 545 U/L (313-618); Non-African American GFR(CKD) >90 (>60 ml/min/1.73 sqM); Phosphorus 2.9 mg/dL (2.5-4.5); Potassium 4.6 mmol/L (3.5-5.1); Sodium 137 mmol/L (137-145); Total Bilirubin 0.2 mg/dL (0.2-1.3); Total Protein 5.3 g/dL (6.3-8.2); Uric Acid 2.7 mg/dL (3.7-7.4)
[2019-07-20 09:06] VITALS: RESP 20
--- NOTE | 2019-07-20 11:08 | P.DS ---
Providers Date of admission: 07/17/19 09:13 Expected date of discharge: 07/20/19 Attending physician: Lico Hdez Consults: 07/17/19 11:21 Consult Physician Routine Consulting Provider: Niecy Ac Consult Reason/Comments: Medical management Do you want consulting provider notified?: Already Contacted Primary care physician: Corinne Quintero - Discharge Diagnosis(es) (1) DLBCL (diffuse large B cell lymphoma) Current Visit: Yes Status: Chronic Priority: Medium (2) Anemia aplastic aregenerative Current Visit: Yes Status: Acute Hospital Course: The patient is a 74-year-old white female, diagnosed with diffuse large B cell lymphoma with extensive involvement especially if the diaphragm, in 02/07. She was treated with 6 cycles of R CHOP, and also received high-dose methotrexate in the early part of her treatment course at [facility]. She completed 6 cycles of R CHOP in late 06/09. However post treatment PET scan showed fairly extensive residual disease. Patient's case was discussed at [facility], and salvage chemotherapy was recommended. The patient will therefore admitted for her first cycle of R-ICE. She tolerated treatment reasonably well, other than a couple of episodes of vomiting. She was monitored with labs, which showed no evidence of tumor lysis. She did have anemia and baseline, which actually remained stable without need for transfusion. Therefore after completion of chemotherapy was decided to discharge her home. Assessment: Vital signs stable. HEENT/chest/CVS/abdomen/extremities/neuro within normal limits Procedures: High dose infusional chemotherapy administration Patient Condition at Discharge: Fair Plan - Discharge Summary New Discharge Prescriptions: No Action Glucosam/Ambrosio-Msm1/C/Tiburcio/Bosw [Glucosamine-Chondroitin Tablet] 1 tab PO DAILY Cholecalciferol [Vitamin D3 (25 Mcg = 1000 Iu)] 1,000 unit PO DAILY Simvastatin [Zocor] 20 mg PO HS Cyanocobalamin (Vitamin B-12) [Vitamin B-12] 1,000 mcg PO DAILY cycloSPORINE 0.05% OPHTH SOLN [Restasis] 1 drop BOTH EYES Q12H amLODIPine [Norvasc] 5 mg PO DAILY Ondansetron [Zofran] 4 mg PO Q8H PRN PRN Reason: Nausea Blink 2 drops BOTH EYES DAILY PRN PRN Reason: DRY EYES Acetaminophen Tab [Tylenol] 500 mg PO Q6HR PRN PRN Reason: Pain Loratadine [Claritin] 10 mg PO DAILY Ascorbic Acid [Vitamin C] 1,000 mg PO DAILY Calcium Carbonate/Vitamin D3 [Calcium 600-Vit D3 800 Caplet] 1 tab PO DAILY Acyclovir 400 mg PO BID Gabapentin [Neurontin] 200 mg PO QID Lidocaine 5% Patch [Lidoderm 5% Patch] 1 patch TOPICAL DAILY Potassium Chloride ER [K-Dur 20] 20 meq PO DAILY Discharge Medication List Cholecalciferol [Vitamin D3 (25 Mcg = 1000 Iu)] 1,000 unit PO DAILY 09/04/17 [History] Glucosam/Ambrosio-Msm1/C/Tiburcio/Bosw [Glucosamine-Chondroitin Tablet] 1 tab PO DAILY 09/04/17 [History] Simvastatin [Zocor] 20 mg PO HS 09/04/17 [History] Cyanocobalamin (Vitamin B-12) [Vitamin B-12] 1,000 mcg PO DAILY 02/05/19 [History] cycloSPORINE 0.05% OPHTH SOLN [Restasis] 1 drop BOTH EYES Q12H 02/20/19 [History] Acetaminophen Tab [Tylenol] 500 mg PO Q6HR PRN 05/15/19 [History] Ascorbic Acid [Vitamin C] 1,000 mg PO DAILY 05/15/19 [History] Blink 2 drops BOTH EYES DAILY PRN 05/15/19 [History] Calcium Carbonate/Vitamin D3 [Calcium 600-Vit D3 800 Caplet] 1 tab PO DAILY 05/15/19 [History] Loratadine [Claritin] 10 mg PO DAILY 05/15/19 [History] Ondansetron [Zofran] 4 mg PO Q8H PRN 05/15/19 [History] amLODIPine [Norvasc] 5 mg PO DAILY 05/15/19 [History] Acyclovir 400 mg PO BID 06/04/19 [History] Gabapentin [Neurontin] 200 mg PO QID 06/04/19 [History] Lidocaine 5% Patch [Lidoderm 5% Patch] 1 patch TOPICAL DAILY 06/04/19 [History] Potassium Chloride ER [K-Dur 20] 20 meq PO DAILY 07/17/19 [History] Follow up Appointment(s)/Referral(s): Lico Hdez MD [STAFF PHYSICIAN] - As Needed (Patient to come to the [facility] office on 07/22/19 at 10:30 AM for Neulasta injection. Further follow-up appointments will be made at that time) Activity/Diet/Wound Care/Special Instructions: Activity and diet as tolerated Patient advised to avoid acidic/hot/spicy foods Wash raw all fruits and vegetables carefully Discharge Disposition: HOME SELF-CARE
[2019-07-20] MEDS: GABAPENTIN 100 MG CAP PO SCH (11:43)
[2019-07-20] MEDS: CYANOCOBALAMIN 500 MCG TAB PO SCH (11:43)
[2019-07-20] MEDS: ASCORBIC ACID 500 MG TAB PO SCH (11:43)
[2019-07-20] MEDS: ACYCLOVIR 200 MG CAP PO SCH (11:43)
[2019-07-20] MEDS: CALCIUM CARB-VIT D 500MG-200UN 1 EACH TAB PO SCH (11:43)
[2019-07-20] MEDS: cycloSPORINE 0.05% OPHTH 0.4 ML DROPERETTE BOTH EYES SCH (11:44)
[2019-07-20] MEDS: amLODIPine 5 MG TAB PO SCH (11:44)
[2019-07-20] MEDS: LORATADINE 10 MG TAB PO SCH (11:44)
[2019-07-20] MEDS: POTASSIUM CHLORIDE ER 20 MEQ TAB.ER PO SCH (11:44)
[2019-07-20] MEDS: PANTOPRAZOLE 40 MG/10 ML VIAL IVP SCH (11:44)
[2019-07-20] MEDS: CHOLECALCIFEROL 1,000 UNIT TAB PO SCH (11:44)
[2019-07-20] MEDS: ENOXAPARIN 40 MG/0.4 ML SYRINGE SQ SCH (11:45)
[2019-07-20] MEDS: SODIUM CHLORIDE 0.9% 1,000 ML IV SCH (11:45)
[2019-07-20 12:16] VITALS: BP 144/70; PULSE 99; TEMP 98.7
--- NOTE | 2019-07-20 16:55 | PN ---
PROGRESS NOTE DATE OF SERVICE: 07/20/2019 This 74-year-old woman was admitted with initial chemotherapy, is being closely monitored. No chest pain. No palpitations. No fever. Dr. Hdez's is recommending the patient to be discharged. No fever, no cough. PHYSICAL EXAMINATION: Alert and oriented x2. Pulse 99, blood pressure 144/70, respiration 20, temperature 98.2, pulse ox 96% on room air. HEENT: Conjunctivae normal. Oral mucosa moist. NECK: No jugular venous distention. No lymph node enlargement. CARDIOVASCULAR: S1, S2. RESPIRATORY: Diminished breath sounds at the bases. No rhonchi, no crackles. ABDOMEN: Soft, nontender. LEGS: No edema, no swelling. NERVOUS SYSTEM: No focal deficits. LABS: WBC 5, hemoglobin 8.4. The uric acid is 2.7. ASSESSMENT: 1. Non-Hodgkin lymphoma, on chemotherapy. 2. Anemia, normocytic secondary to lymphoma. 3. Vomiting, possible acute gastritis, improved. 4. History of urinary tract infection with sepsis previously. 5. History of large B-cell lymphoma. 6. Hypertension. 7. Hyperlipidemia. 8. History of varicose veins. 9. History of hypomagnesemia. 10.FULL CODE. RECOMMENDATION AND DISCUSSION: In this 74-year-old woman who presented with multiple medical issues, at this time I recommend to continue current medications, short course of Protonix, Zofran p.r.n., Cool solution. The rest of the medication per Dr. Hdez. Follow closely with Hematology/Oncology and primary physician in outpatient setting. Further recommendations to follow. MMODL / IJN: [id number] /
== END 2019-07-20 15:11 | disposition home or self-care (01) | DRG 846 ==
LOC: 5NMEDONC 09:13
PROVIDERS: ADMIT Internal Medicine Hematology & Oncology; ATTEND Internal Medicine Hematology & Oncology
DX: Z51.11 Encounter for antineoplastic chemotherapy (principal); D61.1 Drug-induced aplastic anemia; C83.33 Diffuse large B-cell lymphoma, intra-abdominal lymph nodes; D63.0 Anemia in neoplastic disease; K29.00 Acute gastritis without bleeding; I10 Essential (primary) hypertension; E78.5 Hyperlipidemia, unspecified; R49.0 Dysphonia; M19.90 Unspecified osteoarthritis, unspecified site; I83.90 Asymptomatic varicose veins of unspecified lower extremity; Z79.899 Other long term (current) drug therapy; T45.1X5A Adverse effect of antineoplastic and immunosuppressive drugs, initial encounter; Z86.19 Personal history of other infectious and parasitic diseases; Z85.828 Personal history of other malignant neoplasm of skin; Z92.21 Personal history of antineoplastic chemotherapy; Z85.3 Personal history of malignant neoplasm of breast; Z87.440 Personal history of urinary (tract) infections; Z96.652 Presence of left artificial knee joint; Z98.42 Cataract extraction status, left eye; Z98.41 Cataract extraction status, right eye; Z98.51 Tubal ligation status; Z98.890 Other specified postprocedural states; Z80.0 Family history of malignant neoplasm of digestive organs
CPT/HCPCS: 71045; 80053; 81001; 81003; 82607; 82728; 82746; 83540; 83550; 83615; 83735; 84100; 84550; 85025

== ENCOUNTER 2019-08-08 09:06 | Inpatient (IN) | payer MEDICARE ==
[2019-08-08 10:44] LABS: Anisocytosis Slight; Basophils % (A) 0 %; Eosinophils % (A) 0 %; HCT 27.2 % (34.0-46.0); HGB 8.3 gm/dL (11.4-16.0); Hypochromasia Slight; Lymphocytes # (A) 0.9 k/uL (1.0-4.8); Lymphocytes % (A) 8 %; MCH 28.2 pg (25.0-35.0); MCHC 30.5 g/dL (31.0-37.0); MCV 92.5 fL (80.0-100.0); Mean Platelet Volume 7.5; Monocytes # (A) 0.8 k/uL (0-1.0); Monocytes % (A) 7 %; Neutrophils # (A) 8.9 k/uL (1.3-7.7); Neutrophils % (A) 82 %; Platelet Count 450 k/uL (150-450); RBC 2.95 m/uL (3.80-5.40); RDW 18.2 % (11.5-15.5)
[2019-08-08] MEDS: SODIUM CHLORIDE 0.9% 1,000 ML IV SCH ×2 (10:48→19:39)
[2019-08-08 10:56] LABS: ALT 19 U/L (4-34); AST 27 U/L (14-36); African American GFR (CKD) >90 (>60 ml/min/1.73 sqM); Albumin 3.8 g/dL (3.5-5.0); Alkaline Phosphatase 75 U/L (38-126); Anion Gap 6 mmol/L; Blood Urea Nitrogen 25 mg/dL (7-17); Calcium 9.2 mg/dL (8.4-10.2); Carbon Dioxide 24 mmol/L (22-30); Chloride 108 mmol/L (98-107); Glucose 109 mg/dL (74-99); Non-African American GFR(CKD) >90 (>60 ml/min/1.73 sqM); Phosphorus 3.4 mg/dL (2.5-4.5); Potassium 4.6 mmol/L (3.5-5.1); Sodium 138 mmol/L (137-145); Total Bilirubin 0.2 mg/dL (0.2-1.3); Total Protein 6.1 g/dL (6.3-8.2); Uric Acid 2.5 mg/dL (3.7-7.4)
[2019-08-08] MEDS ORDERED: ARTIFICIAL TEARS-HYPROMELLOSE DROPS 15 ML BTL BOTH EYES PRN (12:01)
[2019-08-08] MEDS ORDERED: LIDOCAINE 5% PATCH TOPICAL PRN (12:01)
[2019-08-08] MEDS ORDERED: ACETAMINOPHEN TAB 500 MG TAB PO PRN (12:01)
[2019-08-08] MEDS: GABAPENTIN 100 MG CAP PO SCH ×2 (13:43→19:34)
[2019-08-08] MEDS: ONDANSETRON 16 MG in SODIUM CHLORIDE 0.9% 50 ML IVPB SCH (14:29)
[2019-08-08] MEDS: DEXAMETHASONE SOD PHOSPHATE 10 MG/ML 1 ML VIAL IV SCH (14:30)
[2019-08-08] MEDS: FAMOTIDINE 20 MG/2 ML VIAL IV SCH (14:31)
[2019-08-08] MEDS ORDERED: IFOSFAMIDE IV ONE (15:00)
[2019-08-08] MEDS ORDERED: MESNA IV ONE (15:00)
[2019-08-08] MEDS ORDERED: SODIUM CHLORIDE 0.9% IV ONE ×2 (15:00)
[2019-08-08] MEDS ORDERED: CARBOplatin 400 MG in SODIUM CHLORIDE 0.9% 250 ML IV ONE (15:00)
[2019-08-08] MEDS: ETOPOSIDE 170 MG in SODIUM CHLORIDE 0.9% 500 ML 500 ML IV SCH (15:30)
--- NOTE | 2019-08-08 16:10 | P.HPIM ---
History of Present Illness H&P Date: 08/08/19 Chief Complaint: Timed Chemo Mrs. Barboza is a very pleasant 74-year-old female patient of primary care physician Dr. Corinne Quintero with a benign past medical history, only medications she is on is simvastatin. In late January 2019 patient did a colaguard screening that came back positive for malignant DNA. This led to a colonoscopy preformed by Dr. Garcias on 02/07/19. She had a 4-5 cm submucosal raise mass in the proximal descending colon, biopsies revealed DLBC lymphoma, germinal subtype. CT AP showed 2 large masses, one measuring 10 cm and one measuring 12 cm in the mid abdomen with multiple other peritoneal masses suspicious for lymphoma versus a peritoneal carcinomatosis. Patient was positive for weight loss, 20 pounds, also fatigue and night sweats. She was referred to oncology but, patient started displaying confusion and delayed response just after Xmas, so she was taken to [place]. CT of the head without contrast was negative. Suspect UTI, antibiotics initiated. Patient was ultimately transferred to [facility]. She continued to have progressive cognitive decline, this led to a lumbar puncture, cerebrospinal fl uid was not evaluated correctly. But, before that was known it was felt that patient would benefit more from being evaluated at a tertiary care facility with neuro evaluation. Patient had another LP, negative culture, negative flow cytometry. She was given her first cycle of R CHOP on 03/05/19, she was scripted 300 g of Granix and given it for 7 or 8 days outpatient. Dbl/Triple hit testing was not able to be done, QNS. Patient is here today for 1st follow-up, her CBC is within normal limits, mild anemia which is persistent but not progressive. Patient has noted significant complaints regarding treatment, her mentation is significantly improved but, not back to baseline. Patient ambulated into the office. Denies fevers, oral irritation, nausea, vomiting, difficulty breathing, she does have some shortness of breath on exertion and mild to moderate generalized weakness, this is imp roving as she is getting around better, no acute changes in bowel or bladder habits, her abdomen feels a little less distended, no swelling in the legs. She is going to have her second cycle on 03/26/19. She is due to follow-up with Dr. Flood on 04/05/19 She completed a total of 6 cycles of R-CHOP and 3 doses of high-dose methotrexate. She was admitted after cycle 5 for neutropenic fever, etiology unknown (treatment/tumor versus infection), johnson cultures negative and fever resolved. the patient completed 6 cycles of R CHOP on 06/18/19. She was admitted after cycle 5 with fever and low WBC. No evidence of infection was found and it is felt that this was possibly due to WBC recovery post Neulasta. From information available to us it appeared that she had 3 doses of high-dose methotrexate but the patient and her family stated that she only had one dose. - Recent PET scan unfortunately shows persistent hypermetabolic mesenteric masses suggestive of significant residual lymphoma. In fact there is suggestion of more prominence. Uptake was also seen in the left parapharyngeal and left sentinel submandibular region, possibly involved lymph nodes. - Results of the PET scan and medications were discussed in detail with them at last visit with Dr. Hdez and they were advised that this indicates that her current regimen was not effective. The patient therefore has now been admitted for second line therapy with -ICE. She now has been admitted for second cycle of R-ICE chemotherapy. Her hemoglobin on admission is 8.3, otherwise labs are stable. Review of Systems A 14 point review of systems assessed and completed and all negative except HPI Past Medical History Past Medical History: Cancer, Hyperlipidemia, Hypertension, Osteoarthritis (OA) Additional Past Medical History / Comment(s): DLBCL with extensive involvement especially in diaphragm diagnosed 01/2019 with chemo, cologard positive for malignant DNA which led to colonoscopy-descending colon mass found/mesenteric masses, thrush after last chemo tx, confusion/cognitive problems recently but pt close to baseline at this time, shingelles healed but still has nerve pain back/breast, anemia, leaky heart valve, skin cancer with removal, hemorrhoids. History of Any Multi-Drug Resistant Organisms: None Reported Past Surgical History: Breast Surgery, Joint Replacement, Orthopedic Surgery, Tubal Ligation Additional Past Surgical History / Comment(s): L arm Picc line, colonoscopies/benign polypectomies, skin cancer removed from R arm, total L knee arthroplasty, R foot bunionectomy/mortons neuroma removed/heel spur sx and R foot fx with screw, R breast benign bx, bilateral cataract removals/lens implants. Past Anesthesia/Blood Transfusion Reactions: Previous Problems w/ Anesthesia, Family History of Problems w/ Anesthesia Additional Past Anesthesia/Blood Transfusion Reaction / Comment(s): Had reaction to anesthesia that effected breathing after tubal ligation-not sure exactly what happened-was in ICU after. Sisters had reaction to anesthesia medication-not sure what Smoking Status: Never smoker - Past Family History Sister(s) Family Medical History: Cancer Additional Family Medical History / Comment(s): Colon CA. Pt has several siblings (16) and only 3 out of the 16 do not have diabetes. Mother Family Medical History: No Reported History Additional Family Medical History / Comment(s): Mother was healthy Father Family Medical History: Coronary Artery Disease (CAD), Diabetes Mellitus, Myocardial Infarction (ID) Medications and Allergies Home Medications Medication Instructions Recorded Confirmed Type Cholecalciferol [Vitamin D3 (25 1,000 unit PO DAILY@69909/04/17 08/08/19 History Mcg = 1000 Iu)] Glucosam/Ambrosio-Msm1/C/Tiburcio/Bosw 1 tab PO DAILY@69909/04/17 08/08/19 History [Glucosamine-Chondroitin Tablet] Simvastatin [Zocor] 40 mg PO DAILY@189909/04/17 08/08/19 History Cyanocobalamin (Vitamin B-12) 1,000 mcg PO DAILY@69902/05/19 08/08/19 History [Vitamin B-12] cycloSPORINE 0.05% OPHTH SOLN 1 drop BOTH EYES BID@0700,189902/20/19 08/08/19 History [Restasis] Acetaminophen Tab [Tylenol] 500 mg PO Q6HR PRN 05/15/19 08/08/19 History Calcium Carbonate/Vitamin D3 1 tab PO DAILY@69905/15/19 08/08/19 History [Calcium 600-Vit D3 800 Caplet] Loratadine [Claritin] 10 mg PO DAILY@69905/15/19 08/08/19 History Ondansetron [Zofran] 4 mg PO DAILY@69905/15/19 08/08/19 History amLODIPine [Norvasc] 5 mg PO DAILY@69905/15/19 08/08/19 History Acyclovir 400 mg PO BID@0700,189906/04/19 08/08/19 History Gabapentin [Neurontin] 200 mg PO QID@,07,13,19 06/04/19 08/08/19 History Lidocaine 5% Patch [Lidoderm 5% 1 patch TOPICAL DAILY PRN 06/04/19 08/08/19 History Patch] Blink Eye Drops 2 drops BOTH EYES DAILY PRN 08/08/19 08/08/19 History Fluconazole [Diflucan] 100 mg PO DAILY@0708/08/19 08/08/19 History Pantoprazole [Protonix] 40 mg PO DAILY@69908/08/19 08/08/19 History Allergies Allergy/AdvReac Type Severity Reaction Status Date / Time No Known Allergies Allergy Verified 08/08/19 10:41 Physical Exam Vitals: Vital Signs Temp Pulse Resp BP Pulse Ox 08/08/19 15:38 97.9 F 82 16 129/76 97 08/08/19 12:35 98.0 F 82 16 135/67 98 08/08/19 09:28 98.1 F 85 16 127/73 95 Intake and Output 08/08/19 08/08/19 08/08/19 06:59 14:59 22:59 Intake Total 300 Balance 300 Intake: Intake, IV Titration 300 Amount Sodium Chloride 0.9% 1, 300 000 ml @ 100 mls/hr IV . Q10H [facility] Rx#:[id number] Other: Voiding Method Toilet Weight 70.324 kg Constitutional General appearance: Present: no acute distress - EENT Eyes: Present: EOMI ENT: Present: hearing grossly normal, normal oropharynx - Respiratory Respiratory: bilateral: CTA - Cardiovascular Rhythm: regular Heart sounds: normal: S1, S2 - Gastrointestinal General gastrointestinal: Present: normal bowel sounds, soft Localized gastrointestinal: tender: LLQ (Mild, with some underlying firmness , at biopsy site) - Integumentary Integumentary: Present: normal - Neurologic Neurologic: Present: CNII-XII intact - Musculoskeletal Musculoskeletal: Present: strength equal bilaterally - Psychiatric Psychiatric: Present: A&O x's 3, appropriate affec Results CBC & Chem 7: 08/08/19 10:15 08/08/19 10:15 Labs: Abnormal Lab Results - Last 24 Hours (Table) 08/08/19 08/08/19 Range/Units 10:15 10:15 WBC 11.0 H (3.8-10.6) k/uL RBC 2.95 L (3.80-5.40) m/uL Hgb 8.3 L (11.4-16.0) gm/dL Hct 27.2 L (34.0-46.0) % MCHC 30.5 L (31.0-37.0) g/dL RDW 18.2 H (11.5-15.5) % Neutrophils # 8.9 H (1.3-7.7) k/uL Lymphocytes # 0.9 L (1.0-4.8) k/uL Chloride 108 H (98-107) mmol/L BUN 25 H (7-17) mg/dL Glucose 109 H (74-99) mg/dL Uric Acid 2.5 L (3.7-7.4) mg/dL Total Protein 6.1 L (6.3-8.2) g/dL Thrombosis Risk Factor Assmnt - DVT/VTE Prophylaxis DVT/VTE Prophylaxis: Pharmacologic Prophylaxis ordered - Choose All That Apply Any of the Below Risk Factors Present?: Yes Other Risk Factors: Yes Each Risk Factor Represents 2 Points: Age 61-74 years, Malignancy Other congenital or acquired thrombophilia - If yes, enter type in comment: No Thrombosis Risk Factor Assessment Total Risk Factor Score: 4 Thrombosis Risk Factor Assessment Level: Moderate Risk Assessment and Plan Plan: Assessment and Plan (1) DLBCL (diffuse large B cell lymphoma) Current Visit: Yes Status: Chronic Priority: Medium Code(s): C83.30 - DIFFUSE LARGE B-CELL LYMPHOMA, UNSPECIFIED SITE SNOMED Code(s): 754252909 Plan: Assessment and Recommendations: Diffuse Large B Cell Lymphoma: - Status Post 6 cycles of RCHOP and 1-3 doses of high dose MTX without treatment response - Cont day 1 cycle 2 chemotherapy with second line ICE - CBC, CMP, LDH, Uric acid, Phos, and Mag daily Treatment plan, expectations and side effects discussed with patient Antiemetics prn PPI and DTE prophylaxis Normocytic Anemia: - Secondary to underlying malignancy - Will further evaluate basic anemia work-up to assess for intervention of supportive medications - Transfuse hemoglobin less than 7 Plan: Continue Day three of chemotherapy with ICE Daily bloodwork Continue aggressive supportive care
[2019-08-08] MEDS: ATORVASTATIN 20 MG TAB PO SCH (19:33)
[2019-08-08] MEDS: ACYCLOVIR 200 MG CAP PO SCH (19:34)
[2019-08-08] MEDS: cycloSPORINE 0.05% OPHTH 0.4 ML DROPERETTE BOTH EYES SCH (19:39)
[2019-08-09] MEDS: GABAPENTIN 100 MG CAP PO SCH ×4 (00:32→18:09)
[2019-08-09 00:48] LABS: Appearance,Urine Clear (Clear); Bilirubin,Urine Negative (Negative); Blood,Urine Negative (Negative); Color,Urine Light Yellow; Glucose,Urine (UA) Trace (Negative); Ketones,Urine 3+ (Negative); Leukocyte Esterase,Urine Negative (Negative); Nitrite,Urine Negative (Negative); PH, Urine 6.5 (5.0-8.0); Protein,Urine Negative (Negative); Specific Gravity,Urine 1.011 (1.001-1.035); Urobilinogen,Urine <2.0 mg/dL (<2.0)
[2019-08-09] MEDS: SODIUM CHLORIDE 0.9% 1,000 ML IV SCH ×2 (04:33→16:03)
[2019-08-09 07:18] LABS: Anisocytosis Slight; Basophils % (A) 0 %; Eosinophils % (A) 0 %; HCT 27.3 % (34.0-46.0); HGB 8.2 gm/dL (11.4-16.0); Hypochromasia Slight; Lymphocytes # (A) 0.3 k/uL (1.0-4.8); Lymphocytes % (A) 3 %; MCH 28.1 pg (25.0-35.0); MCHC 30.1 g/dL (31.0-37.0); MCV 93.1 fL (80.0-100.0); Mean Platelet Volume 8.2; Monocytes # (A) 0.6 k/uL (0-1.0); Monocytes % (A) 6 %; Neutrophils # (A) 9.6 k/uL (1.3-7.7); Neutrophils % (A) 90 %; Platelet Count 449 k/uL (150-450); RBC 2.93 m/uL (3.80-5.40); WBC 10.8 k/uL (3.8-10.6)
[2019-08-09 07:29] LABS: Phosphorus 3.1 mg/dL (2.5-4.5)
[2019-08-09] MEDS: ENOXAPARIN 40 MG/0.4 ML SYRINGE SQ SCH (07:51)
[2019-08-09] MEDS: PANTOPRAZOLE 40 MG TABLET PO SCH (07:51)
[2019-08-09] MEDS: amLODIPine 5 MG TAB PO SCH (07:51)
[2019-08-09] MEDS: ONDANSETRON 4 MG TAB PO SCH (07:51)
[2019-08-09] MEDS: CHOLECALCIFEROL 1,000 UNIT TAB PO SCH (07:51)
[2019-08-09] MEDS: CYANOCOBALAMIN 500 MCG TAB PO SCH (07:51)
[2019-08-09] MEDS: FLUCONAZOLE 100 MG TAB PO SCH (07:51)
[2019-08-09] MEDS: LORATADINE 10 MG TAB PO SCH (07:51)
[2019-08-09] MEDS: ACYCLOVIR 200 MG CAP PO SCH ×2 (07:51→18:09)
[2019-08-09] MEDS: cycloSPORINE 0.05% OPHTH 0.4 ML DROPERETTE BOTH EYES SCH ×2 (07:51→18:09)
[2019-08-09] MEDS: CALCIUM CARB-VIT D 500MG-200UN 1 EACH TAB PO SCH (07:51)
--- NOTE | 2019-08-09 09:19 | P.CONS ---
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 Periods of confusion in the past Her PCP is Dr. Corinne Quintero. Patient has been evaluated and followed by oncology service, she received chem otherapy however patient did not respond to therapy and she was admitted for second line therapy with ICE Patient denies any specific symptoms, no chest pain or dyspnea or coughing. No change in urine or bowel habits, she has little hard stool. No abdominal pain. No nausea vomiting. She works with no difficulty. She is currently on acyclover, fluconazole,, dexamethasone and normal son and tenderness related to per hour. Several chemo-therapy medication was ordered, see orders please Vitals stable. She has urine analysis showing 3+ ketones mild leukocytosis of 11.0 on 10.8 K, hemoglobin 8.2. Electrolytes and creatinine are normal, uric acid 2.5 and 3.0, liver enzymes not elevated. Review of Systems CONSTITUTIONAL: No fever, no malaise, no fatigue. HEENT: No recent visual problems or hearing problems. Denied any sore throat. CARDIOVASCULAR: No orthopnea, PND, no palpitations, no syncope. PULMONARY: No shortness of breath, no cough, no hemoptysis. GASTROINTESTINAL: No diarrhea, no nausea, no vomiting, no abdominal pain. Normoactive bowel sounds. NEUROLOGICAL: No headaches, no weakness, no numbness. HEMATOLOGICAL: Denies any bleeding or petechiae. GENITOURINARY: Denies any burning micturition, frequency, or urgency. MUSCULOSKELETAL/RHEUMATOLOGICAL: Denies any joint pain, swelling, or any muscle pain. ENDOCRINE: Denies any polyuria or polydipsia. Past Medical History Past Medical History: Cancer, Hyperlipidemia, Hypertension, Osteoarthritis (OA) Additional Past Medical History / Comment(s): DLBCL with extensive involvement especially in diaphragm diagnosed 01/2019 with chemo, cologard positive for malignant DNA which led to colonoscopy-descending colon mass found/mesenteric masses, thrush after last chemo tx, confusion/cognitive problems recently but pt close to baseline at this time, shingelles healed but still has nerve pain back/breast, anemia, leaky heart valve, skin cancer with removal, hemorrhoids. History of Any Multi-Drug Resistant Organisms: None Reported Past Surgical History: Breast Surgery, Joint Replacement, Orthopedic Surgery, Tubal Ligation Additional Past Surgical History / Comment(s): L arm Picc line, colonoscopies/benign polypectomies, skin cancer removed from R arm, total L knee arthroplasty, R foot bunionectomy/mortons neuroma removed/heel spur sx and R foot fx with screw, R breast benign bx, bilateral cataract removals/lens implants. Past Anesthesia/Blood Transfusion Reactions: Previous Problems w/ Anesthesia, Family History of Problems w/ Anesthesia Additional Past Anesthesia/Blood Transfusion Reaction / Comm: Had reaction to anesthesia that effected breathing after tubal ligation-not sure exactly what happened-was in ICU after. Sisters had reaction to anesthesia medication-not sure what Smoking Status: Never smoker - Past Family History Sister(s) Family Medical History: Cancer Additional Family Medical History / Comment(s): Colon CA. Pt has several siblings (16) and only 3 out of the 16 do not have diabetes. Mother Family Medical History: No Reported History Additional Family Medical History / Comment(s): Mother was healthy Father Family Medical History: Coronary Artery Disease (CAD), Diabetes Mellitus, Myocardial Infarction ([place]) Medications and Allergies Home Medications Medication Instructions Recorded Confirmed Type Cholecalciferol [Vitamin D3 (25 1,000 unit PO DAILY@69909/04/17 08/08/19 History Mcg = 1000 Iu)] Glucosam/Ambrosio-Msm1/C/Tiburcio/Bosw 1 tab PO DAILY@69909/04/17 08/08/19 History [Glucosamine-Chondroitin Tablet] Simvastatin [Zocor] 40 mg PO DAILY@189909/04/17 08/08/19 History Cyanocobalamin (Vitamin B-12) 1,000 mcg PO DAILY@69902/05/19 08/08/19 History [Vitamin B-12] cycloSPORINE 0.05% OPHTH SOLN 1 drop BOTH EYES BID@0700,189902/20/19 08/08/19 History [Restasis] Acetaminophen Tab [Tylenol] 500 mg PO Q6HR PRN 05/15/19 08/08/19 History Calcium Carbonate/Vitamin D3 1 tab PO DAILY@0705/15/19 08/08/19 History [Calcium 600-Vit D3 800 Caplet] Loratadine [Claritin] 10 mg PO DAILY@0700 05/15/19 08/08/19 History Ondansetron [Zofran] 4 mg PO DAILY@0700 05/15/19 08/08/19 History amLODIPine [Norvasc] 5 mg PO DAILY@0700 05/15/19 08/08/19 History Acyclovir 400 mg PO BID@0700,1900 06/04/19 08/08/19 History Gabapentin [Neurontin] 200 mg PO QID@01,,,06/04/19 08/08/19 History Lidocaine 5% Patch [Lidoderm 5% 1 patch TOPICAL DAILY PRN 06/04/19 08/08/19 History Patch] Blink Eye Drops 2 drops BOTH EYES DAILY PRN 08/08/19 08/08/19 History Fluconazole [Diflucan] 100 mg PO DAILY@0700 08/08/19 08/08/19 History Pantoprazole [Protonix] 40 mg PO DAILY@0708/08/19 08/08/19 History Allergies Allergy/AdvReac Type Severity Reaction Status Date / Time No Known Allergies Allergy Verified 08/08/19 10:41 Physical Exam Vitals: Vital Signs Temp Pulse Resp BP Pulse Ox 08/09/19 08:00 97.4 F L 86 16 144/79 98 08/09/19 04:00 97.6 F 70 16 106/57 98 08/09/19 00:20 16 08/09/19 00:00 97.5 F L 89 16 116/67 97 08/08/19 20:00 98.3 F 94 18 124/71 95 08/08/19 19:42 98.3 F 94 18 129/71 95 08/08/19 15:38 97.9 F 82 16 129/76 97 08/08/19 12:35 98.0 F 82 16 135/67 98 08/08/19 09:28 98.1 F 85 16 127/73 95 Intake and Output 08/08/19 08/09/19 08/09/19 22:59 06:59 14:59 Intake Total 472 1336 Balance 472 1336 Intake: Intake, IV Titration 472 1336 Amount Ifosfamide 8,700 mg In 392 Sodium Chloride 0.9% 1, 000 ml @ 48.917 mls/hr IV ONCE ONE Rx#:[id number] [place] 8,700 mg In Sodium 72 144 Chloride 0.9% 500 ml 348 ml In Empty Bag 1 bag @ 18.125 mls/hr IV ONCE ONE Rx#:[id number] Sodium Chloride 0.9% 1, 400 800 000 ml @ 100 mls/hr IV . Q10H [facility] Rx#:[id number] Other: Voiding Method Toilet Toilet # Voids 2 GENERAL: The patient is alert and oriented x3, not in any acute distress. Well developed, well nourished. HEENT: Pupils are round and equally reacting to light. EOMI. No scleral icterus. No conjunctival pallor. Normocephalic, atraumatic. No pharyngeal erythema. No thyromegaly. CARDIOVASCULAR: S1 and S2 present. No murmurs, rubs, or gallops. PULMONARY: Chest is clear to auscultation, no wheezing or crackles. ABDOMEN: Soft, nontender, nondistended, normoactive bowel sounds. No palpable organomegaly. MUSCULOSKELETAL: No joint swelling or deformity. EXTREMITIES: No cyanosis, clubbing, or pedal edema. NEUROLOGICAL: Gross neurological examination did not reveal any focal deficits. SKIN: No rashes. No petechiae Results CBC & Chem 7: 08/09/19 06:56 08/08/19 10:15 Labs: Abnormal Lab Results - Last 24 Hours (Table) 08/08/19 08/08/19 08/09/19 Range/Units 10:15 10:15 00:40 WBC 11.0 H (3.8-10.6) k/uL RBC 2.95 L (3.80-5.40) m/uL Hgb 8.3 L (11.4-16.0) gm/dL Hct 27.2 L (34.0-46.0) % MCHC 30.5 L (31.0-37.0) g/dL RDW 18.2 H (11.5-15.5) % Neutrophils # 8.9 H (1.3-7.7) k/uL Lymphocytes # 0.9 L (1.0-4.8) k/uL Chloride 108 H (98-107) mmol/L BUN 25 H (7-17) mg/dL Glucose 109 H (74-99) mg/dL Uric Acid 2.5 L (3.7-7.4) mg/dL Total Protein 6.1 L (6.3-8.2) g/dL Urine Glucose (UA) Trace H (Negative) Urine Ketones 3+ H (Negative) 08/09/19 08/09/19 Range/Units 06:56 06:56 WBC 10.8 H (3.8-10.6) k/uL RBC 2.93 L (3.80-5.40) m/uL Hgb 8.2 L (11.4-16.0) gm/dL Hct 27.3 L (34.0-46.0) % MCHC 30.1 L (31.0-37.0) g/dL RDW 18.0 H (11.5-15.5) % Neutrophils # 9.6 H (1.3-7.7) k/uL Lymphocytes # 0.3 L (1.0-4.8) k/uL Chloride (98-107) mmol/L BUN (7-17) mg/dL Glucose (74-99) mg/dL Uric Acid 3.0 L (3.7-7.4) mg/dL Total Protein (6.3-8.2) g/dL Urine Glucose (UA) (Negative) Urine Ketones (Negative) Assessment and Plan Assessment: Diffuse large B-cell lymphoma, failed outpatient therapy normochromic normocytic anemia Hypertension Hyperlipidemia Osteoarthritis Shingles with neuropathy in the back and breast area Plan: This is a pleasant 74 years old female with DLBCL. She was admitted to get second line chemotherapy with ICE. Labs and medication were reviewed.. Continue same treatment. Continue with symptomatic treatment. Resume home medication. Monitor lytes and vitals. DVT and GI prophylaxis. Further recommendations of the clinical course of the patient DVT prophylaxis: Subcutaneous Lovenox GI Prophylaxis: Ppi Prognosis is guarded Thank you for consulting us, we'll follow up
[2019-08-09] MEDS: DEXAMETHASONE SOD PHOSPHATE 10 MG/ML 1 ML VIAL IV SCH (14:29)
[2019-08-09] MEDS: FAMOTIDINE 20 MG/2 ML VIAL IV SCH (14:29)
[2019-08-09] MEDS: ONDANSETRON 16 MG in SODIUM CHLORIDE 0.9% 50 ML IVPB SCH (14:29)
[2019-08-09 15:17] LABS: ALT 16 U/L (4-34); AST 20 U/L (14-36); African American GFR (CKD) >90 (>60 ml/min/1.73 sqM); Albumin 3.3 g/dL (3.5-5.0); Alkaline Phosphatase 67 U/L (38-126); Anion Gap 6 mmol/L; Blood Urea Nitrogen 22 mg/dL (7-17); Calcium 8.5 mg/dL (8.4-10.2); Carbon Dioxide 20 mmol/L (22-30); Chloride 111 mmol/L (98-107); Glucose 101 mg/dL (74-99); Non-African American GFR(CKD) >90 (>60 ml/min/1.73 sqM); Potassium 4.4 mmol/L (3.5-5.1); Sodium 137 mmol/L (137-145); Total Bilirubin 0.1 mg/dL (0.2-1.3); Total Protein 5.5 g/dL (6.3-8.2)
[2019-08-09] MEDS: ETOPOSIDE 170 MG in SODIUM CHLORIDE 0.9% 500 ML 500 ML IV SCH (17:11)
[2019-08-09] MEDS: ATORVASTATIN 20 MG TAB PO SCH (18:09)
[2019-08-09] MEDS: OLANZapine 2.5 MG TAB PO SCH (22:08)
--- NOTE | 2019-08-09 22:42 | P.PN ---
Subjective Progress Note Date: 08/09/19 Principal diagnosis: Timed Chemo Patient was nauseated overnight. Emesis x2, but otherwise feeling better. Hard stools today and some acid reflux. Objective - Vital Signs Vital signs: Vital Signs Temp 98.3 F 08/09/19 20:00 Pulse 98 08/09/19 20:00 Resp 16 08/09/19 20:00 BP 147/77 08/09/19 20:00 Pulse Ox 96 08/09/19 20:00 Intake & Output 08/09/19 08/09/19 08/10/19 06:59 18:59 06:59 Intake Total 1808 850 400 Balance 1808 850 400 Intake: Intake, IV Titration 1808 850 400 Amount Ifosfamide 8,700 mg In 392 Sodium Chloride 0.9% 1, 000 ml @ 48.917 mls/hr IV ONCE ONE Rx#:[id number] [place] 8,700 mg In Sodium 216 Chloride 0.9% 500 ml 348 ml In Empty Bag 1 bag @ 18.125 mls/hr IV ONCE ONE Rx#:[id number] Ondansetron 16 mg In 50 Sodium Chloride 0.9% 50 ml @ 232 mls/hr IVPB DAILY@1300 [facility] Rx#: [id number] Sodium Chloride 0.9% 1, 1200 800 400 000 ml @ 100 mls/hr IV . Q10H [facility] Rx#:[id number] Other: Voiding Method Toilet # Voids 2 - Exam Constitutional General appearance: Present: no acute distress - EENT Eyes: Present: EOMI ENT: Present: hearing grossly normal, normal oropharynx - Respiratory Respiratory: bilateral: CTA - Cardiovascular Rhythm: regular Heart sounds: normal: S1, S2 - Gastrointestinal General gastrointestinal: Present: normal bowel sounds, soft Localized gastrointestinal: tender: LLQ (Mild, with some underlying firmness , at biopsy site) - Integumentary Integumentary: Present: normal - Neurologic Neurologic: Present: CNII-XII intact - Musculoskeletal Musculoskeletal: Present: strength equal bilaterally - Psychiatric Psychiatric: Present: A&O x's 3, appropriate affec - Labs CBC & Chem 7: 08/09/19 06:56 08/09/19 06:56 Labs: Abnormal Lab Results - Last 24 Hours (Table) 08/09/19 08/09/19 08/09/19 Range/Units 00:40 06:56 06:56 WBC 10.8 H (3.8-10.6) k/uL RBC 2.93 L (3.80-5.40) m/uL Hgb 8.2 L (11.4-16.0) gm/dL Hct 27.3 L (34.0-46.0) % MCHC 30.1 L (31.0-37.0) g/dL RDW 18.0 H (11.5-15.5) % Neutrophils # 9.6 H (1.3-7.7) k/uL Lymphocytes # 0.3 L (1.0-4.8) k/uL Chloride (98-107) mmol/L Carbon Dioxide (22-30) mmol/L BUN (7-17) mg/dL Glucose (74-99) mg/dL Uric Acid 3.0 L (3.7-7.4) mg/dL Total Bilirubin (0.2-1.3) mg/dL Total Protein (6.3-8.2) g/dL Albumin (3.5-5.0) g/dL Urine Glucose (UA) Trace H (Negative) Urine Ketones 3+ H (Negative) 08/09/19 Range/Units 06:56 WBC (3.8-10.6) k/uL RBC (3.80-5.40) m/uL Hgb (11.4-16.0) gm/dL Hct (34.0-46.0) % MCHC (31.0-37.0) g/dL RDW (11.5-15.5) % Neutrophils # (1.3-7.7) k/uL Lymphocytes # (1.0-4.8) k/uL Chloride 111 H (98-107) mmol/L Carbon Dioxide 20 L (22-30) mmol/L BUN 22 H (7-17) mg/dL Glucose 101 H (74-99) mg/dL Uric Acid (3.7-7.4) mg/dL Total Bilirubin 0.1 L (0.2-1.3) mg/dL Total Protein 5.5 L (6.3-8.2) g/dL Albumin 3.3 L (3.5-5.0) g/dL Urine Glucose (UA) (Negative) Urine Ketones (Negative) Assessment and Plan Plan: Assessment and Plan (1) DLBCL (diffuse large B cell lymphoma) Current Visit: Yes Status: Chronic Priority: Medium Code(s): C83.30 - DIFFUSE LARGE B-CELL LYMPHOMA, UNSPECIFIED SITE SNOMED Code(s): 792853043 Plan: Assessment and Recommendations: Diffuse Large B Cell Lymphoma: - Status Post 6 cycles of RCHOP and 1-3 doses of high dose MTX without treatment response - Cont day 2 cycle 2 chemotherapy with second line ICE - CBC, CMP, LDH, Uric acid, Phos, and Mag daily Treatment plan, expectations and side effects discussed with patient Antiemetics prn PPI and DTE prophylaxis Normocytic Anemia: - Secondary to underlying malignancy - Will further evaluate basic anemia work-up to assess for intervention of supportive medications - Transfuse hemoglobin less than 7 Plan: Continue Day three of chemotherapy with ICE Daily bloodwork Continue aggressive supportive care Add Senna Add Zyprexa for chemo induced nausea and continue for 4 days after discharge If CBC and CMP and patient is feeling well after treatment maybe discharged over weekend.
[2019-08-10] MEDS: SENNOSIDES-DOCUSATE SODIUM 1 EACH TAB PO SCH ×2 (00:39→07:36)
[2019-08-10] MEDS: GABAPENTIN 100 MG CAP PO SCH ×3 (00:39→13:20)
[2019-08-10] MEDS: SODIUM CHLORIDE 0.9% 1,000 ML IV SCH ×2 (00:40→07:36)
[2019-08-10] MEDS: CALCIUM CARB-VIT D 500MG-200UN 1 EACH TAB PO SCH (07:36)
[2019-08-10] MEDS: CYANOCOBALAMIN 500 MCG TAB PO SCH (07:36)
[2019-08-10] MEDS: ACYCLOVIR 200 MG CAP PO SCH (07:36)
[2019-08-10] MEDS: cycloSPORINE 0.05% OPHTH 0.4 ML DROPERETTE BOTH EYES SCH (07:36)
[2019-08-10] MEDS: CHOLECALCIFEROL 1,000 UNIT TAB PO SCH (07:36)
[2019-08-10] MEDS: PANTOPRAZOLE 40 MG TABLET PO SCH (07:36)
[2019-08-10] MEDS: ONDANSETRON 4 MG TAB PO SCH (07:36)
[2019-08-10] MEDS: ENOXAPARIN 40 MG/0.4 ML SYRINGE SQ SCH (07:36)
[2019-08-10] MEDS: FLUCONAZOLE 100 MG TAB PO SCH (07:36)
[2019-08-10] MEDS: amLODIPine 5 MG TAB PO SCH (07:36)
[2019-08-10] MEDS: LORATADINE 10 MG TAB PO SCH (07:36)
[2019-08-10 07:42] LABS: Anisocytosis Slight; Basophils # (A) 0.1 k/uL (0-0.2); Basophils % (A) 1 %; Eosinophils % (A) 1 %; HCT 27.7 % (34.0-46.0); HGB 8.7 gm/dL (11.4-16.0); Hypochromasia Marked; Lymphocytes # (A) 0.4 k/uL (1.0-4.8); Lymphocytes % (A) 8 %; MCH 29.5 pg (25.0-35.0); MCHC 31.3 g/dL (31.0-37.0); MCV 94.2 fL (80.0-100.0); Mean Platelet Volume 7.6; Monocytes # (A) 0.4 k/uL (0-1.0); Monocytes % (A) 8 %; Neutrophils # (A) 3.8 k/uL (1.3-7.7); Neutrophils % (A) 79 %; Platelet Count 484 k/uL (150-450); RBC 2.94 m/uL (3.80-5.40); RDW 17.6 % (11.5-15.5); WBC 4.8 k/uL (3.8-10.6)
[2019-08-10 07:57] LABS: ALT 16 U/L (4-34); AST 20 U/L (14-36); African American GFR (CKD) >90 (>60 ml/min/1.73 sqM); Albumin 3.5 g/dL (3.5-5.0); Alkaline Phosphatase 69 U/L (38-126); Anion Gap 5 mmol/L; Blood Urea Nitrogen 18 mg/dL (7-17); Calcium 9.1 mg/dL (8.4-10.2); Carbon Dioxide 22 mmol/L (22-30); Chloride 112 mmol/L (98-107); Glucose 84 mg/dL (74-99); LDH 522 U/L (313-618); Non-African American GFR(CKD) >90 (>60 ml/min/1.73 sqM); Phosphorus 3.2 mg/dL (2.5-4.5); Potassium 4.6 mmol/L (3.5-5.1); Sodium 139 mmol/L (137-145); Total Bilirubin 0.2 mg/dL (0.2-1.3); Total Protein 5.8 g/dL (6.3-8.2); Uric Acid 2.5 mg/dL (3.7-7.4)
[2019-08-10 11:51] VITALS: BP 120/59; PULSE 85; RESP 18; TEMP 98
[2019-08-10] MEDS: OLANZapine 2.5 MG TAB PO SCH (15:28)
--- NOTE | 2019-08-10 15:34 | P.DS ---
Providers Date of admission: 08/08/19 09:06 Expected date of discharge: 08/10/19 Attending physician: Lico Hdez Consults: 08/08/19 16:11 Consult Physician Routine Consulting Provider: Rosie Austin Consult Reason/Comments: medical Management Do you want consulting provider notified?: Yes Primary care physician: [facility] Course: Ms. Barboza is a pleasant 78-year-old female with a history of multiple morbidities including DL BCL status post R-CHOP x 6, and 1-3 doses of high dose MTX wihtout treatment response, here for 2nd line therapy with C2 of ICE. Ester motherapy was administered and patient tolerated this well with some nausea. Zyprexa was added to help alleviate the nausea, which she will need to continue for 4 days after discharge Labs were monitored including CBC and tumor lysis labs. She did not require any transfusions. She was discharged once chemotherapy was completed in stable condition with instructions to follow-up in clinic on Monday for Neulasta, proceed with planned PET on Monday, and follow up with Dr. Hdez afterwards as scheduled to discuss results and futher treatment. Unfortunately her pharmacy was closed upon discharge and she mentioned being unable to fill her prescriptions including zyprexa until monday. Advised her to take zofran every 8 hours around the clock for the next couple days until she fills her prescription, and she was given her dose of zyprexa for today prior to discharge. Patient and were agreeable to the plan. Discussed with internal medicine team. All of their questions were answered. Patient Condition at Discharge: Stable Plan - Discharge Summary Discharge Rx Participant: No New Discharge Prescriptions: No Action Glucosam/Ambrosio-Msm1/C/Tiburcio/Bosw [Glucosamine-Chondroitin Tablet] 1 tab PO DAILY@0700 Cholecalciferol [Vitamin D3 (25 Mcg = 1000 Iu)] 1,000 unit PO DAILY@0700 Simvastatin [Zocor] 40 mg PO DAILY@1900 Cyanocobalamin (Vitamin B-12) [Vitamin B-12] 1,000 mcg PO DAILY@0700 cycloSPORINE 0.05% OPHTH SOLN [Restasis] 1 drop BOTH EYES BID@0700,1900 amLODIPine [Norvasc] 5 mg PO DAILY@0700 Ondansetron [Zofran] 4 mg PO DAILY@0700 Acetaminophen Tab [Tylenol] 500 mg PO Q6HR PRN PRN Reason: Pain Loratadine [Claritin] 10 mg PO DAILY@0700 Calcium Carbonate/Vitamin D3 [Calcium 600-Vit D3 800 Caplet] 1 tab PO DAILY@0700 Acyclovir 400 mg PO BID@0700,1900 Gabapentin [Neurontin] 200 mg PO QID@,,, Lidocaine 5% Patch [Lidoderm 5% Patch] 1 patch TOPICAL DAILY PRN PRN Reason: Pain Fluconazole [Diflucan] 100 mg PO DAILY@0700 Pantoprazole [Protonix] 40 mg PO DAILY@0700 Blink Eye Drops 2 drops BOTH EYES DAILY PRN PRN Reason: Dry Eye(S) Discharge Medication List Cholecalciferol [Vitamin D3 (25 Mcg = 1000 Iu)] 1,000 unit PO DAILY@0709/04/17 [History] Glucosam/Ambrosio-Msm1/C/Tiburcio/Bosw [Glucosamine-Chondroitin Tablet] 1 tab PO DAILY@0709/04/17 [History] Simvastatin [Zocor] 40 mg PO DAILY@189909/04/17 [History] Cyanocobalamin (Vitamin B-12) [Vitamin B-12] 1,000 mcg PO DAILY@69902/05/19 [H istory] cycloSPORINE 0.05% OPHTH SOLN [Restasis] 1 drop BOTH EYES BID@0700,1900 02/20/19 [History] Acetaminophen Tab [Tylenol] 500 mg PO Q6HR PRN 05/15/19 [History] Calcium Carbonate/Vitamin D3 [Calcium 600-Vit D3 800 Caplet] 1 tab PO DAILY@0705/15/19 [History] Loratadine [Claritin] 10 mg PO DAILY@0705/15/19 [History] Ondansetron [Zofran] 4 mg PO DAILY@0705/15/19 [History] amLODIPine [Norvasc] 5 mg PO DAILY@0705/15/19 [History] Acyclovir 400 mg PO BID@0700,1900 06/04/19 [History] Gabapentin [Neurontin] 200 mg PO QID@,,,06/04/19 [History] Lidocaine 5% Patch [Lidoderm 5% Patch] 1 patch TOPICAL DAILY PRN 06/04/19 [History] Blink Eye Drops 2 drops BOTH EYES DAILY PRN 08/08/19 [History] Fluconazole [Diflucan] 100 mg PO DAILY@0700 08/08/19 [History] Pantoprazole [Protonix] 40 mg PO DAILY@0700 08/08/19 [History] Follow up Appointment(s)/Referral(s): Lico Hdez MD [STAFF PHYSICIAN] - 1 Week Patient Instructions/Handouts: Intravenous Chemotherapy (DC) Discharge Disposition: HOME SELF-CARE
--- NOTE | 2019-08-10 21:14 | PN ---
PROGRESS NOTE DATE OF SERVICE: 08/10/2019 This 74-year-old woman, being followed by Dr. Corinne Quintero in the outpatient setting was admitted for chemotherapy for diffuse large B-cell lymphoma. The patient is being closely monitored at this time. The patient is also being evaluated for stem cell transplant at [facility]. No chest pain. No palpitations. No fever. PHYSICAL EXAMINATION: Alert and oriented x3. Pulse 75, blood pressure 150/76, respirations 16, temp 97.9, pulse ox 98% on room air. HEENT: Conjunctivae normal. Oral mucosa moist. NECK: No jugular venous distention. No lymph node enlargement. CARDIOVASCULAR: S1, S2. RESPIRATORY: Diminished breath sounds at the bases. No rhonchi, no crackles. ABDOMEN: Soft, nontender. No mass palpable. LEGS: No edema, no swelling. NERVOUS SYSTEM: No focal deficits. LABS: WBC 4.2, hemoglobin is 8.7, sodium 139, potassium 4.6. ASSESSMENT: 1. Diffuse B-cell lymphoma, failed outpatient treatment, on chemo. 2. Normocytic normochromic anemia. 3. Hypertension. 4. Hyperlipidemia. 5. History of degenerative joint disease. 6. 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 RECOMMENDATIONS AND DISCUSSION: Recommend to continue current treatment, continue to monitor, symptomatic treatment. Otherwise, at this time I would recommend to resume the home medications, follow with Hematology/Oncology and continue to monitor. Further recommendations to follow. MMODL / IJN: [id number] /
== END 2019-08-10 16:08 | disposition home or self-care (01) | DRG 847 ==
LOC: 5NMEDONC 09:06
PROVIDERS: ADMIT Internal Medicine Hematology & Oncology; ATTEND Internal Medicine Hematology & Oncology
DX: Z51.11 Encounter for antineoplastic chemotherapy (principal); C83.33 Diffuse large B-cell lymphoma, intra-abdominal lymph nodes; I38 Endocarditis, valve unspecified; D63.0 Anemia in neoplastic disease; D72.829 Elevated white blood cell count, unspecified; E78.5 Hyperlipidemia, unspecified; I10 Essential (primary) hypertension; K21.9 Gastro-esophageal reflux disease without esophagitis; M19.90 Unspecified osteoarthritis, unspecified site; K64.9 Unspecified hemorrhoids; R11.2 Nausea with vomiting, unspecified; B02.9 Zoster without complications; G62.9 Polyneuropathy, unspecified; Z79.899 Other long term (current) drug therapy; Z85.828 Personal history of other malignant neoplasm of skin; Z96.652 Presence of left artificial knee joint; Z96.1 Presence of intraocular lens; Z98.42 Cataract extraction status, left eye; Z98.41 Cataract extraction status, right eye; Z86.010 Personal history of colon polyps; Z80.0 Family history of malignant neoplasm of digestive organs; Z82.49 Family history of ischemic heart disease and other diseases of the circulatory system; Z83.3 Family history of diabetes mellitus
CPT/HCPCS: 80053; 81003; 83615; 83735; 84100; 84550; 85025

== ENCOUNTER → 2019-08-16 | Outpatient (CLI) | payer MEDICARE ==
--- NOTE | 2019-08-20 13:59 | PE ---
Nuclear medicine PET/CT HISTORY: B-cell Lymphoma abdomen, subsequent, C83.39 Patient received 10.7 mCi F-18 FDG intravenously in delayed scanning was performed from the skull bas e to mid thighs. Localization and attenuation correction CT scan was performed. Correlation prior nuclear medicine PET/CT 06/14/2019 Neck and chest: There is no cervical or supraclavicular adenopathy. Left thyroid gland region again s hows hypermetabolic uptake. Central venous catheter is present, PICC line courses from the left upper extremity courses into the superior vena cava. Some uptake is noted along the course of the catheter centrally. There is no mediastinal, axillary, or hilar adenopathy. There is no evident lung mass. No pleural or pericardial effusion. ABDOMEN: In the left upper quadrant there is some activity associated with the region just inferior t o the spleen similar to prior exam, this level there is an irregular appearance to the bowel wall, so me possible fluid density on CT showing uptake as on prior exam. There are noted multiple mesenteric enlarged lymph nodes with associated uptake present in the lower quadrant and to a lesser extent righ t lower quadrant, the distribution of uptake is somewhat decreased as compared to prior, lymph nodes have decreased in size. There is no inguinal adenopathy. Osseous structures show diffuse increased uptake likely due to marrow activation. IMPRESSION: Findings consistent with tumor response to therapy. Consider thyroid ultrasound.
== END | disposition home or self-care (01) ==
LOC: RADPETMAIN 12:49
PROVIDERS: ATTEND Internal Medicine Hematology & Oncology
DX: C83.39 Diffuse large B-cell lymphoma, extranodal and solid organ sites (principal)
CPT/HCPCS: 78815; A9552

== ENCOUNTER 2019-08-29 08:38 | Inpatient (IN) | payer MEDICARE ==
[2019-08-29] MEDS ORDERED: ONDANSETRON 4 MG/2 ML VIAL IVP PRN (09:00)
[2019-08-29] MEDS ORDERED: MAGNESIUM HYDROXIDE 2,400 MG/10 ML CUP PO PRN (10:41)
[2019-08-29] MEDS ORDERED: LOPERAMIDE 2 MG CAP PO PRN (10:41)
[2019-08-29] MEDS ORDERED: ACETAMINOPHEN TAB 500 MG TAB PO PRN (10:42)
[2019-08-29] MEDS ORDERED: ARTIFICIAL TEARS-HYPROMELLOSE DROPS 15 ML BTL BOTH EYES PRN (10:42)
[2019-08-29] MEDS ORDERED: LIDOCAINE 5% PATCH TOPICAL PRN (10:42)
--- NOTE | 2019-08-29 10:55 | P.HPIM ---
History of Present Illness H&P Date: 08/29/19 Chief Complaint: Admit #3 RICE for DLBCL Malignancy history summarized: Mrs. Barboza is a very pleasant 74-year-old female patient of PCP Dr. Corinne Quintero. In late January 2019 patient did a colaguard screening that came back positive for malignant DNA. This led to a colonoscopy by Dr. Garcias on 02/07/19. She had a 4-5 cm submucosal raise mass in the proximal descending colon, biopsies revealed DLBC lymphoma, germinal subtype. CT AP showed 2 large masses, one measuring 10 cm and one measuring 12 cm in the mid abdomen with multiple other peritoneal masses suspicious for lymphoma versus a peritoneal carcinomatosis. Patient was positive for 20 lb wt loss, fatigue and night sweats. She was referred to Oncology but, patient started displaying confusion and lethargy just after Xmas, so she was taken to [place]. CT of the head without contrast was negative. Suspect UTI, antibiotics initiated. Patient was ultimately transferred to [facility]. She continued to have progressive cognitive decline, this led to a lumbar puncture, cerebrospinal fluid was not evaluated correctly. But, before that was known it was felt that patient would benefit more from being evaluated at a tertiary care facility with neuro evaluation. Patient had another LP, negative culture, negative flow cytometry. She was given her first cycle of R CHOP on 03/05/19 at [facility]. Dbl/Triple hit testing was not able to be done, QNS. She completed a total of 6 cycles of R-CHOP and 1 dose of high-dose methotrexate under the recommendations of Dr. Nelson at [facility], 06/18/19. Treatment follow- up PET unfortunately showed persistent hypermetabolic mesenteric masses suggestive of significant residual lymphoma, suggestion of more prominence. Uptake was also seen in the left parapharyngeal and left sentinel submandibular region, possibly involved lymph nodes. Patient was started on second line therapy with our ICE. She is being admitted today for cycle #3. Patient is in the process of being worked up for stem cell transplant at [facility]. Patient has no acute complaints on admission. Review of Systems 14 point ROS is negative except as stated in HPI Past Medical History Past Medical History: Cancer, Hyperlipidemia, Hypertension, Osteoarthritis (OA) Additional Past Medical History / Comment(s): DLBCL with extensive involvement especially in diaphragm diagnosed 01/2019 with chemo, cologard positive for malignant DNA which led to colonoscopy-descending colon mass found/mesenteric masses, thrush after last chemo tx, confusion/cognitive problems recently but pt close to baseline at this time, shingelles healed but still has nerve pain back/breast, anemia, leaky heart valve, skin cancer with removal, hemorrhoids. History of Any Multi-Drug Resistant Organisms: None Reported Past Surgical History: Breast Surgery, Joint Replacement, Orthopedic Surgery, Tubal Ligation Additional Past Surgical History / Comment(s): L arm Picc line, colonoscopies/benign polypectomies, skin cancer removed from R arm, total L knee arthroplasty, R foot bunionectomy/mortons neuroma removed/heel spur sx and R foot fx with screw, R breast benign bx, bilateral cataract removals/lens implants. Past Anesthesia/Blood Transfusion Reactions: Previous Problems w/ Anesthesia, Family History of Problems w/ Anesthesia Additional Past Anesthesia/Blood Transfusion Reaction / Comment(s): Had reaction to anesthesia that effected breathing after tubal ligation-not sure exactly what happened-was in ICU after. Sisters had reaction to anesthesia medication-not sure what Past Psychological History: No Psychological Hx Reported Additional Psychological History / Comment(s): Pt resides with her spouse. She uses no assistive device. She no longer drives, spouse drives. Pt has [facility] thru [facility] [place]. Smoking Status: Never smoker Past Alcohol Use History: Occasional Past Drug Use History: None Reported - Past Family History Sister(s) Family Medical History: Cancer Additional Family Medical History / Comment(s): Colon CA. Pt has several siblings (16) and only 3 out of the 16 do not have diabetes. Mother Family Medical History: No Reported History Additional Family Medical History / Comment(s): Mother was healthy Father Family Medical History: Coronary Artery Disease (CAD), Diabetes Mellitus, Myocardial Infarction (NM) Medications and Allergies Home Medications Medication Instructions Recorded Confirmed Type Cholecalciferol [Vitamin D3 (25 1,000 unit PO DAILY@0709/04/17 08/08/19 History Mcg = 1000 Iu)] Glucosam/Ambrosio-Msm1/C/Tiburcio/Bosw 1 tab PO DAILY@0709/04/17 08/08/19 History [Glucosamine-Chondroitin Tablet] Simvastatin [Zocor] 40 mg PO DAILY@1900 09/04/17 08/08/19 History Cyanocobalamin (Vitamin B-12) 1,000 mcg PO DAILY@0700 02/05/19 08/08/19 History [Vitamin B-12] cycloSPORINE 0.05% OPHTH SOLN 1 drop BOTH EYES BID@0700,1900 02/20/19 08/08/19 History [Restasis] Acetaminophen Tab [Tylenol] 500 mg PO Q6HR PRN 05/15/19 08/08/19 History Calcium Carbonate/Vitamin D3 1 tab PO DAILY@0705/15/19 08/08/19 History [Calcium 600-Vit D3 800 Caplet] Loratadine [Claritin] 10 mg PO DAILY@0705/15/19 08/08/19 History Ondansetron [Zofran] 4 mg PO DAILY@0705/15/19 08/08/19 History amLODIPine [Norvasc] 5 mg PO DAILY@0700 05/15/19 08/08/19 History Acyclovir 400 mg PO BID@0700,189906/04/19 08/08/19 History Gabapentin [Neurontin] 200 mg PO QID@01,,,06/04/19 08/08/19 History Lidocaine 5% Patch [Lidoderm 5% 1 patch TOPICAL DAILY PRN 06/04/19 08/08/19 History Patch] Blink Eye Drops 2 drops BOTH EYES DAILY PRN 08/08/19 08/08/19 History Pantoprazole [Protonix] 40 mg PO DAILY@0708/08/19 08/08/19 History OLANZapine [ZyPREXA] 2.5 mg PO HS PRN 08/29/19 08/29/19 History Allergies Allergy/AdvReac Type Severity Reaction Status Date / Time No Known Allergies Allergy Verified 08/29/19 10:45 Physical Exam Vitals: Intake and Output 08/28/19 08/29/19 08/29/19 22:59 06:59 14:59 Other: Weight 72.5 kg - Constitutional General appearance: average body habitus, cooperative, no acute distress - EENT Eyes: anicteric sclerae, EOMI ENT: hearing grossly normal, normal oropharynx - Neck Neck: no lymphadenopathy - Respiratory Respiratory: bilateral: CTA - Cardiovascular Rhythm: regular Heart sounds: normal: S1, S2 leg Peripheral Edema: bilateral: None - Gastrointestinal General gastrointestinal: no absent bowel sounds, no decreased bowel sounds, no distended, no hepatomegaly, no hyperactive bowel sounds, normal bowel sounds, no organomegaly, no rigid, no scaphoid, soft, no splenomegaly, no tenderness, no umbilical hernia, no ventral hernia - Integumentary Integumentary: normal - Neurologic Neurologic: CNII-XII intact - Musculoskeletal Musculoskeletal: strength equal bilaterally - Psychiatric Psychiatric: A&O x's 3, appropriate affect, intact judgment & insight Thrombosis Risk Factor Assmnt - DVT/VTE Prophylaxis DVT/VTE Prophylaxis: Pharmacologic Prophylaxis ordered (Pending CBC, if low platelets mechanical prophylaxis will be ordered) - Choose All That Apply Each Risk Factor Represents 2 Points: Age 61-74 years Thrombosis Risk Factor Assessment Total Risk Factor Score: 2 Thrombosis Risk Factor Assessment Level: Low Risk Assessment and Plan (1) DLBCL (diffuse large B cell lymphoma) Narrative/Plan: Admit for cycle 3 of RICE. Orders reviewed Home medications reconciled. Labs daily. Supportive medications ordered. Daily ambulation I&O IM for medical mgmt Current Visit: Yes Status: Chronic Priority: High Code(s): C83.30 - DIFFUSE LARGE B-CELL LYMPHOMA, UNSPECIFIED SITE SNOMED Code(s): 673585021 Plan: Doctor attests: I performed a history and physical examination of this patient, developed impression and plan of care. Discussed with dictator. I agree with dictators note, documented as a scribe.
[2019-08-29 11:27] LABS: Anisocytosis Slight; Basophils % (A) 0 %; Eosinophils % (A) 0 %; HCT 26.3 % (34.0-46.0); HGB 8.5 gm/dL (11.4-16.0); Hypochromasia Moderate; Lymphocytes # (A) 1.1 k/uL (1.0-4.8); Lymphocytes % (A) 9 %; MCH 29.7 pg (25.0-35.0); MCHC 32.2 g/dL (31.0-37.0); MCV 92.1 fL (80.0-100.0); Mean Platelet Volume 7.2; Monocytes # (A) 0.8 k/uL (0-1.0); Monocytes % (A) 6 %; Neutrophils # (A) 10.1 k/uL (1.3-7.7); Neutrophils % (A) 83 %; Platelet Count 462 k/uL (150-450); RBC 2.86 m/uL (3.80-5.40); RDW 18.1 % (11.5-15.5); WBC 12.2 k/uL (3.8-10.6)
[2019-08-29 11:40] LABS: ALT 22 U/L (4-34); AST 27 U/L (14-36); African American GFR (CKD) >90 (>60 ml/min/1.73 sqM); Albumin 3.8 g/dL (3.5-5.0); Alkaline Phosphatase 91 U/L (38-126); Anion Gap 6 mmol/L; Blood Urea Nitrogen 28 mg/dL (7-17); Calcium 9.7 mg/dL (8.4-10.2); Carbon Dioxide 24 mmol/L (22-30); Chloride 108 mmol/L (98-107); Glucose 104 mg/dL (74-99); Non-African American GFR(CKD) >90 (>60 ml/min/1.73 sqM); Phosphorus 3.5 mg/dL (2.5-4.5); Potassium 4.1 mmol/L (3.5-5.1); Sodium 138 mmol/L (137-145); Total Bilirubin 0.2 mg/dL (0.2-1.3); Total Protein 5.9 g/dL (6.3-8.2); Uric Acid 2.2 mg/dL (3.7-7.4)
[2019-08-29] MEDS: ONDANSETRON 16 MG in SODIUM CHLORIDE 0.9% 50 ML IVPB SCH (12:12)
[2019-08-29] MEDS: SODIUM CHLORIDE 0.9% 1,000 ML IV SCH ×2 (12:16→19:00)
[2019-08-29] MEDS: DEXAMETHASONE SOD PHOSPHATE 10 MG/ML 1 ML VIAL IV SCH (12:51)
[2019-08-29] MEDS: FAMOTIDINE 20 MG/2 ML VIAL IV SCH (12:51)
[2019-08-29] MEDS: ETOPOSIDE 180 MG in SODIUM CHLORIDE 0.9% 500 ML 500 ML IV SCH (13:15)
[2019-08-29] MEDS: SALT AND SODA MOUTHWASH 1,000 ML PO SCH ×3 (13:23→19:20)
[2019-08-29] MEDS: GABAPENTIN 100 MG CAP PO SCH ×2 (13:55→19:18)
--- NOTE | 2019-08-29 18:15 | P.CONS ---
History of Present Illness - Reason for Consult Recommendations regarding antihypertensive medications - History of Present Illness Patient is a pleasant 74-year-old female is admitted for chemotherapy for di ffuse large B-cell lymphoma. Patient denied any fever chills nausea vomiting abdominal pain dysuria. Patient is presently receiving RICE chemo cycle 3. Recent PET scan showed partial response. Review of Systems REVIEW OF SYSTEMS: CONSTITUTIONAL: No fever, no malaise, no fatigue. HEENT: No recent visual problems or hearing problems. Denied any sore throat. CARDIOVASCULAR: No chest pain, orthopnea, PND, no palpitations, no syncope. PULMONARY: No shortness of breath, no cough, no hemoptysis. GASTROINTESTINAL: No diarrhea, no nausea, no vomiting, no abdominal pain. NEUROLOGICAL: No headaches, no weakness, no numbness. HEMATOLOGICAL: Denies any bleeding or petechiae. GENITOURINARY: Denies any burning micturition, frequency, or urgency. MUSCULOSKELETAL/RHEUMATOLOGICAL: Denies any joint pain, swelling, or any muscle pain. ENDOCRINE: Denies any polyuria or polydipsia. The rest of the 14-point review of systems is negative. 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 History of Any Multi-Drug Resistant Organisms: None Reported Past Surgical History: Breast Surgery, Joint Replacement, Orthopedic Surgery, T ubal Ligation Additional Past Surgical History / Comment(s): L arm Picc line, colonoscopies/benign polypectomies, skin cancer removed from R arm, total L knee arthroplasty, R foot bunionectomy/mortons neuroma removed/heel spur sx and R foot fx with screw, R breast benign bx, bilateral cataract removals/lens implants. Past Anesthesia/Blood Transfusion Reactions: Previous Problems w/ Anesthesia, Family History of Problems w/ Anesthesia Additional Past Anesthesia/Blood Transfusion Reaction / Comm: Had reaction to anesthesia that effected breathing after tubal ligation-not sure exactly what happened-was in ICU after. Sisters had reaction to anesthesia medication-not sure what Past Psychological History: No Psychological Hx Reported Additional Psychological History / Comment(s): Pt resides with her spouse. She uses no assistive device. She no longer drives, spouse drives. Pt has nursing care thru [facility] [place]. Smoking Status: Never smoker Past Alcohol Use History: Occasional Past Drug Use History: None Reported - Past Family History Sister(s) Family Medical History: Cancer Additional Family Medical History / Comment(s): Colon CA. Pt has several siblings (16) and only 3 out of the 16 do not have diabetes. Mother Family Medical History: No Reported History Additional Family Medical History / Comment(s): Mother was healthy Father Family Medical History: Coronary Artery Disease (CAD), Diabetes Mellitus, Myocardial Infarction (IA) Medications and Allergies Home Medications Medication Instructions Recorded Confirmed Type Cholecalciferol [Vitamin D3 (25 1,000 unit PO DAILY@69909/04/17 08/29/19 History Mcg = 1000 Iu)] Glucosam/Ambrosio-Msm1/C/Tiburcio/Bosw 1 tab PO DAILY@69909/04/17 08/29/19 History [Glucosamine-Chondroitin Tablet] Simvastatin [Zocor] 40 mg PO DAILY@19009/04/17 08/29/19 History Cyanocobalamin (Vitamin B-12) 1,000 mcg PO DAILY@69902/05/19 08/29/19 History [Vitamin B-12] cycloSPORINE 0.05% OPHTH SOLN 1 drop BOTH EYES BID@0700,1900 02/20/19 08/29/19 History [Restasis] Acetaminophen Tab [Tylenol] 500 mg PO Q6HR PRN 05/15/19 08/29/19 History Calcium Carbonate/Vitamin D3 1 tab PO DAILY@69905/15/19 08/29/19 History [Calcium 600-Vit D3 800 Caplet] Loratadine [Claritin] 10 mg PO DAILY@69905/15/19 08/29/19 History Ondansetron [Zofran] 4 mg PO DAILY@0700 PRN 05/15/19 08/29/19 History amLODIPine [Norvasc] 5 mg PO DAILY@0705/15/19 08/29/19 History Acyclovir 400 mg PO BID@0700,1900 06/04/19 08/29/19 History Gabapentin [Neurontin] 200 mg PO QID@01,07,13,19 06/04/19 08/29/19 History Lidocaine 5% Patch [Lidoderm 5% 1 patch TOPICAL DAILY PRN 06/04/19 08/29/19 History Patch] Blink Eye Drops 2 drops BOTH EYES DAILY PRN 08/08/19 08/29/19 History Pantoprazole [Protonix] 40 mg PO DAILY@0700 08/08/19 08/29/19 History OLANZapine [ZyPREXA] 2.5 mg PO HS PRN 08/29/19 08/29/19 History Allergies Allergy/AdvReac Type Severity Reaction Status Date / Time No Known Allergies Allergy Verified 08/29/19 10:45 Physical Exam Vitals: Vital Signs Temp Pulse Resp BP Pulse Ox 08/29/19 15:50 97.8 F 89 16 141/70 95 08/29/19 15:19 80 16 08/29/19 10:25 98.4 F 80 16 129/67 97 Intake and Output 08/29/19 08/29/19 08/29/19 06:59 14:59 22:59 Intake Total 520 2020 Output Total 1200 3000 Balance -680 -980 Intake: Intake, IV Titration 1300 Amount Etoposide 180 mg In 500 Sodium Chloride 0.9% 500 ml 500 ml @ 509 mls/hr IV Q24H [facility] Rx#:[id number] Sodium Chloride 0.9% 1, 800 000 ml @ 100 mls/hr IV . Q10H [facility] Rx#:[id number] Oral 520 720 Output: Urine 1200 3000 Other: # Voids 1 1 Weight 72.5 kg PHYSICAL EXAMINATION: GENERAL: The patient is alert and oriented x3, not in any acute distress. Well developed, well nourished. HEENT: Pupils are round and equally reacting to light. EOMI. No scleral icterus. No conjunctival pallor. Normocephalic, atraumatic. No pharyngeal erythema. No thyromegaly. CARDIOVASCULAR: S1 and S2 present. No murmurs, rubs, or gallops. PULMONARY: Chest is clear to auscultation, no wheezing or crackles. ABDOMEN: Soft, nontender, nondistended, normoactive bowel sounds. No palpable organomegaly. MUSCULOSKELETAL: No joint swelling or deformity. EXTREMITIES: No cyanosis, clubbing, or pedal edema. NEUROLOGICAL: Gross neurological examination did not reveal any focal deficits. SKIN: No rashes. Results CBC & Chem 7: 08/29/19 11:05 08/29/19 11:05 Labs: Abnormal Lab Results - Last 24 Hours (Table) 08/29/19 08/29/19 Range/Units 11:05 11:05 WBC 12.2 H (3.8-10.6) k/uL RBC 2.86 L (3.80-5.40) m/uL Hgb 8.5 L (11.4-16.0) gm/dL Hct 26.3 L (34.0-46.0) % RDW 18.1 H (11.5-15.5) % Plt Count 462 H (150-450) k/uL Neutrophils # 10.1 H (1.3-7.7) k/uL Chloride 108 H (98-107) mmol/L BUN 28 H (7-17) mg/dL Glucose 104 H (74-99) mg/dL Uric Acid 2.2 L (3.7-7.4) mg/dL Total Protein 5.9 L (6.3-8.2) g/dL Assessment and Plan Plan: -Hypertension patient is resumed on his home medications blood pressure is within normal limits -Lymphoma and chemotherapy as per oncology IV fluids as per oncology -Leukocytosis reactive Hyperlipidemia Osteoarthritis. Admission medication reconciliation was reviewed appropriate changes were made. We will continue to follow the patient
[2019-08-29] MEDS: ATORVASTATIN 20 MG TAB PO SCH (19:18)
[2019-08-29] MEDS: ACYCLOVIR 200 MG CAP PO SCH (19:19)
[2019-08-29] MEDS: cycloSPORINE 0.05% OPHTH 0.4 ML DROPERETTE BOTH EYES SCH (19:20)
[2019-08-30] MEDS: GABAPENTIN 100 MG CAP PO SCH ×4 (00:25→19:36)
[2019-08-30] MEDS: SALT AND SODA MOUTHWASH 1,000 ML PO SCH ×5 (00:25→19:37)
[2019-08-30] MEDS: SODIUM CHLORIDE 0.9% 1,000 ML IV SCH ×2 (05:01→13:09)
[2019-08-30] MEDS ORDERED: NON FORMULARY DRUG (Glucosam/Chon-Msm1/C/Mang/Bosw [Glucosamine-Chondroitin Tablet] 1 TAB) PO SCH (07:00)
[2019-08-30] MEDS: CHOLECALCIFEROL 1,000 UNIT TAB PO SCH (09:26)
[2019-08-30] MEDS: CYANOCOBALAMIN 500 MCG TAB PO SCH (09:26)
[2019-08-30] MEDS: amLODIPine 5 MG TAB PO SCH (09:27)
[2019-08-30] MEDS: ACYCLOVIR 200 MG CAP PO SCH ×2 (09:27→19:36)
[2019-08-30] MEDS: LORATADINE 10 MG TAB PO SCH (09:27)
[2019-08-30] MEDS: CALCIUM CARB-VIT D 500MG-200UN 1 EACH TAB PO SCH (09:28)
[2019-08-30] MEDS: FLUCONAZOLE 100 MG TAB PO SCH (09:29)
[2019-08-30] MEDS: cycloSPORINE 0.05% OPHTH 0.4 ML DROPERETTE BOTH EYES SCH ×2 (09:29→19:36)
[2019-08-30 10:43] VITALS: BMI 28.3
[2019-08-30 11:18] LABS: Anisocytosis Slight; HCT 24.2 % (34.0-46.0); HGB 7.7 gm/dL (11.4-16.0); Hypochromasia Moderate; MCH 29.2 pg (25.0-35.0); MCHC 31.9 g/dL (31.0-37.0); MCV 91.6 fL (80.0-100.0); Mean Platelet Volume 7.5; Platelet Count 464 k/uL (150-450); RBC 2.64 m/uL (3.80-5.40); RDW 18.1 % (11.5-15.5); WBC 10.5 k/uL (3.8-10.6)
[2019-08-30 11:33] LABS: ALT 20 U/L (4-34); AST 20 U/L (14-36); African American GFR (CKD) >90 (>60 ml/min/1.73 sqM); Albumin 3.3 g/dL (3.5-5.0); Alkaline Phosphatase 72 U/L (38-126); Anion Gap 5 mmol/L; Blood Urea Nitrogen 20 mg/dL (7-17); Carbon Dioxide 24 mmol/L (22-30); Chloride 110 mmol/L (98-107); Glucose 128 mg/dL (74-99); Non-African American GFR(CKD) >90 (>60 ml/min/1.73 sqM); Phosphorus 2.6 mg/dL (2.5-4.5); Potassium 3.9 mmol/L (3.5-5.1); Sodium 139 mmol/L (137-145); Total Bilirubin 0.2 mg/dL (0.2-1.3); Total Protein 5.3 g/dL (6.3-8.2); Uric Acid 3.1 mg/dL (3.7-7.4)
[2019-08-30] MEDS ORDERED: CARBOplatin 420 MG in SODIUM CHLORIDE 0.9% 250 ML IV ONE (13:00)
[2019-08-30] MEDS ORDERED: MESNA IV ONE (13:00)
[2019-08-30] MEDS ORDERED: SODIUM CHLORIDE 0.9% IV ONE ×2 (13:00)
[2019-08-30] MEDS ORDERED: IFOSFAMIDE IV ONE (13:00)
[2019-08-30] MEDS: FAMOTIDINE 20 MG/2 ML VIAL IV SCH (13:02)
[2019-08-30] MEDS: ONDANSETRON 16 MG in SODIUM CHLORIDE 0.9% 50 ML IVPB SCH (13:03)
[2019-08-30] MEDS: DEXAMETHASONE SOD PHOSPHATE 10 MG/ML 1 ML VIAL IV SCH (13:03)
[2019-08-30] MEDS: ETOPOSIDE 180 MG in SODIUM CHLORIDE 0.9% 500 ML 500 ML IV SCH (13:43)
--- NOTE | 2019-08-30 16:09 | P.PN ---
Subjective Patient is admitted for chemotherapy for large B-cell lymphoma. Patient is clinically doing well no overnight events. Patient is on broad also on mesna receiving IV fluids at 100 mL per hour Constitutional: Denied any fatigue denied any fever. Cardio vascular: denied any chest pain, palpitations Gastrointestinal denied any nausea vomiting Pulmonary: Denied any shortness of breath cough Neurologic denied any new focal deficits All inpatient medications were reviewed and appropriate changes in these medications as dictated in the interval history and assessment and plan. Objective - Vital Signs Vital signs: Vital Signs Temp 97.8 F 08/30/19 14:18 Pulse 91 08/30/19 14:18 Resp 17 08/30/19 14:18 BP 133/71 08/30/19 14:18 Pulse Ox 100 08/30/19 14:18 Intake & Output 08/29/19 08/30/19 08/30/19 18:59 06:59 18:59 Intake Total 2540 1500 2000 Output Total 4200 2300 2900 Balance -1660 -800 -900 Weight 72.5 kg Intake: Intake, IV Titration 1300 1200 750 Amount Etoposide 180 mg In 500 Sodium Chloride 0.9% 500 ml 500 ml @ 509 mls/hr IV Q24H [facility] Rx#:[id number] Ondansetron 16 mg In 50 Sodium Chloride 0.9% 50 ml @ 232 mls/hr IVPB Q24H [facility] Rx#:[id number] Sodium Chloride 0.9% 1, 800 1200 700 000 ml @ 100 mls/hr IV . Q10H [facility] Rx#:[id number] Oral 4757 678 1892 Output: Urine 4200 2300 2900 Other: Voiding Method Toilet Toilet # Voids 1 2 - Exam PHYSICAL EXAMINATION: GENERAL: The patient is alert and oriented x3, not in any acute distress. Well developed, well nourished. HEENT: Pupils are round and equally reacting to light. EOMI. No scleral icterus. No conjunctival pallor. Normocephalic, atraumatic. No pharyngeal erythema. No thyromegaly. CARDIOVASCULAR: S1 and S2 present. No murmurs, rubs, or gallops. PULMONARY: Chest is clear to auscultation, no wheezing or crackles. ABDOMEN: Soft, nontender, nondistended, normoactive bowel sounds. No palpable organomegaly. MUSCULOSKELETAL: No joint swelling or deformity. EXTREMITIES: No cyanosis, clubbing, or pedal edema. NEUROLOGICAL: Gross neurological examination did not reveal any focal deficits. SKIN: No rashes. - Labs CBC & Chem 7: 08/30/19 10:56 08/30/19 10:56 Labs: Abnormal Lab Results - Last 24 Hours (Table) 08/30/19 08/30/19 Range/Units 10:56 10:56 RBC 2.64 L (3.80-5.40) m/uL Hgb 7.7 L (11.4-16.0) gm/dL Hct 24.2 L (34.0-46.0) % RDW 18.1 H (11.5-15.5) % Plt Count 464 H (150-450) k/uL Chloride 110 H (98-107) mmol/L BUN 20 H (7-17) mg/dL Glucose 128 H (74-99) mg/dL Uric Acid 3.1 L (3.7-7.4) mg/dL Total Protein 5.3 L (6.3-8.2) g/dL Albumin 3.3 L (3.5-5.0) g/dL Assessment and Plan Plan: -Hypertension patient is resumed on his home medications blood pressure is within normal limits -Lymphoma and chemotherapy as per oncology IV fluids 100 mL/h, patient is also on mesna -Leukocytosis reactive: Improved Hyperlipidemia Osteoarthritis.
--- NOTE | 2019-08-30 16:33 | P.PN ---
Subjective Progress Note Date: 08/30/19 Principal diagnosis: NHL Timed chemo Tolerating well Objective - Vital Signs Vital signs: Vital Signs Temp 97.8 F 08/30/19 14:18 Pulse 91 08/30/19 14:18 Resp 17 08/30/19 14:18 BP 133/71 08/30/19 14:18 Pulse Ox 100 08/30/19 14:18 Intake & Output 08/29/19 08/30/19 08/30/19 18:59 06:59 18:59 Intake Total 2540 1500 2000 Output Total 4200 2300 2900 Balance -1660 -800 -900 Weight 72.5 kg Intake: Intake, IV Titration 1300 1200 750 Amount Etoposide 180 mg In 500 Sodium Chloride 0.9% 500 ml 500 ml @ 509 mls/hr IV Q24H [facility] Rx#:[id number] Ondansetron 16 mg In 50 Sodium Chloride 0.9% 50 ml @ 232 mls/hr IVPB Q24H [facility] Rx#:[id number] Sodium Chloride 0.9% 1, 800 1200 700 000 ml @ 100 mls/hr IV . Q10H [facility] Rx#:[id number] Oral 3076 672 4893 Output: Urine 4200 2300 2900 Other: Voiding Method Toilet Toilet # Voids 1 2 - Exam - Constitutional General appearance: average body habitus, cooperative, no acute distress - EENT Eyes: anicteric sclerae, EOMI ENT: hearing grossly normal, normal oropharynx - Neck Neck: no lymphadenopathy - Respiratory Respiratory: bilateral: CTA - Cardiovascular Rhythm: regular Heart sounds: normal: S1, S2 leg Peripheral Edema: bilateral: None - Gastrointestinal General gastrointestinal: no absent bowel sounds, no decreased bowel sounds, no distended, no hepatomegaly, no hyperactive bowel sounds, normal bowel sounds, no organomegaly, no rigid, no scaphoid, soft, no splenomegaly, no tenderness, no umbilical hernia, no ventral hernia - Integumentary Integumentary: normal - Neurologic Neurologic: CNII-XII intact - Musculoskeletal Musculoskeletal: strength equal bilaterally - Psychiatric Psychiatric: A&O x's 3, appropriate affect, intact judgment & insight - Labs CBC & Chem 7: 08/30/19 10:56 08/30/19 10:56 Labs: Abnormal Lab Results - Last 24 Hours (Table) 08/30/19 08/30/19 Range/Units 10:56 10:56 RBC 2.64 L (3.80-5.40) m/uL Hgb 7.7 L (11.4-16.0) gm/dL Hct 24.2 L (34.0-46.0) % RDW 18.1 H (11.5-15.5) % Plt Count 464 H (150-450) k/uL Chloride 110 H (98-107) mmol/L BUN 20 H (7-17) mg/dL Glucose 128 H (74-99) mg/dL Uric Acid 3.1 L (3.7-7.4) mg/dL Total Protein 5.3 L (6.3-8.2) g/dL Albumin 3.3 L (3.5-5.0) g/dL Assessment and Plan Plan: Assessment and Plan: DLBCL (diffuse large B cell lymphoma) - Continue Day 2, cycle 3 of RICE. - Labs daily. - Supportive medications ordered. - Daily ambulation - Stric I&O - Urine dip for RBC prior to each dose Ifos - IM for medical mgmt - Add PPI and qhs home med Zyprexa for nausea prevention Normocytic Anemia: - Secondary to CHemo and NHL - Irradiated PRBC if less than 7 Physician Attest: I have completed the full history and physical and agree with above dictation, dictated as a scribe.
[2019-08-30] MEDS: PANTOPRAZOLE 40 MG TABLET PO SCH (17:22)
[2019-08-30] MEDS: ATORVASTATIN 20 MG TAB PO SCH (19:36)
[2019-08-30] MEDS: OLANZapine 2.5 MG TAB PO SCH (20:56)
[2019-08-31] MEDS: SODIUM CHLORIDE 0.9% 1,000 ML IV SCH ×3 (01:26→20:52)
[2019-08-31] MEDS: SALT AND SODA MOUTHWASH 1,000 ML PO SCH ×6 (01:26→23:34)
[2019-08-31] MEDS: GABAPENTIN 100 MG CAP PO SCH ×4 (01:26→19:18)
[2019-08-31 07:09] LABS: Anisocytosis Slight; HCT 27.7 % (34.0-46.0); HGB 8.7 gm/dL (11.4-16.0); Hypochromasia Moderate; MCH 29.1 pg (25.0-35.0); MCHC 31.5 g/dL (31.0-37.0); MCV 92.3 fL (80.0-100.0); Platelet Count 510 k/uL (150-450); RBC 3.01 m/uL (3.80-5.40); WBC 8.9 k/uL (3.8-10.6)
[2019-08-31 07:39] LABS: ALT 19 U/L (4-34); AST 18 U/L (14-36); African American GFR (CKD) >90 (>60 ml/min/1.73 sqM); Albumin 3.5 g/dL (3.5-5.0); Alkaline Phosphatase 80 U/L (38-126); Anion Gap 6 mmol/L; Blood Urea Nitrogen 18 mg/dL (7-17); Calcium 8.9 mg/dL (8.4-10.2); Carbon Dioxide 23 mmol/L (22-30); Chloride 111 mmol/L (98-107); Glucose 93 mg/dL (74-99); Non-African American GFR(CKD) >90 (>60 ml/min/1.73 sqM); Phosphorus 3.2 mg/dL (2.5-4.5); Potassium 4.4 mmol/L (3.5-5.1); Sodium 140 mmol/L (137-145); Total Bilirubin 0.2 mg/dL (0.2-1.3); Total Protein 5.6 g/dL (6.3-8.2); Uric Acid 2.3 mg/dL (3.7-7.4)
[2019-08-31] MEDS: PANTOPRAZOLE 40 MG TABLET PO SCH ×2 (09:46→17:25)
[2019-08-31] MEDS: CYANOCOBALAMIN 500 MCG TAB PO SCH (09:46)
[2019-08-31] MEDS: CALCIUM CARB-VIT D 500MG-200UN 1 EACH TAB PO SCH (09:46)
[2019-08-31] MEDS: ACYCLOVIR 200 MG CAP PO SCH ×2 (09:46→19:18)
[2019-08-31] MEDS: LORATADINE 10 MG TAB PO SCH (09:46)
[2019-08-31] MEDS: cycloSPORINE 0.05% OPHTH 0.4 ML DROPERETTE BOTH EYES SCH ×2 (09:47→19:19)
[2019-08-31] MEDS: CHOLECALCIFEROL 1,000 UNIT TAB PO SCH (09:47)
[2019-08-31] MEDS: amLODIPine 5 MG TAB PO SCH (09:47)
[2019-08-31] MEDS: FLUCONAZOLE 100 MG TAB PO SCH (09:48)
--- NOTE | 2019-08-31 13:56 | P.PN ---
Subjective Progress Note Date: 08/31/19 Principal diagnosis: NHL Timed chemo Tolerating chemo well. No acute complaints. OK to d/c after completion of chemo and neulasta in office monday Objective - Vital Signs Vital signs: Vital Signs Temp 97.7 F 08/31/19 12:00 Pulse 90 08/31/19 12:00 Resp 17 08/31/19 12:00 BP 132/60 08/31/19 12:00 Pulse Ox 99 08/31/19 12:00 Intake & Output 08/30/19 08/31/19 08/31/19 18:59 06:59 18:59 Intake Total 1999 1926 480 Output Total 2900 3900 1400 Balance - Intake: Intake, IV Titration 750 1336 Amount Ifosfamide 8,700 mg In 391 Sodium Chloride 0.9% 1, 000 ml @ 48.917 mls/hr IV ONCE ONE Rx#:[id number] Mesna 8,700 mg In Sodium 145 Chloride 0.9% 500 ml 348 ml @ 18.125 mls/hr IV ONCE ONE Rx#:[id number] Ondansetron 16 mg In 50 Sodium Chloride 0.9% 50 ml @ 232 mls/hr IVPB Q24H [facility] Rx#:[id number] Sodium Chloride 0.9% 1, 700 800 000 ml @ 100 mls/hr IV . Q10H [facility] Rx#:[id number] Oral 1250 590 480 Output: Urine 2900 3900 1400 Other: Voiding Method Toilet Toilet Toilet # Voids 2 2 - Exam - Constitutional General appearance: average body habitus, cooperative, no acute distress - EENT Eyes: anicteric sclerae, EOMI ENT: hearing grossly normal, normal oropharynx - Neck Neck: no lymphadenopathy - Respiratory Respiratory: bilateral: CTA - Cardiovascular Rhythm: regular Heart sounds: normal: S1, S2 leg Peripheral Edema: bilateral: None - Gastrointestinal General gastrointestinal: no absent bowel sounds, no decreased bowel sounds, no distended, no hepatomegaly, no hyperactive bowel sounds, normal bowel sounds, no organomegaly, no rigid, no scaphoid, soft, no splenomegaly, no tenderness, no umbilical hernia, no ventral hernia - Integumentary Integumentary: normal - Neurologic Neurologic: CNII-XII intact - Musculoskeletal Musculoskeletal: strength equal bilaterally - Psychiatric Psychiatric: A&O x's 3, appropriate affect, intact judgment & insight - Labs CBC & Chem 7: 08/31/19 06:39 08/31/19 06:39 Labs: Abnormal Lab Results - Last 24 Hours (Table) 08/31/19 08/31/19 Range/Units 06:39 06:39 RBC 3.01 L (3.80-5.40) m/uL Hgb 8.7 L (11.4-16.0) gm/dL Hct 27.7 L (34.0-46.0) % RDW 18.0 H (11.5-15.5) % Plt Count 510 H (150-450) k/uL Chloride 111 H (98-107) mmol/L BUN 18 H (7-17) mg/dL Creatinine 0.50 L (0.52-1.04) mg/dL Uric Acid 2.3 L (3.7-7.4) mg/dL Total Protein 5.6 L (6.3-8.2) g/dL Assessment and Plan Plan: Assessment and Plan: DLBCL (diffuse large B cell lymphoma) - Continue Day 3, cycle 3 of RICE. - Labs daily. - Supportive medications ordered. - Daily ambulation - Stric I&O - Urine dip for RBC prior to each dose Ifos - IM for medical mgmt - Add PPI and qhs home med Zyprexa for nausea prevention Normocytic Anemia: - Secondary to CHemo and NHL - Irradiated PRBC if less than 7 OK for discharge after completion of chemo COntinue Olanzaprine at discharge for 5 days Neulasta in office Monday
--- NOTE | 2019-08-31 14:20 | P.PN ---
Subjective Patient is admitted for chemotherapy for large B-cell lymphoma. Patient is clinically doing well no overnight events. Patient is on broad also on mesna receiving IV fluids at 100 mL per hour. 08/31/2019 Patient is tolerating chemo very well no overnight events. Constitutional: Denied any fatigue denied any fever. Cardio vascular: denied any chest pain, palpitations Gastrointestinal denied any nausea vomiting Pulmonary: Denied any shortness of breath cough Neurologic denied any new focal deficits All inpatient medications were reviewed and appropriate changes in these medications as dictated in the interval history and assessment and plan. Objective - Vital Signs Vital signs: Vital Signs Temp 97.7 F 08/31/19 12:00 Pulse 90 08/31/19 12:00 Resp 17 08/31/19 12:00 BP 132/60 08/31/19 12:00 Pulse Ox 99 08/31/19 12:00 Intake & Output 08/30/19 08/31/19 08/31/19 18:59 06:59 18:59 Intake Total 1999 1926 480 Output Total 2900 3900 1400 Balance - Intake: Intake, IV Titration 750 1336 Amount Ifosfamide 8,700 mg In 391 Sodium Chloride 0.9% 1, 000 ml @ 48.917 mls/hr IV ONCE ONE Rx#:[id number] Mesna 8,700 mg In Sodium 145 Chloride 0.9% 500 ml 348 ml @ 18.125 mls/hr IV ONCE ONE Rx#:[id number] Ondansetron 16 mg In 50 Sodium Chloride 0.9% 50 ml @ 232 mls/hr IVPB Q24H [facility] Rx#:[id number] Sodium Chloride 0.9% 1, 700 800 000 ml @ 100 mls/hr IV . Q10H [facility] Rx#:[id number] Oral 1250 590 480 Output: Urine 2900 3900 1400 Other: Voiding Method Toilet Toilet Toilet # Voids 2 2 - Exam PHYSICAL EXAMINATION: GENERAL: The patient is alert and oriented x3, not in any acute distress. Well developed, well nourished. HEENT: Pupils are round and equally reacting to light. EOMI. No scleral icterus. No conjunctival pallor. Normocephalic, atraumatic. No pharyngeal erythema. No thyromegaly. CARDIOVASCULAR: S1 and S2 present. No murmurs, rubs, or gallops. PULMONARY: Chest is clear to auscultation, no wheezing or crackles. ABDOMEN: Soft, nontender, nondistended, normoactive bowel sounds. No palpable organomegaly. MUSCULOSKELETAL: No joint swelling or deformity. EXTREMITIES: No cyanosis, clubbing, or pedal edema. NEUROLOGICAL: Gross neurological examination did not reveal any focal deficits. SKIN: No rashes. - Labs CBC & Chem 7: 08/31/19 06:39 08/31/19 06:39 Labs: Abnormal Lab Results - Last 24 Hours (Table) 08/31/19 08/31/19 Range/Units 06:39 06:39 RBC 3.01 L (3.80-5.40) m/uL Hgb 8.7 L (11.4-16.0) gm/dL Hct 27.7 L (34.0-46.0) % RDW 18.0 H (11.5-15.5) % Plt Count 510 H (150-450) k/uL Chloride 111 H (98-107) mmol/L BUN 18 H (7-17) mg/dL Creatinine 0.50 L (0.52-1.04) mg/dL Uric Acid 2.3 L (3.7-7.4) mg/dL Total Protein 5.6 L (6.3-8.2) g/dL Assessment and Plan Plan: -Hypertension patient is resumed on his home medications blood pressure is within normal limits -Lymphoma and chemotherapy as per oncology IV fluids 100 mL/h, patient is also on mesna -Leukocytosis reactive: Improved Hyperlipidemia Osteoarthritis.
[2019-08-31] MEDS: FAMOTIDINE 20 MG/2 ML VIAL IV SCH (16:00)
[2019-08-31] MEDS: ONDANSETRON 16 MG in SODIUM CHLORIDE 0.9% 50 ML IVPB SCH (16:00)
[2019-08-31] MEDS: DEXAMETHASONE SOD PHOSPHATE 10 MG/ML 1 ML VIAL IV SCH (16:00)
[2019-08-31] MEDS: ETOPOSIDE 180 MG in SODIUM CHLORIDE 0.9% 500 ML 500 ML IV SCH (16:34)
[2019-08-31] MEDS: ATORVASTATIN 20 MG TAB PO SCH (19:18)
[2019-08-31] MEDS: OLANZapine 2.5 MG TAB PO SCH (20:51)
[2019-09-01] MEDS: GABAPENTIN 100 MG CAP PO SCH ×2 (01:11→10:06)
[2019-09-01] MEDS: SALT AND SODA MOUTHWASH 1,000 ML PO SCH ×2 (05:45→12:07)
[2019-09-01 09:39] LABS: ALT 19 U/L (4-34); AST 20 U/L (14-36); African American GFR (CKD) >90 (>60 ml/min/1.73 sqM); Albumin 3.6 g/dL (3.5-5.0); Alkaline Phosphatase 76 U/L (38-126); Anion Gap 6 mmol/L; Blood Urea Nitrogen 22 mg/dL (7-17); Calcium 9.2 mg/dL (8.4-10.2); Carbon Dioxide 22 mmol/L (22-30); Chloride 109 mmol/L (98-107); Glucose 111 mg/dL (74-99); Non-African American GFR(CKD) >90 (>60 ml/min/1.73 sqM); Phosphorus 2.5 mg/dL (2.5-4.5); Potassium 3.6 mmol/L (3.5-5.1); Sodium 137 mmol/L (137-145); Total Bilirubin 0.3 mg/dL (0.2-1.3); Total Protein 5.7 g/dL (6.3-8.2)
[2019-09-01 09:48] LABS: Anisocytosis Slight; Basophils # (A) 0.1 k/uL (0-0.2); Basophils % (A) 1 %; Eosinophils % (A) 1 %; HCT 28.2 % (34.0-46.0); HGB 8.9 gm/dL (11.4-16.0); Hypochromasia Moderate; Lymphocytes # (A) 0.8 k/uL (1.0-4.8); Lymphocytes % (A) 10 %; MCH 29.1 pg (25.0-35.0); MCHC 31.7 g/dL (31.0-37.0); MCV 91.7 fL (80.0-100.0); Mean Platelet Volume 7.1; Monocytes # (A) 0.3 k/uL (0-1.0); Monocytes % (A) 4 %; Neutrophils # (A) 6.5 k/uL (1.3-7.7); Neutrophils % (A) 84 %; Platelet Count 578 k/uL (150-450); RBC 3.07 m/uL (3.80-5.40); RDW 17.9 % (11.5-15.5); WBC 7.7 k/uL (3.8-10.6)
[2019-09-01] MEDS: CYANOCOBALAMIN 500 MCG TAB PO SCH (10:06)
[2019-09-01] MEDS: CHOLECALCIFEROL 1,000 UNIT TAB PO SCH (10:06)
[2019-09-01] MEDS: FLUCONAZOLE 100 MG TAB PO SCH (10:06)
[2019-09-01] MEDS: amLODIPine 5 MG TAB PO SCH (10:06)
[2019-09-01] MEDS: LORATADINE 10 MG TAB PO SCH (10:06)
[2019-09-01] MEDS: CALCIUM CARB-VIT D 500MG-200UN 1 EACH TAB PO SCH (10:07)
[2019-09-01] MEDS: ACYCLOVIR 200 MG CAP PO SCH (10:07)
[2019-09-01] MEDS: PANTOPRAZOLE 40 MG TABLET PO SCH (10:07)
[2019-09-01] MEDS: cycloSPORINE 0.05% OPHTH 0.4 ML DROPERETTE BOTH EYES SCH (10:07)
[2019-09-01] MEDS: SODIUM CHLORIDE 0.9% 1,000 ML IV SCH (12:07)
[2019-09-01 12:44] VITALS: BP 140/66; PULSE 89; RESP 17; TEMP 97.1
--- NOTE | 2019-09-01 14:04 | P.DS ---
Providers Date of admission: 08/29/19 09:10 Expected date of discharge: 09/01/19 Attending physician: Kike Spangler Consults: 08/29/19 10:44 Consult Physician Routine Consulting Provider: Pricilla aJy Consult Reason/Comments: medical mgmt Do you want consulting provider notified?: Already Contacted Primary care physician: Corinne Quintero [facility] Course: Cycle Three of second line for NHL with RICE (Rituxan in office) Assessment: - Constitutional General appearance: average body habitus, cooperative, no acute distress - EENT Eyes: anicteric sclerae, EOMI ENT: hearing grossly normal, normal oropharynx - Neck Neck: no lymphadenopathy - Respiratory Respiratory: bilateral: CTA - Cardiovascular Rhythm: regular Heart sounds: normal: S1, S2 leg Peripheral Edema: bilateral: None - Gastrointestinal General gastrointestinal: no absent bowel sounds, no decreased bowel sounds, no distended, no hepatomegaly, no hyperactive bowel sounds, normal bowel sounds, no organomegaly, no rigid, no scaphoid, soft, no splenomegaly, no tenderness, no umbilical hernia, no ventral hernia - Integumentary Integumentary: normal - Neurologic Neurologic: CNII-XII intact - Musculoskeletal Musculoskeletal: strength equal bilaterally - Psychiatric Psychiatric: A&O x's 3, appropriate affect, intact judgment & insight CBC and CMP Stable VSS Patient Condition at Discharge: Fair Plan - Discharge Summary Discharge Rx Participant: No New Discharge Prescriptions: New Fluconazole [Diflucan] 100 mg PO DAILY 5 Days tab OLANZapine [ZyPREXA] 5 mg PO HS #17 tablet Fluconazole [Diflucan] 100 mg PO DAILY@0700 tab Loperamide [Imodium] 2 mg PO QID PRN cap PRN Reason: Diarrhea Magnesium Hydroxide [Milk of Magnesia Concentrate] 2,400 mg PO DAILY PRN ml PRN Reason: Constipation Pantoprazole [Protonix] 40 mg PO AC-BID #60 tablet. Continue Glucosam/Ambrosio-Msm1/C/Tiburcio/Bosw [Glucosamine-Chondroitin Tablet] 1 tab PO DAILY@0700 Cholecalciferol [Vitamin D3 (25 Mcg = 1000 Iu)] 1,000 unit PO DAILY@0700 Simvastatin [Zocor] 40 mg PO DAILY@1900 Cyanocobalamin (Vitamin B-12) [Vitamin B-12] 1,000 mcg PO DAILY@0700 cycloSPORINE 0.05% OPHTH SOLN [Restasis] 1 drop BOTH EYES BID@0700,1900 amLODIPine [Norvasc] 5 mg PO DAILY@0700 Ondansetron [Zofran] 4 mg PO DAILY@0700 PRN PRN Reason: Nausea Acetaminophen Tab [Tylenol] 500 mg PO Q6HR PRN PRN Reason: Pain Loratadine [Claritin] 10 mg PO DAILY@0700 Calcium Carbonate/Vitamin D3 [Calcium 600-Vit D3 800 Caplet] 1 tab PO DAILY@0700 Acyclovir 400 mg PO BID@0700,1899 Gabapentin [Neurontin] 200 mg PO QID@,,, Lidocaine 5% Patch [Lidoderm 5% Patch] 1 patch TOPICAL DAILY PRN PRN Reason: Pain Pantoprazole [Protonix] 40 mg PO DAILY@0700 Blink Eye Drops 2 drops BOTH EYES DAILY PRN PRN Reason: Dry Eye(S) Discontinued OLANZapine [ZyPREXA] 2.5 mg PO HS PRN PRN Reason: AFTER CHEMO Discharge Medication List Cholecalciferol [Vitamin D3 (25 Mcg = 1000 Iu)] 1,000 unit PO DAILY@0700 09/04/17 [History] Glucosam/Ambrosio-Msm1/C/Tiburcio/Bosw [Glucosamine-Chondroitin Tablet] 1 tab PO DAILY@0709/04/17 [History] Simvastatin [Zocor] 40 mg PO DAILY@189909/04/17 [History] Cyanocobalamin (Vitamin B-12) [Vitamin B-12] 1,000 mcg PO DAILY@0702/05/19 [History] cycloSPORINE 0.05% OPHTH SOLN [Restasis] 1 drop BOTH EYES BID@0700,1900 02/20/19 [History] Acetaminophen Tab [Tylenol] 500 mg PO Q6HR PRN 05/15/19 [History] Calcium Carbonate/Vitamin D3 [Calcium 600-Vit D3 800 Caplet] 1 tab PO DAILY@0705/15/19 [History] Loratadine [Claritin] 10 mg PO DAILY@0700 05/15/19 [History] Ondansetron [Zofran] 4 mg PO DAILY@0700 PRN 05/15/19 [History] amLODIPine [Norvasc] 5 mg PO DAILY@0705/15/19 [History] Acyclovir 400 mg PO BID@0700,1900 06/04/19 [History] Gabapentin [Neurontin] 200 mg PO QID@,,,06/04/19 [History] Lidocaine 5% Patch [Lidoderm 5% Patch] 1 patch TOPICAL DAILY PRN 06/04/19 [History] Blink Eye Drops 2 drops BOTH EYES DAILY PRN 08/08/19 [History] Pantoprazole [Protonix] 40 mg PO DAILY@0700 08/08/19 [History] Fluconazole [Diflucan] 100 mg PO DAILY 5 Days tab 09/01/19 [Rx] Fluconazole [Diflucan] 100 mg PO DAILY@0700 tab 09/01/19 [Rx] Loperamide [Imodium] 2 mg PO QID PRN cap 09/01/19 [Rx] Magnesium Hydroxide [Milk of Magnesia Concentrate] 2,400 mg PO DAILY PRN ml 09/01/19 [Rx] OLANZapine [ZyPREXA] 5 mg PO HS #17 tablet 09/01/19 [Rx] Pantoprazole [Protonix] 40 mg PO AC-BID #60 tablet.dr 09/01/19 [Rx] Follow up Appointment(s)/Referral(s): Lico Hdez MD [STAFF PHYSICIAN] - 09/02/19 11:00 am (GCSF injection) [facility] [NON-STAFF] - 1 Week Patient Instructions/Handouts: Intravenous Chemotherapy (DC) Activity/Diet/Wound Care/Special Instructions: diet as tolerated activity limited until seen in office Oncology office in am on Monday for injection Home care to follow PICC Line care Discharge Disposition: HOME SELF-CARE
--- NOTE | 2019-09-01 14:06 | P.PN ---
Subjective Patient is admitted for chemotherapy for large B-cell lymphoma. Patient is clinically doing well no overnight events. Patient is on broad also on mesna receiving IV fluids at 100 mL per hour. 08/31/2019 Patient is tolerating chemo very well no overnight events. 09/01/2019 Patient's CPK is desired onto completed her current cycle of chemo today ration and is feeling better clinically doing well will be discharged today Constitutional: Denied any fatigue denied any fever. Cardio vascular: denied any chest pain, palpitations Gastrointestinal denied any nausea vomiting Pulmonary: Denied any shortness of breath cough Neurologic denied any new focal deficits All inpatient medications were reviewed and appropriate changes in these medications as dictated in the interval history and assessment and plan. Objective - Vital Signs Vital signs: Vital Signs Temp 97.1 F L 09/01/19 12:00 Pulse 89 09/01/19 12:00 Resp 17 09/01/19 12:00 BP 140/66 09/01/19 12:00 Pulse Ox 99 09/01/19 12:00 Intake & Output 08/31/19 09/01/19 09/01/19 18:59 06:59 18:59 Intake Total 600 1190 1280 Output Total 2600 800 Balance -2000 1190 480 Intake: Intake, IV Titration 600 800 Amount Sodium Chloride 0.9% 1, 600 800 000 ml @ 100 mls/hr IV . Q10H [facility] Rx#:[id number] Oral 600 590 480 Output: Urine 2600 800 Other: Voiding Method Toilet Toilet Toilet # Voids 2 2 2 - Exam PHYSICAL EXAMINATION: GENERAL: The patient is alert and oriented x3, not in any acute distress. Well developed, well nourished. HEENT: Pupils are round and equally reacting to light. EOMI. No scleral icterus. No conjunctival pallor. Normocephalic, atraumatic. No pharyngeal erythema. No t hyromegaly. CARDIOVASCULAR: S1 and S2 present. No murmurs, rubs, or gallops. PULMONARY: Chest is clear to auscultation, no wheezing or crackles. ABDOMEN: Soft, nontender, nondistended, normoactive bowel sounds. No palpable organomegaly. MUSCULOSKELETAL: No joint swelling or deformity. EXTREMITIES: No cyanosis, clubbing, or pedal edema. NEUROLOGICAL: Gross neurological examination did not reveal any focal deficits. SKIN: No rashes. - Labs CBC & Chem 7: 09/01/19 09:14 09/01/19 09:14 Labs: Abnormal Lab Results - Last 24 Hours (Table) 09/01/19 09/01/19 Range/Units 09:14 09:14 RBC 3.07 L (3.80-5.40) m/uL Hgb 8.9 L (11.4-16.0) gm/dL Hct 28.2 L (34.0-46.0) % RDW 17.9 H (11.5-15.5) % Plt Count 578 H (150-450) k/uL Lymphocytes # 0.8 L (1.0-4.8) k/uL Chloride 109 H (98-107) mmol/L BUN 22 H (7-17) mg/dL Glucose 111 H (74-99) mg/dL Uric Acid 2.0 L (3.7-7.4) mg/dL Total Protein 5.7 L (6.3-8.2) g/dL Assessment and Plan Plan: -Hypertension patient is resumed on his home medications blood pressure is within normal limits -Lymphoma and chemotherapy as per oncology IV fluids 100 mL/h, patient is also on mesna -Leukocytosis reactive: Improved Hyperlipidemia Osteoarthritis.
== END 2019-09-01 15:41 | disposition home health service (06) | DRG 847 ==
LOC: 5NMEDONC 09:10
PROVIDERS: ADMIT Internal Medicine Hematology & Oncology; ATTEND Internal Medicine Hematology & Oncology
PROC: 3E0 Administration, Physiological Systems and Anatomical Regions, Introduction (ICD-10-PCS; principal; 2019-08-29)
PROC: 3E03305 Introduction of Other Antineoplastic into Peripheral Vein, Percutaneous Approach (ICD-10-PCS; principal; 2019-08-29)
DX: Z51.11 Encounter for antineoplastic chemotherapy (principal); C83.30 Diffuse large B-cell lymphoma, unspecified site; B02.29 Other postherpetic nervous system involvement; D64.9 Anemia, unspecified; E78.5 Hyperlipidemia, unspecified; I10 Essential (primary) hypertension; T45.1X5A Adverse effect of antineoplastic and immunosuppressive drugs, initial encounter; Z79.899 Other long term (current) drug therapy; Z80.0 Family history of malignant neoplasm of digestive organs; Z82.49 Family history of ischemic heart disease and other diseases of the circulatory system; Z83.3 Family history of diabetes mellitus; Z85.828 Personal history of other malignant neoplasm of skin; Z96.652 Presence of left artificial knee joint; Z98.42 Cataract extraction status, left eye; Z98.41 Cataract extraction status, right eye; Z96.1 Presence of intraocular lens; M19.90 Unspecified osteoarthritis, unspecified site; Z76.82 Awaiting organ transplant status; Z86.010 Personal history of colon polyps; Z98.51 Tubal ligation status; Z11.59 Encounter for screening for other viral diseases
CPT/HCPCS: 80053; 84100; 84550; 85025; 85027

== ENCOUNTER 2020-06-14 17:56 | Inpatient (IN) | payer MEDICARE ==
[2020-06-14] MEDS ORDERED: ONDANSETRON 4 MG/2 ML VIAL IVP STA (18:09)
[2020-06-14] MEDS: SODIUM CHLORIDE 0.9% 500 ML 500 ML IV SCH ×2 (18:46→19:16)
[2020-06-14 19:01] LABS: Anisocytosis Slight; Basophils % (A) 0 %; Eosinophils % (A) 0 %; HCT 28.7 % (34.0-46.0); HGB 9.7 gm/dL (11.4-16.0); Lymphocytes # (A) 0.4 k/uL (1.0-4.8); Lymphocytes % (A) 4 %; MCH 30.6 pg (25.0-35.0); MCHC 33.6 g/dL (31.0-37.0); Mean Platelet Volume 7.8; Monocytes % (A) 10 %; Neutrophils # (A) 8.7 k/uL (1.3-7.7); Neutrophils % (A) 85 %; Platelet Count 287 k/uL (150-450); RBC 3.16 m/uL (3.80-5.40); RDW 19.3 % (11.5-15.5); WBC 10.3 k/uL (3.8-10.6)
--- NOTE | 2020-06-14 19:11 | ED ---
Fever HPI - General Chief Complaint: Fever Stated Complaint: fever/vomiting/cough Time Seen by Provider: 06/14/20 18:08 Source: patient Mode of arrival: ambulatory Limitations: no limitations - History of Present Illness Initial Comments: Yonny is a pleasant 75-year-old female with B-cell lymphoma currently undergoing treatment. Last oral chemotherapy was Monday. Patient presents the ER today with fever nausea and vomiting throughout the day today. Patient does have some confusion at baseline and is somewhat of a poor historian but brought printed discharge summary from previous visit to [facility] to provide further history. - Related Data Home Medications Medication Instructions Recorded Confirmed Cholecalciferol [Vitamin D3 (25 1,000 unit PO DAILY 09/04/17 06/14/20 Mcg = 1000 Iu)] Glucosam/Ambrosio-Msm1/C/Tiburcio/Bosw 1 tab PO DAILY 09/04/17 06/14/20 [Glucosamine-Chondroitin Tablet] Cyanocobalamin (Vitamin B-12) 1,000 mcg PO DAILY 02/05/19 06/14/20 [Vitamin B-12] cycloSPORINE 0.05% OPHTH SOLN 1 drop BOTH EYES BID 02/20/19 06/14/20 [Restasis] Acetaminophen Tab [Tylenol] 500 mg PO Q6HR PRN 05/15/19 06/14/20 Loratadine [Claritin] 10 mg PO DAILY 05/15/19 06/14/20 Gabapentin [Neurontin] 200 mg PO QID 06/04/19 06/14/20 Lidocaine 5% Patch [Lidoderm 5% 1 patch TOPICAL DAILY PRN 06/04/19 06/14/20 Patch] Blink Eye Drops 2 drops BOTH EYES DAILY PRN 08/08/19 06/14/20 Pantoprazole [Protonix] 40 mg PO DAILY 08/08/19 06/14/20 Acyclovir 800 mg PO BID 06/14/20 06/14/20 Aspirin EC [Ecotrin Low Dose] 81 mg PO DAILY 06/14/20 06/14/20 Calcium Carbonate [Calcium] 600 mg PO DAILY 06/14/20 06/14/20 Docusate [Colace] 100 mg PO DAILY 06/14/20 06/14/20 Ondansetron Odt [Zofran Odt] 8 mg PO Q8HR PRN 06/14/20 06/14/20 Prochlorperazine [Compazine] 10 mg PO Q6H PRN 06/14/20 06/14/20 Sulfamethox-Tmp 800-160Mg [Bactrim 1 tab PO MOWEFR 06/14/20 06/14/20 DS 800-160 mg] allopurinoL [Zyloprim] 300 mg PO DAILY 06/14/20 06/14/20 Allergies Allergy/AdvReac Type Severity Reaction Status Date / Time No Known Allergies Allergy Verified 06/14/20 19:28 Review of Systems ROS Statement: Those systems with pertinent positive or pertinent negative responses have been documented in the HPI. ROS Other: All systems not noted in ROS Statement are negative. Past Medical History Past Medical History: Cancer, Hyperlipidemia, Hypertension, Osteoarthritis (OA) Additional Past Medical History / Comment(s): DLBCL with extensive involvement especially in diaphragm diagnosed 01/2019 with chemo, cologard positive for malignant DNA which led to colonoscopy-descending colon mass found/mesenteric m asses, thrush after last chemo tx, confusion/cognitive problems recently but pt close to baseline at this time, shingelles healed but still has nerve pain back/breast, anemia, leaky heart valve, skin cancer with removal, hemorrhoids. History of Any Multi-Drug Resistant Organisms: None Reported Past Surgical History: Breast Surgery, Joint Replacement, Orthopedic Surgery, Tubal Ligation Additional Past Surgical History / Comment(s): L arm Picc line, colonoscopies/benign polypectomies, skin cancer removed from R arm, total L knee arthroplasty, R foot bunionectomy/mortons neuroma removed/heel spur sx and R foot fx with screw, R breast benign bx, bilateral cataract removals/lens implants. Past Anesthesia/Blood Transfusion Reactions: Previous Problems w/ Anesthesia, Family History of Problems w/ Anesthesia Additional Past Anesthesia/Blood Transfusion Reaction / Comment(s): Had reaction to anesthesia that effected breathing after tubal ligation-not sure exactly what happened-was in ICU after. Sisters had reaction to anesthesia medication- not sure what Past Psychological History: No Psychological Hx Reported Smoking Status: Never smoker Past Alcohol Use History: Occasional Past Drug Use History: None Reported - Past Family History Sister(s) Family Medical History: Cancer Additional Family Medical History / Comment(s): Colon CA. Pt has several siblings (16) and only 3 out of the 16 do not have diabetes. Mother Family Medical History: No Reported History Additional Family Medical History / Comment(s): Mother was healthy Father Family Medical History: Coronary Artery Disease (CAD), Diabetes Mellitus, Myocardial Infarction ([place]) General Exam - General Exam Comments Initial Comments: Physical Exam GENERAL: Chronically ill-appearing elderly female HENT: Normocephalic, Atraumatic. Conjunctival pallor EYES: PERRL, EOMI PULMONARY: Unlabored respirations CARDIOVASCULAR: There is a regular rate and rhythm without any murmurs gallops or rubs. ABDOMEN: Soft and nontender with normal bowel sounds. SKIN: Skin is pale : Deferred NEUROLOGIC: Patient is alert and oriented x3 Moving all extremities spontaneously MUSCULOSKELETAL: Normal extremities with adequate strength and full range of motion. No lower extremity swelling or edema. No calf tenderness. PSYCHIATRIC: Normal psychiatric evaluation. Limitations: no limitations Course Vital Signs 06/14/20 06/14/20 17:59 19:19 Temperature 100.8 F H 100.1 F H Pulse Rate 113 H 98 Respiratory 20 16 Rate Blood Pressure 139/66 134/64 O2 Sat by Pulse 96 97 Oximetry Medical Decision Making - Medical Decision Making Patient was seen and evaluated Septic workup was initiated for chemotherapy cancer patient with fever Labs reveal white count of 10 there is no neutropenia BUN, creatinine and lactic acid are mildly elevated patient is receiving IV fluids Labs otherwise essentially patient's baseline Workup was discussed with oncologist on-call doctor Eugenio who recommends hydration, cultures, obs admission without antibiotics - Lab Data Result diagrams: 06/14/20 18:41 06/14/20 18:41 Lab Results 06/14/20 06/14/20 06/14/20 Range/Units 18:41 18:41 18:41 WBC 10.3 (3.8-10.6) k/uL RBC 3.16 L (3.80-5.40) m/uL Hgb 9.7 L (11.4-16.0) gm/dL Hct 28.7 L (34.0-46.0) % MCV 91.0 (80.0-100.0) fL MCH 30.6 (25.0-35.0) pg MCHC 33.6 (31.0-37.0) g/dL RDW 19.3 H (11.5-15.5) % Plt Count 287 (150-450) k/uL MPV 7.8 Neutrophils % 85 % Lymphocytes % 4 % Monocytes % 10 % Eosinophils % 0 % Basophils % 0 % Neutrophils # 8.7 H (1.3-7.7) k/uL Lymphocytes # 0.4 L (1.0-4.8) k/uL Monocytes # 1.0 (0-1.0) k/uL Eosinophils # 0.0 (0-0.7) k/uL Basophils # 0.0 (0-0.2) k/uL Anisocytosis Slight PT 12.8 H (9.0-12.0) sec INR 1.2 H (<1.2) APTT 22.3 (22.0-30.0) sec Sodium 135 L (137-145) mmol/L Potassium 3.5 (3.5-5.1) mmol/L Chloride 99 (98-107) mmol/L Carbon Dioxide 22 (22-30) mmol/L Anion Gap 14 mmol/L BUN 23 H (7-17) mg/dL Creatinine 1.23 H (0.52-1.04) mg/dL Est GFR (CKD-EPI)AfAm 50 (>60 ml/min/1.73 sqM) Est GFR (CKD-EPI)NonAf 43 (>60 ml/min/1.73 sqM) Glucose 120 H (74-99) mg/dL Plasma Lactic Acid Moy (0.7-2.0) mmol/L Calcium 10.5 H (8.4-10.2) mg/dL Total Bilirubin 0.6 (0.2-1.3) mg/dL AST 61 H (14-36) U/L ALT 28 (4-34) U/L Alkaline Phosphatase 101 (38-126) U/L C-Reactive Protein 20.0 H (<1.0) mg/dL Total Protein 5.6 L (6.3-8.2) g/dL Albumin 3.5 (3.5-5.0) g/dL Urine Color Urine Appearance (Clear) Urine pH (5.0-8.0) Ur Specific [place] (1.001-1.035) Urine Protein (Negative) Urine Glucose (UA) (Negative) Urine Ketones (Negative) Urine Blood (Negative) Urine Nitrite (Negative) Urine Bilirubin (Negative) Urine Urobilinogen (<2.0) mg/dL Ur Leukocyte Esterase (Negative) Urine RBC (0-5) /hpf Urine WBC (0-5) /hpf Ur Squamous Epith Cells (0-4) /hpf Urine Mucus (None) /hpf Coronavirus (PCR) (Not Detectd) 06/14/20 06/14/20 06/14/20 Range/Units 18:41 18:41 19:19 WBC (3.8-10.6) k/uL RBC (3.80-5.40) m/uL Hgb (11.4-16.0) gm/dL Hct (34.0-46.0) % MCV (80.0-100.0) fL MCH (25.0-35.0) pg MCHC (31.0-37.0) g/dL RDW (11.5-15.5) % Plt Count (150-450) k/uL MPV Neutrophils % % Lymphocytes % % Monocytes % % Eosinophils % % Basophils % % Neutrophils # (1.3-7.7) k/uL Lymphocytes # (1.0-4.8) k/uL Monocytes # (0-1.0) k/uL Eosinophils # (0-0.7) k/uL Basophils # (0-0.2) k/uL Anisocytosis PT (9.0-12.0) sec INR (<1.2) APTT (22.0-30.0) sec Sodium (137-145) mmol/L Potassium (3.5-5.1) mmol/L Chloride (98-107) mmol/L Carbon Dioxide (22-30) mmol/L Anion Gap mmol/L BUN (7-17) mg/dL Creatinine (0.52-1.04) mg/dL Est GFR (CKD-EPI)AfAm (>60 ml/min/1.73 sqM) Est GFR (CKD-EPI)NonAf (>60 ml/min/1.73 sqM) Glucose (74-99) mg/dL Plasma Lactic Acid Moy 4.2 H* (0.7-2.0) mmol/L Calcium (8.4-10.2) mg/dL Total Bilirubin (0.2-1.3) mg/dL AST (14-36) U/L ALT (4-34) U/L Alkaline Phosphatase (38-126) U/L C-Reactive Protein (<1.0) mg/dL Total Protein (6.3-8.2) g/dL Albumin (3.5-5.0) g/dL Urine Color Yellow Urine Appearance Clear (Clear) Urine pH 5.5 (5.0-8.0) Ur Specific [place] 1.016 (1.001-1.035) Urine Protein 1+ H (Negative) Urine Glucose (UA) Negative (Negative) Urine Ketones Negative (Negative) Urine Blood Trace H (Negative) Urine Nitrite Negative (Negative) Urine Bilirubin Negative (Negative) Urine Urobilinogen <2.0 (<2.0) mg/dL Ur Leukocyte Esterase Negative (Negative) Urine RBC 1 (0-5) /hpf Urine WBC 5 (0-5) /hpf Ur Squamous Epith Cells <1 (0-4) /hpf Urine Mucus Rare H (None) /hpf Coronavirus (PCR) Not Detected (Not Detectd) Disposition Clinical Impression: DLBCL (diffuse large B cell lymphoma), Fever, Bicytopenia Disposition: ADMITTED IP TO THIS [facility] Condition: Serious Referrals: Corinne Quintero MD [Primary Care Provider] - 1-2 days
[2020-06-14 19:12] LABS: Albumin 3.5 g/dL (3.5-5.0); Calcium 10.5 mg/dL (8.4-10.2); Potassium 3.5 mmol/L (3.5-5.1); Total Bilirubin 0.6 mg/dL (0.2-1.3); Total Protein 5.6 g/dL (6.3-8.2)
[2020-06-14 19:14] LABS: INR 1.2 (<1.2); Partial Thromboplastin Time 22.3 sec (22.0-30.0); Prothrombin Time 12.8 sec (9.0-12.0)
[2020-06-14 19:39] LABS: Appearance,Urine Clear (Clear); Bilirubin,Urine Negative (Negative); Blood,Urine Trace (Negative); Color,Urine Yellow; Glucose,Urine (UA) Negative (Negative); Ketones,Urine Negative (Negative); Leukocyte Esterase,Urine Negative (Negative); Mucus,Urine Rare /hpf; Nitrite,Urine Negative (Negative); PH, Urine 5.5 (5.0-8.0); Protein,Urine 1+ (Negative); RBC,Urine 1 /hpf (0-5); Specific Gravity,Urine 1.016 (1.001-1.035); Squamous Epithelial Cell,Urine <1 /hpf (0-4); Urobilinogen,Urine <2.0 mg/dL (<2.0); WBC,Urine 5 /hpf (0-5)
[2020-06-14] MEDS ORDERED: NALOXONE 0.4 MG/ML 1 ML VIAL IV PRN (20:29)
[2020-06-14] MEDS ORDERED: IBUPROFEN 400 MG TAB PO PRN (20:29)
[2020-06-14] MEDS ORDERED: ACETAMINOPHEN TAB 325 MG TAB PO PRN (20:29)
--- NOTE | 2020-06-14 20:34 | XR ---
EXAMINATION TYPE: XR chest 1V portable DATE OF EXAM: 06/14/2020 COMPARISON: 07/17/2019 HISTORY: Fever and vomiting TECHNIQUE: Single view FINDINGS: There is no heart failure nor confluent pneumonic infiltrate. There are no hilar masses. Co stophrenic angles are clear. There are chest leads. IMPRESSION: No active cardiopulmonary disease. Normal heart. No adverse change.
[2020-06-14] MEDS: SODIUM CHLORIDE 0.9% 1,000 ML IV SCH (20:49)
[2020-06-15 09:33] LABS: Anisocytosis Slight; Basophils # (A) 0.1 k/uL (0-0.2); Basophils % (A) 1 %; Eosinophils % (A) 0 %; HCT 24.8 % (34.0-46.0); HGB 8.3 gm/dL (11.4-16.0); Lymphocytes # (A) 0.2 k/uL (1.0-4.8); Lymphocytes % (A) 3 %; MCH 30.4 pg (25.0-35.0); MCHC 33.6 g/dL (31.0-37.0); MCV 90.6 fL (80.0-100.0); Mean Platelet Volume 7.4; Monocytes # (A) 0.9 k/uL (0-1.0); Monocytes % (A) 11 %; Neutrophils # (A) 6.9 k/uL (1.3-7.7); Neutrophils % (A) 84 %; Platelet Count 296 k/uL (150-450); RBC 2.74 m/uL (3.80-5.40); RDW 19.5 % (11.5-15.5); WBC 8.2 k/uL (3.8-10.6)
[2020-06-15 09:37] LABS: INR 1.2 (<1.2); Partial Thromboplastin Time 22.3 sec (22.0-30.0); Prothrombin Time 12.6 sec (9.0-12.0)
[2020-06-15 09:39] LABS: Albumin 2.7 g/dL (3.5-5.0); Calcium 9.2 mg/dL (8.4-10.2); Potassium 3.4 mmol/L (3.5-5.1); Total Bilirubin 0.5 mg/dL (0.2-1.3); Total Protein 4.6 g/dL (6.3-8.2)
[2020-06-15] MEDS: SODIUM CHLORIDE 0.9% 1,000 ML IV SCH ×2 (11:27→21:20)
[2020-06-15] MEDS ORDERED: ACETAMINOPHEN TAB 500 MG TAB PO PRN (12:18)
[2020-06-15] MEDS ORDERED: LIDOCAINE 5% PATCH TOPICAL PRN (12:18)
[2020-06-15] MEDS ORDERED: ARTIFICIAL TEARS-HYPROMELLOSE DROPS 15 ML BTL BOTH EYES PRN (12:18)
--- NOTE | 2020-06-15 12:27 | P.HPIM ---
History of Present Illness H&P Date: 06/15/20 Chief Complaint: Fever Mrs. Barboza is a very pleasant 75-year-old female, patient of primary care physician Dr. Corinne Quintero with a benign past medical history until January 2019. In late January 2019 patient did a colaguard screening that came back positive for malignant DNA. This led to a colonoscopy preformed by Dr. Garcias on 02/07/19. She had a 4-5 cm submucosal raise mass in the proximal descending colon, biopsies revealed DLBC lymphoma, germinal subtype. CT AP showed 2 large masses, one measuring 10 cm and one measuring 12 cm in the mid abdomen with multiple other peritoneal masses suspicious for lymphoma versus a peritoneal carcinomatosis. Patient was positive for weight loss, 20 pounds, also fatigue and night sweats. She was referred to oncology but, patient started displaying confusion and delayed response just after Xmas, so she was t aken to [place]. CT of the head without contrast was negative. Suspect UTI, antibiotics initiated. Patient was ultimately transferred to [facility]. She continued to have progressive cognitive decline, this led to a lumbar puncture, cerebrospinal fluid was not evaluated correctly. But, before that was known it was felt that patient would benefit more from being evaluated at a tertiary care facility with neuro evaluation. Patient had another LP, negative culture, negative flow cytometry. She was given her first cycle of R CHOP on 03/05/19, she was scripted 300 g of Granix and given it for 7 or 8 days outpatient. Dbl/Triple hit testing was not able to be done, QNS. 04/03/19-patient is here today for follow-up status post second cycle of RCHOP, she did complete her 5 days of prednisone, she completed 7 days of G-CSF last night. She is status post 3 cycles of R-CHOP and 3 doses of high-dose methotrexate (IT). PET scan after cycle 6 showed extensive residual disease. Case was discussed with [facility]. Patient had a re-biopsy of one of the residual peritoneal masses, and it was recommended that she start salvage chemotherapy with R-ICE. She was admitted for cycle 1 on 07/17/19. PET after 2 cycles showed a partial response PET scan after 3 cycles at [facility] essentially showed stability. Therefore change of therapy was recommended with a plan to bridge her to Car T therapy. She was started on Bendamustine/Rituxan/Polituzumab combination on 09/23/19, and is s/p 1 cycle. 10/02/19-She is seeing a Neuropsychologist today at [facility]. Brain MRI at [place] 10/03/19 She is s/p 1 cycle Rit/Bend/polivy. PET scan after 2 cycles unfortunately showed persistent disease within the abdomen, with some response noted in the spleen, but possible progression in the left lower quadrant. The patient's PET scan unfortunately shows a suboptimal response, as noted in the HPI. It appears to be response in the spleen, but there is persistent disease throughout the mesentery with possible progression in the left lower quadrant. The patient has had a consultation after the PET scan at [facility]. It has been decided to discontinue this regimen and proceed with CAR-T therapy. The patient was to have lymphocyte harvest Since this time she has been following with [facility], she presents to emergency though with complaints of fever and chest pain. Johnson cultures, IV Hydration, and CTA performed. CTA revealed bilateral pulmonary emboli. I spoke to Shun, He informed us that she has been following closely with Dr. Maribell Nelson at [facility]. She underwent Car-T cell in November, unfortunately her PET scan in January 2020 showed progression. She was then entered in a trial in February: Revlimid, Rituxan and another medication. She had another staging PET at [facility] last week and per this was also showing evidence of progression. Shun would like her to be transferred [facility] as she is to begin next line with Oxaliplatin, Gemzar, and Rituxan next week. Will discuss further with her [place] Oncologist and Dr. Hdez while awaiting her johnson cultures. She has struggled with intermittent confusion and seen Dr. Obando for this last Fall. Review of Systems All systems: negative Constitutional: Reports as per HPI Past Medical History Past Medical History: Cancer, Hyperlipidemia, Hypertension, Osteoarthritis (OA) Additional Past Medical History / Comment(s): DLBCL with extensive involvement especially in diaphragm diagnosed 01/2019 with chemo, cologard positive for malignant DNA which led to colonoscopy-descending colon mass found/mesenteric masses, thrush after last chemo tx, confusion/cognitive problems recently but pt close to baseline at this time, shingelles healed but still has nerve pain back/breast, anemia, leaky heart valve, skin cancer with removal, hemorrhoids. History of Any Multi-Drug Resistant Organisms: None Reported Past Surgical History: Breast Surgery, Joint Replacement, Orthopedic Surgery, Tubal Ligation Additional Past Surgical History / Comment(s): L arm Picc line, colonoscopies/benign polypectomies, skin cancer removed from R arm, total L knee arthroplasty, R foot bunionectomy/mortons neuroma removed/heel spur sx and R foot fx with screw, R breast benign bx, bilateral cataract removals/lens implants. Past Anesthesia/Blood Transfusion Reactions: Previous Problems w/ Anesthesia, Family History of Problems w/ Anesthesia Additional Past Anesthesia/Blood Transfusion Reaction / Comment(s): Had reaction to anesthesia that effected breathing after tubal ligation-not sure exactly what happened-was in ICU after. Sisters had reaction to anesthesia medication-not sure what Past Psychological History: No Psychological Hx Reported Smoking Status: Never smoker Past Alcohol Use History: Occasional Past Drug Use History: None Reported - Past Family History Sister(s) Family Medical History: Cancer Additional Family Medical History / Comment(s): Colon CA. Pt has several siblings (16) and only 3 out of the 16 do not have diabetes. Mother Family Medical History: No Reported History Additional Family Medical History / Comment(s): Mother was healthy Father Family Medical History: Coronary Artery Disease (CAD), Diabetes Mellitus, Myocardial Infarction (MA) Medications and Allergies Home Medications Medication Instructions Recorded Confirmed Type Cholecalciferol [Vitamin D3 (25 1,000 unit PO DAILY 09/04/17 06/14/20 History Mcg = 1000 Iu)] Glucosam/Ambrosio-Msm1/C/Tiburcio/Bosw 1 tab PO DAILY 09/04/17 06/14/20 History [Glucosamine-Chondroitin Tablet] Cyanocobalamin (Vitamin B-12) 1,000 mcg PO DAILY 02/05/19 06/14/20 History [Vitamin B-12] cycloSPORINE 0.05% OPHTH SOLN 1 drop BOTH EYES BID 02/20/19 06/14/20 History [Restasis] Acetaminophen Tab [Tylenol] 500 mg PO Q6HR PRN 05/15/19 06/14/20 History Loratadine [Claritin] 10 mg PO DAILY 05/15/19 06/14/20 History Gabapentin [Neurontin] 200 mg PO QID 06/04/19 06/14/20 History Lidocaine 5% Patch [Lidoderm 5% 1 patch TOPICAL DAILY PRN 06/04/19 06/14/20 History Patch] Blink Eye Drops 2 drops BOTH EYES DAILY PRN 08/08/19 06/14/20 History Pantoprazole [Protonix] 40 mg PO DAILY 08/08/19 06/14/20 History Acyclovir 800 mg PO BID 06/14/20 06/14/20 History Aspirin EC [Ecotrin Low Dose] 81 mg PO DAILY 06/14/20 06/14/20 History Calcium Carbonate [Calcium] 600 mg PO DAILY 06/14/20 06/14/20 History Docusate [Colace] 100 mg PO DAILY 06/14/20 06/14/20 History Ondansetron Odt [Zofran Odt] 8 mg PO Q8HR PRN 06/14/20 06/14/20 History Prochlorperazine [Compazine] 10 mg PO Q6H PRN 06/14/20 06/14/20 History Sulfamethox-Tmp 800-160Mg [Bactrim 1 tab PO MOWEFR 06/14/20 06/14/20 History DS 800-160 mg] allopurinoL [Zyloprim] 300 mg PO DAILY 06/14/20 06/14/20 History Allergies Allergy/AdvReac Type Severity Reaction Status Date / Time No Known Allergies Allergy Verified 06/14/20 19:28 Physical Exam Vitals: Vital Signs Temp Pulse Pulse Resp BP BP Pulse Ox 06/15/20 08:00 80 16 06/15/20 07:42 99.4 F 80 16 118/54 94 L 06/15/20 03:00 99.1 F 87 18 136/71 97 06/14/20 20:55 95 18 121/56 96 06/14/20 19:19 100.1 F H 98 16 134/64 97 06/14/20 17:59 100.8 F H 113 H 20 139/66 96 Intake and Output 06/14/20 06/15/20 06/15/20 22:59 06:59 14:59 Intake Total 360 Balance 360 Intake: Oral 360 Other: Voiding Method Toilet Weight 71.214 kg Assessment: - Constitutional General appearance: average body habitus, cooperative, no acute distress - EENT Eyes: anicteric sclerae, EOMI ENT: hearing grossly normal, normal oropharynx - Neck Neck: no lymphadenopathy - Respiratory Respiratory: bilateral: CTA - Cardiovascular Rhythm: regular Heart sounds: normal: S1, S2 leg Peripheral Edema: bilateral: None - Gastrointestinal General gastrointestinal: no absent bowel sounds, no decreased bowel sounds, no distended, no hepatomegaly, no hyperactive bowel sounds, normal bowel sounds, no organomegaly, no rigid, no scaphoid, soft, no splenomegaly, no tenderness, no umbilical hernia, no ventral hernia - Integumentary Integumentary: normal - Neurologic Neurologic: CNII-XII intact - Musculoskeletal Musculoskeletal: strength equal bilaterally - Psychiatric Psychiatric: A&O x's 3, appropriate affect, intact judgment & insight Results CBC & Chem 7: 06/15/20 14:20 06/15/20 09:13 Labs: Abnormal Lab Results - Last 24 Hours (Table) 06/14/20 06/14/20 06/14/20 Range/Units 18:41 18:41 18:41 RBC 3.16 L (3.80-5.40) m/uL Hgb 9.7 L (11.4-16.0) gm/dL Hct 28.7 L (34.0-46.0) % RDW 19.3 H (11.5-15.5) % Neutrophils # 8.7 H (1.3-7.7) k/uL Lymphocytes # 0.4 L (1.0-4.8) k/uL PT 12.8 H (9.0-12.0) sec INR 1.2 H (<1.2) Sodium 135 L (137-145) mmol/L Potassium (3.5-5.1) mmol/L BUN 23 H (7-17) mg/dL Creatinine 1.23 H (0.52-1.04) mg/dL Glucose 120 H (74-99) mg/dL Plasma Lactic Acid Moy (0.7-2.0) mmol/L Calcium 10.5 H (8.4-10.2) mg/dL AST 61 H (14-36) U/L Lactate Dehydrogenase (313-618) U/L C-Reactive Protein 20.0 H (<1.0) mg/dL Total Protein 5.6 L (6.3-8.2) g/dL Albumin (3.5-5.0) g/dL Urine Protein (Negative) Urine Blood (Negative) Urine Mucus (None) /hpf 06/14/20 06/14/20 06/14/20 Range/Units 18:41 19:19 21:20 RBC (3.80-5.40) m/uL Hgb (11.4-16.0) gm/dL Hct (34.0-46.0) % RDW (11.5-15.5) % Neutrophils # (1.3-7.7) k/uL Lymphocytes # (1.0-4.8) k/uL PT (9.0-12.0) sec INR (<1.2) Sodium (137-145) mmol/L Potassium (3.5-5.1) mmol/L BUN (7-17) mg/dL Creatinine (0.52-1.04) mg/dL Glucose (74-99) mg/dL Plasma Lactic Acid Moy 4.2 H* 3.9 H* (0.7-2.0) mmol/L Calcium (8.4-10.2) mg/dL AST (14-36) U/L Lactate Dehydrogenase (313-618) U/L C-Reactive Protein (<1.0) mg/dL Total Protein (6.3-8.2) g/dL Albumin (3.5-5.0) g/dL Urine Protein 1+ H (Negative) Urine Blood Trace H (Negative) Urine Mucus Rare H (None) /hpf 06/15/20 06/15/20 06/15/20 Range/Units 00:12 02:41 04:52 RBC (3.80-5.40) m/uL Hgb (11.4-16.0) gm/dL Hct (34.0-46.0) % RDW (11.5-15.5) % Neutrophils # (1.3-7.7) k/uL Lymphocytes # (1.0-4.8) k/uL PT (9.0-12.0) sec INR (<1.2) Sodium (137-145) mmol/L Potassium (3.5-5.1) mmol/L BUN (7-17) mg/dL Creatinine (0.52-1.04) mg/dL Glucose (74-99) mg/dL Plasma Lactic Acid Moy 4.0 H* 3.4 H* 2.5 H* (0.7-2.0) mmol/L Calcium (8.4-10.2) mg/dL AST (14-36) U/L Lactate Dehydrogenase (313-618) U/L C-Reactive Protein (<1.0) mg/dL Total Protein (6.3-8.2) g/dL Albumin (3.5-5.0) g/dL Urine Protein (Negative) Urine Blood (Negative) Urine Mucus (None) /hpf 06/15/20 06/15/20 06/15/20 Range/Units 09:13 09:13 09:13 RBC 2.74 L (3.80-5.40) m/uL Hgb 8.3 L (11.4-16.0) gm/dL Hct 24.8 L (34.0-46.0) % RDW 19.5 H (11.5-15.5) % Neutrophils # (1.3-7.7) k/uL Lymphocytes # 0.2 L (1.0-4.8) k/uL PT 12.6 H (9.0-12.0) sec INR 1.2 H (<1.2) Sodium (137-145) mmol/L Potassium (3.5-5.1) mmol/L BUN (7-17) mg/dL Creatinine (0.52-1.04) mg/dL Glucose (74-99) mg/dL Plasma Lactic Acid Moy 2.7 H* (0.7-2.0) mmol/L Calcium (8.4-10.2) mg/dL AST (14-36) U/L Lactate Dehydrogenase (313-618) U/L C-Reactive Protein (<1.0) mg/dL Total Protein (6.3-8.2) g/dL Albumin (3.5-5.0) g/dL Urine Protein (Negative) Urine Blood (Negative) Urine Mucus (None) /hpf 06/15/20 Range/Units 09:13 RBC (3.80-5.40) m/uL Hgb (11.4-16.0) gm/dL Hct (34.0-46.0) % RDW (11.5-15.5) % Neutrophils # (1.3-7.7) k/uL Lymphocytes # (1.0-4.8) k/uL PT (9.0-12.0) sec INR (<1.2) Sodium 132 L (137-145) mmol/L Potassium 3.4 L (3.5-5.1) mmol/L BUN 22 H (7-17) mg/dL Creatinine 1.12 H (0.52-1.04) mg/dL Glucose 112 H (74-99) mg/dL Plasma Lactic Acid Moy (0.7-2.0) mmol/L Calcium (8.4-10.2) mg/dL AST 46 H (14-36) U/L Lactate Dehydrogenase 2331 H (313-618) U/L C-Reactive Protein (<1.0) mg/dL Total Protein 4.6 L (6.3-8.2) g/dL Albumin 2.7 L (3.5-5.0) g/dL Urine Protein (Negative) Urine Blood (Negative) Urine Mucus (None) /hpf Chest x-ray: report reviewed Thrombosis Risk Factor Assmnt - DVT/VTE Prophylaxis DVT/VTE Prophylaxis: Pharmacologic Prophylaxis ordered Assessment and Plan (1) Normocytic anemia Current Visit: Yes Status: Acute Code(s): D64.9 - ANEMIA, UNSPECIFIED S NOMED Code(s): 209361905 (2) Fever Current Visit: Yes Status: Acute Priority: Medium Code(s): R50.9 - FEVER, UNSPECIFIED SNOMED Code(s): 389468787 (3) DLBCL (diffuse large B cell lymphoma) Current Visit: Yes Status: Chronic Priority: High Code(s): C83.30 - DIFFUSE LARGE B-CELL LYMPHOMA, UNSPECIFIED SITE SNOMED Code(s): 926476047 Plan: Non-Hodgkins Lymphoma: - Many lines of treatment with most recent progression May of 2020 - Possible transfer to Dr. Nelson at [facility] for next line Full Johnson Cultures Ordered Levaquin ordered while awaiting cultures CTA - Bilateral Pulmonary Emboli - Check Doppler Lower Extremities - Heparin Drip Initiated - Will convert to DOAC at discharge IV Hydration continued Repeat Anemia and lymphoma Panel Will ask for recent information from [facility] Physician Attest: I have completed the full history and physical and agree with above dictation, dictated as a scribe
[2020-06-15] MEDS: LEVOFLOXACIN 500MG-D5W PMX 500 MG in DEXTROSE/WATER 1 100ML.BAG IVPB SCH (13:49)
[2020-06-15] MEDS: GABAPENTIN 100 MG CAP PO SCH ×3 (13:49→21:18)
--- NOTE | 2020-06-15 14:00 | CT ---
EXAMINATION TYPE: CT angio chest DATE OF EXAM: 06/15/2020 1:27 PM COMPARISON: CTA chest April 03, 2019. CT August 16, 2019 HISTORY: Chest pains, fever, vomiting, history of lymphoma. CT DLP: 284.6 mGycm Automated exposure control for dose reduction was used. CONTRAST: CTA scan of the thorax is performed with IV Contrast, patient injected with 80 mL of Isovue 370, pulm onary embolism protocol. MIP images are created and reviewed. FINDINGS: LUNGS: [id number] biapical pleural/clinical scarring is redemonstrated. New tiny right pleural effusion. [id number] bibasilar dependent atelectasis. No new masses. No pneumothorax seen bilat erally. MEDIASTINUM: There is satisfactory enhancement of the aorta without aneurysm or dissection. Suboptima l bolus with fecal contrast in right and left heart systems but segmental embolism in the right lower lobe with subsegmental extension is seen beginning at axial image 69. There is additional suspected subsegmental thrombus in left lower lobe branches. There is new 1.7 x 1.2 cm right infrahilar low de nse nodule or probable adenopathy. More prominent but subcentimeter subcarinal lymph node noted axia l image 61. No pericardial effusion is seen. Heart size stable upper limits of normal. No new right v entricular dilatation. 4 vessel origin from aortic arch which is normal variant. New filling defects right upper and middle lobe branches axial image 45 with segmental extension OTHER: New Small-sized hiatal hernia. Stable 1.6 cm thin-walled cyst left hepatic lobe axial image 1 19. New anterior or superior perihepatic ascites. New intra-abdominal fluid just superior to the panc reas lowermost axial images near the portal confluence noted. IMPRESSION: 1. New bilateral pulmonary emboli. No CT evidence for RV strain. 2. New abnormal right infrahilar lymph node or possible nodule, former favored. New trace right pleur al effusion. New tiny perihepatic ascites. Results of new bilateral pulmonary embolism communicated to patient's nurse via telephone at time of dictation. A Document Only message has been documented for Kike Spangler MD in the [employer] system on 06/15/2020 1:56 PM, Message ID [id number].
[2020-06-15] MEDS ORDERED: HEPARIN SODIUM 1,000 UN/ML (10ML VL) IV ONE (14:11)
[2020-06-15] MEDS ORDERED: HEPARIN SODIUM 1,000 UN/ML (10ML VL) IV PRN (14:11)
[2020-06-15 14:37] LABS: Anisocytosis Slight; Basophils % (A) 0 %; Eosinophils % (A) 0 %; HCT 27.1 % (34.0-46.0); Lymphocytes # (A) 0.4 k/uL (1.0-4.8); Lymphocytes % (A) 4 %; MCH 30.1 pg (25.0-35.0); MCHC 33.3 g/dL (31.0-37.0); MCV 90.3 fL (80.0-100.0); Mean Platelet Volume 8.3; Monocytes % (A) 10 %; Neutrophils # (A) 8.1 k/uL (1.3-7.7); Neutrophils % (A) 83 %; Platelet Count 319 k/uL (150-450); RDW 19.4 % (11.5-15.5); WBC 9.8 k/uL (3.8-10.6)
[2020-06-15 14:41] LABS: INR 1.2 (<1.2); Partial Thromboplastin Time 22.9 sec (22.0-30.0); Prothrombin Time 12.2 sec (9.0-12.0)
[2020-06-15] MEDS: HEPARIN SOD,PORK IN 0.45% NACL 25,000 UNIT in 0.45% NACL 1 250ML.BAG IV SCH (16:30)
[2020-06-15] MEDS ORDERED: Magnesium Replacement Protocol 1 EACH MISC MISCELLANE PRN (18:56)
[2020-06-15] MEDS ORDERED: Potassium Replacement Protocol 1 EACH MISC MISCELLANE PRN (18:56)
[2020-06-15 19:51] LABS: % Iron Saturation 4.76 (12.00-45.00); Folate, Serum 12.4 ng/mL; Iron 9 ug/dL (50-170); Total Iron Binding Capacity 189 ug/dL (228-460)
--- NOTE | 2020-06-15 20:37 | CONS ---
CONSULTATION DATE OF SERVICE: 06/15/2020 REASON FOR CONSULTATION: Advice regarding fever and other multiple medical issues, requested by Dr. Spangler. HISTORY OF PRESENT ILLNESS: This 75-year-old woman with a past medical history of multiple medical problems, including history of hypertension, hyperlipidemia, history of DJD, history of B-cell lymphoma with extensive involvement, being followed by Dr. Corinne Quintero in the outpatient setting, is receiving chemotherapy. The patient was admitted for fever and the patient was also complaining of some vomiting and some nausea. The patient also had some confusion. The patient was admitted for further evaluation and treatment. After admission the patient was found to have bilateral pulmonary embolism. The patient is treated empirically with antibiotic. Lactic acid is elevated. Sodium is 135. The cultures are pending at this time. The patient is currently started on Levaquin IV. There is no history of any fever, rigor or chills. No history of headache, loss of consciousness, seizures. PAST MEDICAL HISTORY: Diffuse B-cell lymphoma, history of hypertension, hyperlipidemia, history of DJD. HOME MEDICATIONS: Colace, calcium with vitamin D, zyloprim, Bactrim, Compazine, Zofran, Protonix, Restasis, Claritin. Doses are reviewed. ALLERGIES: NONE. FAMILY HISTORY: History of colon cancer in the family. SOCIAL HISTORY: No history of smoking. Occasional alcohol. REVIEW OF SYSTEMS: ENT: No diminished hearing. No diminished vision. CARDIOVASCULAR SYSTEM: No angina, palpitations. RESPIRATORY SYSTEM: As mentioned earlier. GI: As mentioned earlier. : No dysuria or retention. NERVOUS SYSTEM: No numbness, weakness. ALLERGY/IMMUNOLOGY: No asthma, hayfever. MUSCULOSKELETAL: As mentioned earlier. HEMATOLOGY/ONCOLOGY: As mentioned earlier. CONSTITUTIONAL: As mentioned earlier. DERMATOLOGY: Negative. RHEUMATOLOGY: Negative. PSYCHIATRY: As mentioned earlier. PHYSICAL EXAMINATION: Patient alert and oriented x3. Pulse is 86, blood pressure 140/60, respiration 20, temperature 99.1, pulse ox 94% on room air. T-max 100.8. HEENT: Conjunctivae normal. NECK: No jugular venous distention. CARDIOVASCULAR SYSTEM: S1, S2 muffled. RESPIRATORY SYSTEM: Breath sounds diminished at the bases. A few scattered rhonchi. ABDOMEN: Soft, non-tender. LEGS: No edema. No swelling. NERVOUS SYSTEM: Higher functions as mentioned earlier. Moves all 4 limbs. No focal motor or sensory deficit. LYMPHATICS: No lymph node palpable in neck, axillae or groin. SKIN: No ulcer, rash, bleeding. JOINTS: No active deforming arthropathy. LABS: WBC 9.2, hemoglobin 9. Sodium 132, potassium 3.4. ASSESSMENT: 1. Fever, possible sepsis. 2. Acute bilateral pulmonary embolism. 3. Change in mental status, acute metabolic encephalopathy. 4. Diffuse B-cell lymphoma, on chemotherapy. 5. Anemia, normocytic, secondary to malignancy. 6. Hyponatremia. 7. Hypokalemia. 8. Increased creatinine with acute renal failure. 9. Elevated lactic acid, possibly secondary to sepsis. 10.Increased AST. 11.Increased LDH. 12.History of hypertension. 13.History of hyperlipidemia. 14.History of degenerative joint disease. 15.FULL CODE. RECOMMENDATIONS AND DISCUSSION: In this 75-year-old woman who presented with multiple complex medical issues, we will monitor the patient closely, continue the current medications, continue symptomatic treatment. Otherwise, continue with the antibiotics. Continue with anticoagulation. The CT scan did not show any significant parenchymal lesions. COVID-19 is negative as well. We will continue to monitor. Repeat labs. DVT prophylaxis. Thank you for letting us participate in the care of this patient. We will follow the patient closely with you. MMODL / IJN: [id number] /
[2020-06-15 20:40] LABS: Albumin 2.8 g/dL (3.5-5.0); Calcium 9.2 mg/dL (8.4-10.2); Potassium 3.3 mmol/L (3.5-5.1); Total Bilirubin 0.3 mg/dL (0.2-1.3); Total Protein 4.8 g/dL (6.3-8.2)
[2020-06-15] MEDS ORDERED: HEPARIN SODIUM,PORCINE/PF 5,000 UNIT/0.5 ML SYRINGE SQ SCH (21:00)
--- NOTE | 2020-06-15 21:03 | US ---
EXAMINATION TYPE: US venous doppler duplex LE DATE OF EXAM: 06/15/2020 8:44 PM COMPARISON: US CLINICAL HISTORY: Positive bilateral Pulmonary Emboli. Positive bilateral pulmonary emboli. Hx left knee replacement. SIDE PERFORMED: Bilateral TECHNIQUE: The lower extremity deep venous system is examined utilizing real time linear array sonog corbin with graded compression, doppler sonography and color-flow sonography. VESSELS IMAGED: Common Femoral Vein Deep Femoral Vein Greater Saphenous Vein * Femoral Vein Popliteal Vein Small Saphenous Vein * Proximal Calf Veins (* superficial vessels) Right Leg: No evidence of DVT in veins imaged at this time from prox calf veins to CFV/GSV. Left Leg: No evidence of DVT in veins imaged at this time from prox calf veins to CFV/GSV. IMPRESSION: No sign of deep vein thrombosis in both legs.
[2020-06-15] MEDS: ACYCLOVIR 800 MG TAB PO SCH (21:19)
[2020-06-15] MEDS: cycloSPORINE 0.05% OPHTH 0.4 ML DROPERETTE BOTH EYES SCH (21:19)
[2020-06-15] MEDS ORDERED: SODIUM CHLORIDE 0.9% 500 ML 500 ML IV ONE (21:35)
[2020-06-15] MEDS: POTASSIUM CHLORIDE ER 20 MEQ TAB.ER PO SCH (22:30)
[2020-06-15 23:33] LABS: Ferritin 1673.6 ng/mL (10.0-291.0)
[2020-06-16] MEDS: POTASSIUM CHLORIDE ER 20 MEQ TAB.ER PO SCH ×3 (00:27→15:00)
[2020-06-16 00:55] LABS: Vitamin B12 >4000.0 pg/mL (211-911)
[2020-06-16] MEDS: ASPIRIN 81 MG PO SCH (07:55)
[2020-06-16] MEDS: CALCIUM CARBONATE 500 MG CHEWABLE PO SCH (07:55)
[2020-06-16] MEDS: CHOLECALCIFEROL 25 MCG (1000 IU) TABLET PO SCH (07:55)
[2020-06-16] MEDS: LORATADINE 10 MG TAB PO SCH (07:55)
[2020-06-16] MEDS: cycloSPORINE 0.05% OPHTH 0.4 ML DROPERETTE BOTH EYES SCH ×2 (07:55→20:29)
[2020-06-16] MEDS: GABAPENTIN 100 MG CAP PO SCH ×4 (07:55→20:29)
[2020-06-16] MEDS: ACYCLOVIR 800 MG TAB PO SCH ×2 (07:56→20:29)
[2020-06-16] MEDS: DOCUSATE 100 MG CAP PO SCH (07:56)
[2020-06-16] MEDS: allopurinoL 300 MG TAB PO SCH (07:57)
[2020-06-16] MEDS: NON FORMULARY DRUG (Glucosam/Chon-Msm1/C/Mang/Bosw [Glucosamine-Chondroitin Tablet] 1 EACH PO SCH (07:57)
[2020-06-16] MEDS ORDERED: ONDANSETRON 4 MG/2 ML VIAL IVP PRN (08:21)
[2020-06-16] MEDS ORDERED: PANTOPRAZOLE 40 MG TABLET PO SCH (09:00)
[2020-06-16] MEDS ORDERED: CYANOCOBALAMIN 500 MCG TAB PO SCH (09:00)
[2020-06-16 10:07] LABS: Anisocytosis Slight; Basophils # (A) 0.1 k/uL (0-0.2); Basophils % (A) 1 %; Eosinophils % (A) 1 %; HCT 25.4 % (34.0-46.0); HGB 8.3 gm/dL (11.4-16.0); Lymphocytes # (A) 0.3 k/uL (1.0-4.8); Lymphocytes % (A) 4 %; MCH 29.7 pg (25.0-35.0); MCHC 32.8 g/dL (31.0-37.0); MCV 90.4 fL (80.0-100.0); Mean Platelet Volume 7.6; Monocytes # (A) 0.8 k/uL (0-1.0); Monocytes % (A) 11 %; Neutrophils # (A) 5.9 k/uL (1.3-7.7); Neutrophils % (A) 82 %; Platelet Count 352 k/uL (150-450); RBC 2.81 m/uL (3.80-5.40); RDW 19.6 % (11.5-15.5); WBC 7.2 k/uL (3.8-10.6)
[2020-06-16 10:09] LABS: Magnesium 1.5 mg/dL (1.6-2.3); Potassium 3.4 mmol/L (3.5-5.1)
[2020-06-16] MEDS: LEVOFLOXACIN 500MG-D5W PMX 500 MG in DEXTROSE/WATER 1 100ML.BAG IVPB SCH (12:24)
[2020-06-16 12:49] VITALS: BMI 28.7
[2020-06-16 14:08] LABS: Albumin 2.8 g/dL (3.5-5.0); Calcium 8.9 mg/dL (8.4-10.2); Potassium 3.4 mmol/L (3.5-5.1); Total Bilirubin 0.3 mg/dL (0.2-1.3); Total Protein 4.7 g/dL (6.3-8.2)
[2020-06-16] MEDS ORDERED: HEPARIN SODIUM 1,000 UN/ML (10ML VL) IV ONE (14:16)
[2020-06-16] MEDS: HEPARIN SOD,PORK IN 0.45% NACL 25,000 UNIT in 0.45% NACL 1 250ML.BAG IV SCH (14:44)
[2020-06-16] MEDS: SODIUM CHLORIDE 0.9% 1,000 ML IV SCH (14:47)
[2020-06-16] MEDS: MAGNESIUM SULFATE-D5W PMX 1 GM in DEXTROSE/WATER 1 100ML.BAG IVPB SCH ×2 (14:47→16:26)
--- NOTE | 2020-06-16 15:36 | PN ---
PROGRESS NOTE DATE OF SERVICE: 06/16/2020 This 75-year-old woman who was admitted with fever, possible sepsis also had diffuse B- cell lymphoma. The patient is receiving treatment from the oncologist. The patient is complaining of nausea, vomiting today. Chest CTA was done yesterday which demonstrated new bilateral pulmonary emboli. No CTA evidence of RV strain was noted. New abnormal right infrahilar lymph node was also noted. The patient has some nausea. The venous Doppler was done which showed no evidence of a DVT. The patient is on IV heparin by Hematology/Oncology. PAST MEDICAL HISTORY: Reviewed. REVIEW OF SYSTEMS: CARDIOVASCULAR SYSTEM: No angina. RESPIRATORY SYSTEM: As mentioned earlier. GI: As mentioned earlier. : No dysuria. NERVOUS SYSTEM: No numbness or weakness. CURRENT MEDICATIONS: Current medications are reviewed and include Tylenol, Zovirax, Zyloprim, aspirin, Tums, vitamin B12, Neurontin. Doses are reviewed. PHYSICAL EXAMINATION: Patient is alert and oriented x3. The pulse is 79, blood pressure 107/58, respiration 14, temperature 99.1, pulse ox 96% on room air. HEENT: Conjunctivae normal. NECK: No jugular venous distention. CARDIOVASCULAR: S1, S2 muffled. RESPIRATORY: Breath sounds diminished at the bases. A few scattered rhonchi. ABDOMEN: Soft. Mild diffuse discomfort, nontender. No guarding. No rigidity. No mass palpable. LEGS: No edema, no swelling. NERVOUS SYSTEM: No focal deficits. LABS: Hemoglobin 8.3, potassium 3.4, magnesium 1.5. ASSESSMENT: 1. Fever possible sepsis. 2. Acute bilateral pulmonary embolism. 3. Nausea, possible acute gastritis. 4. Hypokalemia. 5. Hypomagnesemia. 6. History of change in mental status, acute metabolic encephalopathy. 7. Diffuse B-cell lymphoma on chemotherapy. 8. Anemia, normocytic secondary to malignancy. 9. Hyponatremia. 10.Increased creatinine with acute renal failure. 11.Elevated lactic acid possibly secondary to sepsis. 12.Increased AST. 13.Increased LDH. 14.History of hypertension. 15.Hyperlipidemia. 16.History of degenerative joint disease. 17.FULL CODE. RECOMMENDATIONS AND DISCUSSION: Recommend to continue current medications, continue symptomatic treatment. We will recommend magnesium and potassium replacement. Repeat labs. Otherwise, continue the antibiotics, symptomatic treatment for the gastritis. Continue with IV heparin. Guarded prognosis because of multiple complex medical issues. Further recommendations to follow. Repeat labs will be ordered tomorrow. Closely follow with Hematology/Oncology. Prognosis guarded. MMODL / IJN: [id number] /
[2020-06-16 16:01] VITALS: RESP 16
[2020-06-16] MEDS ORDERED: IOPAMIDOL CONTRAST (ORAL USE) VIAL PO PRN (17:10)
--- NOTE | 2020-06-16 17:40 | P.PN ---
Subjective Progress Note Date: 06/16/20 Principal diagnosis: Fever She is still nauseated and emesis x2. Per this has been persistent intermittent over the past month. Her mental status and confusion and appetite has been decreased as well. With her recent progression noted on recent PET scan, this is likely the cause, however per increased abdominal distention, nausea, confusion more there prior. Objective - Vital Signs Vital signs: Vital Signs Temp 98.1 F 06/16/20 16:00 Pulse 88 06/16/20 16:00 Resp 16 06/16/20 16:00 BP 100/58 06/16/20 16:00 Pulse Ox 96 06/16/20 16:00 Intake & Output 06/15/20 06/16/20 06/16/20 18:59 06:59 18:59 Intake Total 2344 1450.421 199.579 Balance 2344 1450.421 199.579 Weight 71.214 kg 71.214 kg Intake: Intake, IV Titration 1024 950.421 199.579 Amount Heparin Sod,Pork in 0.45% 24 50.421 199.579 NaCl 25,000 unit In 0.45 % NaCl 1 250ml.bag @ 18 UNITS/KG/HR 12.819 mls/hr IV .[id number] [facility] Rx#: [id number] Levofloxacin 500Mg-D5w 100 Pmx 500 mg In Dextrose/ Water 1 100ml.bag @ 100 mls/hr IVPB Q24H [facility] Rx#: [id number] Sodium Chloride 0.9% 1, 900 900 000 ml @ 75 mls/hr IV . [id number] [facility] Rx#:[id number] Oral 1320 500 Other: Voiding Method Toilet Toilet Toilet # Voids 4 5 - Exam Assessment: - Constitutional General appearance: average body habitus, cooperative, no acute distress - EENT Eyes: anicteric sclerae, EOMI ENT: hearing grossly normal, normal oropharynx - Neck Neck: no lymphadenopathy - Respiratory Respiratory: bilateral: CTA - Cardiovascular Rhythm: regular Heart sounds: normal: S1, S2 leg Peripheral Edema: bilateral: None - Gastrointestinal General gastrointestinal: more distended and tender. - Integumentary Integumentary: normal - Neurologic Neurologic: CNII-XII intact - Musculoskeletal Musculoskeletal: strength equal bilaterally - Psychiatric Psychiatric: A&O x's 2, appropriate affect, intact judgment & insight - Labs CBC & Chem 7: 06/16/20 09:14 06/16/20 13:21 Labs: Abnormal Lab Results - Last 24 Hours (Table) 06/15/20 06/15/20 06/15/20 Range/Units 09:13 14:20 14:20 RBC (3.80-5.40) m/uL Hgb (11.4-16.0) gm/dL Hct (34.0-46.0) % RDW (11.5-15.5) % Lymphocytes # (1.0-4.8) k/uL Haptoglobin 373.0 H (31.2-198.0) mg/dL APTT (22.0-30.0) sec Sodium (137-145) mmol/L Potassium (3.5-5.1) mmol/L Carbon Dioxide (22-30) mmol/L BUN (7-17) mg/dL Creatinine (0.52-1.04) mg/dL Glucose (74-99) mg/dL Plasma Lactic Acid Moy (0.7-2.0) mmol/L Magnesium (1.6-2.3) mg/dL Iron 9 L (50-170) ug/dL TIBC 189 L (228-460) ug/dL % Saturation 4.76 L (12.00-45.00) Ferritin 1673.6 H (10.0-291.0) ng/mL AST (14-36) U/L Total Protein (6.3-8.2) g/dL Albumin (3.5-5.0) g/dL Vitamin B12 >4000.0 H (211-911) pg/mL IgG 192.0 L (700.0-1600.0) mg/dL 06/15/20 06/15/20 06/15/20 Range/Units 19:58 19:58 19:58 RBC (3.80-5.40) m/uL Hgb (11.4-16.0) gm/dL Hct (34.0-46.0) % RDW (11.5-15.5) % Lymphocytes # (1.0-4.8) k/uL Haptoglobin (31.2-198.0) mg/dL APTT 42.9 H (22.0-30.0) sec Sodium 133 L (137-145) mmol/L Potassium 3.3 L (3.5-5.1) mmol/L Carbon Dioxide (22-30) mmol/L BUN 20 H (7-17) mg/dL Creatinine 1.07 H (0.52-1.04) mg/dL Glucose 130 H (74-99) mg/dL Plasma Lactic Acid Moy 3.9 H* (0.7-2.0) mmol/L Magnesium (1.6-2.3) mg/dL Iron (50-170) ug/dL TIBC (228-460) ug/dL % Saturation (12.00-45.00) Ferritin (10.0-291.0) ng/mL AST 37 H (14-36) U/L Total Protein 4.8 L (6.3-8.2) g/dL Albumin 2.8 L (3.5-5.0) g/dL Vitamin B12 (211-911) pg/mL IgG (700.0-1600.0) mg/dL 06/16/20 06/16/20 06/16/20 Range/Units 01:37 09:14 09:14 RBC 2.81 L (3.80-5.40) m/uL Hgb 8.3 L (11.4-16.0) gm/dL Hct 25.4 L (34.0-46.0) % RDW 19.6 H (11.5-15.5) % Lymphocytes # 0.3 L (1.0-4.8) k/uL Haptoglobin (31.2-198.0) mg/dL APTT 56.9 H (22.0-30.0) sec Sodium (137-145) mmol/L Potassium 3.4 L (3.5-5.1) mmol/L Carbon Dioxide (22-30) mmol/L BUN (7-17) mg/dL Creatinine (0.52-1.04) mg/dL Glucose (74-99) mg/dL Plasma Lactic Acid Moy (0.7-2.0) mmol/L Magnesium 1.5 L (1.6-2.3) mg/dL Iron (50-170) ug/dL TIBC (228-460) ug/dL % Saturation (12.00-45.00) Ferritin (10.0-291.0) ng/mL AST (14-36) U/L Total Protein (6.3-8.2) g/dL Albumin (3.5-5.0) g/dL Vitamin B12 (211-911) pg/mL IgG (700.0-1600.0) mg/dL 06/16/20 06/16/20 Range/Units 13:21 13:21 RBC (3.80-5.40) m/uL Hgb (11.4-16.0) gm/dL Hct (34.0-46.0) % RDW (11.5-15.5) % Lymphocytes # (1.0-4.8) k/uL Haptoglobin (31.2-198.0) mg/dL APTT 35.7 H (22.0-30.0) sec Sodium 135 L (137-145) mmol/L Potassium 3.4 L (3.5-5.1) mmol/L Carbon Dioxide 21 L (22-30) mmol/L BUN 21 H (7-17) mg/dL Creatinine (0.52-1.04) mg/dL Glucose 151 H (74-99) mg/dL Plasma Lactic Acid Moy (0.7-2.0) mmol/L Magnesium (1.6-2.3) mg/dL Iron (50-170) ug/dL TIBC (228-460) ug/dL % Saturation (12.00-45.00) Ferritin (10.0-291.0) ng/mL AST (14-36) U/L Total Protein 4.7 L (6.3-8.2) g/dL Albumin 2.8 L (3.5-5.0) g/dL Vitamin B12 (211-911) pg/mL IgG (700.0-1600.0) mg/dL Microbiology - Last 24 Hours (Table) 06/14/20 18:44 Blood Culture - Preliminary Blood No Growth after 24 hours 06/14/20 18:43 Blood Culture - Preliminary Blood No Growth after 24 hours Assessment and Plan (1) Normocytic anemia Current Visit: Yes Status: Acute Code(s): D64.9 - ANEMIA, UNSPECIFIED SNOMED Code(s): 944603403 (2) Fever Current Visit: Yes Status: Acute Priority: Medium Code(s): R50.9 - FEVER, UNSPECIFIED SNOMED Code(s): 299505501 (3) DLBCL (diffuse large B cell lymphoma) Current Visit: Yes Status: Chronic Priority: High Code(s): C83.30 - DI FFUSE LARGE B-CELL LYMPHOMA, UNSPECIFIED SITE SNOMED Code(s): 819973276 Plan: Non-Hodgkins Lymphoma: Progressive Disease - Many lines of treatment with most recent progression May of 2020 - Possible transfer to Dr. Degroot at [facility] for next line Bilateral Pulmonary Emboli with associated Chest Pain: - Heparin drip intiially - BLE doppler negative - Will discontinue Heparin Drip today and convert to eliquis, will send to pharmacy to check coverage Fevers Full Gifford Cultures negative to date - Fevers improved - Likely from progression and Bilateral Pulmonary Emboli - Continue Levaquin and IV Hydration Abdominal Pain/Distention: - Likely secondary to progression of disease although with nausea, vomiting and increased distention will evaluate firther with CT abdomen and pelvis Dehydration: - Hypoalbuminemia - Dieticien asked to see patient regarding increasing protein MEntal Status CHanges/Weakness/Decreased PO intake worsening - MRI brain to re-evaluate HYpokalemia and HYpomagnesia: - Likely secondary to Diarrhea and decreased PO intake - Supp per protocol. Case discussed with primary oncologist Dr. Degroot Case discussed in detail with patient and and physical and agree with above dictation, dictated as a scribe
--- NOTE | 2020-06-16 19:53 | CT ---
EXAMINATION TYPE: CT abdomen pelvis w con DATE OF EXAM: 06/16/2020 COMPARISON: PET CT scan 08/16/2019 HISTORY: Abdominal pain, bloating and diarrhea. Lymphoma CT DLP: 951.2 mGycm Automated exposure control for dose reduction was used. CONTRAST: Performed with IV Contrast, patient injected with 100 mL of Isovue 370. There is small right pleural effusion. There is mild infiltrate and atelectasis at the right lung bas e. Heart is slightly enlarged. There is 1.5 cm cyst in the left lobe of the liver. The bile ducts are not dilated. Gallbladder appea rs normal. Spleen is intact. There is no pancreatic mass. The stomach is intact. There is small amoun t of fluid around the spleen and extending into the left paracolic gutter. There is no adrenal mass. Kidneys have normal size and contour. There is no hydronephrosis. Ureters a re not dilated. There is irregular fluid collection in the cul-de-sac. Bladder distends smoothly. The re is some mild abdominal ascites fluid in the lower abdomen. There is a large mixed density mass in the abdomen in the midline extending to the left side that danae sures 16 x 8 cm. The length is 15 cm. I do not see significant enlarged retroperitoneal lymph nodes. There is no evidence of a bowel obstruction. The oral contrast reaches the rectum. The lumbar spine is intact. There is no compression fracture. Bony pelvis is intact. Hip joints are i ntact. 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 This appe ars new compared to old CT scan of 08/16/2019. There is mild abdominal ascites new compared to old exa m. This is consistent with recurrent tumor. Mild right pleural effusion new compared to old exam.
[2020-06-16] MEDS: PANTOPRAZOLE 40 MG/10 ML VIAL IVP SCH (20:28)
[2020-06-16] MEDS: APIXABAN 5 MG TAB PO SCH (20:29)
--- NOTE | 2020-06-17 07:56 | P.PN ---
Subjective Progress Note Date: 06/17/20 Principal diagnosis: Fever Review of CT, no evidence of obstruction, however large mesenteric mass resulting from her recent found progrssion. She is feeling better this am, no na usea or vomiting, some diarrhea Objective - Vital Signs Vital signs: Vital Signs Temp 97.8 F 06/17/20 01:29 Pulse 88 06/17/20 01:29 Resp 16 06/17/20 01:29 BP 126/82 06/17/20 01:29 Pulse Ox 98 06/17/20 01:29 Intake & Output 06/16/20 06/17/20 06/17/20 18:59 06:59 18:59 Intake Total 349.579 Balance 349.579 Weight 71.214 kg Intake: Intake, IV Titration 349.579 Amount Heparin Sod,Pork in 0.45% 199.579 NaCl 25,000 unit In 0.45 % NaCl 1 250ml.bag @ 18 UNITS/KG/HR 12.819 mls/hr IV .[id number] [facility] Rx#: [id number] Levofloxacin 250Mg-D5w 50 Pmx 250 mg In Dextrose/ Water 1 50ml.bag @ 50 mls /hr IVPB Q24H [facility] Rx#: [id number] Magnesium Sulfate-D5w Pmx 100 1 gm In Dextrose/Water 1 100ml.bag @ 100 mls/hr IVPB Q1H [facility] Rx#: [id number] Other: Voiding Method Toilet Toilet # Voids 2 - Exam Assessment: - Constitutional General appearance: average body habitus, cooperative, no acute distress - EENT Eyes: anicteric sclerae, EOMI ENT: hearing grossly normal, normal oropharynx - Neck Neck: no lymphadenopathy - Respiratory Respiratory: bilateral: CTA - Cardiovascular Rhythm: regular Heart sounds: normal: S1, S2 leg Peripheral Edema: bilateral: None - Gastrointestinal General gastrointestinal: more distended and tender. - Integumentary Integumentary: normal - Neurologic Neurologic: CNII-XII intact - Musculoskeletal Musculoskeletal: strength equal bilaterally - Psychiatric Psychiatric: A&O x's 2, appropriate affect, intact judgment & insight - Labs CBC & Chem 7: 06/17/20 07:35 06/17/20 07:35 Labs: Abnormal Lab Results - Last 24 Hours (Table) 06/15/20 06/15/20 06/16/20 Range/Units 09:13 14:20 09:14 RBC 2.81 L (3.80-5.40) m/uL Hgb 8.3 L (11.4-16.0) gm/dL Hct 25.4 L (34.0-46.0) % RDW 19.6 H (11.5-15.5) % Lymphocytes # 0.3 L (1.0-4.8) k/uL Haptoglobin 373.0 H (31.2-198.0) mg/dL APTT (22.0-30.0) sec Sodium (137-145) mmol/L Potassium (3.5-5.1) mmol/L Carbon Dioxide (22-30) mmol/L BUN (7-17) mg/dL Glucose (74-99) mg/dL Magnesium (1.6-2.3) mg/dL Total Protein (6.3-8.2) g/dL Albumin (3.5-5.0) g/dL IgG 192.0 L (700.0-1600.0) mg/dL 06/16/20 06/16/20 06/16/20 Range/Units 09:14 13:21 13:21 RBC (3.80-5.40) m/uL Hgb (11.4-16.0) gm/dL Hct (34.0-46.0) % RDW (11.5-15.5) % Lymphocytes # (1.0-4.8) k/uL Haptoglobin (31.2-198.0) mg/dL APTT 35.7 H (22.0-30.0) sec Sodium 135 L (137-145) mmol/L Potassium 3.4 L 3.4 L (3.5-5.1) mmol/L Carbon Dioxide 21 L (22-30) mmol/L BUN 21 H (7-17) mg/dL Glucose 151 H (74-99) mg/dL Magnesium 1.5 L (1.6-2.3) mg/dL Total Protein 4.7 L (6.3-8.2) g/dL Albumin 2.8 L (3.5-5.0) g/dL IgG (700.0-1600.0) mg/dL Microbiology - Last 24 Hours (Table) 06/16/20 18:35 Stool Culture - Preliminary Stool 06/14/20 18:43 Blood Culture - Preliminary Blood No Growth after 48 hours 06/14/20 18:44 Blood Culture - Preliminary Blood No Growth after 48 hours Assessment and Plan (1) Normocytic anemia Current Visit: Yes Status: Acute Code(s): D64.9 - ANEMIA, UNSPECIFIED SNOMED Code(s): 276560782 (2) Fever Current Visit: Yes Status: Acute Priority: Medium Code(s): R50.9 - FEVER, UNSPECIFIED SNOMED Code(s): 048059060 (3) DLBCL (diffuse large B cell lymphoma) Current Visit: Yes Status: Chronic Priority: High Code(s): C83.30 - DIFFUSE LARGE B-CELL LYMPHOMA, UNSPECIFIED SITE SNOMED Code(s): 437990434 Plan: Non-Hodgkins Lymphoma: Progressive Disease - Many lines of treatment with most recent progression May of 2020 - Possible transfer to Dr. Degroot at [facility] for next line Bilateral Pulmonary Emboli with associated Chest Pain: - Heparin drip intiially - BLE doppler negative - Will discontinue Heparin Drip today and convert to eliquis, will send to pharmacy to check coverage Fevers Full Gifford Cultures negative to date - Fevers improved - Likely from progression and Bilateral Pulmonary Emboli - Continue Levaquin and IV Hydration Abdominal Pain/Distention: - Likely secondary to progression of disease although with nausea, vomiting and increased distention will evaluate firther with CT abdomen and pelvis Dehydration: - Hypoalbuminemia - Dieticien asked to see patient regarding increasing protein MEntal Status CHanges/Weakness/Decreased PO intake worsening - MRI brain completed awaiting read HYpokalemia and HYpomagnesia: - Likely secondary to Diarrhea and decreased PO intake - Supp per protocol. Case discussed with primary oncologist Dr. Degroot Case discussed in detail with patient and Case discussed with primary team and ok for discharge given her MRI of the brain does not show evidence of metastatic disease.
[2020-06-17] MEDS: PANTOPRAZOLE 40 MG/10 ML VIAL IVP SCH (08:10)
[2020-06-17] MEDS: ACYCLOVIR 800 MG TAB PO SCH (08:11)
[2020-06-17] MEDS: CHOLECALCIFEROL 25 MCG (1000 IU) TABLET PO SCH (08:11)
[2020-06-17] MEDS: CALCIUM CARBONATE 500 MG CHEWABLE PO SCH (08:11)
[2020-06-17] MEDS: APIXABAN 5 MG TAB PO SCH (08:11)
[2020-06-17] MEDS: GABAPENTIN 100 MG CAP PO SCH (08:11)
[2020-06-17] MEDS: LORATADINE 10 MG TAB PO SCH (08:11)
[2020-06-17] MEDS: ASPIRIN 81 MG PO SCH (08:11)
[2020-06-17] MEDS: allopurinoL 300 MG TAB PO SCH (08:12)
[2020-06-17] MEDS: NON FORMULARY DRUG (Glucosam/Chon-Msm1/C/Mang/Bosw [Glucosamine-Chondroitin Tablet] 1 EACH PO SCH (08:12)
[2020-06-17] MEDS: cycloSPORINE 0.05% OPHTH 0.4 ML DROPERETTE BOTH EYES SCH (08:12)
[2020-06-17] MEDS: DOCUSATE 100 MG CAP PO SCH (08:13)
[2020-06-17] MEDS: SODIUM CHLORIDE 0.9% 1,000 ML IV SCH (08:17)
[2020-06-17 08:54] LABS: Anisocytosis Slight; Basophils % (A) 1 %; Eosinophils # (A) 0.1 k/uL (0-0.7); Eosinophils % (A) 2 %; HCT 26.4 % (34.0-46.0); HGB 8.3 gm/dL (11.4-16.0); Hypochromasia Slight; Lymphocytes # (A) 0.2 k/uL (1.0-4.8); Lymphocytes % (A) 4 %; MCH 28.7 pg (25.0-35.0); MCHC 31.3 g/dL (31.0-37.0); MCV 91.8 fL (80.0-100.0); Mean Platelet Volume 7.5; Monocytes # (A) 0.7 k/uL (0-1.0); Monocytes % (A) 13 %; Neutrophils # (A) 4.4 k/uL (1.3-7.7); Neutrophils % (A) 79 %; Platelet Count 449 k/uL (150-450); RBC 2.87 m/uL (3.80-5.40); RDW 19.7 % (11.5-15.5); WBC 5.7 k/uL (3.8-10.6)
[2020-06-17 08:59] LABS: Albumin 2.5 g/dL (3.5-5.0); Calcium 8.4 mg/dL (8.4-10.2); Magnesium 1.9 mg/dL (1.6-2.3); Potassium 3.8 mmol/L (3.5-5.1); Total Bilirubin 0.3 mg/dL (0.2-1.3); Total Protein 4.5 g/dL (6.3-8.2)
[2020-06-17 09:01] VITALS: BP 133/61; PULSE 85; TEMP 98.2
--- NOTE | 2020-06-17 12:34 | MR ---
EXAMINATION TYPE: MR brain wo/w con DATE OF EXAM: 06/17/2020 11:17 AM COMPARISON: NONE HISTORY: Abdominal pain, diarrhea, distended, mental status change, weakness CONTRAST: Patient received 7 mL intravenous Gadavist gadolinium contrast. Multiplanar and multispin-echo imaging of the brain was performed . Pre and post contrast enhanced i mages are obtained. The ventricles, basal cisterns and sulci overlying the cerebral convexities are mildly enlarged. There is evidence of moderate confluence periventricular white matter ischemic demyelination. Remote deep white matter insults are also noted. Small focus of increased signal on diffusion-weighted imaging involving the left cerebellar hemispher e which may reflect recent vascular insult. Additional small area in the region of the left external capsule. There is no evidence for midline shift or mass effect. Acute intracranial hemorrhage or extra-axial collection is not evident. No enhancing lesions are seen. The paranasal sinuses and mastoid air cells are well-aerated. IMPRESSION: 1. 2 small foci of increased signal as noted above one within the left cerebellar hemisphere and the second within the left external capsule which may reflect recent vascular insults. 2. No evidence for intracranial hemorrhage. 3. Moderate confluent white matter changes.
[2020-06-17] MEDS ORDERED: LEVOFLOXACIN 250MG-D5W PMX 250 MG in DEXTROSE/WATER 1 50ML.BAG IVPB SCH (13:00)
--- NOTE | 2020-06-17 18:36 | P.DS ---
Providers Date of admission: 06/15/20 11:16 Attending physician: Kike Spangler Consults: 06/15/20 12:26 Consult Physician Routine Consulting Provider: Pricilla Jay Consult Reason/Comments: medical Mangement Do you want consulting provider notified?: Yes Primary care physician: Corinne Quintero Hospital Course: Patient was admitted for nausea vomiting secondary to gastritis or peptic is a disease patient the symptoms improved patient is able to tolerate diet at this time will be discharged today patient has B-cell lymphoma. Patient follows up with the [facility] for that patient had a CT of the head which did not show any metastatic disease but did show some increased signal intensity in the extracapsular area which is not significant on the MRI which is an incidental finding patient had a CTA which showed bilateral pulmonary emboli for which patient is being discharged on Eliquis patient does have history of PE but these the JANE embolic lesion appears to be bit worse. Patient had low-grade fevers as well which is secondary to lymphoma itself. There is no evidence of infection or sepsis at this time. Patient was on levofloxacin here. Patient is being discharged on acyclovir. Patient the is supposed to be on Bactrim unfortunately we cannot give her Bactrim prophylaxis because of acute renal failure on admission and hyponatremia on admission. PHYSICAL EXAMINATION: GENERAL: The patient is alert and oriented x3, not in any acute distress. Well developed, well nourished. HEENT: Pupils are round and equally reacting to light. EOMI. No scleral icterus. No conjunctival pallor. Normocephalic, atraumatic. No pharyngeal erythema. No thyromegaly. CARDIOVASCULAR: S1 and S2 present. No murmurs, rubs, or gallops. PULMONARY: Chest is clear to auscultation, no wheezing or crackles. ABDOMEN: Soft, nontender, nondistended, normoactive bowel sounds. No palpable organomegaly. MUSCULOSKELETAL: No joint swelling or deformity. EXTREMITIES: No cyanosis, clubbing, or pedal edema. NEUROLOGICAL: Gross neurological examination did not reveal any focal deficits. SKIN: No rashes. -Fever secondary to B cell lymphoma no evidence of infection -acute bilateral pulmonary emboli -gastritis -hyponatremia and hypokalemia secondary to Bactrim -Acute renal failure improved at this time seconded to Bactrim again -Anemia of chronic disease For rest of the medical problems and has physician course please refer to progress note from Dr. Ac for further details Patient Condition at Discharge: Serious Plan - Discharge Summary Discharge Rx Participant: No New Discharge Prescriptions: New Acetaminophen Tab [Tylenol] 650 mg PO Q6HR PRN tab PRN Reason: Mild Pain Or Fever > 100.5 Apixaban [Eliquis Starter Pack (for VTE)] 0 mg PO DIRECTED 30 Days #1 pack Continue Glucosam/Ambrosio-Msm1/C/Tiburcio/Bosw [Glucosamine-Chondroitin Tablet] 1 tab PO DAILY Cholecalciferol [Vitamin D3 (25 Mcg = 1000 Iu)] 1,000 unit PO DAILY Cyanocobalamin (Vitamin B-12) [Vitamin B-12] 1,000 mcg PO DAILY cycloSPORINE 0.05% OPHTH SOLN [Restasis] 1 drop BOTH EYES BID Acetaminophen Tab [Tylenol] 500 mg PO Q6HR PRN PRN Reason: Pain Loratadine [Claritin] 10 mg PO DAILY Gabapentin [Neurontin] 200 mg PO QID Lidocaine 5% Patch [Lidoderm 5% Patch] 1 patch TOPICAL DAILY PRN PRN Reason: Pain Pantoprazole [Protonix] 40 mg PO DAILY Blink Eye Drops 2 drops BOTH EYES DAILY PRN PRN Reason: Dry Eye(S) Prochlorperazine [Compazine] 10 mg PO Q6H PRN PRN Reason: Nausea Ondansetron Odt [Zofran ODT] 8 mg PO Q8HR PRN PRN Reason: Nausea Calcium Carbonate [Calcium] 600 mg PO DAILY Acyclovir 800 mg PO BID #60 tab Docusate [Colace] 100 mg PO DAILY Aspirin EC [Ecotrin Low Dose] 81 mg PO DAILY allopurinoL [Zyloprim] 300 mg PO DAILY Discontinued Sulfamethox-Tmp 800-160Mg [Bactrim DS 800-160 mg] 1 tab PO MOWEFR Discharge Medication List Cholecalciferol [Vitamin D3 (25 Mcg = 1000 Iu)] 1,000 unit PO DAILY 09/04/17 [History] Glucosam/Ambrosio-Msm1/C/Tiburcio/Bosw [Glucosamine-Chondroitin Tablet] 1 tab PO DAILY 09/04/17 [History] Cyanocobalamin (Vitamin B-12) [Vitamin B-12] 1,000 mcg PO DAILY 02/05/19 [History] cycloSPORINE 0.05% OPHTH SOLN [Restasis] 1 drop BOTH EYES BID 02/20/19 [History] Acetaminophen Tab [Tylenol] 500 mg PO Q6HR PRN 05/15/19 [History] Loratadine [Claritin] 10 mg PO DAILY 05/15/19 [History] Gabapentin [Neurontin] 200 mg PO QID 06/04/19 [History] Lidocaine 5% Patch [Lidoderm 5% Patch] 1 patch TOPICAL DAILY PRN 06/04/19 [History] Blink Eye Drops 2 drops BOTH EYES DAILY PRN 08/08/19 [History] Pantoprazole [Protonix] 40 mg PO DAILY 08/08/19 [History] Aspirin EC [Ecotrin Low Dose] 81 mg PO DAILY 06/14/20 [History] Calcium Carbonate [Calcium] 600 mg PO DAILY 06/14/20 [History] Docusate [Colace] 100 mg PO DAILY 06/14/20 [History] Ondansetron Odt [Zofran ODT] 8 mg PO Q8HR PRN 06/14/20 [History] Prochlorperazine [Compazine] 10 mg PO Q6H PRN 06/14/20 [History] allopurinoL [Zyloprim] 300 mg PO DAILY 06/14/20 [History] Acetaminophen Tab [Tylenol] 650 mg PO Q6HR PRN tab 06/16/20 [Rx] Acyclovir 800 mg PO BID #60 tab 06/16/20 [Rx] Apixaban [Eliquis Starter Pack (for VTE)] 0 mg PO DIRECTED 30 Days #1 pack 06/17/20 [Rx] Follow up Appointment(s)/Referral(s): Corinne Quintero MD [Primary Care Provider] - 3 Days Patient Instructions/Handouts: Apixaban (By mouth) Activity/Diet/Wound Care/Special Instructions: activity and diet as directed by oncology Discharge Disposition: HOME SELF-CARE
== END 2020-06-17 14:30 | disposition home or self-care (01) | DRG 175 ==
LOC: EC 17:56 → 5NMEDONC 20:30 → 1SOBS 06-15 07:45 → OBSVTOIN 06-15 11:16
PROVIDERS: ADMIT Internal Medicine Hematology & Oncology; ATTEND Internal Medicine Hematology & Oncology
DX: I26.99 Other pulmonary embolism without acute cor pulmonale (principal); G93.41 Metabolic encephalopathy; N17.9 Acute kidney failure, unspecified; C83.33 Diffuse large B-cell lymphoma, intra-abdominal lymph nodes; I38 Endocarditis, valve unspecified; B02.29 Other postherpetic nervous system involvement; E87.1 Hypo-osmolality and hyponatremia; E88.09 Other disorders of plasma-protein metabolism, not elsewhere classified; Z20.822 Contact with and (suspected) exposure to COVID-19; E86.0 Dehydration; D63.0 Anemia in neoplastic disease; E78.5 Hyperlipidemia, unspecified; I10 Essential (primary) hypertension; M19.90 Unspecified osteoarthritis, unspecified site; E83.42 Hypomagnesemia; E87.6 Hypokalemia; K29.70 Gastritis, unspecified, without bleeding; G31.84 Mild cognitive impairment of uncertain or unknown etiology; K64.9 Unspecified hemorrhoids; Z86.19 Personal history of other infectious and parasitic diseases; Z79.82 Long term (current) use of aspirin; Z79.899 Other long term (current) drug therapy; Z85.828 Personal history of other malignant neoplasm of skin; Z98.51 Tubal ligation status; Z96.652 Presence of left artificial knee joint; Z87.39 Personal history of other diseases of the musculoskeletal system and connective tissue; Z86.711 Personal history of pulmonary embolism; Z98.42 Cataract extraction status, left eye; Z98.41 Cataract extraction status, right eye; Z96.1 Presence of intraocular lens; Z98.890 Other specified postprocedural states; Z80.0 Family history of malignant neoplasm of digestive organs; Z83.3 Family history of diabetes mellitus; Z82.49 Family history of ischemic heart disease and other diseases of the circulatory system
CPT/HCPCS: 36415; 70553; 71045; 71275; 74177; 80053; 81001; 82607; 82728; 82746; 82784; 83010; 83540; 83550; 83605; 83615; 83630; 83735; 84132; 84550; 85025; 85610; 85730; 86140; 87040; 87045; 87046; 87324; 87635; 93005; 93970; 96361; 96374; 99285

== ENCOUNTER 2020-07-05 19:39 | Inpatient (IN) | payer MEDICARE ==
[2020-07-05] MEDS: SODIUM CHLORIDE 0.9% 500 ML 500 ML IV SCH ×2 (20:31→20:32)
--- NOTE | 2020-07-05 20:38 | ED ---
Recheck HPI - General Chief Complaint: Recheck/Abnormal Lab/Rx Stated Complaint: Chemo Pt, Fever Time Seen by Provider: 07/05/20 19:45 Source: patient Mode of arrival: ambulatory Limitations: no limitations - History of Present Illness Initial Comments: Yonny is a 75yo F with a history of diffuse large B-cell lymphoma which has failed treatment with multiple chemotherapies in the past, she is currently on chemotherapy with Gemzar, Eloxatin, Rituxan Hycela and Patient is currently on antibiotics for cellulitis of the right forearm which patient and both report is improving significantly. Patient chemotherapy on Monday and then another infusion today. Patient did wake with a fever this morning but took 1 g of Tylenol prior to her infusion and received her infusion. However she again has fever this evening. Patient denies any acute complaints reports she is feeling fatigued but this is typical during her chemotherapy. - Related Data Home Medications Medication Instructions Recorded Confirmed Cholecalciferol [Vitamin D3 (25 1,000 unit PO DAILY 09/04/17 06/14/20 Mcg = 1000 Iu)] Glucosam/Ambrosio-Msm1/C/Tiburcio/Bosw 1 tab PO DAILY 09/04/17 06/14/20 [Glucosamine-Chondroitin Tablet] Cyanocobalamin (Vitamin B-12) 1,000 mcg PO DAILY 02/05/19 06/14/20 [Vitamin B-12] cycloSPORINE 0.05% OPHTH SOLN 1 drop BOTH EYES BID 02/20/19 06/14/20 [Restasis] Acetaminophen Tab [Tylenol] 500 mg PO Q6HR PRN 05/15/19 06/14/20 Loratadine [Claritin] 10 mg PO DAILY 05/15/19 06/14/20 Gabapentin [Neurontin] 200 mg PO QID 06/04/19 06/14/20 Lidocaine 5% Patch [Lidoderm 5% 1 patch TOPICAL DAILY PRN 06/04/19 06/14/20 Patch] Blink Eye Drops 2 drops BOTH EYES DAILY PRN 08/08/19 06/14/20 Pantoprazole [Protonix] 40 mg PO DAILY 08/08/19 06/14/20 Aspirin EC [Ecotrin Low Dose] 81 mg PO DAILY 06/14/20 06/14/20 Calcium Carbonate [Calcium] 600 mg PO DAILY 06/14/20 06/14/20 Docusate [Colace] 100 mg PO DAILY 06/14/20 06/14/20 Ondansetron Odt [Zofran ODT] 8 mg PO Q8HR PRN 06/14/20 06/14/20 Prochlorperazine [Compazine] 10 mg PO Q6H PRN 06/14/20 06/14/20 allopurinoL [Zyloprim] 300 mg PO DAILY 06/14/20 06/14/20 Previous Rx's Medication Instructions Recorded Acetaminophen Tab [Tylenol] 650 mg PO Q6HR PRN tab 06/16/20 Acyclovir 800 mg PO BID #60 tab 06/16/20 Apixaban [Eliquis Starter Pack 0 mg PO DIRECTED 30 Days #1 pack 06/17/20 (for VTE)] Allergies Allergy/AdvReac Type Severity Reaction Status Date / Time No Known Allergies Allergy Verified 07/05/20 19:44 Review of Systems ROS Statement: Those systems with pertinent positive or pertinent negative responses have been documented in the HPI. ROS Other: All systems not noted in ROS Statement are negative. Past Medical History Past Medical History: Cancer, Hyperlipidemia, Hypertension, Osteoarthritis (OA) Additional Past Medical History / Comment(s): DLBCL with extensive involvement especially in diaphragm diagnosed 01/2019 with chemo, cologard positive for malignant DNA which led to colonoscopy-descending colon mass found/mesenteric masses, thrush after last chemo tx, confusion/cognitive problems recently but pt close to baseline at this time, shingelles healed but still has nerve pain back/ breast, anemia, leaky heart valve, skin cancer with removal, hemorrhoids. History of Any Multi-Drug Resistant Organisms: None Reported Past Surgical History: Breast Surgery, Joint Replacement, Orthopedic Surgery, Tubal Ligation Additional Past Surgical History / Comment(s): L arm Picc line, colonoscopies/benign polypectomies, skin cancer removed from R arm, total L knee arthroplasty, R foot bunionectomy/mortons neuroma removed/heel spur sx and R foot fx with screw, R breast benign bx, bilateral cataract removals/lens im plants. Past Anesthesia/Blood Transfusion Reactions: Previous Problems w/ Anesthesia, Family History of Problems w/ Anesthesia Additional Past Anesthesia/Blood Transfusion Reaction / Comment(s): Had reaction to anesthesia that effected breathing after tubal ligation-not sure exactly what happened-was in ICU after. Sisters had reaction to anesthesia medication-not sure what Past Psychological History: No Psychological Hx Reported Smoking Status: Never smoker Past Alcohol Use History: Occasional Past Drug Use History: None Reported - Past Family History Sister(s) Family Medical History: Cancer Additional Family Medical History / Comment(s): Colon CA. Pt has several siblings (16) and only 3 out of the 16 do not have diabetes. Mother Family Medical History: No Reported History Additional Family Medical History / Comment(s): Mother was healthy Father Family Medical History: Coronary Artery Disease (CAD), Diabetes Mellitus, Myocardial Infarction ([place]) General Exam - General Exam Comments Initial Comments: Physical Exam GENERAL: Patient is well-developed and well-nourished. Patient is nontoxic and well-hydrated and is in no distress. HENT: Normocephalic, Atraumatic. EYES: PERRL, EOMI PULMONARY: Unlabored respirations. No audible rales rhonchi or wheezing was noted. CARDIOVASCULAR: Tachycardia ABDOMEN: Distended, non-tender SKIN: Cellulitis to left forearm, firm, non-fluctuant : Deferred NEUROLOGIC: Patient is alert and oriented x3. Moving all extremities spontaneously MUSCULOSKELETAL: Normal extremities with adequate strength and full range of motion. No lower extremity swelling or edema. No calf tenderness. PSYCHIATRIC: Normal psychiatric evaluation. Limitations: no limitations Course Vital Signs 07/05/20 07/05/20 19:40 20:55 Temperature 98.2 F 97.9 F Pulse Rate 106 H 85 Respiratory 18 16 Rate Blood Pressure 130/60 128/59 O2 Sat by Pulse 96 96 Oximetry Medical Decision Making - Medical Decision Making Patient was seen and evaluated, history is obtained from the patient and at bedside who has printed medical records as well as [place] [facility] patient's digital medical records from [facility] and our hospital Septic workup was initiated given that the patient's a chemotherapy patient with a fever and no cellulitis Patient has profound leukocytosis uncertain if this is secondary to infection or infusion therapy, patient's white count was normal on Monday Care was discussed with Dr. Wilburn who accepts patient admission to their service for fever and infection in a chemotherapy patient - Lab Data Result diagrams: 07/05/20 20:20 07/05/20 20:20 Lab Results 05/16/21 05/16/21 05/16/21 Range/Units 20:20 20:20 20:20 WBC 25.3 H (3.8-10.6) k/uL RBC 2.38 L (3.80-5.40) m/uL Hgb 7.6 L (11.4-16.0) gm/dL Hct 22.4 L (34.0-46.0) % MCV 94.3 (80.0-100.0) fL MCH 31.9 (25.0-35.0) pg MCHC 33.8 (31.0-37.0) g/dL RDW 22.8 H (11.5-15.5) % Plt Count 235 (150-450) k/uL MPV 8.3 Neutrophils % 98 % Lymphocytes % 1 % Monocytes % 1 % Eosinophils % 0 % Basophils % 0 % Neutrophils # 24.8 H (1.3-7.7) k/uL Lymphocytes # 0.3 L (1.0-4.8) k/uL Monocytes # 0.2 (0-1.0) k/uL Eosinophils # 0.1 (0-0.7) k/uL Basophils # 0.0 (0-0.2) k/uL Anisocytosis Moderate Macrocytosis Slight PT 14.7 H (9.0-12.0) sec INR 1.5 H (<1.2) APTT 22.7 (22.0-30.0) sec Sodium (137-145) mmol/L Potassium (3.5-5.1) mmol/L Chloride (98-107) mmol/L Carbon Dioxide (22-30) mmol/L Anion Gap mmol/L BUN (7-17) mg/dL Creatinine (0.52-1.04) mg/dL Est GFR (CKD-EPI)AfAm (>60 ml/min/1.73 sqM) Est GFR (CKD-EPI)NonAf (>60 ml/min/1.73 sqM) Glucose (74-99) mg/dL Plasma Lactic Acid Moy (0.7-2.0) mmol/L Calcium (8.4-10.2) mg/dL Total Bilirubin (0.2-1.3) mg/dL AST (14-36) U/L ALT (4-34) U/L Alkaline Phosphatase (38-126) U/L Total Protein (6.3-8.2) g/dL Albumin (3.5-5.0) g/dL Urine Color Light Yellow Urine Appearance Clear (Clear) Urine pH 6.0 (5.0-8.0) Ur Specific [place] 1.007 (1.001-1.035) Urine Protein Negative (Negative) Urine Glucose (UA) Negative (Negative) Urine Ketones Negative (Negative) Urine Blood Negative (Negative) Urine Nitrite Negative (Negative) Urine Bilirubin Negative (Negative) Urine Urobilinogen <2.0 (<2.0) mg/dL Ur Leukocyte Esterase Negative (Negative) Coronavirus (PCR) (Not Detectd) 07/05/20 07/05/20 07/05/20 Range/Units 20:20 20:20 20:20 WBC (3.8-10.6) k/uL RBC (3.80-5.40) m/uL Hgb (11.4-16.0) gm/dL Hct (34.0-46.0) % MCV (80.0-100.0) fL MCH (25.0-35.0) pg MCHC (31.0-37.0) g/dL RDW (11.5-15.5) % Plt Count (150-450) k/uL MPV Neutrophils % % Lymphocytes % % Monocytes % % Eosinophils % % Basophils % % Neutrophils # (1.3-7.7) k/uL Lymphocytes # (1.0-4.8) k/uL Monocytes # (0-1.0) k/uL Eosinophils # (0-0.7) k/uL Basophils # (0-0.2) k/uL Anisocytosis Macrocytosis PT (9.0-12.0) sec INR (<1.2) APTT (22.0-30.0) sec Sodium 133 L (137-145) mmol/L Potassium 3.1 L (3.5-5.1) mmol/L Chloride 102 (98-107) mmol/L Carbon Dioxide 22 (22-30) mmol/L Anion Gap 9 mmol/L BUN 27 H (7-17) mg/dL Creatinine 0.92 (0.52-1.04) mg/dL Est GFR (CKD-EPI)AfAm 71 (>60 ml/min/1.73 sqM) Est GFR (CKD-EPI)NonAf 61 (>60 ml/min/1.73 sqM) Glucose 190 H (74-99) mg/dL Plasma Lactic Acid Moy 3.7 H* (0.7-2.0) mmol/L Calcium 9.5 (8.4-10.2) mg/dL Total Bilirubin 0.4 (0.2-1.3) mg/dL AST 72 H (14-36) U/L ALT 28 (4-34) U/L Alkaline Phosphatase 77 (38-126) U/L Total Protein 5.1 L (6.3-8.2) g/dL Albumin 3.1 L (3.5-5.0) g/dL Urine Color Urine Appearance (Clear) Urine pH (5.0-8.0) Ur Specific [place] (1.001-1.035) Urine Protein (Negative) Urine Glucose (UA) (Negative) Urine Ketones (Negative) Urine Blood (Negative) Urine Nitrite (Negative) Urine Bilirubin (Negative) Urine Urobilinogen (<2.0) mg/dL Ur Leukocyte Esterase (Negative) Coronavirus (PCR) Not Detected (Not Detectd) Disposition Clinical Impression: Cellulitis, Leukocytosis, Chemotherapy adverse reaction, DLBCL (diffuse large B cell lymphoma), Fever Disposition: ADMITTED IP TO THIS HOSP Condition: Stable Is patient prescribed a controlled substance at d/c from ED?: No Referrals: Corinne Quintero MD [Primary Care Provider] - 1-2 days
[2020-07-05 20:40] LABS: Anisocytosis Moderate; Basophils % (A) 0 %; Eosinophils # (A) 0.1 k/uL (0-0.7); Eosinophils % (A) 0 %; HCT 22.4 % (34.0-46.0); HGB 7.6 gm/dL (11.4-16.0); Lymphocytes # (A) 0.3 k/uL (1.0-4.8); Lymphocytes % (A) 1 %; MCH 31.9 pg (25.0-35.0); MCHC 33.8 g/dL (31.0-37.0); MCV 94.3 fL (80.0-100.0); Macrocytosis Slight; Mean Platelet Volume 8.3; Monocytes # (A) 0.2 k/uL (0-1.0); Monocytes % (A) 1 %; Neutrophils # (A) 24.8 k/uL (1.3-7.7); Neutrophils % (A) 98 %; Platelet Count 235 k/uL (150-450); RBC 2.38 m/uL (3.80-5.40); RDW 22.8 % (11.5-15.5); WBC 25.3 k/uL (3.8-10.6)
[2020-07-05 20:44] LABS: Albumin 3.1 g/dL (3.5-5.0); Calcium 9.5 mg/dL (8.4-10.2); Potassium 3.1 mmol/L (3.5-5.1); Total Bilirubin 0.4 mg/dL (0.2-1.3); Total Protein 5.1 g/dL (6.3-8.2)
[2020-07-05 20:46] LABS: INR 1.5 (<1.2); Partial Thromboplastin Time 22.7 sec (22.0-30.0); Prothrombin Time 14.7 sec (9.0-12.0)
[2020-07-05 21:42] LABS: Appearance,Urine Clear (Clear); Bilirubin,Urine Negative (Negative); Blood,Urine Negative (Negative); Color,Urine Light Yellow; Glucose,Urine (UA) Negative (Negative); Ketones,Urine Negative (Negative); Leukocyte Esterase,Urine Negative (Negative); Nitrite,Urine Negative (Negative); Protein,Urine Negative (Negative); Specific Gravity,Urine 1.007 (1.001-1.035); Urobilinogen,Urine <2.0 mg/dL (<2.0)
[2020-07-05] MEDS ORDERED: IBUPROFEN 400 MG TAB PO PRN (22:36)
[2020-07-05] MEDS ORDERED: NALOXONE 0.4 MG/ML 1 ML VIAL IV PRN (22:36)
[2020-07-05] MEDS ORDERED: ACETAMINOPHEN TAB 325 MG TAB PO PRN (22:36)
[2020-07-05] MEDS ORDERED: VANCOMYCIN IV PER PHARMACY 1 EACH MISC MISCELLANE PRN (22:43)
[2020-07-05] MEDS ORDERED: PIPERACILLIN-TAZOBACTAM 3.375 GM in SODIUM CHLORIDE 0.9% 100 ML IVPB ONE (23:00)
[2020-07-06] MEDS ORDERED: VANCOMYCIN 1,250 MG in SODIUM CHLORIDE 0.9% 250 ML IVPB ONE ×2
[2020-07-06] MEDS: PIPERACILLIN-TAZOBACTAM 3.375 GM in SODIUM CHLORIDE 0.9% 100 ML IVPB SCH ×4 (00:47→22:20)
[2020-07-06] MEDS ORDERED: ONDANSETRON 4 MG/2 ML VIAL IVP STA (07:14)
[2020-07-06] MEDS ORDERED: LIDOCAINE 5% PATCH TOPICAL PRN (10:20)
[2020-07-06] MEDS: PANTOPRAZOLE 40 MG TABLET PO SCH (11:06)
[2020-07-06] MEDS: allopurinoL 300 MG TAB PO SCH (11:06)
[2020-07-06] MEDS: CHOLECALCIFEROL 25 MCG (1000 IU) TABLET PO SCH (11:06)
[2020-07-06] MEDS: CALCIUM CARBONATE 500 MG CHEWABLE PO SCH (11:06)
[2020-07-06] MEDS: APIXABAN 5 MG TAB PO SCH ×2 (11:06→21:03)
[2020-07-06] MEDS: ASPIRIN 81 MG PO SCH (11:06)
[2020-07-06] MEDS: GABAPENTIN 100 MG CAP PO SCH ×4 (11:09→21:02)
[2020-07-06] MEDS: ACYCLOVIR 800 MG TAB PO SCH ×2 (11:09→21:01)
[2020-07-06] MEDS: ONDANSETRON 4 MG/2 ML VIAL IVP PRN ×2 (11:22→18:26)
[2020-07-06] MEDS ORDERED: POTASSIUM CHLORIDE ER 20 MEQ TAB.ER PO STA (13:40)
--- NOTE | 2020-07-06 13:49 | P.HPIM ---
History of Present Illness H&P Date: 07/06/20 Chief Complaint: Fever History of presenting complaint: This is a very pleasant 75-year-old patient who follows with Dr. Bonnie Quintero. Oncologist is Dr. Nguyen , [facility]. Has a diagnosis of diffuse large B cell lymphoma. Patient has received cycles of R-CHOP. Patient subsequently had progression of the disease. No getting further chemotherapy. Last chemotherapy finished 3 days ago on Monday. Following day patient started awake having fevers vomiting slight cough. Denied any shortness of breath slight cough. No urinary symptoms. Denies diarrhea. Review of systems: GEN.: Tired, fever EYES: None HEENT: None NECK: None RESPIRATORY: None CARDIOVASCULAR: None GASTROINTESTINAL: Vomiting GENITOURINARY: None MUSCULOSKELETAL: Joint pains LYMPHATICS: None HEMATOLOGICAL: None PSYCHIATRY: None NEUROLOGICAL: None Past medical history to include: Osteoarthritis, varicose veins, skin cancer, diffuse large B-cell lymphoma on chemotherapy, pancytopenia Social history: History of smoking. Alcohol occasionally. . Physical examination: VITAL SIGNS: 99.8, 94, 18, 117/51, 97% room air GENERAL: BMI 27.4, reclining in bed, tired. EYES: Pupils equal. Conjunctiva normal. HEENT: External appearance of nose and ears normal, oral cavity grossly normal. No scalp hair NECK: JVD not raised; masses not palpable. HEART: First and second heart sounds are normal; no edema. LUNGS: Respiratory rate normal; clear to auscultation. ABDOMEN: Soft, nontender, liver spleen not palpable, no masses palpable. PSYCH: Alert and oriented x3; mood and affect normal. NEUROLOGICAL: Cranial nerves grossly intact; no facial asymmetry, power and sensation grossly intact MUSCULOSKELETAL: Evidence of OA especially in the hands. LYMPHATICS: No lymph nodes palpable in the axilla and neck INVESTIGATIONS, reviewed in the clinical context: WBC 25.3 hemoglobin 7.6 platelets 235 potassium 3.1 creatinine 0.9 to lactic acid 3.7 albumin 3.1 UA negative Coronavirus [PCR]-not detected EKG tracing personally reviewed by me-normal sinus rhythm, poor R-wave progression Assessment and plan: -This is a patient had chemotherapy 2 days ago presents with fever vomiting. She states she discussed this anytime she gets her chemotherapy. Denies any obvious urinary or respiratory symptoms. Positive lactic acid. Possible sepsis Empirically put on IV vancomycin and IV Zosyn. Blood cultures pending. IV fluids -Diffuse large B cell lymphoma-status post R-CHOP Patient be followed by Dr. Nguyen from [facility] -Normocytic anemia secondary to underlying lymphoma Follow H&H -Primary osteoarthritis Use pain medications as needed -Mild Hyponatremia Increase oral intake -Mild hypokalemia, from vomiting Replace potassium Care was discussed with the patient. IV antibiotics. IV fluids. Chest x-ray. Past Medical History Past Medical History: Cancer, Hyperlipidemia, Hypertension, Osteoarthritis (OA), Pulmonary Embolus (PE) Additional Past Medical History / Comment(s): Pt recently admitted to [facility] on 06/15/20 with fever 2ndary to B cell lymphoma/bilateral PEs, gastritis, hyponatremia, hypokalmia, hypoalbuminemia. Other hx: DLBCL with extensive involvement especially in diaphragm diagnosed 01/2019 with chemo, cologard positive for malignant DNA which led to colonoscopy-descending colon mass found/mesenteric masses/biopsied and diagnosed with DLBC, thrush after chemo tx, intermittent confusion/cognitive problems recently but pt at baseline at this time, shingelles healed but still has nerve pain back/breast, anemia, leaky heart valve, skin cancer with removal, hemorrhoids. History of Any Multi-Drug Resistant Organisms: None Reported Past Surgical History: Breast Surgery, Joint Replacement, Orthopedic Surgery, Tubal Ligation Additional Past Surgical History / Comment(s): L arm Picc line, colonoscopies/benign polypectomies, skin cancer removed from R arm, total L knee arthroplasty, R foot bunionectomy/mortons neuroma removed/heel spur sx and R foot fx with screw, R breast benign bx, bilateral cataract removals/lens implants. Past Anesthesia/Blood Transfusion Reactions: Previous Problems w/ Anesthesia, Family History of Problems w/ Anesthesia Additional Past Anesthesia/Blood Transfusion Reaction / Comment(s): Had reaction to anesthesia that effected breathing after tubal ligation-not sure exactly wha t happened-was in ICU after. Sisters had reaction to anesthesia medication-not sure what Smoking Status: Never smoker - Past Family History Sister(s) Family Medical History: Cancer Additional Family Medical History / Comment(s): Colon CA. Pt has several siblings (16) and only 3 out of the 16 do not have diabetes. Mother Family Medical History: No Reported History Additional Family Medical History / Comment(s): Mother was healthy Father Family Medical History: Coronary Artery Disease (CAD), Diabetes Mellitus, Myocardial Infarction ([place]) Additional Family Medical History / Comment(s): Father had [place] at age 48yrs. Medications and Allergies Home Medications Medication Instructions Recorded Confirmed Type Cholecalciferol [Vitamin D3 (25 25 mcg PO DAILY 09/04/17 07/05/20 History Mcg = 1000 Iu)] Glucosam/Ambrosio-Msm1/C/Tiburcio/Bosw 1 tab PO DAILY 09/04/17 07/05/20 History [Glucosamine-Chondroitin Tablet] Gabapentin [Neurontin] 200 mg PO QID 06/04/19 07/05/20 History Lidocaine 5% Patch [Lidoderm 5% 1 patch TOPICAL DAILY PRN 06/04/19 07/05/20 History Patch] Pantoprazole [Protonix] 40 mg PO DAILY 08/08/19 07/05/20 History Aspirin EC [Ecotrin Low Dose] 81 mg PO DAILY 06/14/20 07/05/20 History Calcium Carbonate [Calcium] 600 mg PO DAILY 06/14/20 07/05/20 History Ondansetron Odt [Zofran ODT] 8 mg PO Q8HR PRN 06/14/20 07/05/20 History allopurinoL [Zyloprim] 300 mg PO DAILY 06/14/20 07/05/20 History Acyclovir 800 mg PO BID #60 tab 06/16/20 07/05/20 Rx Apixaban [Eliquis] 5 mg PO BID 07/05/20 07/05/20 History Cephalexin [Keflex] 500 mg PO TID 07/05/20 07/05/20 History Sennosides/Docusate Sodium 1 - 2 tab PO DAILY PRN 07/05/20 07/05/20 History [Senna-S 8.6-50 mg Tablet] Sulfamethoxazole/Trimethoprim 1 tab PO MOWEFR 07/05/20 07/05/20 History [Bactrim DS 800-160 mg] Allergies Allergy/AdvReac Type Severity Reaction Status Date / Time No Known Allergies Allergy Verified 07/05/20 23:04 Physical Exam Vitals: Vital Signs Temp Pulse Resp BP Pulse Ox 07/06/20 06:24 99.1 F 82 16 126/61 95 07/06/20 05:00 98.9 F 82 16 129/60 96 07/06/20 02:02 98.1 F 80 16 112/52 97 07/05/20 22:10 98.5 F 80 16 111/55 98 07/05/20 20:55 97.9 F 85 16 128/59 96 07/05/20 19:40 98.2 F 106 H 18 130/60 96 Intake and Output 07/05/20 07/06/20 07/06/20 22:59 06:59 14:59 Other: Weight 68.039 kg 68.039 kg Results CBC & Chem 7: 07/05/20 20:20 07/05/20 20:20 Labs: Abnormal Lab Results - Last 24 Hours (Table) 07/05/20 07/05/20 07/05/20 Range/Units 20:20 20:20 20:20 WBC 25.3 H (3.8-10.6) k/uL RBC 2.38 L (3.80-5.40) m/uL Hgb 7.6 L (11.4-16.0) gm/dL Hct 22.4 L (34.0-46.0) % RDW 22.8 H (11.5-15.5) % Neutrophils # 24.8 H (1.3-7.7) k/uL Lymphocytes # 0.3 L (1.0-4.8) k/uL PT 14.7 H (9.0-12.0) sec INR 1.5 H (<1.2) Sodium 133 L (137-145) mmol/L Potassium 3.1 L (3.5-5.1) mmol/L BUN 27 H (7-17) mg/dL Glucose 190 H (74-99) mg/dL Plasma Lactic Acid Moy (0.7-2.0) mmol/L AST 72 H (14-36) U/L Total Protein 5.1 L (6.3-8.2) g/dL Albumin 3.1 L (3.5-5.0) g/dL 07/05/20 07/05/20 07/06/20 Range/Units 20:20 23:49 03:00 WBC (3.8-10.6) k/uL RBC (3.80-5.40) m/uL Hgb (11.4-16.0) gm/dL Hct (34.0-46.0) % RDW (11.5-15.5) % Neutrophils # (1.3-7.7) k/uL Lymphocytes # (1.0-4.8) k/uL PT (9.0-12.0) sec INR (<1.2) Sodium (137-145) mmol/L Potassium (3.5-5.1) mmol/L BUN (7-17) mg/dL Glucose (74-99) mg/dL Plasma Lactic Acid Moy 3.7 H* 2.4 H* 2.7 H* (0.7-2.0) mmol/L AST (14-36) U/L Total Protein (6.3-8.2) g/dL Albumin (3.5-5.0) g/dL 07/06/20 07/06/20 Range/Units 06:40 09:51 WBC (3.8-10.6) k/uL RBC (3.80-5.40) m/uL Hgb (11.4-16.0) gm/dL Hct (34.0-46.0) % RDW (11.5-15.5) % Neutrophils # (1.3-7.7) k/uL Lymphocytes # (1.0-4.8) k/uL PT (9.0-12.0) sec INR (<1.2) Sodium (137-145) mmol/L Potassium (3.5-5.1) mmol/L BUN (7-17) mg/dL Glucose (74-99) mg/dL Plasma Lactic Acid Moy 2.3 H* 2.6 H* (0.7-2.0) mmol/L AST (14-36) U/L Total Protein (6.3-8.2) g/dL Albumin (3.5-5.0) g/dL Thrombosis Risk Factor Assmnt - Choose All That Apply Any of the Below Risk Factors Present?: Yes Each Factor Represents 1 point: Obesity (BMI >25) Each Risk Factor Represents 2 Points: Malignancy Each Risk Factor Represents 3 Points: Age 75 years or older, History of DVT/PE Other congenital or acquired thrombophilia - If yes, enter type in comment: No Thrombosis Risk Factor Assessment Total Risk Factor Score: 9 Thrombosis Risk Factor Assessment Level: High Risk
[2020-07-06] MEDS: VANCOMYCIN 1,250 MG in SODIUM CHLORIDE 0.9% 250 ML IVPB SCH (19:20)
[2020-07-07] MEDS ORDERED: VANCOMYCIN 1,250 MG in SODIUM CHLORIDE 0.9% 250 ML IVPB SCH (01:00)
[2020-07-07 06:17] LABS: African American GFR (CKD) 75 (>60 ml/min/1.73 sqM); Anion Gap 4 mmol/L; Blood Urea Nitrogen 18 mg/dL (7-17); Calcium 8.8 mg/dL (8.4-10.2); Carbon Dioxide 22 mmol/L (22-30); Chloride 110 mmol/L (98-107); Glucose 87 mg/dL (74-99); Non-African American GFR(CKD) 65 (>60 ml/min/1.73 sqM); Potassium 3.5 mmol/L (3.5-5.1); Sodium 136 mmol/L (137-145)
[2020-07-07 06:38] LABS: Anisocytosis Moderate; Basophils # (A) 0.1 k/uL (0-0.2); Basophils % (A) 0 %; Eosinophils # (A) 0.3 k/uL (0-0.7); Eosinophils % (A) 2 %; HCT 23.5 % (34.0-46.0); HGB 7.2 gm/dL (11.4-16.0); Hypochromasia Slight; Lymphocytes # (A) 0.2 k/uL (1.0-4.8); Lymphocytes % (A) 1 %; MCHC 30.8 g/dL (31.0-37.0); MCV 97.6 fL (80.0-100.0); Macrocytosis Moderate; Mean Platelet Volume 7.7; Monocytes # (A) 0.1 k/uL (0-1.0); Monocytes % (A) 1 %; Neutrophils # (A) 18.3 k/uL (1.3-7.7); Neutrophils % (A) 96 %; Platelet Count 212 k/uL (150-450); RDW 23.4 % (11.5-15.5); WBC 19.1 k/uL (3.8-10.6)
[2020-07-07] MEDS: PIPERACILLIN-TAZOBACTAM 3.375 GM in SODIUM CHLORIDE 0.9% 100 ML IVPB SCH ×2 (07:31→15:41)
[2020-07-07] MEDS: PANTOPRAZOLE 40 MG TABLET PO SCH (07:31)
[2020-07-07] MEDS: GABAPENTIN 100 MG CAP PO SCH ×4 (07:37→21:00)
[2020-07-07] MEDS: ACYCLOVIR 800 MG TAB PO SCH ×2 (07:37→21:00)
[2020-07-07] MEDS: ASPIRIN 81 MG PO SCH (07:37)
[2020-07-07] MEDS: CHOLECALCIFEROL 25 MCG (1000 IU) TABLET PO SCH (07:38)
[2020-07-07] MEDS: allopurinoL 300 MG TAB PO SCH (07:38)
[2020-07-07] MEDS: APIXABAN 5 MG TAB PO SCH ×2 (07:38→21:00)
[2020-07-07] MEDS: CALCIUM CARBONATE 500 MG CHEWABLE PO SCH (07:38)
--- NOTE | 2020-07-07 08:37 | XR ---
EXAMINATION TYPE: XR chest 2V DATE OF EXAM: 07/07/2020 COMPARISON: Chest x-ray 06/14/2020, CT 06/16/2020 HISTORY: Fever, weakness TECHNIQUE: Frontal and lateral views of the chest are obtained. FINDINGS: There is patient rotation. Density at the right cardiophrenic angle thought to be due to p rominent epicardial fat pad. No pneumothorax or pleural effusion. Minimal patchy density noted along the posterior aspect of the lower lobes on the lateral exam. There is persistent elevation of right h emidiaphragm. The cardiac silhouette size is within normal limits. The osseous structures are intac t. IMPRESSION: Suspect some minimal basilar atelectasis, follow-up as indicated
[2020-07-07] MEDS: VANCOMYCIN 1,250 MG in SODIUM CHLORIDE 0.9% 250 ML IVPB SCH (12:33)
[2020-07-07] MEDS ORDERED: SENNOSIDES-DOCUSATE SODIUM 1 EACH TAB PO PRN (12:35)
[2020-07-07] MEDS ORDERED: LACTULOSE 20 GM/30 ML CUP PO PRN (12:37)
[2020-07-07 13:22] VITALS: BMI 27.4
--- NOTE | 2020-07-07 14:34 | P.PN ---
Subjective Progress Note Date: 07/07/20 Feeling better. No further N/V Leukocytosis likely secondary to cellulitis and Neulasta after chemo. Hemoglobin 7.2, recheck in am Objective - Vital Signs Vital signs: Vital Signs Temp 97.7 F 07/07/20 08:00 Pulse 77 07/07/20 08:00 Resp 18 07/07/20 08:00 BP 146/69 07/07/20 08:00 Pulse Ox 96 07/07/20 08:00 Intake & Output 07/06/20 07/07/20 07/07/20 18:59 06:59 18:59 Intake Total 100 Balance 100 Weight 68.039 kg 68.039 kg Intake: Oral 100 Other: Voiding Method Toilet Toilet # Voids 3 - Exam Assessment: - Constitutional General appearance: average body habitus, cooperative, no acute distress - EENT Eyes: anicteric sclerae, EOMI ENT: hearing grossly normal, normal oropharynx - Neck Neck: no lymphadenopathy - Respiratory Respiratory: bilateral: CTA - Cardiovascular Rhythm: regular Heart sounds: normal: S1, S2 leg Peripheral Edema: bilateral: None - Gastrointestinal General gastrointestinal: more distended and tender. - Integumentary Integumentary: normal - Neurologic Neurologic: CNII-XII intact - Musculoskeletal Musculoskeletal: strength equal bilaterally - Psychiatric Psychiatric: A&O x's 2, appropriate affect, intact judgment & insight - Labs CBC & Chem 7: 07/07/20 05:42 07/07/20 05:42 Labs: Abnormal Lab Results - Last 24 Hours (Table) 07/07/20 07/07/20 Range/Units 05:42 05:42 WBC 19.1 H (3.8-10.6) k/uL RBC 2.40 L (3.80-5.40) m/uL Hgb 7.2 L (11.4-16.0) gm/dL Hct 23.5 L (34.0-46.0) % MCHC 30.8 L (31.0-37.0) g/dL RDW 23.4 H (11.5-15.5) % Neutrophils # 18.3 H (1.3-7.7) k/uL Lymphocytes # 0.2 L (1.0-4.8) k/uL Sodium 136 L (137-145) mmol/L Chloride 110 H (98-107) mmol/L BUN 18 H (7-17) mg/dL Microbiology - Last 24 Hours (Table) 07/05/20 20:02 Blood Culture - Preliminary Blood No Growth after 24 hours 07/05/20 20:20 Blood Culture - Preliminary Blood No Growth after 24 hours Assessment and Plan Plan: Assessment and Plan (1) Normocytic anemia Current Visit: Yes Status: Acute Code(s): D64.9 - ANEMIA, UNSPECIFIED SNOMED Code(s): 638319566 (2) Fever Current Visit: Yes Status: Acute Priority: Medium Code(s): R50.9 - FEVER, UNSPECIFIED SNOMED Code(s): 883135713 (3) DLBCL (diffuse large B cell lymphoma) Current Visit: Yes Status: Chronic Priority: High Code(s): C83.30 - DIFFUSE LARGE B-CELL LYMPHOMA, UNSPECIFIED SITE SNOMED Code(s): 325159737 Plan: Non-Hodgkins Lymphoma: Progressive Disease - Many lines of treatment with most recent progression May of 2020 -Status post salvage chemo with Dr. Nelson at [facility] for next line - She did receive neulasta Bilateral Pulmonary EmboliRecent May 2020 -COntinue ac therapy as long as platelets greater than 50K Cellulitis/Fevers - Abx Abdominal Pain/Nausea - No obstruction - Imroved - Likely secondary to chemo Leukocytosis: - Growth factor and infection: Physician attest: I have completed the full history and physical and agree with above dictation dictated as a scribe
--- NOTE | 2020-07-07 16:27 | P.DS ---
Providers Date of admission: 07/07/20 08:56 Expected date of discharge: 07/07/20 Attending physician: Mark Prabhakar Consults: 07/06/20 12:09 Consult Physician Routine Consulting Provider: Lico Hdez Consult Reason/Comments: lymphoma Do you want consulting provider notified?: Yes Primary care physician: Corinne Quintero [facility] Course: Chief Complaint: Fever History of presenting complaint: This is a very pleasant 75-year-old patient who follows with Dr. Bonnie Quintero. Oncologist is Dr. Nguyen , [facility]. Has a diagnosis of diffuse large B cell lymphoma. Patient has received cycles of R-CHOP. Patient subsequently had progression of the disease. No getting further chemotherapy. Last chemotherapy finished 3 days ago on Monday. Following day patient started awake having fevers vomiting slight cough. Denied any shortness of breath slight cough. No urinary symptoms. Denies diarrhea. Admitted with fever. Empirically started on cefepime and vancomycin. Sepsis with lactic acidosis. Today: Feeling better. Oral intake better. Had a temperature 100.4 last night. Review of systems: Was done for constitutional, cardiovascular, GI, pulmonary. relevant finding as above Active Medications Acetaminophen (Acetaminophen Tab 325 Mg Tab) 650 mg PO Q6HR PRN PRN Reason: Mild Pain or Fever > 100.5 Last Admin: 07/06/20 21:03 Dose: 650 mg Documented by: Acyclovir (Acyclovir 800 Mg Tab) 800 mg PO BID [facility] Last Admin: 07/07/20 07:37 Dose: 800 mg Documented by: Allopurinol (Allopurinol 300 Mg Tab) 300 mg PO DAILY [facility] Last Admin: 07/07/20 07:38 Dose: 300 mg Documented by: Apixaban (Apixaban 5 Mg Tab) 5 mg PO BID [facility] Last Admin: 07/07/20 07:38 Dose: 5 mg Documented by: Aspirin (Aspirin 81 Mg) 81 mg PO DAILY [facility] Last Admin: 07/07/20 07:37 Dose: 81 mg Documented by: Calcium Carbonate/Glycine (Calcium Carbonate 500 Mg Chewable) 500 mg PO DAILY [facility] Last Admin: 07/07/20 07:38 Dose: 500 mg Documented by: Cholecalciferol (Cholecalciferol 25 Mcg (1000 Iu) Tablet) 25 mcg PO DAILY [facility] Last Admin: 07/07/20 07:38 Dose: 25 mcg Documented by: Gabapentin (Gabapentin 100 Mg Cap) 200 mg PO QID [facility] Last Admin: 07/07/20 13:17 Dose: 200 mg Documented by: Piperacillin Sod/Tazobactam (Sod 3.375 gm/ Sodium Chloride) 100 mls @ 25 mls/hr IVPB Q8H [facility] Last Admin: 07/07/20 15:41 Dose: 25 mls/hr Documented by: Vancomycin HCl 1,250 mg/ (Sodium Chloride) 250 mls @ 125 mls/hr IVPB Q18H [facility] Last Admin: 07/07/20 12:33 Dose: 125 mls/hr Documented by: Ibuprofen (Ibuprofen 400 Mg Tab) 400 mg PO Q6HR PRN PRN Reason: Mild Pain or Fever > 100.5 Lactulose (Lactulose 20 Gm/30 Ml Cup) 20 gm PO DAILY PRN PRN Reason: Constipation Lidocaine (Lidocaine 5% Patch) 1 patch TOPICAL DAILY PRN PRN Reason: Pain Last Admin: 07/07/20 07:52 Dose: 1 patch Documented by: Naloxone HCl (Naloxone 0.4 Mg/Ml 1 Ml Vial) 0.2 mg IV Q2M PRN PRN Reason: Opioid Reversal Ondansetron HCl (Ondansetron 4 Mg/2 Ml Vial) 4 mg IVP Q4HR PRN PRN Reason: Nausea And Vomiting Last Admin: 07/06/20 18:26 Dose: 4 mg Documented by: Pantoprazole Sodium (Pantoprazole 40 Mg Tablet) 40 mg PO AC-BRKFST [facility] Last Admin: 07/07/20 07:31 Dose: 40 mg Documented by: Senna/Docusate Sodium (Sennosides-Docusate Sodium 1 Each Tab) 1 - 2 each PO DAILY PRN PRN Reason: Constipation Last Admin: 07/07/20 13:16 Dose: 2 each Documented by: Past medical history to include: Osteoarthritis, varicose veins, skin cancer, diffuse large B-cell lymphoma on chemotherapy, pancytopenia Social history: History of smoking. Alcohol occasionally. . Physical examination: VITAL SIGNS: T-max 100.4, 88, 18, 144/72, 96% room air GENERAL: BMI 27.4, laying in bed, looking better EYES: Pupils equal. Conjunctiva normal. NECK: JVD not raised; masses not palpable. HEART: First and second heart sounds are normal; no edema. LUNGS: Respiratory rate normal; clear to auscultation. ABDOMEN: Soft, nontender, liver spleen not palpable, no masses palpable. PSYCH: Alert and oriented x3; mood and affect normal. NEUROLOGICAL: Cranial nerves grossly intact; no facial asymmetry, power and sensation grossly intact MUSCULOSKELETAL: Evidence of OA especially in the hands. INVESTIGATIONS, reviewed in the clinical context: July 07: WBC 19.1 hemoglobin 7.2 platelets 212 potassium 3.5 creatinine 0.88 WBC 25.3 hemoglobin 7.6 platelets 235 potassium 3.1 creatinine 0.9 to lactic acid 3.7 albumin 3.1 UA negative Coronavirus [PCR]-not detected EKG tracing personally reviewed by me-normal sinus rhythm, poor R-wave progression Assessment and plan: -This is a patient had chemotherapy 2 days ago presents with fever vomiting. She states she gets this anytime she gets her chemotherapy. Denies any obvious urinary or respiratory symptoms. Positive lactic acid. Possible sepsis Empirically put on IV vancomycin and IV Zosyn. Blood cultures pending. IV fluids -Diffuse large B cell lymphoma-status post R-CHOP Patient be followed by Dr. Nguyen from [facility] -Normocytic anemia secondary to underlying lymphoma Follow H&H -Primary osteoarthritis Use pain medications as needed -Mild Hyponatremia Increase oral intake -Mild hypokalemia, from vomiting Replace potassium Continue antibiotics IV fluids. Await cultures. Discussed with patient has been out of the bedside. Patient Condition at Discharge: Stable Plan - Discharge Summary Discharge Rx Participant: No New Discharge Prescriptions: No Action Glucosam/Ambrosio-Msm1/C/Tiburcio/Bosw [Glucosamine-Chondroitin Tablet] 1 tab PO DAILY Cholecalciferol [Vitamin D3 (25 Mcg = 1000 Iu)] 25 mcg PO DAILY Gabapentin [Neurontin] 200 mg PO QID Lidocaine 5% Patch [Lidoderm 5% Patch] 1 patch TOPICAL DAILY PRN PRN Reason: Pain Pantoprazole [Protonix] 40 mg PO DAILY Ondansetron Odt [Zofran ODT] 8 mg PO Q8HR PRN PRN Reason: Nausea And Vomiting Calcium Carbonate [Calcium] 600 mg PO DAILY Acyclovir 800 mg PO BID #60 tab Sennosides/Docusate Sodium [Senna-S 8.6-50 mg Tablet] 1 - 2 tab PO DAILY PRN PRN Reason: Constipation Sulfamethoxazole/Trimethoprim [Bactrim DS 800-160 mg] 1 tab PO MOWEFR Aspirin EC [Ecotrin Low Dose] 81 mg PO DAILY allopurinoL [Zyloprim] 300 mg PO DAILY Cephalexin [Keflex] 500 mg PO TID Apixaban [Eliquis] 5 mg PO BID Discharge Medication List Cholecalciferol [Vitamin D3 (25 Mcg = 1000 Iu)] 25 mcg PO DAILY 09/04/17 [Hist ory] Glucosam/Ambrosio-Msm1/C/Tiburcio/Bosw [Glucosamine-Chondroitin Tablet] 1 tab PO DAILY 09/04/17 [History] Gabapentin [Neurontin] 200 mg PO QID 06/04/19 [History] Lidocaine 5% Patch [Lidoderm 5% Patch] 1 patch TOPICAL DAILY PRN 06/04/19 [History] Pantoprazole [Protonix] 40 mg PO DAILY 08/08/19 [History] Aspirin EC [Ecotrin Low Dose] 81 mg PO DAILY 06/14/20 [History] Calcium Carbonate [Calcium] 600 mg PO DAILY 06/14/20 [History] Ondansetron Odt [Zofran ODT] 8 mg PO Q8HR PRN 06/14/20 [History] allopurinoL [Zyloprim] 300 mg PO DAILY 06/14/20 [History] Acyclovir 800 mg PO BID #60 tab 06/16/20 [Rx] Apixaban [Eliquis] 5 mg PO BID 07/05/20 [History] Cephalexin [Keflex] 500 mg PO TID 07/05/20 [History] Sennosides/Docusate Sodium [Senna-S 8.6-50 mg Tablet] 1 - 2 tab PO DAILY PRN 07/05/20 [History] Sulfamethoxazole/Trimethoprim [Bactrim DS 800-160 mg] 1 tab PO MOWEFR 07/05/20 [History] Follow up Appointment(s)/Referral(s): Corinne Quintero MD [Primary Care Provider] - 1-2 days
--- NOTE | 2020-07-07 16:38 | P.PN ---
Progress Note - Text Progress Note Date: 07/07/20 Chief Complaint: Fever History of presenting complaint: This is a very pleasant 75-year-old patient who follows with Dr. Bonnie Quintero. Oncologist is Dr. Nguyen , [facility]. Has a diagnosis of diffuse large B cell lymphoma. Patient has received cycles of R-CHOP. Patient subsequently had progression of the disease. No getting further chemotherapy. Last chemotherapy finished 3 days ago on Monday. Following day patient started awake having fevers vomiting slight cough. Denied any shortness of breath slight cough. No urinary symptoms. Denies diarrhea. Admitted with fever. Empirically started on cefepime and vancomycin. Sepsis wi th lactic acidosis. Today: Feeling better. Oral intake better. Had a temperature 100.4 last night. Review of systems: Was done for constitutional, cardiovascular, GI, pulmonary. relevant finding as above Active Medications Acetaminophen (Acetaminophen Tab 325 Mg Tab) 650 mg PO Q6HR PRN PRN Reason: Mild Pain or Fever > 100.5 Last Admin: 07/06/20 21:03 Dose: 650 mg Documented by: Acyclovir (Acyclovir 800 Mg Tab) 800 mg PO BID [facility] Last Admin: 07/07/20 07:37 Dose: 800 mg Documented by: Allopurinol (Allopurinol 300 Mg Tab) 300 mg PO DAILY [facility] Last Admin: 07/07/20 07:38 Dose: 300 mg Documented by: Apixaban (Apixaban 5 Mg Tab) 5 mg PO BID [facility] Last Admin: 07/07/20 07:38 Dose: 5 mg Documented by: Aspirin (Aspirin 81 Mg) 81 mg PO DAILY [facility] Last Admin: 07/07/20 07:37 Dose: 81 mg Documented by: Calcium Carbonate/Glycine (Calcium Carbonate 500 Mg Chewable) 500 mg PO DAILY [facility] Last Admin: 07/07/20 07:38 Dose: 500 mg Documented by: Cholecalciferol (Cholecalciferol 25 Mcg (1000 Iu) Tablet) 25 mcg PO DAILY [facility] Last Admin: 07/07/20 07:38 Dose: 25 mcg Documented by: Gabapentin (Gabapentin 100 Mg Cap) 200 mg PO QID [facility] Last Admin: 07/07/20 13:17 Dose: 200 mg Documented by: Piperacillin Sod/Tazobactam (Sod 3.375 gm/ Sodium Chloride) 100 mls @ 25 mls/hr IVPB Q8H [facility] Last Admin: 07/07/20 15:41 Dose: 25 mls/hr Documented by: Vancomycin HCl 1,250 mg/ (Sodium Chloride) 250 mls @ 125 mls/hr IVPB Q18H [facility] Last Admin: 07/07/20 12:33 Dose: 125 mls/hr Documented by: Ibuprofen (Ibuprofen 400 Mg Tab) 400 mg PO Q6HR PRN PRN Reason: Mild Pain or Fever > 100.5 Lactulose (Lactulose 20 Gm/30 Ml Cup) 20 gm PO DAILY PRN PRN Reason: Constipation Lidocaine (Lidocaine 5% Patch) 1 patch TOPICAL DAILY PRN PRN Reason: Pain Last Admin: 07/07/20 07:52 Dose: 1 patch Documented by: Naloxone HCl (Naloxone 0.4 Mg/Ml 1 Ml Vial) 0.2 mg IV Q2M PRN PRN Reason: Opioid Reversal Ondansetron HCl (Ondansetron 4 Mg/2 Ml Vial) 4 mg IVP Q4HR PRN PRN Reason: Nausea And Vomiting Last Admin: 07/06/20 18:26 Dose: 4 mg Documented by: Pantoprazole Sodium (Pantoprazole 40 Mg Tablet) 40 mg PO -BRKFST [facility] Last Admin: 07/07/20 07:31 Dose: 40 mg Documented by: Senna/Docusate Sodium (Sennosides-Docusate Sodium 1 Each Tab) 1 - 2 each PO DAILY PRN PRN Reason: Constipation Last Admin: 07/07/20 13:16 Dose: 2 each Documented by: Past medical history to include: Osteoarthritis, varicose veins, skin cancer, diffuse large B-cell lymphoma on chemotherapy, pancytopenia Social history: History of smoking. Alcohol occasionally. . Physical examination: VITAL SIGNS: T-max 100.4, 88, 18, 144/72, 96% room air GENERAL: BMI 27.4, laying in bed, looking better EYES: Pupils equal. Conjunctiva normal. NECK: JVD not raised; masses not palpable. HEART: First and second heart sounds are normal; no edema. LUNGS: Respiratory rate normal; clear to auscultation. ABDOMEN: Soft, nontender, liver spleen not palpable, no masses palpable. PSYCH: Alert and oriented x3; mood and affect normal. NEUROLOGICAL: Cranial nerves grossly intact; no facial asymmetry, power and sensation grossly intact MUSCULOSKELETAL: Evidence of OA especially in the hands. INVESTIGATIONS, reviewed in the clinical context: July 07: WBC 19.1 hemoglobin 7.2 platelets 212 potassium 3.5 creatinine 0.88 WBC 25.3 hemoglobin 7.6 platelets 235 potassium 3.1 creatinine 0.9 to lactic acid 3.7 albumin 3.1 UA negative Coronavirus [PCR]-not detected EKG tracing personally reviewed by me-normal sinus rhythm, poor R-wave progression Assessment and plan: -This is a patient had chemotherapy 2 days ago presents with fever vomiting. She states she gets this anytime she gets her chemotherapy. Denies any obvious urinary or respiratory symptoms. Positive lactic acid. Possible sepsis Empirically put on IV vancomycin and IV Zosyn. Blood cultures pending. IV fluids -Diffuse large B cell lymphoma-status post R-CHOP Patient be followed by Dr. Nguyen from [facility] -Normocytic anemia secondary to underlying lymphoma Follow H&H -Primary osteoarthritis Use pain medications as needed -Mild Hyponatremia Increase oral intake -Mild hypokalemia, from vomiting Replace potassium Continue antibiotics IV fluids. Await cultures. Discussed with patient has been out of the bedside.
--- NOTE | 2020-07-07 23:53 | P.CONS ---
History of Present Illness - Reason for Consult Consult date: 07/06/20 Fever,N/V, NHL on chemo - History of Present Illness Mrs. Barboza is a 75-year-old female, patient of primary care physician Dr. Corinne Quintero, and also Dr. Akila ngo and at [facility] for Oncology care. She had a fairly benign past medical history until January 2019. In late January 2019 patient did a colaguard screening that came back positive for malignant DNA. This led to a colonoscopy preformed by Dr. Garcias on 02/07/19. She had a 4-5 cm submucosal raise mass in the proximal descending colon, biopsies revealed DLBC lymphoma, germinal subtype. CT AP showed 2 large masses, one measuring 10 cm and one measuring 12 cm in the mid abdomen with multiple other peritoneal masses suspicious for lymphoma versus a peritoneal carcinomatosis. Patient was positive for weight loss, 20 pounds, also fatigue and night sweats. She was referred to oncology but, patient started displaying confusion and delayed response just after Xmas, so she was taken to [place]. CT of the head without contrast was negative. Suspect UTI, antibiotics initiated. Patient was ultimately transferred to [facility]. She continued to have progressive cognitive decline, this led to a lumbar puncture, cerebrospinal fluid was not evaluated correctly. But, before that was known it was felt that patient would benefit more from being evaluated at a tertiary care facility with neuro evaluation. Patient had another LP, negative culture, negative flow cytometry. She was given her first cycle of R CHOP on 03/05/19. Dbl/Triple hit testing was not able to be done, QNS. 04/03/19-patient is here today for follow-up status post second cycle of RCHOP, she did complete her 5 days of prednisone, she completed 7 days of G-CSF last night. She is status post 3 cycles of R-CHOP and 3 doses of high-dose methotrexate (IT). PET scan after cycle 6 showed extensive residual disease. Case was discussed with [facility]. Patient had a re-biopsy of one of the residual peritoneal masses, and it was recommended that she start salvage chemotherapy with R-ICE. She was admitted for cycle 1 on 07/17/19. PET after 2 cycles showed a partial response PET scan after 3 cycles at [facility] essentially showed stability. Therefore change of therapy was recommended with a plan to bridge her to Car T therapy. She was started on Bendamustine/Rituxan/Polituzumab combination on 09/23/19, and is s/p 1 cycle. PET scan after 2 cycles unfortunately showed persistent disease within the a bdomen, with some response noted in the spleen, but possible progression in the left lower quadrant. It was thus decided to discontinue this regimen and proceed with CAR-T therapy. She underwent Car-T cell in 03/11. Unfortunately her PET scan in January 2020 showed progression. She was then entered in a trial in February: Revlimid, Rituxan and another medication. She presented to emergency here in late 06/10 with complaints of fever and chest pain. Gifford cultures, IV Hydration, and CTA performed. CTA revealed bilateral pulmonary emboli. She had another staging PET at [facility] the week prior, and per this was also showing evidence of progression. She has been following closely with Dr. Maribell Nelson at [facility]. after treatment and discharge, the patient started next line treatment with Oxaliplatin, Gemzar, and Rituxan, receiving 2 treatments of cycle 1 on 06/26/20 and 07/03/20. The patient states that she developed nausea and vomiting after her first dose and had to go to the hospital (? [facility]). improved with supportive treatment and had a #2 on schedule. She also received daily Neupogen injections. He states that she developed abdominal discomfort and nausea and vomiting or treatment on 07/03/20. This was progressive to a she was having difficulty keeping even liquids down. She also developed a fever at home. She therefore came into the emergency room. She states that fever had already started to improve by the time she reached the ER. she reported some redness and swelling in the right upper extremity, that is being treated with antibiotics outpatient with significant improvement. She was then admitted for further management. Labs showed anemia, though cytopenia, and elevated WBC with predominant neutrophils. Review of Systems Constitutional: Reports chronic pain, Reports fatigue, Reports poor appetite, Reports weakness, Reports weight loss Eyes: denies blurred vision, denies pain Ears: deny: decreased hearing, ear discharge, earache, tinnitus Ears, nose, mouth and throat: Denies headache, Denies sore throat Cardiovascular: Reports decreased exercise tolerance Respiratory: Reports as per HPI, Denies cough Gastrointestinal: Reports abdominal pain, Reports nausea, Reports vomiting Genitourinary: Denies dysuria, Denies hematuria Menstruation: Reports postmenopausal Musculoskeletal: Reports muscle weakness Integumentary: Reports as per HPI, Denies pruritus, Denies rash Neurological: Reports weakness Psychiatric: Reports difficulty concentrating Endocrine: Reports fatigue, Reports weight change Hematologic/Lymphatic: Reports as per HPI Past Medical History Past Medical History: Cancer, Hyperlipidemia, Hypertension, Osteoarthritis (OA), Pulmonary Embolus (PE) Additional Past Medical History / Comment(s): Pt recently admitted to [facility] on 06/[facility]/20 with fever 2ndary to B cell lymphoma/bilateral PEs, gastritis, hyponatremia, hypokalmia, hypoalbuminemia. Other hx: DLBCL with extensive involvement especially in diaphragm diagnosed 01/2019 with chemo, cologard positive for malignant DNA which led to colonoscopy-descending colon mass found/mesenteric masses/biopsied and diagnosed with DLBC, thrush after chemo tx, intermittent confusion/cognitive problems recently but pt at baseline at this time, shingelles healed but still has nerve pain back/breast, anemia, leaky heart valve, skin cancer with removal, hemorrhoids. History of Any Multi-Drug Resistant Organisms: None Reported Past Surgical History: Breast Surgery, Joint Replacement, Orthopedic Surgery, Tubal Ligation Additional Past Surgical History / Comment(s): L arm Picc line, colonoscopies/benign polypectomies, skin cancer removed from R arm, total L knee arthroplasty, R foot bunionectomy/mortons neuroma removed/heel spur sx and R foot fx with screw, R breast benign bx, bilateral cataract removals/lens implants. Past Anesthesia/Blood Transfusion Reactions: Previous Problems w/ Anesthesia, Family History of Problems w/ Anesthesia Additional Past Anesthesia/Blood Transfusion Reaction / Comm: Had reaction to anesthesia that effected breathing after tubal ligation-not sure exactly what happened-was in ICU after. Sisters had reaction to anesthesia medication-not sure what Smoking Status: Never smoker - Past Family History Sister(s) Family Medical History: Cancer Additional Family Medical History / Comment(s): Colon CA. Pt has several siblings (16) and only 3 out of the 16 do not have diabetes. Mother Family Medical History: No Reported History Additional Family Medical History / Comment(s): Mother was healthy Father Family Medical History: Coronary Artery Disease (CAD), Diabetes Mellitus, Myocardial Infarction (OR) Additional Family Medical History / Comment(s): Father had OR at age 48yrs. Medications and Allergies Home Medications Medication Instructions Recorded Confirmed Type Cholecalciferol [Vitamin D3 (25 25 mcg PO DAILY 09/04/17 07/05/20 History Mcg = 1000 Iu)] Glucosam/Ambrosio-Msm1/C/Tiburcio/Bosw 1 tab PO DAILY 09/04/17 07/05/20 History [Glucosamine-Chondroitin Tablet] Gabapentin [Neurontin] 200 mg PO QID 06/04/19 07/05/20 History Lidocaine 5% Patch [Lidoderm 5% 1 patch TOPICAL DAILY PRN 06/04/19 07/05/20 History Patch] Pantoprazole [Protonix] 40 mg PO DAILY 08/08/19 07/05/20 History Aspirin EC [Ecotrin Low Dose] 81 mg PO DAILY 06/14/20 07/05/20 History Calcium Carbonate [Calcium] 600 mg PO DAILY 06/14/20 07/05/20 History Ondansetron Odt [Zofran ODT] 8 mg PO Q8HR PRN 06/14/20 07/05/20 History allopurinoL [Zyloprim] 300 mg PO DAILY 06/14/20 07/05/20 History Acyclovir 800 mg PO BID #60 tab 06/16/20 07/05/20 Rx Apixaban [Eliquis] 5 mg PO BID 07/05/20 07/05/20 History Cephalexin [Keflex] 500 mg PO TID 07/05/20 07/05/20 History Sennosides/Docusate Sodium 1 - 2 tab PO DAILY PRN 07/05/20 07/05/20 History [Senna-S 8.6-50 mg Tablet] Sulfamethoxazole/Trimethoprim 1 tab PO MOWEFR 07/05/20 07/05/20 History [Bactrim DS 800-160 mg] Allergies Allergy/AdvReac Type Severity Reaction Status Date / Time No Known Allergies Allergy Verified 07/05/20 23:04 Physical Exam Vitals: Vital Signs Temp Pulse Pulse Pulse Resp BP BP 07/07/20 08:00 97.7 F 77 18 146/69 07/07/20 07:54 07/07/20 02:11 98.1 F 71 20 130/71 07/06/20 20:00 100.4 F H 93 18 154/73 07/06/20 18:29 99.0 F 84 18 141/77 07/06/20 15:02 98.3 F 86 18 07/06/20 11:05 99.8 F H 84 18 117/51 Pulse Ox 07/07/20 08:00 96 07/07/20 07:54 97 07/07/20 02:11 97 07/06/20 20:00 97 07/06/20 18:29 96 07/06/20 15:02 97 07/06/20 11:05 97 Intake and Output 07/06/20 07/07/20 07/07/20 22:59 06:59 14:59 Other: Voiding Method Toilet # Voids 3 - Constitutional General appearance: no acute distress - EENT Eyes: EOMI, PERRLA ENT: hearing grossly normal, normal oropharynx - Neck Neck: no lymphadenopathy Thyroid: bilateral: normal size - Respiratory Respiratory: bilateral: CTA - Cardiovascular Rhythm: regular Heart sounds: normal: S1, S2 - Gastrointestinal General gastrointestinal: normal bowel sounds, soft Localized gastrointestinal: tender: LLQ (large ill-defined mass left lower quadrant. Appears somewhat softer and less distinct compared to prior exam), mass: LLQ - Integumentary 3 cm Redish , indurated area anterior right forearm. Mildly tender to palpation. - Neurologic Neurologic: CNII-XII intact - Musculoskeletal Musculoskeletal: generalized weakness, strength equal bilaterally - Psychiatric Psychiatric: A&O x's 3, appropriate affect Results CBC & Chem 7: 07/07/20 05:42 07/07/20 05:42 Labs: Abnormal Lab Results - Last 24 Hours (Table) 07/06/20 07/07/20 07/07/20 Range/Units 09:51 05:42 05:42 WBC 19.1 H (3.8-10.6) k/uL RBC 2.40 L (3.80-5.40) m/uL Hgb 7.2 L (11.4-16.0) gm/dL Hct 23.5 L (34.0-46.0) % MCHC 30.8 L (31.0-37.0) g/dL RDW 23.4 H (11.5-15.5) % Neutrophils # 18.3 H (1.3-7.7) k/uL Lymphocytes # 0.2 L (1.0-4.8) k/uL Sodium 136 L (137-145) mmol/L Chloride 110 H (98-107) mmol/L BUN 18 H (7-17) mg/dL Plasma Lactic Acid Moy 2.6 H* (0.7-2.0) mmol/L Microbiology - Last 24 Hours (Table) 07/05/20 20:02 Blood Culture - Preliminary Blood No Growth after 24 hours 07/05/20 20:20 Blood Culture - Preliminary Blood No Growth after 24 hours Chest x-ray: report reviewed Assessment and Plan (1) Fever Narrative/Plan: the patient states that he will had already improved by the time she came to the ER. She has not been febrile since I were to the ER, up to my examination. She denied any localizing signs of infection, other than the right forearm cellulitis which has improved considerably with outpatient antibiotics. - Broad-spectrum IV antibiotics -Chest x-ray was reviewed, showing no obvious infection. Check urine and blood cultures. - Patient's WBC neutrophils actually increased, likely due to G-CSF effect. - Given absence of neutropenia, and her history, tumor fever posttreatment is also possible. Therefore if patient is afebrile over 24 hours and cultures are negative, she can likely be discharged with oral antibiotics Current Visit: Yes Status: Acute Priority: Medium Code(s): R50.9 - FEVER, UNSPECIFIED SNOMED Code(s): 082968248 (2) Nausea & vomiting Narrative/Plan: according to the patient, this was the main reason for her come to the ER. On examination there appears to be no evidence of obstruction or ileus. Abdomen is fairly soft. He states that she had similar symptoms lasting for about 2-3 days after the first treatment. This improved spontaneously and the patient was treated supportively. - One possibility could be directly chemotherapy effect though this regimen is usually not associated significant nausea and vomiting. Given her symptoms, another possibility could be due to inflammation in the abdomen causing some ileus and resultant nausea and vomiting. -The patient is already feeling better. IV hydration. Continue to advance diet as tolerated. -IV anti-emetics have been ordered Current Visit: Yes Status: Acute Code(s): R11.2 - NAUSEA WITH VOMITING, UNSPECIFIED SNOMED Code(s): 88631120 (3) DLBCL (diffuse large B cell lymphoma) Narrative/Plan: name Santos and therapeutic circumstances as described. The patient has had fairly refractory disease. She has just started a new regimen and is status post cycle 1. She will follow-up at [facility] oncologist post discharge. If she is able to recover sufficiently from this acute episode within a reasonable time frame, she can likely stay on schedule with cycle #2. Current Visit: Yes Status: Chronic Priority: High Code(s): C83.30 - DIFFUSE LARGE B-CELL LYMPHOMA, UNSPECIFIED SITE SNOMED Code(s): 020254701 (4) Bicytopenia Narrative/Plan: WAC is elevated, most likely due to G-CSF effect. However hemoglobin and platelets are low due to the effect of chemotherapy. Counts are in a safe range. Transfuse to keep hemoglobin greater than 7, and platelets greater than 10 (as long as there is no obvious bleeding) Current Visit: No Status: Acute Priority: Medium Code(s): D75.89 - OTHER SPECIFIED DISEASES OF BLOOD AND BLOOD-FORMING ORGANS SNOMED Code(s): 01775569 Plan: discussed in detail with the admitting service. Defer to them for management of other medical problems.
[2020-07-08] MEDS: PIPERACILLIN-TAZOBACTAM 3.375 GM in SODIUM CHLORIDE 0.9% 100 ML IVPB SCH ×5 (00:05→22:23)
[2020-07-08] MEDS: VANCOMYCIN 1,250 MG in SODIUM CHLORIDE 0.9% 250 ML IVPB SCH ×2 (05:17→23:39)
[2020-07-08 06:51] LABS: ALT 18 U/L (4-34); AST 36 U/L (14-36); African American GFR (CKD) 81 (>60 ml/min/1.73 sqM); Albumin 2.5 g/dL (3.5-5.0); Albumin/Globulin Ratio 1.3; Alkaline Phosphatase 113 U/L (38-126); Anion Gap 7 mmol/L; Blood Urea Nitrogen 10 mg/dL (7-17); Calcium 8.7 mg/dL (8.4-10.2); Carbon Dioxide 23 mmol/L (22-30); Chloride 108 mmol/L (98-107); Globulin 1.9 g/dL; Glucose 85 mg/dL (74-99); LDH 968 U/L (313-618); Magnesium 1.7 mg/dL (1.6-2.3); Non-African American GFR(CKD) 70 (>60 ml/min/1.73 sqM); Phosphorus 3.3 mg/dL (2.5-4.5); Potassium 3.3 mmol/L (3.5-5.1); Sodium 138 mmol/L (137-145); Total Bilirubin 0.3 mg/dL (0.2-1.3); Total Protein 4.4 g/dL (6.3-8.2)
[2020-07-08] MEDS: PANTOPRAZOLE 40 MG TABLET PO SCH (07:42)
[2020-07-08] MEDS: CALCIUM CARBONATE 500 MG CHEWABLE PO SCH (08:35)
[2020-07-08] MEDS: ASPIRIN 81 MG PO SCH (08:35)
[2020-07-08] MEDS: CHOLECALCIFEROL 25 MCG (1000 IU) TABLET PO SCH (08:36)
[2020-07-08] MEDS: ACYCLOVIR 800 MG TAB PO SCH ×2 (08:36→20:04)
[2020-07-08] MEDS: APIXABAN 5 MG TAB PO SCH ×2 (08:36→20:04)
[2020-07-08] MEDS: GABAPENTIN 100 MG CAP PO SCH ×4 (08:36→21:47)
[2020-07-08] MEDS: allopurinoL 300 MG TAB PO SCH (08:40)
[2020-07-08 11:01] LABS: HGB 6.6 g/dL (12.0-15.0); MCH 31.3 pg (27.0-32.0); MCHC 31.4 g/dL (32.0-37.0); MCV 99.5 fL (80.0-97.0); Mean Platelet Volume 10.2 fL (9.5-12.2); Platelet Count 183 X 10*3/uL (140-440); RBC 2.11 X 10*6/uL (4.10-5.20); RDW 23.8 % (11.5-14.5); WBC 12.94 X 10*3/uL (4.50-10.00)
[2020-07-08 11:02] LABS: Basophils # (M) 0.13 X 10*3/uL (0.00-0.10); Eosinophils # (M) 0.26 X 10*3/uL (0.04-0.35); Hypochromasia (M) 2+; Lymphocytes # (M) 0.13 X 10*3/uL (0.90-5.00); Monocytes # (M) 0 X 10*3/uL (0.20-1.00); Neutrophils # (M) 12.42 X 10*3/uL (2.00-8.90); Neutrophils % (M) 96 %
--- NOTE | 2020-07-08 12:20 | P.PN ---
Subjective Progress Note Date: 07/08/20 Principal diagnosis: Lymphoma - Refractory and progressive Hemoglobin 6.6 this am, PRBC ordered Objective - Vital Signs Vital signs: Vital Signs Temp 98.3 F 07/08/20 08:23 Pulse 78 07/08/20 08:23 Resp 16 07/08/20 08:23 BP 145/68 07/08/20 08:23 Pulse Ox 96 07/08/20 08:23 Intake & Output 07/07/20 07/08/20 07/08/20 18:59 06:59 18:59 Intake Total 550 100 Balance 550 100 Weight 68.039 kg Intake: IV 450 Piperacillin-Tazobactam 3 200 .375 gm In Sodium Chloride 0.9% 100 ml @ 25 mls/hr IVPB Q8H [facility] Rx#: [id number] Vancomycin 1,250 mg In 250 Sodium Chloride 0.9% 250 ml @ 125 mls/hr IVPB Q18H [facility] Rx#:[id number] Oral 100 100 Other: Voiding Method Toilet Toilet Toilet # Voids 1 2 # Bowel Movements 1 1 - Exam Assessment: - Constitutional General appearance: average body habitus, cooperative, no acute distress - EENT Eyes: anicteric sclerae, EOMI ENT: hearing grossly normal, normal oropharynx - Neck Neck: no lymphadenopathy - Respiratory Respiratory: bilateral: CTA - Cardiovascular Rhythm: regular Heart sounds: normal: S1, S2 leg Peripheral Edema: bilateral: None - Gastrointestinal General gastrointestinal: more distended and tender. - Integumentary Integumentary: normal - Neurologic Neurologic: CNII-XII intact - Musculoskeletal Musculoskeletal: strength equal bilaterally - Psychiatric Psychiatric: A&O x's 2, appropriate affect, intact judgment & insight - Labs CBC & Chem 7: 07/08/20 05:54 07/08/20 05:54 Labs: Abnormal Lab Results - Last 24 Hours (Table) 07/08/20 07/08/20 Range/Units 05:54 05:54 WBC 12.94 H (4.50-10.00) X 10*3/uL RBC 2.11 L (4.10-5.20) X 10*6/uL Hgb 6.6 L* (12.0-15.0) g/dL Hct 21.0 L (37.2-46.3) % MCV 99.5 H (80.0-97.0) fL MCHC 31.4 L (32.0-37.0) g/dL RDW 23.8 H (11.5-14.5) % Neutrophils # (Manual) 12.42 H (2.00-8.90) X 10*3/uL Lymphocytes # (Manual) 0.13 L (0.90-5.00) X 10*3/uL Monocytes # (Manual) 0 L (0.20-1.00) X 10*3/uL Basophils # (Manual) 0.13 H (0.00-0.10) X 10*3/uL Potassium 3.3 L (3.5-5.1) mmol/L Chloride 108 H (98-107) mmol/L Uric Acid 3.0 L (3.7-7.4) mg/dL Lactate Dehydrogenase 968 H (313-618) U/L Total Protein 4.4 L (6.3-8.2) g/dL Albumin 2.5 L (3.5-5.0) g/dL Microbiology - Last 24 Hours (Table) 07/05/20 20:20 Blood Culture - Preliminary Blood No Growth after 48 hours 07/05/20 20:02 Blood Culture - Preliminary Blood No Growth after 48 hours Assessment and Plan Plan: Assessment and Plan (1) Normocytic anemia Current Visit: Yes Status: Acute Code(s): D64.9 - ANEMIA, UNSPECIFIED SNOMED Code(s): 987018919 (2) Fever Current Visit: Yes Status: Acute Priority: Medium Code(s): R50.9 - FEVER, UNSPECIFIED SNOMED Code(s): 175200259 (3) DLBCL (diffuse large B cell lymphoma) Current Visit: Yes Status: Chronic Priority: High Code(s): C83.30 - DIFFUSE LARGE B-CELL LYMPHOMA, UNSPECIFIED SITE SNOMED Code(s): 084401660 Plan: Anemia: - Hemoglobin 6.6 today, Irradiated PRBC - Recheck CBC in am - Transfuse less than 7. Non-Hodgkins Lymphoma: Progressive Disease - Many lines of treatment with most recent progression May of 2020 -Status post salvage chemo with Dr. Nelson at [facility] for next line - She did receive neulasta Bilateral Pulmonary EmboliRecent May 2020 -COntinue ac therapy as long as platelets greater than 50K Cellulitis/Fevers - Abx Abdominal Pain/Nausea - No obstruction - Imroved - Likely secondary to chemo Leukocytosis: - Growth factor and infection:
--- NOTE | 2020-07-08 18:27 | P.PN ---
Progress Note - Text Progress Note Date: 07/08/20 Chief Complaint: Fever History of presenting complaint: This is a very pleasant 75-year-old patient who follows with Dr. Bonnie Quintero. Oncologist is Dr. Nguyen , [facility]. Has a diagnosis of diffuse large B cell lymphoma. Patient has received cycles of R-CHOP. Patient subsequently had progression of the disease. No getting further chemotherapy. Last chemotherapy finished 3 days ago on Monday. Following day patient started awake having fevers vomiting slight cough. Denied any shortness of breath slight cough. No urinary symptoms. Denies diarrhea. Admitted with fever. Empirically started on cefepime and vancomycin. Sepsis wi th lactic acidosis. Today: Oral intake fair. Patient does have a area of inflammation/abscess on the right forearm and a previous IV site. General surgery consulted. Some tenderness. Review of systems: Was done for constitutional, cardiovascular, GI, pulmonary. relevant finding as above Active Medications Acetaminophen (Acetaminophen Tab 325 Mg Tab) 650 mg PO Q6HR PRN PRN Reason: Mild Pain or Fever > 100.5 Last Admin: 07/06/20 21:03 Dose: 650 mg Documented by: Acyclovir (Acyclovir 800 Mg Tab) 800 mg PO BID [facility] Last Admin: 07/08/20 08:36 Dose: 800 mg Documented by: Allopurinol (Allopurinol 300 Mg Tab) 300 mg PO DAILY [facility] Last Admin: 07/08/20 08:40 Dose: 300 mg Documented by: Apixaban (Apixaban 5 Mg Tab) 5 mg PO BID [facility] Last Admin: 07/08/20 08:36 Dose: 5 mg Documented by: Aspirin (Aspirin 81 Mg) 81 mg PO DAILY [facility] Last Admin: 07/08/20 08:35 Dose: 81 mg Documented by: Calcium Carbonate/Glycine (Calcium Carbonate 500 Mg Chewable) 500 mg PO DAILY [facility] Last Admin: 07/08/20 08:35 Dose: 500 mg Documented by: Cholecalciferol (Cholecalciferol 25 Mcg (1000 Iu) Tablet) 25 mcg PO DAILY [facility] Last Admin: 07/08/20 08:36 Dose: 25 mcg Documented by: Gabapentin (Gabapentin 100 Mg Cap) 200 mg PO QID [facility] Last Admin: 07/08/20 12:55 Dose: 200 mg Documented by: Piperacillin Sod/Tazobactam (Sod 3.375 gm/ Sodium Chloride) 100 mls @ 25 mls/hr IVPB Q8H [facility] Last Admin: 07/08/20 15:17 Dose: 25 mls/hr Documented by: Vancomycin HCl 1,250 mg/ (Sodium Chloride) 250 mls @ 125 mls/hr IVPB Q18H [facility] Last Admin: 07/08/20 05:17 Dose: 125 mls/hr Documented by: Ibuprofen (Ibuprofen 400 Mg Tab) 400 mg PO Q6HR PRN PRN Reason: Mild Pain or Fever > 100.5 Lactulose (Lactulose 20 Gm/30 Ml Cup) 20 gm PO DAILY PRN PRN Reason: Constipation Last Admin: 07/07/20 17:09 Dose: 20 gm Documented by: Lidocaine (Lidocaine 5% Patch) 1 patch TOPICAL DAILY PRN PRN Reason: Pain Last Admin: 07/07/20 07:52 Dose: 1 patch Documented by: Miscellaneous Information (Vancomycin Trough Due 1 Each Misc) 0 each MISCELLANE DIRECTED ONE Stop: 07/08/20 23:01 Naloxone HCl (Naloxone 0.4 Mg/Ml 1 Ml Vial) 0.2 mg IV Q2M PRN PRN Reason: Opioid Reversal Ondansetron HCl (Ondansetron 4 Mg/2 Ml Vial) 4 mg IVP Q4HR PRN PRN Reason: Nausea And Vomiting Last Admin: 07/06/20 18:26 Dose: 4 mg Documented by: Pantoprazole Sodium (Pantoprazole 40 Mg Tablet) 40 mg PO AC-BRKFST [facility] Last Admin: 07/08/20 07:42 Dose: 40 mg Documented by: Senna/Docusate Sodium (Sennosides-Docusate Sodium 1 Each Tab) 1 - 2 each PO DAILY PRN PRN Reason: Constipation Last Admin: 07/07/20 13:16 Dose: 2 each Documented by: Past medical history to include: Osteoarthritis, varicose veins, skin cancer, diffuse large B-cell lymphoma on chemotherapy, pancytopenia Social history: History of smoking. Alcohol occasionally. . Physical examination: VITAL SIGNS: 98.3, 78, 16, 1 45 x 68, 96% room air GENERAL: BMI 27.4, laying in bed, comfortable EYES: Pupils equal. Conjunctiva normal. NECK: JVD not raised; masses not palpable. HEART: First and second heart sounds are normal; no edema. LUNGS: Respiratory rate normal; clear to auscultation. ABDOMEN: Soft, nontender, liver spleen not palpable, no masses palpable. PSYCH: Alert and oriented x3; mood and affect normal. EXTREMITIES: Right forearm on the ventral surface area of raised tenderness increased local temperature MUSCULOSKELETAL: Evidence of OA especially in the hands. INVESTIGATIONS, reviewed in the clinical context: July 08: WBC 12.94 hemoglobin 6.6 platelets 183 potassium 3.3 LDH 968 July 07: WBC 19.1 hemoglobin 7.2 platelets 212 potassium 3.5 creatinine 0.88 WBC 25.3 hemoglobin 7.6 platelets 235 potassium 3.1 creatinine 0.9 to lactic acid 3.7 albumin 3.1 UA negative Coronavirus [PCR]-not detected EKG tracing personally reviewed by me-normal sinus rhythm, poor R-wave progression Assessment and plan: -This is a patient had chemotherapy 2 days ago presents with fever vomiting. She states she gets this anytime she gets her chemotherapy. Denies any obvious urinary or respiratory symptoms. Positive lactic acid. Possible sepsis Empirically put on IV vancomycin and IV Zosyn. Blood cultures pending. IV fluids -Diffuse large B cell lymphoma-status post R-CHOP Patient be followed by Dr. Nguyen from [facility] -Possibility of cellulitis/localized abscess on the right forearm and an IV injection site., POA [employer] surgery. Warm compress -Normocytic anemia secondary to underlying lymphoma, and some worsening from chemotherapy Transfuse 1 unit of blood, today -Primary osteoarthritis Use pain medications as needed -Mild Hyponatremia Increase oral intake -Mild hypokalemia, from vomiting Replace potassium Continue with current antibiotic. Warm compress to the right forearm. surgery consulted. Transfuse 1 unit of blood. Repeat CBC.
--- NOTE | 2020-07-08 19:31 | P.GSCN ---
History of Present Illness Consult date: 07/08/20 History of present illness: CHIEF COMPLAINT: Cellulitis HISTORY OF PRESENT ILLNESS: The patient is a 75 year old female who comes in hematological cancer, B cell lymphoma. She reports developing redness along the right medial aspect of the forearm for 2 days which she has treated with cold compress. The area is tender to touch. She does not want surgery. General surgery is consulted for localized subcutaneous cellulitis. PAST MEDICAL HISTORY: See list and reviewed PAST SURGICAL HISTORY: See list and reviewed MEDICATIONS: See list and reviewed ALLERGIES: See list and reviewed SOCIAL HISTORY: See list and reviewed FAMILY HISTORY: See list and reviewed REVIEW OF ORGAN SYSTEMS: CONSTITUTIONAL: No fevers or chills. No recent weight loss. EYES: Denies any trouble with vision. No glasses. HEENT: No difficulties with hearing. No nosebleeds. No difficulty swallowing. RESPIRATORY: Denies pneumonia. Past pulmonary embolism. CARDIOVASCULAR: Denies any chest pain, palpitations, or recent heart attacks. Has hyperlipidemia. Has hypertension. GASTROINTESTINAL: Has gastroesophageal reflux disease. Has constipation. Has gastritis. GENITOURINARY: Denies any blood in urine or increased urinary frequency. NEUROLOGICAL: Has numbness or tingling along the distal extremities. No seizure disorders or headaches. History of shingles. MUSCULOSKELETAL: Has back pain, stiffness or joint arthritis. Has gout. SKIN: No current skin cancer. No rash. PSYCHIATRIC: Denies current depression or suicidal thoughts. ENDOCRINE: Denies current thyroid disorders. Denies any blood sugar glucose intolerance. HEME/LYMPHATIC: Past pulmonary embolism. On blood thinners. Has B-cell lymphoma. ALLERGY/IMMUNOLOGY: History of chemotherapy for B-cell lymphoma. BREAST: Past breast lumps, pain. PHYSICAL EXAM: VITALS: Reviewed CONSTITUTIONAL: Well developed and in no acute distress. EYES: Conjuctivae without sclera icterus. Extraocular movements grossly intact. HEAD, EARS, NOSE, THROAT: Moist buccal mucosa. Head is atraumatic, normocephalic. Hears conversational speech. No nasal drainage. NECK: Supple. No JV distention. No thyroidomegaly. RESPIRATORY: Non-labored respirations and equal bilateral excursions. No gross wheezes. CARDIOVASCULAR: Extremities without moderate edema. Palpable 2+ radial pulses. ABDOMEN: No peritonitis. Non-distended. MUSCULOSKELETAL: Nail and fingers with good capillary refill. SKIN: Warm and well perfused with good skin turgor. 3 cm erythematous nodule right medial aspect of the arm NEUROLOGIC: Cranial nerves II through XII grossly intact. No focal or lateralizing signs. PSYCH: Alert and oriented to person, place and time. Displays appropriate insight. CLINCAL LABS: Reviewed. WBC done from over 19,000 to over 12,000 with leukocytosis. Potassium low 3.3. ASSESSMENT: 1. Right forearm cellulitis 2. B-cell lymphoma PLAN: 1. She is not seeking surgery. 2. Recommend conservative management. 3. Recommend warm compresses to allow spontaneous drainage and to improve pain. Thank you for this kind consultation. Past Medical History Past Medical History: Cancer, Hyperlipidemia, Hypertension, Osteoarthritis (OA), Pulmonary Embolus (PE) Additional Past Medical History / Comment(s): Pt recently admitted to [facility] on 06/15/20 with fever 2ndary to B cell lymphoma/bilateral PEs, gastritis, hyponatremia, hypokalmia, hypoalbuminemia. Other hx: DLBCL with extensive involvement especially in diaphragm diagnosed 01/2019 with chemo, cologard positive for malignant DNA which led to colonoscopy-descending colon mass found/mesenteric masses/biopsied and diagnosed with DLBC, thrush after chemo tx, intermittent confusion/cognitive problems recently but pt at baseline at this time, shingelles healed but still has nerve pain back/breast, anemia, leaky heart valve, skin cancer with removal, hemorrhoids. History of Any Multi-Drug Resistant Organisms: None Reported Past Surgical History: Breast Surgery, Joint Replacement, Orthopedic Surgery, Tubal Ligation Additional Past Surgical History / Comment(s): L arm Picc line, colonoscopies/benign polypectomies, skin cancer removed from R arm, total L knee arthroplasty, R foot bunionectomy/mortons neuroma removed/heel spur sx and R foot fx with screw, R breast benign bx, bilateral cataract removals/lens implants. Past Anesthesia/Blood Transfusion Reactions: Previous Problems w/ Anesthesia, Family History of Problems w/ Anesthesia Additional Past Anesthesia/Blood Transfusion Reaction / Comm: Had reaction to anesthesia that effected breathing after tubal ligation-not sure exactly what happened-was in ICU after. Sisters had reaction to anesthesia medication-not sure what Smoking Status: Never smoker - Past Family History Sister(s) Family Medical History: Cancer Additional Family Medical History / Comment(s): Colon CA. Pt has several sibli ngs (16) and only 3 out of the 16 do not have diabetes. Mother Family Medical History: No Reported History Additional Family Medical History / Comment(s): Mother was healthy Father Family Medical History: Coronary Artery Disease (CAD), Diabetes Mellitus, Myocardial Infarction (TX) Additional Family Medical History / Comment(s): Father had TX at age 48yrs. Medications and Allergies Home Medications Medication Instructions Recorded Confirmed Type Cholecalciferol [Vitamin D3 (25 25 mcg PO DAILY 09/04/17 07/05/20 History Mcg = 1000 Iu)] Glucosam/Ambrosio-Msm1/C/Tiburcio/Bosw 1 tab PO DAILY 09/04/17 07/05/20 History [Glucosamine-Chondroitin Tablet] Lidocaine 5% Patch [Lidoderm 5% 1 patch TOPICAL DAILY PRN 06/04/19 07/05/20 His tory Patch] Pantoprazole [Protonix] 40 mg PO DAILY 08/08/19 07/05/20 History Aspirin EC [Ecotrin Low Dose] 81 mg PO DAILY 06/14/20 07/05/20 History Calcium Carbonate [Calcium] 600 mg PO DAILY 06/14/20 07/05/20 History Ondansetron Odt [Zofran ODT] 8 mg PO Q8HR PRN 06/14/20 07/05/20 History allopurinoL [Zyloprim] 300 mg PO DAILY 06/14/20 07/05/20 History Acyclovir 800 mg PO BID #60 tab 06/16/20 07/05/20 Rx Apixaban [Eliquis] 5 mg PO BID 07/05/20 07/05/20 History Sennosides/Docusate Sodium 1 - 2 tab PO DAILY PRN 07/05/20 07/05/20 History [Senna-S 8.6-50 mg Tablet] Acetaminophen Tab [Tylenol] 650 mg PO Q6HR PRN tab 07/09/20 Rx Amoxicillin/Potassium Clav 1 tab PO Q12HR #12 tab 07/09/20 Rx [Augmentin 875-125 Tablet] Doxycycline [Vibramycin] 100 mg PO BID #14 capsule 07/09/20 Rx Gabapentin [Neurontin] 200 mg PO TID #0 07/09/20 07/05/20 Rx Allergies Allergy/AdvReac Type Severity Reaction Status Date / Time No Known Allergies Allergy Verified 07/05/20 23:04 Surgical - Exam Vital Signs Temp Pulse Resp BP Pulse Ox 98.2 F 106 H 18 130/60 96 07/05/20 19:40 07/05/20 19:40 07/05/20 19:40 07/05/20 19:40 07/05/20 19:40 Results - Labs 07/09/20 04:54 07/09/20 04:54 Abnormal Lab Results - Last 24 Hours (Table) 07/08/20 07/08/20 07/08/20 Range/Units 05:54 05:54 11:34 WBC 12.94 H (4.50-10.00) X 10*3/uL RBC 2.11 L (4.10-5.20) X 10*6/uL Hgb 6.6 L* (12.0-15.0) g/dL Hct 21.0 L (37.2-46.3) % MCV 99.5 H (80.0-97.0) fL MCHC 31.4 L (32.0-37.0) g/dL RDW 23.8 H (11.5-14.5) % Neutrophils # (Manual) 12.42 H (2.00-8.90) X 10*3/uL Lymphocytes # (Manual) 0.13 L (0.90-5.00) X 10*3/uL Monocytes # (Manual) 0 L (0.20-1.00) X 10*3/uL Basophils # (Manual) 0.13 H (0.00-0.10) X 10*3/uL Potassium 3.3 L (3.5-5.1) mmol/L Chloride 108 H (98-107) mmol/L Uric Acid 3.0 L (3.7-7.4) mg/dL Lactate Dehydrogenase 968 H (313-618) U/L Total Protein 4.4 L (6.3-8.2) g/dL Albumin 2.5 L (3.5-5.0) g/dL Crossmatch See Detail Microbiology - Last 24 Hours (Table) 07/05/20 20:20 Blood Culture - Preliminary Blood No Growth after 48 hours 07/05/20 20:02 Blood Culture - Preliminary Blood No Growth after 48 hours Diabetes panel 07/08/20 Range/Units 05:54 Sodium 138 (137-145) mmol/L Potassium 3.3 L (3.5-5.1) mmol/L Chloride 108 H (98-107) mmol/L Carbon Dioxide 23 (22-30) mmol/L BUN 10 (7-17) mg/dL Creatinine 0.82 (0.52-1.04) mg/dL Glucose 85 (74-99) mg/dL Calcium 8.7 (8.4-10.2) mg/dL AST 36 (14-36) U/L ALT 18 (4-34) U/L Alkaline Phosphatase 113 (38-126) U/L Total Protein 4.4 L (6.3-8.2) g/dL Albumin 2.5 L (3.5-5.0) g/dL Calcium panel 07/08/20 Range/Units 05:54 Calcium 8.7 (8.4-10.2) mg/dL Phosphorus 3.3 (2.5-4.5) mg/dL Albumin 2.5 L (3.5-5.0) g/dL Pituitary panel 07/08/20 Range/Units 05:54 Sodium 138 (137-145) mmol/L Potassium 3.3 L (3.5-5.1) mmol/L Chloride 108 H (98-107) mmol/L Carbon Dioxide 23 (22-30) mmol/L BUN 10 (7-17) mg/dL Creatinine 0.82 (0.52-1.04) mg/dL Glucose 85 (74-99) mg/dL Calcium 8.7 (8.4-10.2) mg/dL Adrenal panel 07/08/20 Range/Units 05:54 Sodium 138 (137-145) mmol/L Potassium 3.3 L (3.5-5.1) mmol/L Chloride 108 H (98-107) mmol/L Carbon Dioxide 23 (22-30) mmol/L BUN 10 (7-17) mg/dL Creatinine 0.82 (0.52-1.04) mg/dL Glucose 85 (74-99) mg/dL Calcium 8.7 (8.4-10.2) mg/dL Total Bilirubin 0.3 (0.2-1.3) mg/dL AST 36 (14-36) U/L ALT 18 (4-34) U/L Alkaline Phosphatase 113 (38-126) U/L Total Protein 4.4 L (6.3-8.2) g/dL Albumin 2.5 L (3.5-5.0) g/dL Assessment and Plan (1) Anemia aplastic aregenerative Status: Acute Code(s): D61.9 - APLASTIC ANEMIA, UNSPECIFIED SNOMED Code(s): 08508335 (2) Cellulitis Status: Acute Code(s): L03.90 - CELLULITIS, UNSPECIFIED SNOMED Code(s): 255206693 (3) Hypokalemia Status: Acute Code(s): E87.6 - HYPOKALEMIA SNOMED Code(s): 54388160 (4) Leukocytosis Status: Acute Code(s): D72.829 - ELEVATED WHITE BLOOD CELL COUNT, UNSPECIFIED SNOMED Code(s): 024558883 (5) DLBCL (diffuse large B cell lymphoma) Status: Chronic Priority: High Code(s): C83.30 - DIFFUSE LARGE B-CELL LYMPHOMA, UNSPECIFIED SITE SNOMED Code(s): 866889357
[2020-07-08] MEDS ORDERED: VANCOMYCIN TROUGH DUE 1 EACH MISC MISCELLANE ONE (23:00)
[2020-07-09 05:56] LABS: Anisocytosis Moderate; Basophils % (A) 0 %; Eosinophils # (A) 0.4 k/uL (0-0.7); Eosinophils % (A) 4 %; Lymphocytes # (A) 0.3 k/uL (1.0-4.8); Lymphocytes % (A) 3 %; MCH 31.9 pg (25.0-35.0); MCHC 33.3 g/dL (31.0-37.0); MCV 95.9 fL (80.0-100.0); Macrocytosis Slight; Mean Platelet Volume 7.5; Monocytes # (A) 0.2 k/uL (0-1.0); Monocytes % (A) 2 %; Neutrophils % (A) 90 %; Platelet Count 174 k/uL (150-450); RDW 21.5 % (11.5-15.5)
[2020-07-09] MEDS: PIPERACILLIN-TAZOBACTAM 3.375 GM in SODIUM CHLORIDE 0.9% 100 ML IVPB SCH (07:03)
[2020-07-09] MEDS: PANTOPRAZOLE 40 MG TABLET PO SCH (07:03)
[2020-07-09 07:54] VITALS: RESP 17; TEMP 99.1
[2020-07-09] MEDS: ASPIRIN 81 MG PO SCH (08:17)
[2020-07-09] MEDS: CALCIUM CARBONATE 500 MG CHEWABLE PO SCH (08:17)
[2020-07-09] MEDS: GABAPENTIN 100 MG CAP PO SCH (08:17)
[2020-07-09] MEDS: CHOLECALCIFEROL 25 MCG (1000 IU) TABLET PO SCH (08:17)
[2020-07-09] MEDS: ACYCLOVIR 800 MG TAB PO SCH (08:17)
[2020-07-09] MEDS: allopurinoL 300 MG TAB PO SCH (08:17)
[2020-07-09] MEDS: APIXABAN 5 MG TAB PO SCH (08:17)
[2020-07-09] MEDS: ONDANSETRON 4 MG/2 ML VIAL IVP PRN (09:25)
[2020-07-09 09:42] VITALS: BP 136/79; PULSE 59
--- NOTE | 2020-07-09 10:50 | P.PN ---
Subjective Progress Note Date: 07/09/20 Principal diagnosis: Lymphoma - Refractory and progressive Feeling better after PRBC transfusion yesterday. Her Bloodcounts have improved. Surgery evaluated for right arm phlebitis, agree warm compresses. Defer central line placement to Dr. Flood. She has family wedding this weekend and planning to restart chemo the following week. Objective - Vital Signs Vital signs: Vital Signs Temp 99.1 F 07/09/20 07:53 Pulse 59 L 07/09/20 09:40 Resp 17 07/09/20 07:53 BP 136/79 07/09/20 09:40 Pulse Ox 96 07/09/20 07:53 Intake & Output 07/08/20 07/09/20 07/09/20 18:59 06:59 18:59 Intake Total 610 236 Balance 610 236 Intake: Oral 300 236 Blood Product 310 Rc As-1 Unit 310 [id number] Other: Voiding Method Toilet Toilet # Voids 1 2 # Emeses 2 - Exam Assessment: - Constitutional General appearance: average body habitus, cooperative, no acute distress - EENT Eyes: anicteric sclerae, EOMI ENT: hearing grossly normal, normal oropharynx - Neck Neck: no lymphadenopathy - Respiratory Respiratory: bilateral: CTA - Cardiovascular Rhythm: regular Heart sounds: normal: S1, S2 leg Peripheral Edema: bilateral: None - Gastrointestinal General gastrointestinal: more distended and tender. - Integumentary Integumentary: normal - Neurologic Neurologic: CNII-XII intact - Musculoskeletal Musculoskeletal: strength equal bilaterally - Psychiatric Psychiatric: A&O x's 2, appropriate affect, intact judgment & insight - Labs CBC & Chem 7: 07/09/20 04:54 07/08/20 05:54 Labs: Abnormal Lab Results - Last 24 Hours (Table) 07/08/20 07/08/20 07/09/20 Range/Units 05:54 11:34 04:54 WBC 12.94 H (4.50-10.00) X 10*3/uL RBC 2.11 L 2.50 L (4.10-5.20) X 10*6/uL Hgb 6.6 L* 8.0 L (12.0-15.0) g/dL Hct 21.0 L 24.0 L (37.2-46.3) % MCV 99.5 H (80.0-97.0) fL MCHC 31.4 L (32.0-37.0) g/dL RDW 23.8 H 21.5 H (11.5-14.5) % Neutrophils # 9.0 H (1.3-7.7) k/uL Neutrophils # (Manual) 12.42 H (2.00-8.90) X 10*3/uL Lymphocytes # 0.3 L (1.0-4.8) k/uL Lymphocytes # (Manual) 0.13 L (0.90-5.00) X 10*3/uL Monocytes # (Manual) 0 L (0.20-1.00) X 10*3/uL Basophils # (Manual) 0.13 H (0.00-0.10) X 10*3/uL Crossmatch See Detail Microbiology - Last 24 Hours (Table) 07/05/20 20:02 Blood Culture - Preliminary Blood No Growth after 72 hours 07/05/20 20:20 Blood Culture - Preliminary Blood No Growth after 72 hours Assessment and Plan Plan: Assessment and Plan (1) Normocytic anemia Current Visit: Yes Status: Acute Code(s): D64.9 - ANEMIA, UNSPECIFIED SNO MED Code(s): 842407716 (2) Fever Current Visit: Yes Status: Acute Priority: Medium Code(s): R50.9 - FEVER, UNSPECIFIED SNOMED Code(s): 009428906 (3) DLBCL (diffuse large B cell lymphoma) Current Visit: Yes Status: Chronic Priority: High Code(s): C83.30 - DIFFUSE LARGE B-CELL LYMPHOMA, UNSPECIFIED SITE SNOMED Code(s): 590787778 Plan: Anemia: - Status post PRBC 07/08, hemoglobin 8 today - Recheck CBC in am - Transfuse less than 7. Non-Hodgkins Lymphoma: Progressive Disease - Many lines of treatment with most recent progression May of 2020 -Status post salvage chemo with Dr. [facility] at [facility] for next line - She did receive neulasta Bilateral Pulmonary EmboliRecent May 2020 -COntinue ac therapy as long as platelets greater than 50K Cellulitis/Fevers - Abx Abdominal Pain/Nausea - No obstruction - Imroved - Likely secondary to chemo Leukocytosis: - Growth factor and infection: Ok for discharge from oncology standpoint Follow up with Dr. Flood to resume chemo and for central line recommendations Warm Compresses to right Forearm
[2020-07-09 12:14] LABS: African American GFR (CKD) 83.6 (60.0-200.0); Anion Gap 11.9 mmol/L (4.00-12.00); BUN/Creat Ratio 8.75 Ratio (12.00-20.00); Calcium 8.5 mg/dL (8.7-10.3); Carbon Dioxide 23.1 mmol/L (21.6-31.8); Globulin 1.5 g/dL (1.6-3.3); Non-African American GFR(CKD) 72.1 (60.0-200.0); Potassium 3.2 mmol/L (3.5-5.5); Total Bilirubin 0.3 mg/dL (0.2-1.2); Total Protein 4.5 g/dL (6.2-8.2)
--- NOTE | 2020-07-09 16:55 | P.DS ---
Providers Date of admission: 07/07/20 08:56 Expected date of discharge: 07/09/20 Attending physician: aMrk Prabhakar Consults: 07/06/20 12:09 Consult Physician Routine Consulting Provider: Lico Hdez Consult Reason/Comments: lymphoma Do you want consulting provider notified?: Yes 07/08/20 10:39 Consult Physician Routine Consulting Provider: Selam Powers Consult Reason/Comments: R arm abscess Do you want consulting provider notified?: Yes Primary care physician: Corinne Quintero [facility] Course: Chief Complaint: Fever History of presenting complaint: This is a very pleasant 75-year-old patient who follows with Dr. Bonnie Quintero. Oncologist is carri Wong [facility]. Has a diagnosis of diffuse large B cell lymphoma. Patient has received cycles of R-CHOP. Patient subsequently had progression of the disease. No getting further chemotherapy. Last chemotherapy finished 3 days ago on Monday. Following day p atient started awake having fevers vomiting slight cough. Denied any shortness of breath slight cough. No urinary symptoms. Denies diarrhea. Admitted with fever. Empirically started on cefepime and vancomycin. Sepsis with lactic acidosis. Area of small abscess and cellulitis in the right forearm. Warm compress was started. Seen by general surgery. Did not feel the need for IND Today: Feeling better. No fever no chills. Area of right arm cellulitis is decreasing with warm compress. Discussed with the patient. Very keen to go home. Told the patient to have a light diet. We will doxycycline and change the patient over to Augmentin. Blood cultures negative Discussion and discharge planning more than 35 minutes Consultation: Dr. Hdez from oncology Dr. Barahona from general surgery Past medical history to include: Osteoarthritis, varicose veins, skin cancer, diffuse large B-cell lymphoma on chemotherapy, pancytopenia Social history: History of smoking. Alcohol occasionally. . Physical examination: VITAL SIGNS: 99.1, 80, 17, 136.79, 96% room air GENERAL: Sitting up in bed comfortable EYES: Pupils equal. Conjunctiva normal. NECK: JVD not raised; masses not palpable. HEART: First and second heart sounds are normal; no edema. LUNGS: Respiratory rate normal; clear to auscultation. ABDOMEN: Soft, nontender, liver spleen not palpable, no masses palpable. PSYCH: Alert and oriented x3; mood and affect normal. EXTREMITIES: Right forearm on the ventral surface area of raised tenderness- improving MUSCULOSKELETAL: Evidence of OA especially in the hands. INVESTIGATIONS, reviewed in the clinical context: July 09: WBC 10 hemoglobin 8 platelets 174 creatinine 0.8 July 08: WBC 12.94 hemoglobin 6.6 platelets 183 potassium 3.3 LDH 968 July 07: WBC 19.1 hemoglobin 7.2 platelets 212 potassium 3.5 creatinine 0.88 WBC 25.3 hemoglobin 7.6 platelets 235 potassium 3.1 creatinine 0.9 to lactic acid 3.7 albumin 3.1 UA negative Coronavirus [PCR]-not detected EKG tracing personally reviewed by me-normal sinus rhythm, poor R-wave progression Assessment and plan: -Possible sepsis lactic acidosis. No source of infection found. Empirically put on IV vancomycin and IV Zosyn. Blood cultures negative. IV fluids. Changed over to Augmentin and doxycycline for the right arm cellulitis. -Diffuse large B cell lymphoma-status post R-CHOP Patient be followed by Dr. Nguyen from [facility] [place] -Possibility of cellulitis/l on the right forearm and an IV injection site.,- Improving Emergency Dispatch Operator Gen. surgery-not for any intervention. Continue with warm compress and added doxycycline -Normocytic anemia secondary to underlying lymphoma, and some worsening from chemotherapy Transfuse 1 unit of blood, hemoglobin which had dropped to 6.6 came up to 8 -Primary osteoarthritis Use pain medications as needed -Mild Hyponatremia Increase oral intake -Mild hypokalemia, from vomiting Replace potassium Disposition: Home Outpatient follow-up of labs Plan - Discharge Summary Discharge Rx Participant: No New Discharge Prescriptions: New Amoxicillin/Potassium Clav [Augmentin 875-125 Tablet] 1 tab PO Q12HR #12 tab Acetaminophen Tab [Tylenol] 650 mg PO Q6HR PRN tab PRN Reason: Mild Pain Or Fever > 100.5 Doxycycline [Vibramycin] 100 mg PO BID #14 capsule Continue Glucosam/Ambrosio-Msm1/C/Tiburcio/Bosw [Glucosamine-Chondroitin Tablet] 1 tab PO DAILY Cholecalciferol [Vitamin D3 (25 Mcg = 1000 Iu)] 25 mcg PO DAILY Lidocaine 5% Patch [Lidoderm 5% Patch] 1 patch TOPICAL DAILY PRN PRN Reason: Pain Pantoprazole [Protonix] 40 mg PO DAILY Ondansetron Odt [Zofran ODT] 8 mg PO Q8HR PRN PRN Reason: Nausea And Vomiting Calcium Carbonate [Calcium] 600 mg PO DAILY Acyclovir 800 mg PO BID #60 tab Sennosides/Docusate Sodium [Senna-S 8.6-50 mg Tablet] 1 - 2 tab PO DAILY PRN PRN Reason: Constipation Aspirin EC [Ecotrin Low Dose] 81 mg PO DAILY allopurinoL [Zyloprim] 300 mg PO DAILY Apixaban [Eliquis] 5 mg PO BID Changed Gabapentin [Neurontin] 200 mg PO TID #0 Discontinued Sulfamethoxazole/Trimethoprim [Bactrim DS 800-160 mg] 1 tab PO MOWEFR Cephalexin [Keflex] 500 mg PO TID Discharge Medication List Cholecalciferol [Vitamin D3 (25 Mcg = 1000 Iu)] 25 mcg PO DAILY 09/04/17 [History] Glucosam/Ambrosio-Msm1/C/Tiburcio/Bosw [Glucosamine-Chondroitin Tablet] 1 tab PO DAILY 09/04/17 [History] Lidocaine 5% Patch [Lidoderm 5% Patch] 1 patch TOPICAL DAILY PRN 06/04/19 [History] Pantoprazole [Protonix] 40 mg PO DAILY 08/08/19 [History] Aspirin EC [Ecotrin Low Dose] 81 mg PO DAILY 06/14/20 [History] Calcium Carbonate [Calcium] 600 mg PO DAILY 06/14/20 [History] Ondansetron Odt [Zofran ODT] 8 mg PO Q8HR PRN 06/14/20 [History] allopurinoL [Zyloprim] 300 mg PO DAILY 06/14/20 [History] Acyclovir 800 mg PO BID #60 tab 06/16/20 [Rx] Apixaban [Eliquis] 5 mg PO BID 07/05/20 [History] Sennosides/Docusate Sodium [Senna-S 8.6-50 mg Tablet] 1 - 2 tab PO DAILY PRN 07/05/20 [History] Acetaminophen Tab [Tylenol] 650 mg PO Q6HR PRN tab 07/09/20 [Rx] Amoxicillin/Potassium Clav [Augmentin 875-125 Tablet] 1 tab PO Q12HR #12 tab 07/09/20 [Rx] Doxycycline [Vibramycin] 100 mg PO BID #14 capsule 07/09/20 [Rx] Gabapentin [Neurontin] 200 mg PO TID #0 07/09/20 [Rx] Follow up Appointment(s)/Referral(s): Corinne Quintero MD [Primary Care Provider] - 1-2 days Kike Spangler MD [STAFF PHYSICIAN] - 07/14/20 2:30 pm Patient Instructions/Handouts: Cellulitis (DC), Acute Nausea and Vomiting (DC), Leukocytosis (DC) Activity/Diet/Wound Care/Special Instructions: warm compress ro right forearm qid
== END 2020-07-09 12:48 | disposition home or self-care (01) | DRG 872 ==
LOC: EC 19:39 → 5NMEDONC 22:36 → 6NMEDSUR 07-06 18:41 → OBSVTOIN 07-07 08:56
PROVIDERS: ADMIT Hospitalist; ATTEND Hospitalist
PROC: 30233N1 Transfusion of Nonautologous Red Blood Cells into Peripheral Vein, Percutaneous Approach (ICD-10-PCS; principal; 2020-07-08)
DX: A41.9 Sepsis, unspecified organism (principal); E87.2 Acidosis; C83.32 Diffuse large B-cell lymphoma, intrathoracic lymph nodes; E87.1 Hypo-osmolality and hyponatremia; L02.413 Cutaneous abscess of right upper limb; L03.113 Cellulitis of right upper limb; B02.29 Other postherpetic nervous system involvement; Z20.822 Contact with and (suspected) exposure to COVID-19; E88.09 Other disorders of plasma-protein metabolism, not elsewhere classified; D64.81 Anemia due to antineoplastic chemotherapy; T45.1X5A Adverse effect of antineoplastic and immunosuppressive drugs, initial encounter; E78.5 Hyperlipidemia, unspecified; E87.6 Hypokalemia; I10 Essential (primary) hypertension; I83.90 Asymptomatic varicose veins of unspecified lower extremity; K29.70 Gastritis, unspecified, without bleeding; M19.91 Primary osteoarthritis, unspecified site; Z79.01 Long term (current) use of anticoagulants; Z79.82 Long term (current) use of aspirin; Z79.899 Other long term (current) drug therapy; Z86.19 Personal history of other infectious and parasitic diseases; Z85.828 Personal history of other malignant neoplasm of skin; Z98.51 Tubal ligation status; Z96.652 Presence of left artificial knee joint; Z87.39 Personal history of other diseases of the musculoskeletal system and connective tissue; Z98.42 Cataract extraction status, left eye; Z98.41 Cataract extraction status, right eye; Z96.1 Presence of intraocular lens; Z87.19 Personal history of other diseases of the digestive system; Z87.2 Personal history of diseases of the skin and subcutaneous tissue; Z86.010 Personal history of colon polyps; Z86.711 Personal history of pulmonary embolism; Z98.890 Other specified postprocedural states; Z83.3 Family history of diabetes mellitus; Z80.0 Family history of malignant neoplasm of digestive organs; Z82.49 Family history of ischemic heart disease and other diseases of the circulatory system
CPT/HCPCS: 36415; 71046; 80048; 80053; 80202; 81003; 83605; 83615; 83735; 84100; 84550; 85025; 85610; 85730; 86850; 86900; 86901; 86920; 87040; 87635; 93005; 94760; 99285